=== PATIENT | female | born 1950 | race Caucasian/White ===

== ENCOUNTER 2017-08-01 05:50 | Day surgery (SDC) | payer MEDICARE, OTHER ==
[~2017-08-01] VITALS: Ht 162.6 cm; Wt 76.2 kg
[~2017-08-01 05:50] MED LIST: ALPHA LIPOIC A200 MG PO; ASPIR 8181 MG PO; ASPIRIN81 MG PO; B12; BACTRIM DS TAB1 EACH PO; CALCIUM + VITA1 EACH PO; CIPROFLOXACIN500 MG PO; CYANOCOBAL1000 MCG/M IM; DOCUSATE SODIU100 MG PO; FOLIC ACID1 MG PO; KEFLEX500 MG PO; KETOROLAC TROME10 MG PO; L-ARGININE1000 MG PO; LEVOTHYROXINE50 MCG PO; METAMUCIL PACK1 EACH PO; METFORMIN HCL1000 MG PO; MILK OF MA400 MG/5 M PO; MULTI VITAMIN1 EACH PO; MULTI-VITAMIN1 EACH PO; NORCO 5-325 TA1 EACH PO; PILOCARPINE HCL5 MG PO; VITAMIN D3400 UNIT PO; ZOFRAN ODT8 MG SL; ZOFRAN4 MG PO; ZOLOFT25 MG PO
--- NOTE | 2017-08-01 10:29 | NUR ---
08/01/17 1028 Paige Merino report from rotoprinter.
--- NOTE | 2017-08-16 14:43 | OR ---
[facility] [address], [place] [address] Signed DATE OF OPERATION: 08/01/2017 SURGEON: Tabatha Mike DPM PREOPERATIVE DIAGNOSIS: Exostosis formation, right first metatarsophalangeal joint. POSTOPERATIVE DIAGNOSIS: Exostosis formation, right first metatarsophalangeal joint. PROCEDURE: Cheilectomy of the right first metatarsophalangeal joint. HOME SERVICE ADVISOR: Juventino Kirkland DPM. ANESTHESIA: Local with MAC consisting of 10 mL of 0.5% ropivacaine and 2% lidocaine plain injected about the fifth metatarsal. ANESTHESIOLOGIST: Nurse senior software quality analyst, Abiola Hurley. HEMOSTASIS: With an ankle tourniquet. ESTIMATED BLOOD LOSS: Less than 5 mL or minimal. MATERIALS UTILIZED: 3-0 Vicryl, 4-0 Vicryl, 5-0 nylon, and bone wax. PROCEDURE IN DETAIL: The patient was brought into the operating room and placed upon the operating table in the supine position. Following the IV sedation, the above local anesthesia was administered about the patient's right first metatarsophalangeal joint region. The right foot was then scrubbed, prepped, and draped in the usual sterile technique. An Esmarch bandage was then utilized to exsanguinate the right foot and then left wrapped around the ankle to act as tourniquet. Attention was then directed to the dorsal aspect of the first metatarsophalangeal joint, where approximately a 5 cm linear incision was Electronically Signed By: TABATHA MIKE DPM 08/16/17 1443 PATIENT NAME: CHERIE RIDER OPERATIVE REPORT DATE OF : 48 PHYSICIAN: TABATHA MIKE DPM REPORT #: [id number] REPORT IS CONFIDENTIAL AND NOT TO BE RELEASED WITHOUT AUTHORIZATION [facility] [address], [place] [address] Signed performed, both parallel and medial to the tendon on the extensor hallucis longus. Careful dissection through the subcutaneous tissue was then performed with care being taken to identify and retract the vital neurovascular structures. Bleeders were cauterized and ligated as necessary. Careful dissection continued down to the level of the joint capsule, where utilizing a #64 Pic[place]une blade, a linear capsulotomy was performed and the joint capsule was reflected both medially and laterally, thus exposed the near articular surface of the operative site. It should be noted at this time that exostosis formation or increased bony prominence was noted on the dorsomedial aspect of the first metatarsal head region and also adjacent base of the proximal phalanx. Sagittal saw was then utilized to reduce the bony hypertrophic area. Normal bone trabeculation and normal bone density was observed. Lightly feathering and tapering of the osteotomy was performed also with the sagittal saw in a brushing motion. Rongeur was utilized to also remove some hypertrophic bone on the base of the middle phalanx in conjunction with the sagittal saw removing the portion of hypertrophic bone directly dorsal. Area was flushed with copious amounts of sterile normal saline. Bone wax was then utilized to cover the raw areas of the bone. First MTPJ was put through range of motion and found to be ideal. Inspection of the articular surface found majority of the articular cartilage intact and in healthy standing with some small defect noted on the dorsolateral aspect, however, this appeared to be somewhat minor. The joint capsule was then closed utilizing 3-0 Vicryl, the subcutaneous tissue was then closed utilizing the 4-0 Vicryl, and the skin was reapproximated and coapted utilizing 5-0 nylon in a continuous interlocking suture technique. Postoperative injection consisting of 5 mL of 0.5% ropivacaine mixed with 1 mL of dexamethasone phosphate was then injected about the surgical site. Silver Mepilex was then utilized as a primary dressing followed by a left gauze, roll gauze, and Coban. The ankle tourniquet was removed. Prompt hyperemic response was noted to all digits of the patient's right foot. The patient was then escorted to the recovery area by Anesthesia with vital signs stable and capillary refill time being less than 3 seconds to all digits. The patient had tolerated both the procedure and the anesthesia well and following the period of postoperative monitoring, the patient was discharged to home with both written and oral instructions. Tabatha Mike DPM TM/MODL Electronically Signed By: TABATHA MIKE DPM 08/16/17 1443 PATIENT NAME: CHERIE RIDER JONATHAN OPERATIVE REPORT DATE OF : 48 PHYSICIAN: TABATHA MIKE DPM REPORT #: [id number] REPORT IS CONFIDENTIAL AND NOT TO BE RELEASED WITHOUT AUTHORIZATION [address] [address] Signed /[id number] Electronically Signed By: TABATHA MIKE DPM 08/16/17 1443 PATIENT NAME: TERESOCHERIE LEE OPERATIVE REPORT DATE OF : 48 PHYSICIAN: TABATHA MIKE DPM REPORT #: [id number] REPORT IS CONFIDENTIAL AND NOT TO BE RELEASED WITHOUT AUTHORIZATION
== END 2017-08-01 11:30 | disposition home or self-care (01) ==
LOC: DS 05:50 → OPS 05:50 → DS 06:45 → OPS 08:45
PROVIDERS: Podiatrist Foot & Ankle Surgery
PROC: 0QBN0ZZ Excision of Right Metatarsal, Open Approach (ICD-10-PCS; principal; 2017-08-01 08:45)
DX: M89.9 Disorder of bone, unspecified (principal); M20.21 Hallux rigidus, right foot; G47.30 Sleep apnea, unspecified; I10 Essential (primary) hypertension; F41.9 Anxiety disorder, unspecified; F32.9 Major depressive disorder, single episode, unspecified; E11.9 Type 2 diabetes mellitus without complications
CPT/HCPCS: 01480; 73630; J0690; J1100; J2250; J2405; J2704; J2795; J7120

== ENCOUNTER 2017-12-19 19:04 | Emergency (ER) | payer MEDICARE, OTHER ==
[~2017-12-19] VITALS: Ht 162.6 cm; Wt 80.7 kg
--- OUTSIDE RECORDS SUMMARY | ~2017-12-19 | XMS | Clinical Summary ---
Demographics + + + | Address | [address] | | | [place] [address] | + + + | Home Phone | | + + + | Preferred Language | Unknown | + + + | Marital Status | | + + + | Judaism Affiliation | 1001 | + + + | Race | Unknown | + + + | Ethnic Group | Unknown | + + + Author + + + | Author | [facility] | | | and [place] | + + + | Organization | [facility] | | | and [place] | + + + | Address | Unknown | + + + | Phone | Unavailable | + + + Support + + + + + | Name | Relationship | Address | Phone | + + + + + | Norberto Mann | ECON | [address] | | | | | [place] | | | | | [address] | | + + + + + Care Team Providers + +------+ + | Care Certified Substance Abuse Counselor Name | Role | Phone | + +------+ + | Humberto Ruby MD | PP | | + +------+ + Allergies + + + + + + | Active Allergy | Reactions | Severity | Noted | Comments | | | | | Date | | + + + + + + | Clarithromycin | Other (See Comments) | Medium | 08/06/20 | BIAXIN - | | | | | 15 | TACHYCARDIA, LOC | + + + + + + | Codeine | Nausea And Vomiting, | Medium | 08/06/20 | HALLUCINATION | | | Other (See | | 15 | | | | Comments) | | | | + + + + + + | Exenatide | Other (See Comments) | Medium | 03/28/20 | byetta caused | | | | | 11 | constipation | + + + + + + | Morphine | Nausea And Vomiting | Medium | 08/06/20 | | | | | | 15 | | + + + + + + | Penicillin G | Other (See Comments) | Medium | 11/30/19 | Tachycardia is | | | | | 11 | taken for shelter | + + + + + + | Procaine | Other (See Comments) | Medium | 08/06/20 | SHAKEY | | | | | 15 | | + + + + + + | Propoxyphene | Nausea And Vomiting | Medium | 08/06/20 | DARVOCET | | | | | 15 | | + + + + + + Current Medications + + +-------+---------+------+------+-------+ | Prescription | Sig. | Disp. | Refills | Star | End | Statu | | | | | | t | Date | s | | | | | | Date | | | + + +-------+---------+------+------+-------+ | levothyroxine | Take 88 mcg by mouth | | | | | Activ | | (SYNTHROID) 88 mcg | every morning | | | | | e | | tablet | (before breakfast). | | | | | | + + +-------+---------+------+------+-------+ | sertraline | Take 100 mg by mouth | | | | | Activ | | (ZOLOFT) 100 mg | Daily. | | | | | e | | tablet | | | | | | | + + +-------+---------+------+------+-------+ | pilocarpine | Take 5 mg by mouth 3 | | | | | Activ | | (SALAGEN) 5 mg | times daily. | | | | | e | | tablet | | | | | | | + + +-------+---------+------+------+-------+ | Multiple Vitamin | Take 1 tablet by | | | | | Activ | | (MULTI-VITAMIN PO) | mouth Daily. | | | | | e | + + +-------+---------+------+------+-------+ | docusate sodium | Take 100 mg by mouth | | | | | Activ | | (COLACE) 100 mg | 2 times daily. | | | | | e | | capsule | | | | | | | + + +-------+---------+------+------+-------+ | acetaminophen | Take 1,000 mg by | | | | | Activ | | (TYLENOL) 500 mg | mouth every 6 hours | | | | | e | | tablet | as needed for Pain. | | | | | | + + +-------+---------+------+------+-------+ | aspirin 81 mg EC | Take 81 mg by mouth | | | | | Activ | | tablet | Daily. | | | | | e | + + +-------+---------+------+------+-------+ | Cyanocobalamin | Place 5,000 mcg | | | | | Activ | | (VITAMIN B-12) 5000 | under the tongue | | | | | e | | MCG SUBL | Daily. | | | | | | + + +-------+---------+------+------+-------+ | albuterol | Inhale 2 puffs into | | | | | Activ | | (VENTOLIN HFA) 90 | the lungs every 6 | | | | | e | | mcg/puff inhaler | hours as needed for | | | | | | | | Other (coughing). | | | | | | + + +-------+---------+------+------+-------+ | ondansetron | Take 4 mg by mouth | | | | | Activ | | (ZOFRAN ODT) 4 mg | every 8 hours as | | | | | e | | disintegrating | needed for Nausea | | | | | | | tablet | (with pain | | | | | | | | medicine). | | | | | | + + +-------+---------+------+------+-------+ Active Problems Not on file Social History + +-------+ +--------+------+ | Tobacco [...] + +---------+ + | Alcohol Use | Drinks/We | oz/Week | Comments | | | ek | | | + + +---------+ + | No | | | | + + +---------+ + + + + | Sex Assigned at | Date Recorded | | | | + + + | Not on file | | + + + Last Filed Vital Signs + + + + | Vital Sign | Reading | Time Taken | + + + + | Blood Pressure | 135/75 | 08/06/20171138 PST | + + + + | Pulse | 70 | 08/06/20171138 PST | + + + + | Temperature | 36.3 C (97.3 F) | 08/06/20171138 PST | + + + + | Respiratory Rate | 16 | 08/06/20171138 PST | + + + + | Oxygen Saturation | 95% | 08/06/20171138 PST | + + + + | Inhaled Oxygen | - | - | | Concentration | | | + + + + | Weight | 77.1 kg (170 lb) | 08/03/20171218 PST | + + + + | Height | 162.6 cm (5' 4") | 08/03/20171218 PST | + + + + | Body Mass Index | 29.18 | 08/03/20171218 PST | + + + + Plan of Treatment + + + + + | Health Maintenance | Due Date | Last Done | Comments | + + + + + | Hepatitis C | | | | | Screening | 9 | | | + + + + + | Vaccine: | | | | | Dtap/Tdap/Td (1 - | 8 | | | | Tdap) | | | | + + + + + | BREAST CANCER | | | | | SCREENING (MAMM Q2 | 9 | | | | YEARS 50-74) | | | | + + + + + | COLON CANCER | | | | | SCREENING | 9 | | | | (COLONOSCOPY EVERY | | | | | 10 YEARS 50-75) | | | | + + + + + | Vaccine: | | | | | Pneumococcal 65+ | 4 | | | | Low/Medium Risk (1 | | | | | of 2 - PCV13) | | | | + + + + + | Vaccine: Influenza | | | | | (Season Ended) | 8 | | | + + + + + Results Not on filefrom Last 3 Months Insurance + +--------+ +--------+ +---------+ | Payer | Benefi | Subscriber | Type | Phone | Address | | | t Plan | ID | | | | | | / | | | | | | | Group | | | | | + +--------+ +--------+ +---------+ | MEDICARE | MEDICA | xxxxxxxxxx | Medica | [phone] | | | RE | | re | [phone] | | | | PART A | | | | | | | AND B | | | | | + +--------+ +--------+ +---------+ | CIGNA | CIGNA | xxxxxxxxxx | Indemn | [phone] | | | | MDCR | | ity | [phone] | | | | SUPPLE | | | | | | | MENT | | | | | | | SOLUTI | | | | | | | ONS | | | | | + +--------+ +--------+ +---------+ + +--------+ +--------+ + + | Guarantor Name | Accoun | Relation to | Date | Phone | Billing Address | | | t Type | Patient | of | | | | | | | | | | + +--------+ +--------+ + + | CARLY MANN | Person | Self [birth year] Home: | [phone] | | | al/Fam | | 1950 | [phone] | [place] [address] | | | elissa | | | 2020 | | + +--------+ +--------+ + +
--- OUTSIDE RECORDS SUMMARY | ~2017-12-19 | XMS | Clinical Summary ---
Demographics + + + | Address | [address] | | | [place] [address] | + + + | Home Phone | | + + + | Preferred Language | Unknown | + + + | Marital Status | | + + + | Congregational Affiliation | ADV | + + + | Race | White | + + + | Ethnic Group | Not or | + + + Author + + + | Author | NON REVENUE LOCATIONS | + + + | Organization | NON REVENUE LOCATIONS | + + + | Address | Unknown | + + + | Phone | Unavailable | + + + Support + + + + + | Name | Relationship | Address | Phone | + + + + + | ZANE MANN | ECON | [address] | | | [place] | | [place] | | | | | [address] | | + + + + + Care Team Providers + +------+ + | Care Rn Spine Name | Role | Phone | + +------+ + | Humberto Ruby MD | PP | | + +------+ + Source Comments DAVID is fully live on both EpicCare Ambulatory and EpicCare InPatient.[facility] Allergies + + + + + + | Active Allergy | Reactions | Severity | Noted | Comments | | | | | Date | | + + + + + + | Clarithromycin | Palpitations, | Medium | 11/30/19 | BIAXIN - | | | Unknown | | 11 | TACHYCARDIA, LOC | + + + + + + | Exenatide | | | 03/28/20 | | | | | | 11 | | + + + + + + | Codeine | Nausea and Vomiting, | Medium | 11/30/19 | HALLUCINATION | | | Unknown | | 11 | | + + + + + + | Morphine | Nausea and Vomiting | Medium | 05/31/20 | | | | | | 16 | | + + + + + + | Diphenhydramine-Acet | | | 11/30/19 | (Some pain | | aminophen | | | 11 | medications) | + + + + + + | Penicillin G | | | 11/30/19 | | | | | | 11 | | + + + + + + | Procaine | Unknown | | 05/31/20 | SHAKEY | | | | | 16 | | + + + + + + | Propoxyphene | Nausea and Vomiting | Medium | 05/31/20 | DARVOCET | | | | | 16 | | + + + + + + | Propoxyphene-Acetami | Dyspnea | High | 11/30/19 | | | nophen | | | 11 | | + + + + + + Current Medications + + + +---------+------+------+-------+ | Prescription | Sig. | Disp. | Refills | Star | End | Statu | | | | | | t | Date | s | | | | | | Date | | | + + + +---------+------+------+-------+ | levothyroxine 75 | Take 75 mcg by mouth | | | | | Activ | | mcg Oral Tablet | once daily. | | | | | e | + + + +---------+------+------+-------+ | ergocalciferol | Take 50,000 Units by | | | | | Activ | | (VITAMIN D) 50,000 | mouth every seven | | | | | e | | unit Oral Capsule | days. | | | | | | + + + +---------+------+------+-------+ | CYANOCOBALAMIN, | 1 mL by Injection | | | 04/0 | | Activ | | VITAMIN B-12, | route every thirty | | | 5/20 | | e | | (VITAMIN B-12 INJ) | days. | | | 11 | | | + + + +---------+------+------+-------+ | INSULIN LISPRO | Inject 20 Units | | | 04/0 | | Activ | | (HUMALOG KWIKPEN | under the skin | | | 5/20 | | e | | SUBQ) | (SUBC) three times | | | 11 | | | | | daily. | | | | | | + + + +---------+------+------+-------+ | oxaprozin 600 mg | Take 600 mg by mouth | | | | | Activ | | Oral Tablet | once daily. | | | | | e | + + + +---------+------+------+-------+ | multivitamin | Take 1 Tab by mouth | | | | | Activ | | (MULTIPLE VITAMIN) | once daily. | | | | | e | | Oral Tablet | | | | | | | + + + +---------+------+------+-------+ | [place]-3 Fatty | Take 1 Cap by mouth | | | 04/0 | | Activ | | Acids-Vitamin E | once daily. | | | 5/20 | | e | | (FISH OIL) 1,000 mg | | | | 11 | | | | Oral Capsule | | | | | | | + + + +---------+------+------+-------+ | Thioctic Acid | Take 2 Tabs by mouth | | | 04/0 | | Activ | | (ALPHA LIPOIC ACID) | once daily. | | | /20 | | e | | 200 mg Oral Tablet | | | | 11 | | | + + + +---------+------+------+-------+ | phentermine 37.5 | Take 1 Tab by mouth | 60 Tab | 3 | 08/0 | | Activ | | mg Oral Tablet | once daily in the | | | 2/20 | | e | | | morning. Administer | | | 11 | | | | | before breakfast. | | | | | | + + + +---------+------+------+-------+ | hydroxychloroquine | Take 1 tablet by | 60 | 5 | 04/1 | | Activ | | (PLAQUENIL) 200 mg | mouth two times | tablet | | 5/20 | | e | | oral tablet | daily. | | | 14 | | | + + + +---------+------+------+-------+ | sertraline 50 mg | Take by mouth. | | | | | Activ | | oral tablet | | | | | | e | + + + +---------+------+------+-------+ | phentermine 30 mg | | | 0 | 09/2 | | Activ | | oral capsule | | | | 1/20 | | e | | | | | | 16 | | | + + + +---------+------+------+-------+ | pilocarpine 5 mg | | | | 09/1 | | Activ | | oral tablet | | | | 4/20 | | e | | | | | | 16 | | | + + + +---------+------+------+-------+ | levothyroxine 50 | | | | 09/1 | | Activ | | mcg oral tablet | | | | 1/20 | | e | | | | | | 16 | | | + + + +---------+------+------+-------+ | acetaminophen 500 | Take by mouth. | | | | | Activ | | mg oral tablet | | | | | | e | + + + +---------+------+------+-------+ | aspirin EC 81 mg | Take by mouth. 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 | + + + + + | Overview: Partial lipodystrophy phenotype (Kobblinger's type) | | Lifetime max: 218 lbs | + + + + + | Fibromyalgia | 03/28/2011 | + + + | Hypothyroidism | 03/28/2011 | + + + | Type 2 diabetes mellitus (HCC) | 03/28/2011 | + + + | Dyslipidemia | 03/28/2011 | + + + | Rheumatoid arthritis (HCC) | 11/29/2010 | + + + + + | Overview: ICD10 | + + Family History + + +------+ + | Medical History | Relation | Name | Comments | + + +------+ + | Additional Family | Father | | Central obesity | | History | | | | + + +------+ + | Diabetes | Father | | | + + +------+ + | Heart Disease | Father | | | + + +------+ + | Diabetes | Maternal | | | | | Uncle | | | + + +------+ + | Additional Family | Mother | | Central obesity | | History | | | | + + +------+ + | Cancer | Sister | | Lung CA in 2 sisiters who smoked | + + +------+ + | Additional Family | Sister | | Centrally obese, S/P RYGBP | | History | | | | + + +------+ + + +------+--------+ + | Relation | Name | Status | Comments | + +------+--------+ + | Father | | | | + +------+--------+ + | Maternal Uncle | | | | + +------+--------+ + | Mother | | | | + +------+--------+ + [...] Pressure | 141/68 | 09/28/2016 2:09 PM PST | + + + + | Pulse | 80 | 09/28/2016 2:09 PM PST | + + + + | Temperature | 36.7 C (98.1 F) | 05/31/2016 10:47 AM PDT | + + + + | Respiratory Rate | 18 | 05/31/2016 1:37 PM PDT | + + + + | Oxygen Saturation | 100% | 05/31/2016 1:37 PM PDT | + + + + | Inhaled Oxygen | - | - | | Concentration | | | + + + + | Weight | 77.6 kg (171 lb) | 09/28/2016 2:09 PM PST | + + + + | Height | 163.8 cm (5' 4.5") | 09/28/2016 2:09 PM PST | + + + + | Body Mass Index | 28.9 | 09/28/2016 2:09 PM PST | + + + + Plan of Treatment + + + + + | Health Maintenance | Due Date | Last Done | Comments | + + + + + | INFLUENZA VACCINE | | | | | (FLU SHOT) | 8 | | | + + + + + Results Not on filefrom Last 3 Months
--- OUTSIDE RECORDS SUMMARY | ~2017-12-19 | XMS | Clinical Summary ---
Demographics + + + | Address | [address] | | | [place] [address] | + + + | Home Phone | | + + + | Preferred Language | Unknown | + + + | Marital Status | | + + + | Oriental Orthodox Affiliation | 1001 | + + + | Race | Unknown | + + + | Ethnic Group | Unknown | + + + Author + + + | Author | [facility] | + + + | Organization | [facility] | + + + | Address | Unknown | + + + | Phone | Unavailable | + + + Support + + + + + | Name | Relationship | Address | Phone | + + + + + | Detailed,Message | ECON | Unknown | | + + + + + | Norberto Mann | ECON | [address] | | | | | [place] | | | | | [address] | | + + + + + | Jaison Mann | ECON | Unknown | | + + + + + | Chantal Anderson | ECON | Unknown | | + + + + + Care Team Providers + +------+ + | Care Receiving Worker Name | Role | Phone | [...] tablet by | 90 | 3 | 09/ | | Activ | | (SALAGEN) 5 [...] | Screening | 9 | | | | (Mammogram) | | | | + + + + + | Colon Cancer | | | | | Screening | 9 | | | | (Colonoscopy) | | | | + + + [...] N/A: | [facility] | | 09/13/ | [id number] | | 07/14/2014 by Troy Mazariegos, | | Abdome | ick | | 2019 | 6 /NA | | MD | | n | | | | /[id number] | | | | | | | | [phone] | + +------+--------+ +--------+--------+--------+ | Tube Wayne Bobbin W/O Holes | | | [employer] | | | [phone] | | - [id number]: Qty: 1 | | | | | | 62 / | | on 11/05/2014 by Caesar | | | | | | /[id number] | | DO [place] | | | | | | [phone] | + +------+--------+ +--------+--------+--------+ Results Not on [...] +------+-------+ + | MEDICARE | MEDICA | xxxxxxxxxx | | | [address] | | | RE | | | | [place] [address] | | | IP-OP | | | | | + +--------+ +------+-------+ + | COMMERCIAL OTHER | COMMER | xxxxxxxxx | | | | | | CIAL [...] Self | [birth year] | Home: | [address] | | | al/Fam | | 1950 | [phone] | [place] [address] | | | elissa | | | [phone] | | + +--------+ +--------+ + +
--- OUTSIDE RECORDS SUMMARY | ~2017-12-19 | XMS | Clinical Summary ---
Demographics + + + | Address | [address] | | | [place] [address] | + + + | Home Phone | | + + + | Preferred Language | Unknown | + + + | Marital Status | | + + + | Mandaeism Affiliation | 1001 | + + + | Race | Unknown | + + + | Ethnic Group | Unknown | + + + Author + + + | Author | [facility] | | | and [place] | + + + | Organization | [facility] | | | and [place] | + + + | Address | Unknown | + + + | Phone | Unavailable | + + + Support + + + + + | Name | Relationship | Address | Phone | + + + + + | Norberto Mann | ECON | [address] | | | | | [place] | | | | | [address] | | + + + + + Care Team Providers + +------+ + | Care Performance Makeup Artist Name | Role | Phone | + [...] | | | 11 | taken for halfway | + + + + + + [...] | Self | [birth year] | Home: | [address] | | | al/Fam | | 1950 | [phone] | [place] [address] | | | elissa | | | 2020 | | + +--------+ +--------+ + +
--- OUTSIDE RECORDS SUMMARY | ~2017-12-19 | XMS | Clinical Summary ---
Demographics + + + | Address | [address] | | | [place] [address] | + + + | Home Phone | | + + + | Preferred Language | Unknown | + + + | Marital Status | | + + + | Jainism Affiliation | 1001 | + + + | Race | Unknown | + + + | Ethnic Group | Unknown | + + + Author + + + | Author | [facility] | + + + | Organization | [facility] | + + + | Address | Unknown | + + + | Phone | Unavailable | + + + Support + + + + + | Name | Relationship | Address | Phone | + + + + + | Detailed,Message | ECON | Unknown | | + + + + + | Norberto Mann | ECON | [address] | | | | | [place] | | | | | [address] | | + + + + + | Jaison Mann | ECON | Unknown | | + + + + + | Chantal Anderson | ECON | Unknown | | + + + + + Care Team Providers + +------+ + | Care Automatic Buffing Wheel Former Name | Role | Phone | + [...] N/A: | [facility] | | 09/13/ | [id number] | | 07/14/2014 by Troy Mazariegos, | | Abdome | ick | | 2019 | 6 /NA | | MD | | n | | | | /[id number] | | | | | | | | [phone] | + +------+--------+ +--------+--------+--------+ | Tube Wayne Bobbin W/O Holes | | | [employer] | | | [phone] | | - [id number]: Qty: 1 | | | | | | 62 / | | on 11/05/2014 by Caesar | | | | | | /[id number] | | DO [place] | | | | | | [phone] | + +------+--------+ +--------+--------+--------+ Results Not on [...] | xxxxxxxxxx | | | [address] | | | RE | | | | [place] [address] | | | IP-OP | | | [...] Self | [birth year] | Home: | [address] | | | al/Fam | | 1950 | [phone] | [place] [address] | | | elissa | | | [phone] | | + +--------+ +--------+ + +
--- OUTSIDE RECORDS SUMMARY | ~2017-12-19 | XMS | Clinical Summary ---
Demographics + + + | Address | [address] | | | [place] [address] | + + + | Home Phone [...] + | ZANE MANN | ECON | [address] | | | [place] | | [place] | | | | | [address] | | + + + + + Care Team Providers + +------+ + | Care Master Control Operator Name | Role | Phone | + +------+ + | Humberto Ruby MD | PP | | + +------+ + Source Comments DAVID is fully live on both EpicCare Ambulatory and EpicCare InPatient.[facility] Allergies + + + + + + [...] | | + + + +---------+------+------+-------+ | [place]-3 Fatty | Take 1 Cap by mouth [...]
[2017-12-19] MEDS ORDERED: HYDROXYZINE HCL25 MG PO (20:38)
[2017-12-19] MEDS ORDERED: NORCO 5-325 TA1 EACH PO (20:38)
== END 2017-12-19 21:00 | disposition home or self-care (01) ==
LOC: ED 19:04
PROC: 2W3DX1Z Immobilization of Left Lower Arm using Splint (ICD-10-PCS; principal; 2017-12-19)
DX: S63.502A Unspecified sprain of left wrist, initial encounter (principal); W19.XXXA Unspecified fall, initial encounter; E03.9 Hypothyroidism, unspecified; Z88.0 Allergy status to penicillin; Z88.8 Allergy status to other drugs, medicaments and biological substances; Z88.5 Allergy status to narcotic agent; Z88.1 Allergy status to other antibiotic agents; Z79.899 Other long term (current) drug therapy
CPT/HCPCS: 29125; 73110; 99283; Q0177

== ENCOUNTER 2019-07-09 19:01 | Emergency (ER) | payer MEDICARE, OTHER ==
[~2019-07-09] VITALS: Ht 162.6 cm; Wt 79.4 kg
--- OUTSIDE RECORDS SUMMARY | ~2019-07-09 | XMS | Encounter Summary ---
Demographics + + + | Address | [address] | | | [place] [address] | + + + | Home Phone | | + + + | Preferred Language | Unknown | + + + | Marital Status | | + + + | Gnosticism Affiliation | 1001 | + + + | Race | Unknown | + + + | Ethnic Group | Unknown | + + + Author + + + | Author | [facility] | | | and [place] | + + + | Organization | [facility] | | | and [place] | + + + | Address | Unknown | + + + | Phone | Unavailable | + + + Support + + + + + | Name | Relationship | Address | Phone | + + + + + | Norberto Mann | ECON | [address] | | | | | [place], [place] | | | | | [address] | | + + + + + Care Team Providers + +------+ + | Care Seismic Prospecting Supervisor Name | Role | Phone | + +------+ + PCP | Unavailable | + +------+ + Encounter Details +--------+ + + + + | Date | Type | Department | Care Team | Description | +--------+ + + + + | 01/12/ | Hospital | [facility] | Conversion | | | 2014 | Encounter | CENTER OUTPATIENT | Transaction, | | | | | PHYSICAL THERAPY | Provider Unknown | | | | | [address] | | | | | | [place], [place] | (Fax) | | | | | [phone] | | | | | | [phone] | | | +--------+ + + + + Social History + +-------+ +--------+------+ | Tobacco Use | Types | Packs/Day | Years | Date | | | | | Used | | + +-------+ +--------+------+ | Never Assessed | | | | | + +-------+ +--------+------+ + + + | Sex Assigned at | Date Recorded | | | | + + + | Not on file | | + + + + + + + | Job Start Date | Occupation | Industry | + + + + | Not on file | Not on file | Not on file | + + + + + + + + | Travel History | Travel Start | Travel End | + + + + + + | No recent travel history available. | + + documented as of this encounter Medications at Time of Discharge + + + +---------+ + + | Medication | Sig | Dispensed | Refills | Start | End Date | | | | | | Date | | + + + +---------+ + + | ALPHA LIPOIC ACID | Take 2 tablets by | | 0 | 04/01/13 | | | PO | mouth Daily. | | | 11 | | + + + +---------+ + + | Cyanocobalamin | Inject 1 mL as | | 0 | /01/13 | | | (VITAMIN B-12 IJ) | directed Every 30 | | | 11 | | | | days. | | | | | + + + +---------+ + + | fish oil 1,000 mg | Take 1 capsule by | | 0 | 11/30/19 | | | capsule | mouth Daily. | | | 11 | | + + + +---------+ + + | hydroxychloroquine | Take 1 tablet by | | 0 | 12/10/19 | | | (PLAQUENIL) 200 mg | mouth 2 times daily. | | | 14 | | | tablet | | | | | | + + + +---------+ + + | Insulin Lispro | Inject 20 Units | | 0 | 11/30/19 | | | ([facility]OG [facility]) | under the skin 3 | | | 11 | | | | times daily. | | | | | + + + +---------+ + + documented as of this encounter Progress Notes Georgie Valencia PT - 01/12/2015 3:45 PM PDTFormatting of this note might be different fr om the original. Progress Notes by Georgie Valencia PT at 01/12/15 5390 Author: Georgie Valencia PT Service: (none) Author Type: Physical Therapist Filed: 01/12/15 1600 Date of Service: 01/12/15 5193 Status: Signed Opener Verifier Packer [employer]: Georgie Valencia PT (Physical Therapist) Therapy Daily Treatment Note Date of Service: 01/12/2015 Treatment Time/Charges: Therapeutic Exercise 17832 x 3 (45 minutes) Insurance Authorization: 13 of 17 estimated authorized visits (Medicare) - 10/06 GC Authorization Expiration: 08/26/15 POC Expiration: 02/17/15 Subjective: Pain Complaint: Pt c/o anorectal pain and irregular varying bowel movements. Subjective Comments: Pt states overall she is feeling better. States her constipation has i mproved however she still has times where she might not go for a few days, and then have inc reased frequency. States her most recent bowels were a little looser than normal. Pt reports adherence to HEP for stretches. States she has also ordered the therawand for home therapy. States she also wants to purchase a stability ball for home exercise as well, however forge t to look when she was at the store. Objective: Daily Treatment: Therapeutic Exercise: Pt instructed and performed core exercises and stretches as indicated belowl: Supine: Unilateral bridge R/L x 10 x 3 sets Bilateral bridge x 10 x 3 sets Bilateral bridge with leg curl roll in/out x 10 x 3 sets Supine without stability ball: 3 # hand-wts and 2# ankle-wts Alt shoulder flexion R/L x 20 x 2 sets Alt hip/knee flexion R/L x 20 x 2 sets Hip/shoulder opposite R/L combo x 20 x 2 sets SLR R/L x 10 x 2 sets Prone: Hip extension with flexed knee R/L x 10 x 2 sets R/L x 20 x 2 sets Sidelying: Hip abduction R/L x 10 x 2 sets Shoulder abduction R/L x 10 x 2 sets Quadruped: Shoulder flexion R/L x 20 x 2 sets Hip/shoulder opposite R/L combo x 20 x 2 sets Child's pose stretch hold 20 sec x 2 STS w/ shoulder press x 10 x 3 sets Ptient Education: As per above for cont'd stability ball exercises for cont'd back/core str engthening, encouraged better adherence to exercises to be able to develop more strength and stability. To consider stability ball for home purchase. Assessment: Response to Treatment: Pt continues to have tender points throughout her abdomen, responds well to manual SCS and fascial mobilizations for decreased abdominal discomfort and congesti on. Pt has significant core and back weakness from multiple back and abdominal surgeries. Sh caio has slightly improved compliance with HEP and in previous sessions has been instructed wit h exercises with resistance tubing and stability ball. She has poor posturing and with remar kably anterior pelvic tilt and abdominal caving/crouching and therefore used stability ball to emphasize pelvic awareness. She needs significant back and core strengthening to develop better stabilizing and postural muscles. Pt tolerated well, vc's for slow and controlled mot ion. Patient continues to require skilled intervention due to: Pt is a good candidate for skille d PT services due to chronicity of condition with worsening of symptoms, severity of pain, a nd complexity of compounding surgeries and medical issues. Pt is very motivated to improve h er condition. Plan: F/u re: basic DLS strengthening and HEP. Cont per POC. Progress toward d/c. POC: PT treatment to include: Manual techniques for lumbopelvic alignment, external perinea l assessment for tenderpoints and/or triggerpoints, internal vaginal/rectal assessment for t enderpoints and/or triggerpoints and for PF muscle tone, MMT, and motor control, use of vagi nal/rectal sensor for EMG and manometry assessment and e-stim for neuromuscular control as n eeded. Pt education to include: A&P of lumbopelvic girdle, role of PF muscles in pelvic gird le function, and progressive home program for symptom management. Georgie Valencia, PT 01/12/2015 3:53 PM documented in this encounter Plan of Treatment Not on filedocumented as of this encounter Visit Diagnoses Not on filedocumented in this encounter"
--- OUTSIDE RECORDS SUMMARY | ~2019-07-09 | XMS | Encounter Summary ---
Demographics + + + | Address | [address] | | | [place] [address] | + + + | Home Phone | | + + + | Preferred Language | Unknown | + + + | Marital Status | | + + + | Hinduism Affiliation | 1001 | + + + | Race | Unknown | + + + | Ethnic Group | Unknown | + + + Author + + + | Author | [facility] | | | and [place] | + + + | Organization | [facility] | | | and eTeana | + + + | Address | Unknown | + + + | Phone | Unavailable | + + + Support + + + + + | Name | Relationship | Address | Phone | + + + + + | Norberto Mann | ECON | [address] | | | | | [place], [place] | | | | | [address] | | + + + + + Care Team Providers + +------+ + | Care Waiter And Cashier Name | Role | Phone | + +------+ + PCP | Unavailable | + +------+ + Encounter Details +--------+ + + + + | Date | Type | Department | Care Team | Description | +--------+ + + + + | 10/21/ | Hospital | [facility] | Conversion | | | 2014 | Encounter | CENTER [facility] | Transaction, | | | | | CLINIC [address] | Provider Unknown | | | | | [place], [place] | | | | | | [phone] | (Fax) | | | | | [phone] | | | +--------+ + + + [...] 1 mL as | | 0 | 11/30/19 | | | (VITAMIN B-12 IJ) | [...] | 0 | 11/30/19 | | | ([facility]) | under the skin 3 | | | 11 | | | | times daily. | | | | | + + + +---------+ + + documented as of this encounter Plan of Treatment Not on filedocumented as of this encounter Procedures + +--------+ + + + | Procedure Name | Priori | Date/Time | Associated Diagnosis | Comments | | | ty | | | | + +--------+ + + + | EXTERNAL LAB: CBC | Routin | 10/21/2014 | | Results for this | | | e | 2:15 PM | | procedure are in the | | | | PST | | results section. | + +--------+ + + + | BASIC METABOLIC | Routin | 10/21/2014 | | Results for this | | PANEL | e | 2:15 PM | | procedure are in the | | | | PST | | results section. | + +--------+ + + + documented in this encounter Results External Lab: CBC (10/21/2014 2:15 PM PST) + + + + + + | Component | Value | Ref Range | Performed | Pathologist | | | | | At | Signature | + + + + + + | WBC | 6.7Comment: Testing | 3.8 - 11.0 K/uL | EXTERNAL | | | | performed at [facility], [address] | | LAB | | | | [address], | | | | | | [place] [address] | | | | + + + + + + | RED CELL | 4.80Comment: Testing | 3.70 - 5.10 | EXTERNAL | | | COUNT | performed at [facility], [address] | M/uL | LAB | | | | [address], | | | | | | [place] [address] | | | | + + + + + + | Hgb | 13.9Comment: Testing | 11.3 - 15.5 | EXTERNAL | | | | performed at [facility], [address] | g/dL | LAB | | | | [address], | | | | | | [place] [address] | | | | + + + + + + | Hematocrit, | 41.8Comment: Testing | 34.0 - 46.0 % | EXTERNAL | | | POC | performed at [facility], [address] | | LAB | | | | [address], | | | | | | [place] [address] | | | | + + + + + + | MCV | 87.2Comment: Testing | 80.0 - 100.0 fl | EXTERNAL | | | | performed at [facility], [address] | | LAB | | | | [address], | | | | | | [place] [address] | | | | + + + + + + | MCH | 29.0Comment: Testing | 27.0 - 34.0 pg | EXTERNAL | | | | performed at [facility], [address] | | LAB | | | | [address], | | | | | | [place] [address] | | | | + + + + + + | MCHC | 33.3Comment: Testing | 32.0 - 35.5 | EXTERNAL | | | | performed at [facility], [address] | g/dL | LAB | | | | [address], | | | | | | [place] [address] | | | | + + + + + + | RDW-CV | 45.1Comment: Testing | 37 - 53 fl | EXTERNAL | | | | performed at [facility], [address] | | LAB | | | | [address], | | | | | | [place] [address] | | | | + + + + + + | Platelet | 118 (L)Comment: Testing | 150 - 400 K/uL | EXTERNAL | | | Count | performed at [facility], [address] | | LAB | | | Plasma | [address], | | | | | | [place] [address] | | | | + + + + + + | MPV | 9.2Comment: Testing | fl | EXTERNAL | | | | performed at [facility], [address] | | LAB | | | | [address], | | | | | | [place] [address] | | | | + + + + + + | Differentia | AUTOMATEDComment: | | EXTERNAL | | | l Type | Testing performed at | | LAB | | | | [facility], [address] | | | | | | [place] | | | | | | [address] | | | | + + + + + + | % Segmented | 56.2Comment: Testing | % | EXTERNAL | | | | performed at [facility], [address] | | LAB | | | Neutrophils | [address], | | | | | | [place] [address] | | | | + + + + + + | % | 36.0Comment: Testing | % | EXTERNAL | | | Lymphocytes | performed at [facility], [address] | | LAB | | | | [address], | | | | | | [place] [address] | | | | + + + + + + | % Monocytes | 6.2Comment: Testing | % | EXTERNAL | | | | performed at [facility], [address] | | LAB | | | | [address], | | | | | | [place] [address] | | | | + + + + + + | % | 1.3Comment: Testing | % | EXTERNAL | | | Eosinophils | performed at [facility], [address] | | LAB | | | | [address], | | | | | | [place] [address] | | | | + + + + + + | % Basophils | 0.3Comment: Testing | % | EXTERNAL | | | | performed at [facility], [address] | | LAB | | | | [address], | | | | | | [place] [address] | | | | + + + + + + | Absolute | 3.8Comment: Testing | 1.9 - 7.4 K/uL | EXTERNAL | | | Segmented | performed at [facility], [address] | | LAB | | | Neutrophils | [address], | | | | | | [place] [address] | | | | + + + + + + | Absolute | 2.4Comment: Testing | 1.0 - 3.9 K/uL | EXTERNAL | | | Lymphocytes | performed at [facility], [address] | | LAB | | | | [address], | | | | | | [place] [address] | | | | + + + + + + | Absolute | 0.4Comment: Testing | 0 - 0.8 K/uL | EXTERNAL | | | Monocytes | performed at [facility], [address] | | LAB | | | | [address], | | | | | | [place] [address] | | | | + + + + + + | Absolute | 0.1Comment: Testing | 0 - 0.5 K/uL | EXTERNAL | | | Eosinophils | performed at [facility], [address] | | LAB | | | | [address], | | | | | | [place] [address] | | | | + + + + + + | Absolute | 0.0Comment: Testing | 0 - 0.1 K/uL | EXTERNAL | | | Basophils | performed at [facility], [address] | | LAB | | | | [address], | | | | | | [place] [address] | | | | + + + + + + + + | Specimen | + + | Blood specimen | | (specimen) | + + + +---------+ + + | Performing | Address | City/State/Zipcode | Phone Number | | Organization | | | | + +---------+ + + | EXTERNAL LAB | | | | + +---------+ + + Basic Metabolic Panel (10/21/2014 2:15 PM PST) + + + + + + | Component | Value | Ref Range | Performed | Pathologist | | | | | At | Signature | + + + + + + | Na | 139Comment: Testing | 135 - 143 | EXTERNAL | | | | performed at [facility], [address] | mmol/L | LAB | | | | [address], | | | | | | [place] [address] | | | | + + + + + + | K | 4.1Comment: Testing | 3.5 - 4.9 | EXTERNAL | | | | performed at [facility], [address] | mmol/L | LAB | | | | [address], | | | | | | [place] [address] | | | | + + + + + + | Cl | 104Comment: Testing | 99 - 109 mmol/L | EXTERNAL | | | | performed at [facility], [address] | | LAB | | | | [address], | | | | | | [place] [address] | | | | + + + + + + | CO2 | 28Comment: Testing | 23 - 32 mmol/L | EXTERNAL | | | | performed at [facility], [address] | | LAB | | | | [address], | | | | | | [place] [address] | | | | + + + + + + | Anion Gap | 11Comment: Testing | 5 - 20 mmol/L | EXTERNAL | | | | performed at [facility], [address] | | LAB | | | | [address], | | | | | | [place] [address] | | | | + + + + + + | Glucose, | 83Comment: Testing | 65 - 99 mg/dL | EXTERNAL | | | Fasting | performed at [facility], [address] | | LAB | | | | [address], | | | | | | [place] [address] | | | | + + + + + + | BUN | 22Comment: Testing | 8 - 25 mg/dL | EXTERNAL | | | | performed at [facility], [address] | | LAB | | | | [address], | | | | | | [place] [address] | | | | + + + + + + | Creatinine | 0.61Comment: Testing | 0.50 - 1.00 | EXTERNAL | | | | performed at [facility], [address] | mg/dL | LAB | | | | [address], | | | | | | [place] [address] | | | | + + + + + + | BUN/Creatin | 36Comment: Testing | | EXTERNAL | | | ine Ratio | performed at [facility], [address] | | LAB | | | | [address], | | | | | | [place] [address] | | | | + + + + + + | Calcium | 9.7Comment: Testing | 8.5 - 10.5 | EXTERNAL | | | | performed at [facility], [address] | mg/dL | LAB | | | | [address], | | | | | | [place] [address] | | | | + + + + + + | Estimated | >60Comment: GFR <60: | mL/min/1.73m2 | EXTERNAL | | | GFR | CHRONIC KIDNEY DISEASE, | | LAB | | | | IF FOUND OVER A 3 MONTH | | | | | | PERIOD.GFR <15: KIDNEY | | | | | | FAILURE.FOR | | | | | | AMERICANS, MULTIPLY THE | | | | | | CALCULATED GFR BY | | | | | | 1.210.Testing performed | | | | | | at [facility], [address] | | | | | | [address], | | | | | | [place] [address] | | | | + + + + + + + + | Specimen | + + | Blood specimen | | (specimen) | + + + +---------+ + + | Performing | Address | City/State/Zipcode | Phone Number | | Organization | | | | + +---------+ + + | EXTERNAL LAB | | | | + +---------+ + + documented in this encounter Visit Diagnoses Not on filedocumented in this encounter"
--- OUTSIDE RECORDS SUMMARY | ~2019-07-09 | XMS | Encounter Summary ---
Demographics + + + | Address | [address] | | | [place] [address] | + + + | Home Phone | | + + + | Preferred Language | Unknown | + + + | Marital Status | | + + + | Temple Affiliation | 1001 | + + + | Race | Unknown | + + + | Ethnic Group | Unknown | + + + Author + + + | Author | [facility] | | | and [place] | + + + | Organization | [facility] | | | and [place] | + + + | Address | Unknown | + + + | Phone | Unavailable | + + + Support + + + + + | Name | Relationship | Address | Phone | + + + + + | Norberto Mann | ECON | [address] | | | | | [place], [place] | | | | | [address] | | + + + + + Care Team Providers + +------+ + | Care Sack Sorter Name | Role | Phone | + +------+ + PCP | Unavailable | + +------+ + Encounter Details +--------+ + + + + | Date | Type | Department | Care Team | Description | +--------+ + + + + | 07/20/ | Hospital | [facility] | Conversion | Pain | | 2013 | Encounter | CONVERSION [address] | Transaction, | | | | | [address] | Provider Unknown | | | | | [place], [place] | | | | | | [phone] | (Fax) | | | | | [phone] | | | +--------+ + + + [...] | + +--------+ + + + | CT SOFT TISSUE NECK | Routin | 07/10/2014 | | Results for this | | W WO CONTRAST | e | 11:33 PM | | procedure are in the | | | | PST | | results section. | + +--------+ + + + documented in this encounter Results CT Soft Tissue Neck w wo Contrast (07/10/2014 11:33 PM PST) + + | Specimen | + + | | + + + + + | Narrative | Performed At | + + + | This is a non-reportable procedure without a radiologist report and | | | is used for image storage only | | + + + + + | Procedure Note | + + | John Carrasco Annie - 04/11/2019 11:12 PM PDT This is a non-reportable procedure | | without a radiologist report and isused for image storage only | + + documented in this encounter Visit Diagnoses + + | Diagnosis | + + | Pain Generalized pain | + + documented in this encounter"
--- OUTSIDE RECORDS SUMMARY | ~2019-07-09 | XMS | Encounter Summary ---
Demographics + + + | Address | [address] | | | [place] [address] | + + + | Home Phone | | + + + | Preferred Language | Unknown | + + + | Marital Status | | + + + | Mandaen Affiliation | 1001 | + + + | Race | Unknown | + + + | Ethnic Group | Unknown | + + + Author + + + | Author | [facility] | | | and [place] | + + + | Organization | [facility] | | | and [place] | + + + | Address | Unknown | + + + | Phone | Unavailable | + + + Support + + + + + | Name | Relationship | Address | Phone | + + + + + | Norberto Mann | ECON | [address] | | | | | [place], [place] | | | | | [address] | | + + + + + Care Team Providers + +------+ + | Care Log Processor Operator Name | Role | Phone | + +------+ + PCP | Unavailable | + +------+ + Encounter Details +--------+ + + + + | Date | Type | Department | Care Team | Description | +--------+ + + + + | 11/19/ | Hospital | [facility] | Conversion | | | 2014 | Encounter | CENTER OUTPATIENT | Transaction, | | | | | PHYSICAL THERAPY | Provider Unknown | | | | | [address] | | | | | | [place], [place] | (Fax) | | | | | [phone] | | | | | | [phone] | | | +--------+ + + + [...] 0 | 11/30/19 | | | ([facility]) | under the skin 3 | | | 11 | | | | times daily. | | | | | + + + +---------+ + + documented as of this encounter Plan of Treatment Not on filedocumented as of this encounter Visit Diagnoses Not on filedocumented in this encounter"
--- OUTSIDE RECORDS SUMMARY | ~2019-07-09 | XMS | Encounter Summary ---
Demographics + + + | Address | [address] | | | [place] [address] | + + + | Home Phone | | + + + | Preferred Language | Unknown | + + + | Marital Status | | + + + | Yarsanism Affiliation | ADV | + + + | Race | White | + + + | Ethnic Group | Not or | + + + Author + + + | Author | [facility] | + + + | Organization | [facility] | + + + | Address | Unknown | + + + | Phone | Unavailable | + + + Support + + + + + | Name | Relationship | Address | Phone | + + + + + | Norberto Oliveros | ECON | [address] | | | [place] | | [place] | | | | | [address] | | + + + + + Care Team Providers + +------+ + | Care Cyber Forensic Specialist Name | Role | Phone | + +------+ + | Humberto Ruby MD | PCP | | + +------+ + Reason for Referral Consultation (Routine) +--------+--------+ + + + + | Status | Reason | Specialty | Diagnoses / | Referred By | Referred To | | | | | Procedures | Contact | Contact | +--------+--------+ + + + + | Closed | | Neurology | Diagnoses | Brock, Melody, | Lizzie General | | | | | Right ear | [address] | | | | | pain Right | [address] | [address] | | | | | facial pain | [place] | Mailcode: | | | | | Procedures | [place], [place] | [address] | | | | | CONSULT TO | [address] | for Health | | | | | NEUROLOGY | Phone: | and Healing, | | | | | | [phone] | Building [address], | | | | | | Fax: | 8th Floor | | | | | | [phone] | [place], [place] | | | | | | | [address] | | | | | | | Phone: | | | | | | | [phone] | | | | | | | Fax: | | | | | | | [phone] | +--------+--------+ + + + + Reason for Visit + + + | Reason | Comments | + + + | Ear problem | new pt here for ear eval | + + + Consultation (Routine) +--------+--------+ + + + + | Status | Reason | Specialty | Diagnoses / | Referred By | Referred To | | | | | Procedures | Contact | Contact | +--------+--------+ + + + + | Closed | | Otolaryngolog | Diagnoses | Mayte, | Ent Otology | | | | y | Conductive | Jaquelin E, | [facility] | | | | | hearing | PA-C [address] | [address] | | | | | loss, middle | [address] | [address] | | | | | ear | [place], Mailcode: | | | | | Procedures | [place] | [address] | | | | | CONSULT TO | [address] | [facility]ician[facility] | | | | | ENT / | Phone: | Pavilion | | | | | [facility] | [phone] | [place], [place] | | | | | [place] | Fax: | [address] | | | | | | [phone] | Phone: | | | | | | | [phone] | | | | | | | Fax: | | | | | | | [phone] | +--------+--------+ + + + + Encounter Details +--------+---------+ + + + | Date | Type | Department | Care Team | Description | +--------+---------+ + + + | 09/28/ | Office | Otolaryngology | Melody Gutiérrez MD | Right ear pain | | 2017 | Visit | Otology Services at | [address] | (Primary Dx); Right | | | | [address] [address] | [address] [place], | facial pain | | | | [address] | [place] [address] | | | | | Mailcode: [address] | [phone] | | | | | [facility] | | | | | | [place], [place] | | | | | | [address] | | | | | | [phone] | | | +--------+---------+ + + + Social History + +-------+ +--------+------+ | Tobacco Use | Types | Packs/Day | Years | Date | | | | | Used | | + +-------+ +--------+------+ | Never Smoker | | | | | + +-------+ +--------+------+ + +---+---+---+ | Smokeless Tobacco: | | | | | Never Used | | | | + +---+---+---+ + + +---------+ + | Alcohol Use | Drinks/Week | oz/Week | Comments | + + +---------+ + | No | | | | + + +---------+ + + + + | Sex Assigned at [...] + + documented as of this encounter Last Filed Vital Signs + + + + + | Vital Sign | Reading | Time Taken | Comments | + + + + + | Blood Pressure | 141/68 | 09/28/2016 2:09 PM | | | | | PST | | + + + + + | Pulse | 80 | 09/28/2016 2:09 PM | | | | | PST | | + + + + + | Temperature | - | - | | + + + + + | Respiratory Rate | - | - | | + + + + + | Oxygen Saturation | - | - | | + + + + + | Inhaled Oxygen | - | - | | | Concentration | | | | + + + + + | Weight | 77.6 kg (171 lb) | 09/28/2016 2:09 PM | | | | | PST | | + + + + + | Height | 163.8 cm (5' 4.5") | 09/28/2016 2:09 PM | | | | | PST | | + + + + + | Body Mass Index | 28.9 | 09/28/2016 2:09 PM | | | | | PST | | + + + + + documented in this encounter Patient Instructions Patient Instructions Melody Gutiérrez MD - 09/28/2016 2:00 PM PSTWill refer to neurology for pos sible neuralgia underlying your chronic ear/facial pain. Thank you so much for seeking care in the Division of Otology, Neurotology, and Skull Base Surgery. We hope we have been able to help you. If you have any questions about your care, please feel free to contact us at one of the num bers below or through [employer]. Your questions can best be answered during business hours at [phone], but you can always reach the [facility] asphalt surface heater operator at [phone] to contac t our on-call team. We look forward to taking care of you in the future. LI Barron MD, MA, MD, Director documented in this encounter Progress Notes Melody Gutiérrez MD - 09/28/2016 2:00 PM PST Division of Otology, Neurotology, and Skull Base Surgery Department of Otolaryngology/Head and Neck Surgery [facility] Patient: Carly Mann Referring Provider: Jaquelin MURRAY Author: Melody Gutiérrez MD Consultation Date: 09/28/2016 REASON FOR VISIT: Right otalgia HISTORY OF PRESENT ILLNESS: Referred by Jaquelin for recent h/o R mastoidectomy with PET 11/08 (Dr. Maynard, [facility] [place]) with R otalgia/dysequilibrium/hearing loss Chart review: Presented to the [facility] 06/12/16 for facial pain. H/o sinus surgery '93 and 20 00 at OSHs. Also complained of loss of smell/fatigue/facial pressure/congestion. Also c/o dysequilibriu m AD. Onset of symptoms 20 yrs ago, worsening over last 2 yrs. In addition to R mastoidectomy/tube has also had R parotidectomy 08/10 and 2 root canals R upper molars in late summer/fall 2015. Records from [facility] reviewed: 08/04/14 Dr. Anthony Maynard, DO-- R parotid mass. For FNA. R retracted ear with 'mastoiditis', elevated CRP, ?cortical erosion. At surgery 11/06/14 found to have mucopurulence in mastoid tip with granulation.. Had a ME effusion, a Wayne-Bobbin oxide tube was placed. At post-op visits, continued to feel that ear was plugged/hearing diminished. Re check of CRP was felicity l. 02/02/15-- seen urgently for acute R facial pain radiating to jaw, noted to have tenderness a t tail of parotid gland. [place] to have parotid gland obstruction and underwent cannulation in office then treated with abx. 06/16/15 developed recurrence of parotid swelling. Noted to have acute tenderness mastoid t ip/patent tube/recurrent sialoadenitis. Referred to Dr. Baldwin for parotid endoscopy. Had salivary gland dilation and then R parotidectomy in [place] with Dr. Baldwin but vika nued to have pain. Still with acute tenderness mastoid tip. Pt also d/o facial swelling/swelling of neck and swelling in her mouth. Occ dysphagia. Had an bed laster in [facility] and a head & neck surgeon in [place]. 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 Imaging: CT neck 07/10/14, 08/04/14: U/S neck-- nodule immediately adjacent to inferior margin of EAC, 4x6x[address] sinuses, [facility], [place]. 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 Some scattered inflammat ion is noted in the ethmoid sinuses (per Jaquelin Hu's read). Audiogram 2014 mild SNHL at high and low freq Labs: CRP 08/04/14 0.5 (nl is <0.5), ESR 5 (n 0-30) 08/24/14: CRP 1.3 12/01/14 CRP <0.5 Today reports pain and pressure on the right side of her head with otalgia. +hearing loss/dizziness. occ otorrhea, otalgia. Tinnitus. Onset in 1987. Ear feels plugged. States that always felt like sinus problems-- has had 2 root canals, the mastoidectomy, R p arotidectomy and continues to have essentially the same pain/pressure on the right side of h er face. Some sensation of PND. Has not had neurology evaluation. The pain is a constant 'ache' with occasional sharp/stabbing pain- pain is over ear area, p ressure over face (cheeck/eye). Worse in cold. Has to wear ear muffs or put a tissue in her ear/cover her face. Cold exposure creates worsening facial & ear pain and that pain carries over into post-cold exposure and can last several hours. PAST MEDICAL HISTORY: Past Medical History Diagnosis Date Angina pectoris (HCC) Fibromyalgia Hypertension Irritable bowel syndrome Kidney stone PAST SURGICAL HISTORY: Past Surgical History Procedure Laterality Date Three spine surgeries Three c-sections Hysterectomy Carpal tunnel release Appendectomy Tonsillectomy Breast lumpectomy 2010 "premalignant" Mastoidectomy Right 10/2015 Sinus surgery Cholecystectomy section Bladder suspension Oophorectomy Hernia repair Liver biopsy Parotidectomy ALLERGIES: Allergies Allergen Reactions Wygesic [Propoxyphene-Acetaminophen] Dyspnea Biaxin [Clarithromycin] Palpitations and Unknown BIAXIN - TACHYCARDIA, LOC Codeine Nausea and Vomiting and Unknown HALLUCINATION Morphine Nausea and Vomiting Propoxyphene Nausea and Vomiting DARVOCET Byetta [Exenatide] Pain Medicine [Diphenhydramine-Acetaminophen] (Some pain medications) Penicillin G Procaine Unknown SHAKEY MEDICATIONS: acetaminophen 500 mg oral tablet, Take by mouth. arginine 500 mg Oral Tablet, Take 1,000 mg by mouth two times daily. ARGININE-PYROGLUTAMATE (X-GNDIRAVJ-F-PYROGLUTAM, BULK, MISC), Take 1,000 mg by mouth. aspirin EC 81 mg oral tablet,delayed release (DR/EC), Take by mouth. CYANOCOBALAMIN, VITAMIN B-12, (VITAMIN B-12 INJ), 1 mL by Injection route every thirty days . ergocalciferol (VITAMIN D) 50,000 unit Oral Capsule, Take 50,000 Units by mouth every seven days. hydroxychloroquine (PLAQUENIL) 200 mg oral tablet, Take 1 tablet by mouth two times daily. INSULIN LISPRO (HUMALOG KWIKPEN SUBQ), Inject 20 Units under the skin (SUBC) three times da elissa. levothyroxine 50 mcg oral tablet, levothyroxine 75 mcg Oral Tablet, Take 75 mcg by mouth once daily. multivitamin (MULTIPLE VITAMIN) Oral Tablet, Take 1 Tab by mouth once daily. [place]-3 Fatty Acids-Vitamin E (FISH OIL) 1,000 mg Oral Capsule, Take 1 Cap by mouth once da elissa. oxaprozin 600 mg Oral Tablet, Take 600 mg by mouth once daily. phentermine 30 mg oral capsule, phentermine 37.5 mg Oral Tablet, Take 1 Tab by mouth once daily in the morning. Administer before breakfast. pilocarpine 5 mg oral tablet, sertraline 50 mg oral tablet, Take by mouth. sertraline 50 mg Oral Tablet, Take 50 mg by mouth once daily. Thioctic Acid (ALPHA LIPOIC ACID) 200 mg Oral Tablet, Take 2 Tabs by mouth once daily. 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 PHYSICAL EXAM: Vitals: Ht 1.638 m (5' 4.5"), Wt 77.6 kg (171 lb), BP 141/68, Pulse 80, BMI 28.9 kg/(m^2). Constitutional: Non-toxic, no apparent distress. Face: Normal facial contour. Eyes: Extraocular movements intact. Sclera non-icteric. Ears: Auricles normally formed Nose: No external nasal deformity. Neck: No adenopathy or masses. Normal range of motion. Respiratory: Unlabored. No cyanosis. Cardiovascular: Normal perfusion. No edema. Skin: No suspicious skin lesions noted on scalp, face, ears, or neck. Neuro: Normal gait. Cranial nerves: II, III, IV, : Normal range of movement. No nystagmus. VII: No facial weakness. VIII: Rice ML. Rinne AC>BC AU X: Voice grossly normal. XI: Shoulder motion normal. XII: Tongue motion normal. Psychiatric: Alert and oriented. Normal affect. PROCEDURE: Examined under binocular microscopic visualization. Left: Normal external auditory canal and drum. Normal aerated middle ear. Right: Tube in place (close to malleus) No otorrhea/erythma/infection IMAGING: CT neck 07/10/14, 08/04/14: U/S neck-- nodule immediately adjacent to inferior margin of EAC, 4x6x[address] CT sinuses, [facility], [place]. CT temporal bones 10/02/14: read as "probable coalescent R otomastoiditis-- Cortex of bone no t intact" -- reviewed by me (disk was sent by mail): R mastoid tip opacification, no cortica l erosion noted. No e/o sup canal dehiscence. 06/10 CT face: no e/o sialadenitis, small lymph node in R parotid gland noted CT sinus 05/22/16 post surgical changes with well aerated sinuses. Some scattered inflammati on is noted in the ethmoid sinuses. Labs: CRP 08/04/14 0.5 (nl is <0.5), ESR 5 (n 0-30) 08/24/14: CRP 1.3 12/01/14 CRP <0.5 AUDIOGRAM: Audiogram 2014 mild SNHL at high and low freq Audiogram from 09/28/16 reviewed and interpreted by me indicates R mild primarily conductive hearing loss. L mild high freq HL R large volume, L normal tymp ASSESSMENT: Longstanding right otalgia-- since 1987. Has had 2 root canals on R upper molars, R mastoidectomy, R parotidectomy, sinus surgery x 2 and continues to have essentially the same pain/pressure on the right side of her face. I suspect that she has neuralgia-- ?benefit from neuromodulators. PLAN: Would recommend neurology consult for ? Neuralgia. Will place a consult. Melody Gutiérrez MD Department of Otolaryngology-Head and Neck Surgery [address], [address] [address] tel: [phone] fax: [email or web address] documented in this encounte r Plan of Treatment Not on filedocumented as of this encounter Procedures + +--------+ + + + | Procedure Name | Priori | Date/Time | Associated Diagnosis | Comments | | | ty | | | | + +--------+ + + + | C-REACTIVE PROTEIN | Routin | 10/30/2016 | | Results for this | | | e | 2:39 PM | | procedure are in the | | | | PST | | results section. | + +--------+ + + + | SEDIMENTATION RATE | Routin | 10/30/2016 | | Results for this | | | e | 2:39 PM | | procedure are in the | | | | PST | | results section. | + +--------+ + + + | MI EAR MICROSCOPY | Routin | 10/11/2016 | Right ear pain | | | EXAMINATION | e | 5:28 PM | Right facial pain | | | | | PST | | | + +--------+ + + + documented in this encounter Results SEDIMENTATION RATE (10/30/2016 2:39 PM PST) + +-------+ + + + | Component | Value | Ref Range | Performed | Pathologist | | | | | At | Signature | + +-------+ + + + | SEDIMENTATI | 2 | 0 - 30 mm/hr | [facility] | | | ON RATE | | | [facility] | | + +-------+ + + + + + | Specimen | + + | | + + + + + + + | Performing | Address | City/State/Zipcode | Phone Number | | Organization | | | | + + + + + | [facility] | [address] | [place] [address] | | | LAB | | | | + + + + + | [facility] | [address] | [place] [address] | | | LAB | | | | + + + + + C-REACTIVE PROTEIN (10/30/2016 2:39 PM PST) + + + + + + | Component | Value | Ref Range | Performed | Pathologist | | | | | At | Signature | + + + + + + | C-REACTIVE | 5.6Comment: C-Reactive | mg/L | [facility] | | | PROTEIN | Protein Note: If CRPHS | | [facility] | | | | is greater than 10.0 | | | | | | mg/L rule out acute | | | | | | inflammation. | | | | | | Reference Range: | | | | | | | | | | | | | | | | | | | | | | | | CRPHS | | | | | | (mg/L) Cardiac Risk | | | | | | Assessment Category: | | | | | | | | | | | | <1.0 | | | | | | Low | | | | | | | | | | | | | | | | | | 1.0-3.0 | | | | | | Average | | | | | | | | | | | | | | | | | | >3.0 | | | | | | High | | | | + + + + + + + + | Specimen | + + | | + + + + + + + | Performing | Address | City/State/Zipcode | Phone Number | | Organization | | | | + + + + + | [facility] | [address] | [place] [address] | | | LAB | | | | + + + + + | [facility] | [address] | [place] [address] | | | LAB | | | | + + + + + documented in this encounter Visit Diagnoses + + | Diagnosis | + + | Right ear pain - Primary Otalgia, unspecified | + + | Right facial pain Headache | + + documented in this encounter
--- OUTSIDE RECORDS SUMMARY | ~2019-07-09 | XMS | Encounter Summary ---
Demographics + + + | Address | [address] | | | [place] [address] | + + + | Home Phone | | + + + | Preferred Language | Unknown | + + + | Marital Status | | + + + | Congregational Affiliation | [id number] | + + + | Race | Unknown | + + + | Ethnic Group | Unknown | + + + Author + + + | Author | [facility] | | | and [place] | + + + | Organization | [facility] | | | and [place] | + + + | Address | Unknown | + + + | Phone | Unavailable | + + + Support + + + + + | Name | Relationship | Address | Phone | + + + + + | Norberto Mann | ECON | [address] | | | | | [place], [place] | | | | | [address] | | + + + + + Care Team Providers + +------+ + | Care It Compliance Manager Name | Role | Phone | + +------+ + PCP | Unavailable | + +------+ + Encounter Details +--------+ + + + + | Date | Type | Department | Care Team | Description | +--------+ + + + + | 07/02/ | Hospital | [facility] | Conversion | Pain | | 2013 | Encounter | CONVERSION [address] | Transaction, | | | | | [address] | Provider Unknown | | | | | [place], [place] | | | | | | [address] | (Fax) | | | | | [phone] | | | +--------+ + + + [...] + +--------+ + + + | CT ABDOMEN PELVIS W | Routin | 02/10/2014 | | Results for this | | CONTRAST | e | 10:31 PM | | procedure are in the | | | | PDT | | results section. | + +--------+ + + + documented in this encounter Results CT Abdomen Pelvis w Contrast (02/10/2014 10:31 PM PDT) + + | Specimen | + + [...]
--- OUTSIDE RECORDS SUMMARY | ~2019-07-09 | XMS | Encounter Summary ---
Demographics + + + | Address | [address] | | | [place] [address] | + + + | Home Phone | | + + + | Preferred Language | Unknown | + + + | Marital Status | | + + + | Yazidism Affiliation | ADV | + + + | Race | White | + + + | Ethnic Group | Not or | + + + Author + + + | Author | [facility] | + + + | Organization | [facility] | + + + | Address | Unknown | + + + | Phone | Unavailable | + + + Support + + + + + | Name | Relationship | Address | Phone | + + + + + | Norberto Oliveros | ECON | [address] | | | [place] | | [place] | | | | | [address] | | + + + + + Care Team Providers + +------+ + | Care Reception Interviewer Name | Role | Phone | + +------+ + | Humberto Ruby MD | PCP | | + +------+ + Encounter Details +--------+ + + + + | Date | Type | Department | Care Team | Description | +--------+ + + + + | 04/21/ | Roger | Abram Wilson | Rene Blackwell, | RE: Gastric by-pass | | 2010 | Encounter | [facility] | [address] | surgery | | | | [facility] | [place], [place] | | | | | [address] | [address] | | | | | [address] | [phone] | | | | | [facility]ician[facility] | | | | | | [address] | | | | | | [place], [place] | | | | | | [address] | | | | | | [phone] | | | +--------+ + + + [...]
--- OUTSIDE RECORDS SUMMARY | ~2019-07-09 | XMS | Encounter Summary ---
Demographics + + + | Address | [address] | | | [place] [address] | + + + | Home Phone | | + + + | Preferred Language | Unknown | + + + | Marital Status | | + + + | Restorationist Affiliation | ADV | + + + | Race | White | + + + | Ethnic Group | Not or | + + + Author + + + | Author | [facility] | + + + | Organization | [facility] | + + + | Address | Unknown | + + + | Phone | Unavailable | + + + Support + + + + + | Name | Relationship | Address | Phone | + + + + + | Norberto Oliveros | ECON | [address] | | | [place] | | [place] | | | | | [address] | | + + + + + Care Team Providers + +------+ + | Care Business Support Liaison Name | Role | Phone | + +------+ + | Humberto Ruby MD | PCP | | + +------+ + Encounter Details +--------+ + + + + | Date | Type | Department | Care Team | Description | +--------+ + + + + | 11/18/ | Ancillary | Registration 3181 | Adryan Berger MD | | | 2004 | Registratio | Eduardo Sherman | [address] | | | | [address] | [address] Mailcode: [address] | [place], [place] | | | | | [place], [place] | [address] | | | | | [address] | [phone] | | | | | [phone] | | | +--------+ + + + [...] | + +--------+ + + + | ANTI SMOOTH MUSCLE | Routin | 11/18/2004 | | Results for this | | AB, SERUM | e | 12:41 PM | | procedure are in the | | | | PST | | results section. | + +--------+ + + + | ANTI MITOCHONDRIAL | Routin | 11/18/2004 | | Results for this | | AB, SERUM | e | 12:41 PM | | procedure are in the | | | | PST | | results section. | + +--------+ + + + | FERRITIN | Routin | 11/18/2004 | | Results for this | | | e | 12:41 PM | | procedure are in the | | | | PST | | results section. | + +--------+ + + + | TSH | Routin | 11/18/2004 | | Results for this | | | e | 12:41 PM | | procedure are in the | | | | PST | | results section. | + +--------+ + + + | IRON AND TIBC, SERUM | Routin | 11/18/2004 | | Results for this | | | e | 12:41 PM | | procedure are in the | | | | PST | | results section. | + +--------+ + + + documented in this encounter Results TSH-THYROID STIM HORMONE (11/18/2004 12:41 PM PST) + + + + + + | Component | Value | Ref Range | Performed | Pathologist | | | | | At | Signature | + + + + + + | TSH | 3.70Comment: Test | 0.28 - 5.00 | | | | | performed by [facility] | uIU/ml | | | | | [facility] | | | | | | [facility]. | | | | + + + + + + + + | Specimen | + + | | + + + + + + + | Performing | Address | City/State/Zipcode | Phone Number | | Organization | | | | + + + + + | [facility] | [address] | [place] [address] | | | LABORATORY | | | | + + + + + IRON SERUM AND TIBC (11/18/2004 12:41 PM PST) + +--------+ + + + | Component | Value | Ref Range | Performed | Pathologist | | | | | At | Signature | + +--------+ + + + | IRON SERUM | 56 | 40 - 150 ug/dL | | | + +--------+ + + + | IRON BIND | 309 | 225 - 410 ug/dL | | | | CAP SERUM | | | | | + +--------+ + + + | % | 18 (L) | 20 - 50 % | | | | SATURATION | | | | | | TRANSFERRIN | | | | | | , SERUM | | | | | + +--------+ + + + + + | Specimen | + + | | + + + + + | Narrative | Performed At | + + + | Iron and TIBC, Serum Test performed by [facility] | | | [facility]. | | + + + + + + + + | Performing | Address | City/State/Zipcode | Phone Number | | Organization | | | | + + + + + | [facility] | [address] | [place] [address] | | | LABORATORY | | | | + + + + + FERRITIN (11/18/2004 12:41 PM PST) + + + + + + | Component | Value | Ref Range | Performed | Pathologist | | | | | At | Signature | + + + + + + | FERRITIN | 234Comment: Test | 10 - 291 ng/mL | | | | | performed at [facility] | | | | | | [facility] | | | | | | Laboratory | | | | + + + + + + + + | Specimen | + + | | + + + + + + + | Performing | Address | City/State/Zipcode | Phone Number | | Organization | | | | + + + + + | [facility] | [address] | [place] [address] | | | LABORATORY | | | | + + + + + ANTI SMOOTH MUSCLE AB (11/18/2004 12:41 PM PST) + + + + + + | Component | Value | Ref Range | Performed | Pathologist | | | | | At | Signature | + + + + + + | ANTI-SMOOTH | Neg (1:20 dil)Comment: | Negative | | | | MUSCLE | Test performed by | | | | | | [facility] | | | | | | [facility]. | | | | + + + + + + + + | Specimen | + + | | + + + + + + + | Performing | Address | City/State/Zipcode | Phone Number | | Organization | | | | + + + + + | [facility] | [address] | [place] [address] | | | LABORATORY | | | | + + + + + ANTI MITOCHONDRIAL AB (11/18/2004 12:41 PM PST) + + + + + + | Component | Value | Ref Range | Performed | Pathologist | | | | | At | Signature | + + + + + + | ANTI-MITOCH | Neg (1:20 dil)Comment: | Negative | | | | ONDRIAL, | Test performed by | | | | | SERUM | [facility] | | | | | | [facility]. | | | | + + + + + + + + | Specimen | + + | | + + + + + + + | Performing | Address | City/State/Zipcode | Phone Number | | Organization | | | | + + + + + | [facility] | [address] | [place] [address] | | | LABORATORY | | | | + + + + + documented in this encounter Visit Diagnoses Not on filedocumented in this encounter"
--- OUTSIDE RECORDS SUMMARY | ~2019-07-09 | XMS | Encounter Summary ---
Demographics + + + | Address | [address] | | | [place] [address] | + + + | Home Phone | | + + + | Preferred Language | Unknown | + + + | Marital Status | | + + + | Mandaen Affiliation | 1001 | + + + | Race | Unknown | + + + | Ethnic Group | Unknown | + + + Author + + + | Author | [facility] | | | and [place] | + + + | Organization | [facility] | | | and [place] | + + + | Address | Unknown | + + + | Phone | Unavailable | + + + Support + + + + + | Name | Relationship | Address | Phone | + + + + + | Norberto Mann | ECON | [address] | | | | | [place], [place] | | | | | [address] | | + + + + + Care Team Providers + +------+ + | Care Sustainable Design Consultant Name | Role | Phone | + +------+ + PCP | Unavailable | + +------+ + Encounter Details +--------+ + + + + | Date | Type | Department | Care Team | Description | +--------+ + + + + | 02/01/ | Hospital | [facility] | Conversion | | | 2014 | Encounter | CENTER OUTPATIENT | Transaction, | | | | | PHYSICAL THERAPY | Provider Unknown | | | | | [address] | | | | | | [place], [place] | (Fax) | | | | | [address] | | | | | | [phone] | | | +--------+ + + + [...] 0 | 11/30/19 | | | (HUMALOG [facility]) | under the skin 3 | | | 11 | | | | times daily. | | | | | + + + +---------+ + + documented as of this encounter Progress Notes Georgie Valencia PT - 02/01/2015 12:45 PM PDTFormatting of this note might be different fr om the original. Progress Notes by Georgie Valencia PT at 02/01/15 6176 Author: Georgie Valencia PT Service: (none) Author Type: Physical Therapist Filed: 02/01/15 5042 Date of Service: 02/01/15 0369 Status: Signed Project Scientist: Georgie Valencia PT (Physical Therapist) Therapy Daily Treatment Note Date of Service: 02/01/2015 Treatment Time/Charges: Manual Therapy 67764 x 3 (45 minutes) Insurance Authorization: 16 of 17 estimated authorized visits (Medicare) - 01/03 GC Authorization Expiration: 08/26/15 POC Expiration: 02/17/15 Subjective: Pain Complaint: Pt c/o anorectal pain and irregular varying bowel movements. Subjective Comments: Pt states she used her therawand at home several times since last sess ion, states that when she uses it internally she feels like she is 'hitting up against somet sen'. States she has also been using her finger to massage the tissues externally as well. Pt further reports that she inflated her stability ball and has been trying to be more compl iant with her exercises. Pt reports that overall physical therapy has helped a lot. States s he feels better than before and has less pain. Also states she feels like more knowledgeable and appreciative for her home programs. Objective: Daily Treatment: Manual Therapy: Internal assessment for prolapse d/t pt's complaints when using therawand. Assessment noted prolapse between stage I/II. Difficult to determine if it is cystocele or rectocele. Cont'd re-assessment for trigger points externally and then internally, pt reviewed with an d employed use of therawand/digit throughout session Pt positioned supine hook-lying with bolster under knees for position of optimal comfort and pelvic access Pt with BLE ABD ed and ER ed Pressure point release to B bulbocavernosus, B ischiocavernosus, STP, to pt tolerance Pressure point release to B coccygues and B iliococcygeus, and R obturator internus, to pt tolerance Circumferential stretching at vaginal introitus manually Theile massage at vaginal introitus manually Patient Education: As per above for pt instruction/use of therawand on external/internal tr igger points and massaging/stretching techniques. Finalized HEPs for internal/external pelvi c floor muscles, as well as core/stability strengthening and stabilization with exercises an d stability ball. Assessment: Response to Treatment: Pt has several trigger points throughout external and internal pelvi c floor musculature, has been instructed in the use of therawand for pt to be able to perfor m manual techniques at home. She has increased trigger points to external pelvic floor, isch io/bulbocavernosus. Less tenderness/pain internally although pain at obturatus. By end of se ssion, pt able to use therawand to identify trigger points and use therawand for ischemic/pr essure point release for desensitization and pain dissipation. Through the course of therapy , pt has been provided with various home program exercises and stretches, to include a stabi lity ball and resistance bands, and now to incorporate the therawand for more localized pelv ic floor restrictions. Her primary barrier is finding time to take care of herself and addre ss her own needs. Pt verbalizes appreciation for therapy as she is feeling better and more p repared to help herself at home. She is agreeable to discharge at this time. Plan: To be discharged. Georgie Valencia PT 02/01/2015 12:46 PM documented in this encounter Plan of Treatment Not on filedocumented as of this encounter Visit Diagnoses Not on filedocumented in this encounter"
--- OUTSIDE RECORDS SUMMARY | ~2019-07-09 | XMS | Encounter Summary ---
Demographics + + + | Address | [address] | | | [place] [address] | + + + | Home Phone | | + + + | Preferred Language | Unknown | + + + | Marital Status | | + + + | Catholic Affiliation | ADV | + + + | Race | White | + + + | Ethnic Group | Not or | + + + Author + + + | Author | [facility] | + + + | Organization | [facility] | + + + | Address | Unknown | + + + | Phone | Unavailable | + + + Support + + + + + | Name | Relationship | Address | Phone | + + + + + | Norberto Oliveros | ECON | [address] | | | [place] | | [place] | | | | | [address] | | + + + + + Care Team Providers + +------+ + | Care Lifestyle Coordinator Name | Role | Phone | + +------+ + | Hmuberto Ruby MD | PCP | | + +------+ + Reason for Referral Consultation (Routine) +--------+--------+ + + + + | Status | Reason | Specialty | Diagnoses / | Referred By | Referred To | | | | | Procedures | Contact | Contact | +--------+--------+ + + + + | Closed | | Otolaryngolog | Diagnoses | Mayte | Ent Otology | | | | y | Conductive | Jaquelin Bolton, | [address] | | | | | hearing | PA-C [address] | [address] | | | | | loss, middle | [address] | [address] | | | | | ear | [place], | Mailcode: | | | | | Procedures | [place] | [address] | | | | | CONSULT TO | [address] | Physician's | | | | | ENT / | Phone: | Miriam | | | | | OTOLARYNGOLO | [phone] | [place], [place] | | | | | [place] | Fax: | [address] | | | | | | [phone] | Phone: | | | | | | | [phone] | | | | | | | Fax: | | | | | | | [phone] | +--------+--------+ + + + + Reason for Visit + + + | Reason | Comments | + + + | New Patient Visit | | + + + Intake Referral (Routine) +--------+--------+ + + + + | Status | Reason | Specialty | Diagnoses / | Referred By | Referred To | | | | | Procedures | Contact | Contact | +--------+--------+ + + + + | Closed | | Otolaryngolog | Diagnoses | Tung, | Ent Sinus | | | | y | Atypical | Humberto B, | [address] | | | | | facial pain | MD RUBY | [address] | | | | | chronic | FAMILY | Mailcode: | | | | | pain and | MEDICINE | [facility] | | | | | pressure on | [address] | for Health | | | | | right side | [address] | and Healing, | | | | | of face | [place], | [address], | | | | | | [place] [address] | 5th Floor | | | | | | Phone: | [place], [place] | | | | | | [phone] | [address] | | | | | | Fax: | Phone: | | | | | | [phone] | [phone] | | | | | | | Fax: | | | | | | | [phone] | +--------+--------+ + + + + Encounter Details +--------+---------+ + + + | Date | Type | Department | Care Team | Description | +--------+---------+ + + + | 06/12/ | Office | [facility] | Mayte, Jaquelin Bolton, | Conductive hearing | | 2016 | Visit | Center at [facility] [address] | PA-C [address] | loss, middle ear | | | | [address] | Ave [place], [place] | (Primary Dx); | | | | Mailcode: [facility] | [address] | Chronic rhinitis | | | | [facility] | [phone] | | | | | and Healing, | | | | | | [address], [address]th | | | | | | Floor [facility] [place] | | | | | | [address] | | | | | | [phone] | | | +--------+---------+ + + + [...] documented as of this encounter Progress Notes Jaquelin Hu PA-C - 06/12/2016 3:23 PM PDT [facility] HPI: Carly Mann is a 66 y.o. female who presents to the [facility] in [facility] for facial pain. She has a history of two sinus surgeries in 1999 and 1992 at out side facilities. Current symptoms include right sided facial pain, loss of smell and fatigue . The facial pain, pressure and congestion are located over the right side. The pain over t he right ethmoid and maxillary sinuses is worse when bending forward. She also describes swe lling of the left anterior cervical lymph nodes, decreased hearing on the right side dysequl ibrium, right otalgia and occasional dizziness. Symptoms began 20 years ago, worse over the last 2 years. Symptom severity is moderate. Improvement occurred with Nothing. Additional evaluation has included allergy testing which was negative. Her history is also significant for a right sided mastoidectomy in 10/2014 with PE tube placement, right parotidectomy 08/15 15 and two root canals on the upper right molars over the last 4 months. She recently had a CT of the sinuses done at [facility] in [facility], [place] about 3-4 weeks ago. She has used u sed Flonase and irrigations in the past. SINO NASAL OUTCOMES TEST SCORE: 89 Current Outpatient Prescriptions Medication Sig acetaminophen 500 mg oral tablet Take by mouth. arginine 500 mg Oral Tablet Take 1,000 mg by mouth two times daily. ARGININE-PYROGLUTAMATE (L-MZCSBTCK-D-PYROGLUTAM, BULK, MISC) Take 1,000 mg by mouth. aspirin EC 81 mg oral tablet,delayed release (DR/EC) Take by mouth. CYANOCOBALAMIN, VITAMIN B-12, (VITAMIN B-12 INJ) 1 mL by Injection route every thirty d ays. ergocalciferol (VITAMIN D) 50,000 unit Oral Capsule Take 50,000 Units by mouth every se francisco j days. hydroxychloroquine (PLAQUENIL) 200 mg oral tablet Take 1 tablet by mouth two times lorena y. INSULIN LISPRO (HUMALOG KWIKPEN SUBQ) Inject 20 Units under the skin (SUBC) three times daily. levothyroxine 50 mcg oral tablet levothyroxine 75 mcg Oral Tablet Take 75 mcg by mouth once daily. multivitamin (MULTIPLE VITAMIN) Oral Tablet Take 1 Tab by mouth once daily. [place]-3 Fatty Acids-Vitamin E (FISH OIL) 1,000 mg Oral Capsule Take 1 Cap by mouth once daily. oxaprozin 600 mg Oral Tablet Take 600 mg by mouth once daily. phentermine 30 mg oral capsule phentermine 37.5 mg Oral Tablet Take 1 Tab by mouth once daily in the morning. Administ er before breakfast. pilocarpine 5 mg oral tablet sertraline 50 mg oral tablet Take by mouth. sertraline 50 mg Oral Tablet Take 50 mg by mouth once daily. Thioctic Acid (ALPHA LIPOIC ACID) 200 mg Oral Tablet Take 2 Tabs by mouth once daily. The patient's New Patient History Form was reviewed with the patient. Changes and addition s, where necessary, were made and the form was scanned to the medical record. Comprehensive review of systems was negative other than as documented on this note and on the New Patient History Form. Past Medical History Diagnosis Date Kidney stone Angina pectoris (HCC) Hypertension Irritable bowel syndrome Past Surgical History Procedure Laterality Date Three spine surgeries Three c-sections Hysterectomy Carpal tunnel release Appendectomy Tonsillectomy Breast lumpectomy 2010 "premalignant" Mastoidectomy Right 10/2015 Family History Problem Relation Diabetes Father Heart Disease Father Additional Family History Father Central obesity Additional Family History Mother Central obesity Cancer Sister Lung CA in 2 sisiters who smoked Additional Family History Sister Centrally obese, S/P RYGBP Diabetes Maternal Uncle Social History Substance Use Topics Smoking status: Never Smoker Smokeless tobacco: Never Used Alcohol Use: No Allergies: Allergies Allergen Reactions Wygesic [Propoxyphene-Acetaminophen] Dyspnea Biaxin [Clarithromycin] Palpitations and Unknown BIAXIN - TACHYCARDIA, LOC Codeine Nausea and Vomiting and Unknown HALLUCINATION Morphine Nausea and Vomiting Propoxyphene Nausea and Vomiting DARVOCET Byetta [Exenatide] Pain Medicine [Diphenhydramine-Acetaminophen] (Some pain medications) Penicillin G Procaine Unknown SHAKEY PHYSICAL EXAM: General Appearance: Pleasant, well-developed, well-nourished patient, in no apparent distre ss. Mental status normal. Breathing quietly, comfortably, no stridor or wheezing. Head/Face: No skin lesions, face symmetric, sensation normal Eyes: EOMI Ears: External ears normal to inspection and palpation, canals clear, TM's intact, PE tube in the right TM. Good position with no evidence of discharge. No middle ear effusion on the left. Hearing aids bilaterally. Nose: Anterior rhinoscopy reveals mucosal edema. Nasal endoscopy was indicated to better ev aluate the nose and paranasal sinuses given the patient's history and exam findings and is d etailed below. Oral Cavity/Pharynx: No masses or lesions of lips, gums, tongue, floor of mouth, buccal muc sanchez, hard palate or soft palate. Dentition is good. No erythema, exudate, or tonsillar waleska s. Posterior pharyngeal wall normal. Neck/Lymphatic: no masses or adenopathy Neurologic: CN 2-12 intact PROCEDURE: Diagnostic Nasal Endoscopy Anesthesia: Lidocaine 4% topical anesthetic was placed. Description of Procedure: A rigid endoscope was utilized to evaluate the sinonasal cavities , mucosa, sinus ostia and turbinates. Overall, signs of mucosal inflammation are noted. Al so noted are mucosal edema. The maxillary antrostomies are patent bilaterally. No evidence of purulence or polyps. RADIOGRAPHIC EVALUATION: A current CT report was reviewed which describes overall well vent ilated sinuses. The images were requested and will be mailed to our clinic. ASSESSMENT: Chronic rhinosinusitis. We've discussed issues and options today. The risks, benefits and alternatives were discus sed and questions answered. She has elected to proceed with referral to otology. I will rev iew the patient's CT scan once it arrives and contact her with results. She may be a milton te for neurology referral if there is no evidence of sinusitis on CT. She will contact the [facility] sooner with questions or concerns. documented in this encounter Plan of Treatment Not on filedocumented as of this encounter Procedures + +--------+ + + + | Procedure Name | Priori | Date/Time | Associated Diagnosis | Comments | | | ty | | | | + +--------+ + + + | UT NASAL | Routin | 06/14/2016 | Chronic rhinitis | | | ENDOSCOPY,DX | e | 4:25 PM | | | | | | PDT | | | + +--------+ + + + | RADIOLOGY | | 05/27/2015 | | Results for this | | | | 12:00 AM | | procedure are in the | | | | PDT | | results section. | + +--------+ + + + | RADIOLOGY | | 10/02/2014 | | Results for this | | | | 12:00 AM | | procedure are in the | | | | PST | | results section. | + +--------+ + + + documented in this encounter Results RADIOLOGY (05/27/2015 12:00 AM PDT) + + + | Narrative | Performed At | + + + | | | + + + RADIOLOGY (10/02/2014 12:00 AM PST) + + + | Narrative | Performed At | + + + | | | + + + documented in this encounter Visit Diagnoses + + | Diagnosis | + + | Conductive hearing loss, middle ear - Primary | + + | Chronic rhinitis | + + documented in this encounter
--- OUTSIDE RECORDS SUMMARY | ~2019-07-09 | XMS | Encounter Summary ---
Demographics + + + | Address | [address] | | | [place] [address] | + + + | Home Phone | | + + + | Preferred Language | Unknown | + + + | Marital Status | | + + + | Baptism Affiliation | 1001 | + + + | Race | Unknown | + + + | Ethnic Group | Unknown | + + + Author + + + | Author | [facility] | | | and [place] | + + + | Organization | [facility] | | | and [place] | + + + | Address | Unknown | + + + | Phone | Unavailable | + + + Support + + + + + | Name | Relationship | Address | Phone | + + + + + | Norberto Mann | ECON | [address] | | | | | [place], [place] | | | | | [address] | | + + + + + Care Team Providers + +------+ + | Care Sales Merchandiser Name | Role | Phone | + +------+ + PCP | Unavailable | + +------+ + Encounter Details +--------+ + + + + | Date | Type | Department | Care Team | Description | +--------+ + + + + | 12/06/ | Hospital | [facility] | Rene Moyer | Unspecified Backache | | 2005 | Encounter | [address] | MD [address] | | | | | [address] | [place] | | | | | [address] | [place] | | | | | [address] | [address] | | | | | [phone] | [phone] | | | | | | | | +--------+ + + + [...] filedocumented as of this encounter Visit Diagnoses + + | Diagnosis | + + | Backache, unspecified | + + documented in this encounter"
--- OUTSIDE RECORDS SUMMARY | ~2019-07-09 | XMS | Encounter Summary ---
Demographics + + + | Address | [address] | | | [place] [address] | + + + | Home Phone | | + + + | Preferred Language | Unknown | + + + | Marital Status | | + + + | Temple Affiliation | 1001 | + + + | Race | Unknown | + + + | Ethnic Group | Unknown | + + + Author + + + | Author | [facility] | | | and [place] | + + + | Organization | [facility] | | | and [place] | + + + | Address | Unknown | + + + | Phone | Unavailable | + + + Support + + + + + | Name | Relationship | Address | Phone | + + + + + | Norberto Mann | ECON | [address] | | | | | [place] | | | | | [address] | | + + + + + Care Team Providers + +------+ + | Care Aed Trainer Name | Role | Phone | + +------+ + | Humberto Ruby MD | PCP | | + +------+ + Encounter Details +--------+ + + + + | Date | Type | Department | Care Team | Description | +--------+ + + + + | 09/05/ | Hospital | [facility] | Conversion | Nonintractable | | 2018 | Encounter | [facility] [address] | Transaction, | headache, | | | | [address] | Provider Unknown | unspecified | | | | [place], [place] | [phone] | chronicity pattern, | | | | [address] | | unspecified headache | | | | [phone] | Floyd Baldwin | type; Other | | | | | DO Alex [address] | specified disorders | | | | | Antonette Nogueira. | of eustachian tube, | | | | | [place] [address] | right ear | | | | | [phone] | | | | | | | [...] + + + +---------+ + + | acetaminophen | Take 1,000 mg by | | 0 | | | | (TYLENOL) 500 mg | mouth every 6 hours | | | | | | tablet | as needed for Pain. | | | | | + + + +---------+ + + | albuterol | Inhale 2 puffs into | | 0 | | | | (VENTOLIN HFA) 90 | the lungs every 6 | | | | | | mcg/puff inhaler | hours as needed for | | | | | | | Other (coughing). | | | | | + + + +---------+ + + | ALPHA LIPOIC ACID | Take 2 tablets by | | 0 | 11/30/19 | | | PO | mouth Daily. | | | 11 | | + + + +---------+ + + | aspirin 81 mg EC | Take 81 mg by mouth | | 0 | | | | tablet | Daily. | | | | | + + + +---------+ + + | Cyanocobalamin | Inject 1 mL as | | 0 | 11/30/19 | | | (VITAMIN B-12 IJ) | directed Every 30 | | | 11 | | | | days. | | | | | + + + +---------+ + + | Cyanocobalamin | Place 5,000 mcg | | 0 | | | | (VITAMIN B-12) 5000 | under the tongue | | | | | | MCG SUBL | Daily. | | | | | + + + +---------+ + + | docusate sodium | Take 100 mg by mouth | | 0 | | | | (COLACE) 100 mg | 2 times daily. | | | | | | capsule | | | | | | + + + +---------+ + + | fish oil 1,000 mg | Take 1 capsule by | | 0 | 04//20 | | | capsule | mouth Daily. | | | 11 | | + + + +---------+ + + | hydroxychloroquine | Take 1 tablet by | | 0 | 04//20 | | | (PLAQUENIL) 200 mg | [...] + + + +---------+ + + | levothyroxine | | | 0 | 05/07/20 | | | (SYNTHROID) 50 mcg | | | | 16 | | | tablet | | | | | | + + + +---------+ + + | levothyroxine | Take 88 mcg by mouth | | 0 | | | | (SYNTHROID) 88 mcg | every morning | | | | | | tablet | (before breakfast). | | | | | + + + +---------+ + + | Multiple Vitamin | Take 1 tablet by | | 0 | | | | (MULTI-VITAMIN PO) | mouth Daily. | | | | | + + + +---------+ + + | ondansetron | Take 4 mg by mouth | | 0 | | | | (ZOFRAN ODT) 4 mg | every 8 hours as | | | | | | disintegrating | needed for Nausea | | | | | | tablet | (with pain | | | | | | | medicine). | | | | | + + + +---------+ + + | phentermine 30 MG | | | 0 | 05/17/20 | | | capsule | | | | 16 | | + + + +---------+ + + | pilocarpine | Take 1 tablet by | | 0 | 05/10/20 | | | (SALAGEN) 5 mg | mouth 3 times daily. | | | 16 | | | tablet | | | | | | + + + +---------+ + + | pilocarpine | | | 0 | 05/10/20 | | | (SALAGEN) 5 mg | | | | 16 | | | tablet | | | | | | + + + +---------+ + + | pilocarpine | Take 5 mg by mouth 3 | | 0 | | | | (SALAGEN) 5 mg | times daily. | | | | | | tablet | | | | | | + + + +---------+ + + | sertraline | Take 100 mg by mouth | | 0 | | | | (ZOLOFT) 100 mg | Daily. | | | | | | tablet | | | [...] CT SOFT TISSUE NECK | Routin | 09/05/2017 | | Results for this | | W CONTRAST | e | 8:36 AM | | procedure are in the | | | | PST | | results section. | + +--------+ + + + documented in this encounter Results CT Soft Tissue Neck w Contrast (09/05/2017 8:36 AM PST) + + | Specimen | + + | | + + + + + | Impressions | Performed At | + + + | 1. 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 2. A | | | portion of the right lateral mastoid sinus benavidez absent, which could | | | be postoperative or post infectious. Clinically correlate. 3. | | | Evidence of right parotidectomy. | | + + + + + + | Narrative | Performed At | + + + | [facility] CT SOFT TISSUE NECK W CONTRAST 09/05/2017 8:36 AM | | | HISTORY: Headache. Disorder of the eustachian tube on the right | | | ear. Right facial pain and right otitis media with effusion. History | | | of right parotidectomy. TECHNIQUE: Helically obtained axial | | | 1.25/2.[address] sections through the neck, with coronal reformations | | | rendered. Automated exposure control utilized to decrease radiation | | | dose. 100 mL Isovue-300 utilized. COMPARISON: Next CT June | | | 2013. FINDINGS: The visualized portion of the brain is | | | normal. The orbital structures are normal. No significant paranasal | | | sinus disease is demonstrated no left mastoid fluid is seen. | | | Right-sided mastoid fluid is identified. There is some apparent | | | erosion of inferior mastoid septations. The right lateral mastoid | | | wall is absent from images 19-26, series 2, measuring 11 mm greatest | | | AP dimension by 14 mm greatest craniocaudal dimension, potentially | | | postoperative or post infectious. No significant fluid is seen | | | within the middle ear cavities. The external auditory canals are | | | patent. The nasopharynx, oropharynx, laryngeal pharynx, trachea, | | | and thyroid gland appear normal. Minimal atherosclerotic calcification | | | involves the thoracic aortic knob. The lung apices demonstrate no | | | focal lesion. Multilevel degenerative disc disease and facet | | | arthropathy are seen in the spine. Bony osteopenia is noted without | | | focal lesion. There is evidence of right parotidectomy, with | | | surgical clips in this region, and probable postoperative fat | | | stranding. No focal fluid collection is seen in the right parotid bed. | | | The left parotid gland appears normal. The submandibular glands | | | appear normal. No pathologically enlarged lymph nodes are found. | | | The great vessels in the neck appear normal.. | | + + + + + | Procedure Note | + + | Danilo, Rad Conversion - 04/09/2019 5:17 AM PDT [facility] SOFT TISSUE NECK W | | CONTRAST09/05/2017 8:36 AM HISTORY:Headache. Disorder of the eustachian tube on the right | | ear. Right facial pain and right otitis media with effusion. History of right | | parotidectomy. TECHNIQUE:Helically obtained axial 1.25/2.[address] sections through the | | neck, with coronal reformations rendered. Automated exposure control utilized to | | decrease radiation dose. 100 mL Isovue-300 utilized. COMPARISON:Next CT July 10, | | 2013. FINDINGS:The visualized portion of the brain is normal. The orbital structures are | | normal. No significant paranasal sinus disease is demonstrated no left mastoid fluid is | | seen. Right-sided mastoid fluid is identified. There is some apparent erosion of | | inferior mastoid septations. The right lateral mastoid wall is absent from images 19-26, | | series 2, measuring 11 mm greatest AP dimension by 14 mm greatest craniocaudal | | dimension, potentially postoperative or post infectious. No significant fluid is seen | | within the middle ear cavities. The external auditory canals are patent. The | | nasopharynx, oropharynx, laryngeal pharynx, trachea, and thyroid gland appear normal. | | Minimal atherosclerotic calcification involves the thoracic aortic knob. The lung apices | | demonstrate no focal lesion. Multilevel degenerative disc disease and facet arthropathy | | are seen in the spine. Bony osteopenia is noted without focal lesion. There is evidence | | of right parotidectomy, with surgical clips in this region, and probable postoperative | | fat stranding. No focal fluid collection is seen in the right parotid bed. The left | | parotid gland appears normal. The submandibular glands appear normal. No pathologically | | enlarged lymph nodes are found. The great vessels in the neck appear normal.. | | IMPRESSION: 1. 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 2. A portion of the | | right lateral mastoid sinus benavidez absent, which could be postoperative or post | | infectious. Clinically correlate. 3. Evidence of right parotidectomy. Electronically | | signed by Roosevelt Pineda MD on 09/05/2017 9:37 AM | | | |The great vessels in the neck appear normal.. | | | |IMPRESSION: | |1. 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 | | | |2. A portion of the right lateral mastoid sinus benavidez absent, which could be postoperative or post infectious. Clinically correlate. | | | |3. Evidence of right parotidectomy. | | | | | + + documented in this encounter Visit Diagnoses + + | Diagnosis | + + | Nonintractable headache, unspecified chronicity pattern, unspecified headache type | + + | Other specified disorders of eustachian tube, right ear | + + documented in this encounter"
--- OUTSIDE RECORDS SUMMARY | ~2019-07-09 | XMS | Encounter Summary ---
Demographics + + + | Address | [address] | | | [place] [address] | + + + | Home Phone | | + + + | Preferred Language | Unknown | + + + | Marital Status | | + + + | Spiritism Affiliation | 1001 | + + + | Race | Unknown | + + + | Ethnic Group | Unknown | + + + Author + + + | Author | [facility] | | | and [place] | + + + | Organization | [facility] | | | and [place] | + + + | Address | Unknown | + + + | Phone | Unavailable | + + + Support + + + + + | Name | Relationship | Address | Phone | + + + + + | Norberto Mann | ECON | [address] | | | | | [place], [place] | | | | | [address] | | + + + + + Care Team Providers + +------+ + | Care Dragger Out Name | Role | Phone | + +------+ + PCP | Unavailable | + +------+ + Encounter Details +--------+ + + + + | Date | Type | Department | Care Team | Description | +--------+ + + + + | 07/02/ | Hospital | [facility] | Conversion | Pain | | 2013 | Encounter | CONVERSION [address] | Transaction, | | | | | [address] | Provider Unknown | | | | | [place], [place] | | | | | | [phone] | (Fax) | | | | | [phone] | | | +--------+ + + + [...] CT ABDOMEN PELVIS W | Routin | 02/19/2014 | | Results for this | | CONTRAST | e | 10:29 PM | | procedure are in the | | | | PDT | | results section. | + +--------+ + + + documented in this encounter Results CT Abdomen Pelvis w Contrast (02/19/2014 10:29 PM PDT) + + | Specimen | [...]
--- OUTSIDE RECORDS SUMMARY | ~2019-07-09 | XMS | Encounter Summary ---
Demographics + + + | Address | [address] | | | [place] [address] | + + + | Home Phone | | + + + | Preferred Language | Unknown | + + + | Marital Status | | + + + | Buddhist Affiliation | 1001 | + + + | Race | Unknown | + + + | Ethnic Group | Unknown | + + + Author + + + | Author | [facility] | | | and [place] | + + + | Organization | [facility] | | | and [place] | + + + | Address | Unknown | + + + | Phone | Unavailable | + + + Support + + + + + | Name | Relationship | Address | Phone | + + + + + | Norberto Mann | ECON | [address] | | | | | [place], [place] | | | | | [address] | | + + + + + Care Team Providers + +------+ + | Care Ct Mri Technologist Name | Role | Phone | + +------+ + | Humberto Ruby MD | PCP | | + +------+ + Encounter Details +--------+ + + + + | Date | Type | Department | Care Team | Description | +--------+ + + + + | 04/10/ | Imaging | [facility] | Provider, | | | 2019 | Exam | [facility] | [address] | | | | | IMAGING | Annmarie [place]. [place] | | | | | [phone] | [place] [address] | | +--------+ + + + + [...] | + +--------+ + + + | XR KNEE RIGHT 1 - 2 | Routin | 03/12/2019 | | Results for this | | VW | e | 12:00 AM | | procedure are in the | | | | PDT | | results section. | + +--------+ + + + documented in this encounter Results XR Knee Right 1 - 2 Vw (03/12/2019 12:00 AM PDT) + + | Specimen | + + | | + + + + + | Narrative | Performed At | + + + | External films for comparison only | [facility] | | | | | No results will be in the chart. | | + + + + +---------+ + + | Performing | Address | City/State/Zipcode | Phone Number | | Organization | | | | + +---------+ + + | [facility] | | | | + +---------+ + + documented in this encounter Visit Diagnoses Not on filedocumented in this encounter"
--- OUTSIDE RECORDS SUMMARY | ~2019-07-09 | XMS | Encounter Summary ---
Demographics + + + | Address | [address] | | | [place] [address] | + + + | Home Phone | | + + + | Preferred Language | Unknown | + + + | Marital Status | | + + + | Church Affiliation | 1001 | + + + | Race | Unknown | + + + | Ethnic Group | Unknown | + + + Author + + + | Author | [facility] | | | and [place] | + + + | Organization | [facility] | | | and [place] | + + + | Address | Unknown | + + + | Phone | Unavailable | + + + Support + + + + + | Name | Relationship | Address | Phone | + + + + + | Norberto Mann | ECON | [address] | | | | | [place], [place] | | | | | [address] | | + + + + + Care Team Providers + +------+ + | Care Monorail Hooker Name | Role | Phone | + +------+ + PCP | Unavailable | + +------+ + Encounter Details +--------+ + + + + | Date | Type | Department | Care Team | Description | +--------+ + + + + | 12/03/ | Hospital | [facility] | Conversion | | | 2014 | Encounter | CENTER OUTPATIENT | Transaction, | | | | | PHYSICAL THERAPY | Provider Unknown | | | | | [address] | | | | | | [place], [place] | (Fax) | | | | | [address] | | | | | | [phone] | | | +--------+ + + + [...] encounter Progress Notes Georgie Valencia PT - 12/03/2014 12:15 PM PDTFormatting of this note might be different fr om the original. Progress Notes by Georgie Valencia PT at 12/03/14 5815 Author: Georgie Valencia PT Service: (none) Author Type: Physical Therapist Filed: 12/03/14 0138 Date of Service: 12/03/14 1215 Status: Signed Skin Care Technician: Georgie Valencia PT (Physical Therapist) Therapy Daily Treatment Note Date of Service: 12/03/2014 Treatment Time/Charges: Manual Therapy 58628 x 3 (45 minutes) Insurance Authorization: 3 of 17 estimated authorized visits (Medicare) - 10/06 GC Authorization Expiration: 08/26/15 POC Expiration: 02/17/15 Subjective: Pain Complaint: Pt c/o anorectal pain and irregular varying bowel movements. Subjective Comments: Pt states she did not do her stretches yesterday however did them this morning and they were 'really hard'. States she did not realize she was so tight, everywher e. Pt states she had a bowel movement yesterday and another this morning, although she is st ill taking stool softeners and fiber supplements, and still feels the need to strain. Objective: Daily Treatment: Manual Therapy: Goldstein Strain-Counterstrain to arrest deep fascial proprioceptors with goal of normalizing associated nocifensive and nociautonomic reflexes, visceral system tender poi nts with correlating fascial glide: 45 sec positional hold/release Sigmoid colon, medial (SIGM-V) Sigmoid colon, lateral (SIGL-V) Parietal peritoneum (PER-V) Fascia of Toldt, Ischial (DUSTY-V) Mesenteric Root, left side (MR-V) L Mesenteric Root, right side (MR-V) R Median umbilical ligament (MUL-V) Obturator membrane (OM-V) Patient Education: Explained purpose/application and process with passive release for Goldstein SCS techniques, pt to allow for passive movement out of positional releases. Also encourage d pt to continue to perform pelvic relaxation stretches daily. Assessment: Response to Treatment: Pt responded well to initial treatment with Goldstein SCS techniques and had multiple sites for tender points. Pt had notable increased abdominopelvic gas/bubbles t hroughout. Per previous external and internal assessment, pt has significant muscular trigge r points throughout the layers of PFM, notably R side superficial and bilateral deep, with r emarkable pain at obturator internus. Per instruction/performance with pelvic stretches, pt has severe piriformis, hamstring, and hip adductor tightness and will benefit from initiatin g stretches at home to address comprehensive tightness contributing to musculoskeletal dysfu nction of the pelvic floor. Pt has also had multiple back and abdominal surgeries that may b e contributing to overall low back/pelvic discomfort. Patient continues to require skilled intervention due to: Pt is a good candidate for skille d PT services due to chronicity of condition with worsening of symptoms, severity of pain, a nd complexity of compounding surgeries and medical issues. Pt is very motivated to improve h er condition. Plan: F/u re: response to SCS and HEP. Cont per POC. POC: PT treatment to include: Manual techniques [...] program for symptom management. Georgie Valencia, PT 12/03/2014 12:18 PM documented in this encounter Plan of Treatment Not on filedocumented as of this encounter Visit Diagnoses Not on filedocumented in this encounter"
--- OUTSIDE RECORDS SUMMARY | ~2019-07-09 | XMS | Encounter Summary ---
Demographics + + + | Address | [address] | | | [place] [address] | + + + | Home Phone | | + + + | Preferred Language | Unknown | + + + | Marital Status | | + + + | Druze Affiliation | ADV | + + + | Race | White | + + + | Ethnic Group | Not or | + + + Author + + + | Author | [facility] | + + + | Organization | [facility] | + + + | Address | Unknown | + + + | Phone | Unavailable | + + + Support + + + + + | Name | Relationship | Address | Phone | + + + + + | Norberto Oliveros | ECON | [address] | | | [place] | | [place] | | | | | [address] | | + + + + + Care Team Providers + +------+ + | Care Fire Extinguisher Inspector Name | Role | Phone | + [...] Otology | | | | y | Chronic | Jaquelin Bolton, | [address] | | | | | mastoiditis, | PA-C [address] | [address] | | | | | right | [place] | [place] | | | | | Procedures | [place], | Mailcode: | | | | | CONSULT TO | [place] | [address] | | | | | ENT / | [id number] | Physician's | | | | | OTOLARYNGOLO | Phone: | Miriam | | | | | [place] | [phone] | [place], [place] | | | | | | Fax: | [address] | | | | | | [phone] | Phone: | | | | | | | [phone] | | | | | | | Fax: | | | | | | | [phone] | +--------+--------+ + + + + Encounter Details +--------+ + + + + | Date | Type | Department | Care Team | Description | +--------+ + + + + | 06/26/ | Documentati | [facility] | Jaquelin Hu, | | | 2016 | on | Center at [facility] [address] | [address] | | | | | [address] | [address] [facility] [place] | | | | | Mailcode: [id number] | [address] | | | | | [facility] | [phone] | | | | | and Healing, | | | | | | Building | | | | | | Floor [place], [place] | | | | | | [address] | | | | | | [phone] | | | +--------+ + + + [...] + | Diagnosis | + + | Chronic mastoiditis, right - Primary | + + documented in this encounter"
--- OUTSIDE RECORDS SUMMARY | ~2019-07-09 | XMS | Encounter Summary ---
Demographics + + + | Address | [address] | | | [place] [address] | + + + | Home Phone | | + + + | Preferred Language | Unknown | + + + | Marital Status | | + + + | Methodist Affiliation | 1001 | + + + | Race | Unknown | + + + | Ethnic Group | Unknown | + + + Author + + + | Author | [facility] | | | and [place] | + + + | Organization | [facility] | | | and [place] | + + + | Address | Unknown | + + + | Phone | Unavailable | + + + Support + + + + + | Name | Relationship | Address | Phone | + + + + + | Norberto Mann | ECON | [address] | | | | | [place], [place] | | | | | [address] | | + + + + + Care Team Providers + +------+ + | Care Diplomatic Officer Name | Role | Phone | + +------+ + PCP | Unavailable | + +------+ + Encounter Details +--------+ + + + + | Date | Type | Department | Care Team | Description | +--------+ + + + + | 05/27/ | Hospital | [facility] | Conversion | Sialoadenitis | | 2014 | Encounter | [facility] [address] | Transaction, | | | | | [address] | Provider Unknown | | | | | [facility] | | | | | | [address] | | | | | | [phone] | | | +--------+ + + + [...] 2 tablets by | | 0 | 04/05/20 | | | PO | mouth Daily. [...] 0 | 11/30/19 | | | ([facility]STEN JORGEPI[place]O [place]) | under the skin 3 | [...] + +--------+ + + + | CT MAXILLOFACIAL WO | Routin | 05/27/2015 | | Results for this | | CONTRAST | e | 3:18 PM | | procedure are in the | | | | PDT | | results section. | + +--------+ + + + documented in this encounter Results CT Maxillofacial wo Contrast (05/27/2015 3:18 PM PDT) + + | Specimen | + + | | + + + + + | Impressions | Performed At | + + + | 1. Study is technically hampered by the metallic artifact from the | | | patient's dental amalgams. The patient continues be clinically | | | suspect angled imaging through the floor the mouth should be repeated. | | | 2. Within the limitations of this study there is no evidence of | | | salivary urinary gland enlargement or edema no focal fluid collections | | | amenable to surgical drainage. 3. Osds-wj-kvltcamy bilateral | | | cervical adenopathy, correlate clinically. If adenopathy is clinically | | | suspect contrast-enhanced scan could be considered. 4. | | | Postoperative changes of the right mastoid air cells. | | | | | + + + + + + | Narrative | Performed At | + + + | CARLY MANN CT FACIAL AREA 05/27/2015 3:18 PM HISTORY: 65 | | | years. Female. Sialadenitis K 11.20 TECHNIQUE: CT FACIAL | | | AREA. Using multidetector CT scanner helically acquired images through | | | the region of the face without benefit of IV contrast triplanar | | | reformations are presented. Total of 246 images obtained. | | | COMPARISON: Similar study from an outside facility 07/10/2014. | | | FINDINGS: Study is markedly hampered by the metallic artifact from | | | the patient's dental amalgam obscuring the region of the floor of the | | | mouth and the possibility of salivary stone could possibly be obscured | | | in those regions. There is no focal fluid collection or | | | inflammatory change to suggest sialadenitis appreciable on today's | | | study. Postoperative changes of the right mastoid air cells is noted. | | | The lymph node in the right parotid gland is unchanged in size = 0.4 | | | mm "short axis" compared to 7.3 mm previously. Again noted is mild | | | to moderate bilateral cervical adenopathy no bulky, calcified, or | | | necrotic adenopathy is identified. Limited portion of the | | | intracranial contents are unremarkable maxillary sinuses orbits and | | | frontal sinuses are unremarkable. | | + + + + + | Procedure Note | + + | Danilo, Rad Conversion - 04/11/2019 5:45 AM PDT CARLY REESE FACIAL AREA05/27/2015 | | 3:18 PM HISTORY:65 years. Female. Sialadenitis K 11.20 TECHNIQUE:CT FACIAL AREA. Using | | multidetector CT scanner helically acquired images through the region of the face | | without benefit of IV contrast triplanar reformations are presented. Total of 246 | | images obtained. COMPARISON:Similar study from an outside facility | | 07/10/2014.FINDINGS:Study is markedly hampered by the metallic artifact from the | | patient's dental amalgam obscuring the region of the floor of the mouth and the | | possibility of salivary stone could possibly be obscured in those regions. There is no | | focal fluid collection or inflammatory change to suggest sialadenitis appreciable on | | today's study. Postoperative changes of the right mastoid air cells is noted. The lymph | | node in the right parotid gland is unchanged in size = 0.4 mm "short axis" compared to | | 7.3 mm previously. Again noted is mild to moderate bilateral cervical adenopathy no | | bulky, calcified, or necrotic adenopathy is identified.Limited portion of the | | intracranial contents are unremarkable maxillary sinuses orbits and frontal sinuses are | | unremarkable. IMPRESSION: 1. Study is technically hampered by the metallic artifact | | from the patient's dental amalgams. The patient continues be clinically suspect angled | | imaging through the floor the mouth should be repeated.2. Within the limitations of | | this study there is no evidence of salivary urinary gland enlargement or edema no focal | | fluid collections amenable to surgical drainage.3. Hxwm-tz-ohmspzkb bilateral cervical | | adenopathy, correlate clinically. If adenopathy is clinically suspect contrast-enhanced | | scan could be considered.4. Postoperative changes of the right mastoid air cells. | | | |1. Study is technically hampered by the metallic artifact from the patient's dental amalga ms. The patient continues be clinically suspect angled imaging through the floor the mouth s hould be repeated. | |2. Within the limitations of this study there is no evidence of salivary urinary gland enl argement or edema no focal fluid collections amenable to surgical drainage. | |3. Jnyq-uu-bpkhoffj bilateral cervical adenopathy, correlate clinically. If adenopathy is clinically suspect contrast-enhanced scan could be considered. | |4. Postoperative changes of the right mastoid air cells. | | | | | | | | | + + documented in this encounter Visit Diagnoses + + | Diagnosis | + + | Sialoadenitis | + + documented in this encounter
--- OUTSIDE RECORDS SUMMARY | ~2019-07-09 | XMS | Encounter Summary ---
Demographics + + + | Address | [address] | | | [place] [address] | + + + | Home Phone | | + + + | Preferred Language | Unknown | + + + | Marital Status | | + + + | Congregational Affiliation | 1001 | + + + | Race | Unknown | + + + | Ethnic Group | Unknown | + + + Author + + + | Author | [facility] | | | and [place] | + + + | Organization | [facility] | | | and [place] | + + + | Address | Unknown | + + + | Phone | Unavailable | + + + Support + + + + + | Name | Relationship | Address | Phone | + + + + + | Norberto Mann | ECON | [address] | | | | | [place], [place] | | | | | [address] | | + + + + + Care Team Providers + +------+ + | Care Yield Improvement Engineer Name | Role | Phone | + +------+ + PCP | Unavailable | + +------+ + Encounter Details +--------+ + + + + | Date | Type | Department | Care Team | Description | +--------+ + + + + | 10/21/ | Hospital | [facility] | Conversion | | | 2014 | Encounter | CENTER [facility] | Transaction, | | | | | CLINIC [address] | Provider Unknown | | | | | [place], [place] | | | | | | [phone] | (Fax) | | | | | [phone] | | | +--------+ + + + [...] EXTERNAL | | | | performed at [facility], [address] | | LAB | | | | [address], | | | | | | [place] [address] | | | | + + + + + + | RED CELL | 4.80Comment: Testing | 3.70 - 5.10 | EXTERNAL | | | COUNT | performed at [facility], [address] | M/uL | LAB | | | | [address], | | | | | | [place] [address] | | | | + + + + + + | Hgb | 13.9Comment: Testing | 11.3 - 15.5 | EXTERNAL | | | | performed at [facility], [address] | g/dL | LAB | | | | [address], | | | | | | [place] [address] | | | | + + + + + + | Hematocrit, | 41.8Comment: Testing | 34.0 - 46.0 % | EXTERNAL | | | POC | performed at [facility], [address] | | LAB | | | | [address], | | | | | | [place] [address] | | | | + + + + + + | MCV | 87.2Comment: Testing | 80.0 - 100.0 fl | EXTERNAL | | | | performed at [facility], [address] | | LAB | | | | [address], | | | | | | [place] [address] | | | | + + + + + + | MCH | 29.0Comment: Testing | 27.0 - 34.0 pg | EXTERNAL | | | | performed at [facility], [address] | | LAB | | | | [address], | | | | | | [place] [address] | | | | + + + + + + | MCHC | 33.3Comment: Testing | 32.0 - 35.5 | EXTERNAL | | | | performed at [facility], [address] | g/dL | LAB | | | | [address], | | | | | | [place] [address] | | | | + + + + + + | RDW-CV | 45.1Comment: Testing | 37 - 53 fl | EXTERNAL | | | | performed at [facility], [address] | | LAB | | | | [address], | | | | | | [place] [address] | | | | + + + + + + | Platelet | 118 (L)Comment: Testing | 150 - 400 K/uL | EXTERNAL | | | Count | performed at [facility], [address] | | LAB | | | Plasma | [address], | | | | | | [place] [address] | | | | + + + + + + | MPV | 9.2Comment: Testing | fl | EXTERNAL | | | | performed at [facility], [address] | | LAB | | | | [address], | | | | | | [place] [address] | | | | + + + + + + | Differentia | AUTOMATEDComment: | | EXTERNAL | | | l Type | Testing performed at | | LAB | | | | [facility], [address] | | | | | | [place] | | | | | | [address] | | | | + + + + + + | % Segmented | 56.2Comment: Testing | % | EXTERNAL | | | | performed at [facility], [address] | | LAB | | | Neutrophils | [address], | | | | | | [place] [address] | | | | + + + + + + | % | 36.0Comment: Testing | % | EXTERNAL | | | Lymphocytes | performed at [facility], [address] | | LAB | | | | [address], | | | | | | [place] [address] | | | | + + + + + + | % Monocytes | 6.2Comment: Testing | % | EXTERNAL | | | | performed at [facility], [address] | | LAB | | | | [address], | | | | | | [place] [address] | | | | + + + + + + | % | 1.3Comment: Testing | % | EXTERNAL | | | Eosinophils | performed at [facility], [address] | | LAB | | | | [address], | | | | | | [place] [address] | | | | + + + + + + | % Basophils | 0.3Comment: Testing | % | EXTERNAL | | | | performed at [facility], [address] | | LAB | | | | [address], | | | | | | [place] [address] | | | | + + + + + + | Absolute | 3.8Comment: Testing | 1.9 - 7.4 K/uL | EXTERNAL | | | Segmented | performed at [facility], [address] | | LAB | | | Neutrophils | [address], | | | | | | [place] [address] | | | | + + + + + + | Absolute | 2.4Comment: Testing | 1.0 - 3.9 K/uL | EXTERNAL | | | Lymphocytes | performed at [facility], [address] | | LAB | | | | [address], | | | | | | [place] [address] | | | | + + + + + + | Absolute | 0.4Comment: Testing | 0 - 0.8 K/uL | EXTERNAL | | | Monocytes | performed at [facility], [address] | | LAB | | | | [address], | | | | | | [place] [address] | | | | + + + + + + | Absolute | 0.1Comment: Testing | 0 - 0.5 K/uL | EXTERNAL | | | Eosinophils | performed at [facility], [address] | | LAB | | | | [address], | | | | | | [place] [address] | | | | + + + + + + | Absolute | 0.0Comment: Testing | 0 - 0.1 K/uL | EXTERNAL | | | Basophils | performed at [facility], [address] | | LAB | | | | [address], | | | | | | [place] [address] | | | | + + + [...] | | | | | [place] [address] | | | | + + + + + + | K | 4.1Comment: Testing | 3.5 - 4.9 | EXTERNAL | | | | performed at [facility], [address] | mmol/L | LAB | | | | [address], | | | | | | [place] [address] | | | | + + + + + + | Cl | 104Comment: Testing | 99 - 109 mmol/L | EXTERNAL | | | | performed at [facility], [address] | | LAB | | | | [address], | | | | | | [place] [address] | | | | + + + + + + | CO2 | 28Comment: Testing | 23 - 32 mmol/L | EXTERNAL | | | | performed at [facility], [address] | | LAB | | | | [address], | | | | | | [place] [address] | | | | + + + + + + | Anion Gap | 11Comment: Testing | 5 - 20 mmol/L | EXTERNAL | | | | performed at [facility], [address] | | LAB | | | | [address], | | | | | | [place] [address] | | | | + + + + + + | Glucose, | 83Comment: Testing | 65 - 99 mg/dL | EXTERNAL | | | Fasting | performed at [facility], [address] | | LAB | | | | [address], | | | | | | [place] [address] | | | | + + + + + + | BUN | 22Comment: Testing | 8 - 25 mg/dL | EXTERNAL | | | | performed at [facility], [address] | | LAB | | | | [address], | | | | | | [place] [address] | | | | + + + + + + | Creatinine | 0.61Comment: Testing | 0.50 - 1.00 | EXTERNAL | | | | performed at [facility], [address] | mg/dL | LAB | | | | [address], | | | | | | [place] [address] | | | | + + + + + + | BUN/Creatin | 36Comment: Testing | | EXTERNAL | | | ine Ratio | performed at [facility], [address] | | LAB | | | | [address], | | | | | | [place] [address] | | | | + + + + + + | Calcium | 9.7Comment: Testing | 8.5 - 10.5 | EXTERNAL | | | | performed at [facility], [address] | mg/dL | LAB | | | | [address], | | | | | | [place] [address] | | | | + + + [...] | | | | | | at [facility], [address] | | | | | | [address], | | | | | | [place] [address] | | | | + + + [...]
--- OUTSIDE RECORDS SUMMARY | ~2019-07-09 | XMS | Encounter Summary ---
Demographics + + + | Address | [address] | | | [place] [address] | + + + | Home Phone | | + + + | Preferred Language | Unknown | + + + | Marital Status | | + + + | Episcopalian Affiliation | ADV | + + + | Race | White | + + + | Ethnic Group | Not or | + + + Author + + + | Organization | Unknown | + + + | Address | Unknown | + + + | Phone | Unavailable | + + + Support + + + + + | Name | Relationship | Address | Phone | + + + + + | Norberto Oliveros | ECON | [address] | | | [place] | | [place] | | | | | [address] | | + + + + + Care Team Providers + +------+ + | Care Ground Transportation Operator Name | Role | Phone | + +------+ + PCP | Unavailable | + +------+ + Encounter Details +--------+ + + + + | Date | Type | Department | Care Team | Description | +--------+ + + + + | 11/30/ | Letter-Thomas | | Letter, Clinic | Letters | | 2005 | scribed | | | | +--------+ + + [...] documented as of this encounter Progress Notes Interface, Demand Planner In - 03/26/2005 1:10 AM PDT [id number] 11/18/2004 11/30/[address] [id number] [facility] [address] [place] [address] OR NOVEMBER 30, 2004 BENEDICT HAAS M.D. [address] [place] [address] RE: CARLY MANN MR #: [id number] DEAR CHENG: I WANTED TO REVIEW RESULTS OF SOME LAB WORKS THAT I HAD ORDERED ON PATIENT YOU SENT FOR ME TO EVALUATE, CARLY MANN. 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 I HAD ORDERED SOME ADDITIONAL LIVER SEROLOGIES TO MAKE SURE THERE WERE NO OTHER POSSIBILITIES OR OTHER CAUSES OF LIVER DISEASE. I CHECKED IRON STUDIES WHICH WERE NORMAL. THEREFORE, SHE DOES NOT HAVE HEMOCHROMATOSIS. HER AUTOIMMUNE MARKERS INCLUDING ANTIMITOCHONDRIAL ANTIBODY AND ANTISMOOTH MUSCLE ANTIBODY WERE NORMAL, THEREFORE, LIKELY SHE DOES NOT HAVE PRIMARY BILIARY CIRRHOSIS OR AUTOIMMUNE HEPATITIS. I REVIEWED THESE RESULTS WITH MR. MANN AT THE TIME OF HER ABDOMINAL SURGERY. IT WOULD BE REASONABLE THAT SHE UNDERWENT A LIVER BIOPSY OUTLINED IN MY PREVIOUS NOTE YOU. THANKS AGAIN FOR YOUR KIND REFERRAL. SINCERELY, LOUIE TALAMANTES M.D. ASSISTANT SERVICE MANAGER LAURA / SCARLETT [id number] / [id number] / [id number] / documented i n this encounter Plan of Treatment Not on filedocumented as of this encounter Visit Diagnoses Not on filedocumented in this encounter"
--- OUTSIDE RECORDS SUMMARY | ~2019-07-09 | XMS | Encounter Summary ---
Demographics + + + | Address | [address] | | | [place] [address] | + + + | Home Phone [...] + + + | Author | [facility] | + + + | Organization | [facility] | + + + | Address | Unknown | + + + | Phone | Unavailable | + + + Support + + + + + | Name | Relationship | Address | Phone | + + + + + | Norberto Oliveros | ECON | [address] | | | [place] | | [place] | | | | | [address] | | + + + + + Care Team Providers + +------+ + | Care Flower Grower Name | Role | Phone | + [...] | | | | mastoiditis, | PA-C [address] | | | | | right | [address] | [place] | | | | | Procedures | [place], | Mailcode: | | | | | CONSULT TO | [place] | [address] | | | | | ENT / | [id number] | Physician's | | | | | [place] | Phone: | [place] | | | | | [place] | [phone] | [place], [place] | | | | | | Fax: | [address] | | | | | | [phone] | Phone: | | | | | | | [phone] | | | | | | | Fax: | | | | | | | [phone] | +--------+--------+ + + + + Encounter Details +--------+ + + + + | Date | Type | Department | Care Team | Description | +--------+ + + + + | 06/26/ | Documentati | [facility] | Jaquelin Hu, | | | 2016 | on | Center at [facility] [address] | [address] | | | | | [address] | Ave [facility] [place] | | | | | Mailcode: [id number] | [address] | | | | | [facility] | [phone] | | | | | and Healing, | | | | | | Building | | | | | | Floor [place], [place] | | | | | | [address] | | | | | | [phone] | | | +--------+ + + + [...]
--- OUTSIDE RECORDS SUMMARY | ~2019-07-09 | XMS | Encounter Summary ---
Demographics + + + | Address | [address] | | | [place] [address] | + + + | Home Phone | | + + + | Preferred Language | Unknown | + + + | Marital Status | | + + + | Pentecostal Affiliation | ADV | + + + | Race | White | + + + | Ethnic Group | Not or | + + + Author + + + | Author | [facility] | + + + | Organization | [facility] | + + + | Address | Unknown | + + + | Phone | Unavailable | + + + Support + + + + + | Name | Relationship | Address | Phone | + + + + + | Norberto Oliveros | ECON | [address] | | | [place] | | [place] | | | | | [address] | | + + + + + Care Team Providers + +------+ + | Care Basting Machine Operator Name | Role | Phone | + +------+ + | Humberto Ruby MD | PCP | | + +------+ + Encounter Details +--------+ + + + + | Date | Type | Department | Care Team | Description | +--------+ + + + + | 05/20/ | Ancillary | Registration [id number] | | | | 2004 | Registratio | [address] | | | | | n | Ryan Mailcode: [id number] | | | | | | [place] | | | | | | [address] | | | | | | [phone] | | | +--------+ + + + [...]
--- OUTSIDE RECORDS SUMMARY | ~2019-07-09 | XMS | Encounter Summary ---
Demographics + + + | Address | [address] | | | [place] [address] | + + + | Home Phone | | + + + | Preferred Language | Unknown | + + + | Marital Status | | + + + | Taoist Affiliation | ADV | + + + | Race | White | + + + | Ethnic Group | Not or | + + + Author + + + | Author | [facility] | + + + | Organization | [facility] | + + + | Address | Unknown | + + + | Phone | Unavailable | + + + Support + + + + + | Name | Relationship | Address | Phone | + + + + + | Norberto Oliveros | ECON | [address] | | | [place] | | [place] | | | | | [address] | | + + + + + Care Team Providers + +------+ + | Care Liquor Inspector Name | Role | Phone | + +------+ + | June Blanco DO | PCP | Unavailable | + +------+ + Reason for Visit + + + | Reason | Comments | + + + | Refill Request | [place] | + + + Encounter Details +--------+--------+ + + + | Date | Type | Department | Care Team | Description | +--------+--------+ + + + | 12/02/ | Refill | Rheumatology at | [place], [place], | Refill Request | | 2010 | | Physicians [facility] | [address] | ([place]) | | | | [address] | | | | | [place] Mailcode: | [place], [place] | | | | | [address] Physician's | [address] | | | | | [place], [address] Floor | [phone] | | | | | [place], [place] | | | | | | [address] | | | | | | [phone] | | | +--------+--------+ + + + Social History + +-------+ [...]
--- OUTSIDE RECORDS SUMMARY | ~2019-07-09 | XMS | Encounter Summary ---
Demographics + + + | Address | [address] | | | [place] [address] | + + + | Home Phone [...] Author | [facility] | | | and [place] | + + + | Organization | [facility] | | | and [place] | + + + | Address | Unknown | + + + | Phone | Unavailable | + + + Support + + + + + | Name | Relationship | Address | Phone | + + + + + | Norberto Mann | ECON | [address] | | | | | [place], [place] | | | | | [address] | | + + + + + Care Team Providers + +------+ + | Care Bridge Ironworker Name | Role | Phone | + +------+ + PCP | Unavailable | + +------+ + Encounter Details +--------+ + + + + | Date | Type | Department | Care Team | Description | +--------+ + + + + | 01/27/ | Hospital | [facility] | Conversion | | | 2014 | Encounter | CENTER OUTPATIENT | Transaction, | | | | | PHYSICAL THERAPY | Provider Unknown | | | | | [address] | | | | | | [place], [place] | (Fax) | | | | | [address] | | | | | | [phone] | | | +--------+ + + + [...] encounter Progress Notes Georgie Valencia PT - 01/27/2015 12:20 PM PDTFormatting of this note might be different fr om the original. Progress Notes by Georgie Valencia PT at 01/27/15 1220 Author: Georgie Valencia PT Service: (none) Author Type: Physical Therapist Filed: 01/27/15 1248 Date of Service: 01/27/15 1220 Status: Signed Counselor Camp: Georgie Valencia PT (Physical Therapist) Therapy Daily Treatment Note Date of Service: 01/27/2015 Treatment Time/Charges: Manual Therapy 29476 x 3 (45 minutes) Insurance Authorization: 15 of 17 estimated authorized visits (Medicare) - 12/04 GC Authorization Expiration: 08/26/15 POC Expiration: 02/17/15 Subjective: Pain Complaint: Pt c/o anorectal pain and irregular varying bowel movements. Subjective Comments: Pt again admits that she has been non-compliant with HEP or even makin g time for herself. States that she knows what she needs to do, and realizes that she needs to take care of herself, however she continues to struggle with finding time in her day with all her care giving and responsibilities. States that she did find her stability ball and h as 'every intention' of inflating the ball because she could tell how much it was helping to strengthen her core. Pt brought her therawand to therapy today. States she tried to use it at home but 'without success'. Objective: Daily Treatment: Manual Therapy: Quick assessment for trigger points externally and then internally, pt inst ructed with and employed use of therawand throughout session Pt positioned supine hook-lying with [...] on external/internal tr igger points and massaging/stretching techniques Assessment: Response to Treatment: Pt has several trigger points throughout external and internal pelvi c floor, initiated use of therawand for pt to be able to perform manual techniques at home. She has increased trigger points to external pelvic floor, ischio/bulbocavernosus. Less tend erness/pain internally although pain at obturatus. By end of session, pt able to use therawa nd to identify trigger points and use therawand for ischemic/pressure point release for dese nsitization and pain dissipation. Through the course of therapy, pt has been provided with v arious home program exercises and stretches, to include a stability ball and resistance band s, and now to incorporate the therawand for more localized pelvic floor restrictions. Her pr imary barrier is finding time to take care of herself and address her own needs. Pt will ret urn next week to finalize programs and progress toward discharge. Patient continues to require skilled intervention due to: Pt is a good candidate for skille d PT services due to chronicity of condition with worsening of symptoms, severity of pain, a nd complexity of compounding surgeries and medical issues. Pt is very motivated to improve h er condition. Plan: F/u re: therawand. Finalize HEPs. Progress toward d/c. POC: PT treatment to [...] program for symptom management. Georgie Valencia, PT 01/27/2015 12:20 PM documented in this encounter Plan of Treatment Not on filedocumented as of this encounter Visit Diagnoses Not on filedocumented in this encounter"
--- OUTSIDE RECORDS SUMMARY | ~2019-07-09 | XMS | Encounter Summary ---
Demographics + + + | Address | [address] | | | [place] [address] | + + + | Home Phone | | + + + | Preferred Language | Unknown | + + + | Marital Status | | + + + | Nondenominational Affiliation | 1001 | + + + | Race | Unknown | + + + | Ethnic Group | Unknown | + + + Author + + + | Author | [facility] | | | and [place] | + + + | Organization | [facility] | | | and [place] | + + + | Address | Unknown | + + + | Phone | Unavailable | + + + Support + + + + + | Name | Relationship | Address | Phone | + + + + + | Norberto Mann | ECON | [address] | | | | | [place], [place] | | | | | [address] | | + + + + + Care Team Providers + +------+ + | Care Silk Screen Painter Name | Role | Phone | + +------+ + PCP | Unavailable | + +------+ + Encounter Details +--------+ + + + + | Date | Type | Department | Care Team | Description | +--------+ + + + + | 07/02/ | Hospital | [facility] | Conversion | Pain | | 2013 | Encounter | CONVERSION [address] | Transaction, | | | | | [address] | Provider Unknown | | | | | [place], [place] | | | | | | [address] | (Fax) | | | | | [phone] | | | +--------+ + + + [...]
--- OUTSIDE RECORDS SUMMARY | ~2019-07-09 | XMS | Encounter Summary ---
Demographics + + + | Address | [address] | | | [place] [address] | + + + | Home Phone | | + + + | Preferred Language | Unknown | + + + | Marital Status | | + + + | Gnosticist Affiliation | ADV | + + + | Race | White | + + + | Ethnic Group | Not or | + + + Author + + + | Author | [facility] | + + + | Organization | [facility] | + + + | Address | Unknown | + + + | Phone | Unavailable | + + + Support + + + + + | Name | Relationship | Address | Phone | + + + + + | Norberto Oliveros | ECON | [address] | | [place] | | [place] | | | | | [address] | | + + + + + Care Team Providers + +------+ + | Care Flexographic Printing Press Operator Name | Role | Phone | + +------+ + | Humberto Ruby MD | PCP | | + +------+ + Encounter Details +--------+ + + + + | Date | Type | Department | Care Team | Description | +--------+ + + + + | 06/14/ | Documentati | [facility] | Rene Blackwell, | | | 2010 | on | [facility] | [address] | | | | | [facility] | [place], [place] | | | | | [place] [address] | [address] | | | | | [address] | [phone] | | | | | Physician's | | | | | | [place] | | | | | | Physician's [place] | | | | | | [place], [place] | | | | | | [address] | | | | | | [phone] | | | +--------+ + + + [...]
--- OUTSIDE RECORDS SUMMARY | ~2019-07-09 | XMS | Encounter Summary ---
Demographics + + + | Address | [address] | | | [place] [address] | + + + | Home Phone | | + + + | Preferred Language | Unknown | + + + | Marital Status | | + + + | Scientology Affiliation | ADV | + + + [...] + | Norberto Oliveros | ECON | [address] | | | [place] | | [place] | | | | | [address] | | + + + + + Care Team Providers + +------+ + | Care Discharge Specialist Name | Role | Phone | + +------+ + | Humberto Ruby MD | PCP | | + +------+ + Reason for Visit + + + | Reason | Comments | + + + | Ct Scan Result | | + + + Encounter Details +--------+ + + + + | Date | Type | Department | Care Team | Description | +--------+ + + + + | 06/22/ | Telephone | [facility] | Mayte, Jaquelin Che, | Ct Scan Result | | 2015 | | Center at [facility] [address] | [place] [address] | | | | | [address] | [address] [facility] [place] | | | | | Mailcode: [facility] | [address] | | | | | [facility] | [phone] | | | | | and [facility], | | | | | | Building | | | | | | Floor [place], [place] | | | | | | [address] | | | | | | [phone] | | | +--------+ + + + [...]
--- OUTSIDE RECORDS SUMMARY | ~2019-07-09 | XMS | Encounter Summary ---
Demographics + + + | Address | [address] | | | [place] [address] | + + + | Home Phone | | + + + | Preferred Language | Unknown | + + + | Marital Status | | + + + | Voodoo Affiliation | 1001 | + + + | Race | Unknown | + + + | Ethnic Group | Unknown | + + + Author + + + | Author | [facility] | | | and [place] | + + + | Organization | [facility] | | | and [place] | + + + | Address | Unknown | + + + | Phone | Unavailable | + + + Support + + + + + | Name | Relationship | Address | Phone | + + + + + | Norberto Mann | ECON | [address] | | | | | [place], [place] | | | | | [address] | | + + + + + Care Team Providers + +------+ + | Care Family Living Educator Name | Role | Phone | + +------+ + PCP | Unavailable | + +------+ + Encounter Details +--------+ + + + + | Date | Type | Department | Care Team | Description | +--------+ + + + + | 11/19/ | Hospital | [facility] | Conversion | | | 2014 | Encounter | CENTER OUTPATIENT | Transaction, | | | | | PHYSICAL THERAPY | Provider Unknown | | | | | [address] | | | | | | [place], [place] | (Fax) | | | | | [address] | | | | | | [phone] | | | +--------+ + + + [...]
--- OUTSIDE RECORDS SUMMARY | ~2019-07-09 | XMS | Encounter Summary ---
Demographics + + + | Address | [address] | | | [place] [address] | + + + | Home Phone | | + + + | Preferred Language | Unknown | + + + | Marital Status | | + + + | Anabaptist Affiliation | 1001 | + + + | Race | Unknown | + + + | Ethnic Group | Unknown | + + + Author + + + | Author | [facility] | | | and [place] | + + + | Organization | [facility] | | | and [place] | + + + | Address | Unknown | + + + | Phone | Unavailable | + + + Support + + + + + | Name | Relationship | Address | Phone | + + + + + | Norberto Mann | ECON | [address] | | | | | [place], [place] | | | | | [address] | | + + + + + Care Team Providers + +------+ + | Care Assistant Professor Of Mathematics Name | Role | Phone | + +------+ + PCP | Unavailable | + +------+ + Encounter Details +--------+ + + + + | Date | Type | Department | Care Team | Description | +--------+ + + + + | 01/25/ | Hospital | [facility] | Conversion | | | 2014 | Encounter | CENTER OUTPATIENT | Transaction, | | | | | PHYSICAL THERAPY | Provider Unknown | | | | | [address] | | | | | | [place], [place] | (Fax) | | | | | [address] | | | | | | [phone] | | | +--------+ + + + [...] encounter Progress Notes Georgie Valencia PT - 01/25/2015 12:15 PM PDTFormatting of this note might be different fr om the original. Progress Notes by Georgie Valencia PT at 01/25/15 0955 Author: Georgie Valencia PT Service: (none) Author Type: Physical Therapist Filed: 01/25/15 1243 Date of Service: 01/25/15 1215 Status: Signed Compressed Gas Tester: Georgie Valencia PT (Physical Therapist) Therapy Daily Treatment Note Date of Service: 01/25/2015 Treatment Time/Charges: Therapeutic Exercise 28778 x 3 (45 minutes) Insurance Authorization: 14 of 17 estimated authorized visits (Medicare) - 11/03 GC Authorization Expiration: 08/26/15 POC Expiration: 02/17/15 Subjective: Pain Complaint: Pt c/o anorectal pain and irregular varying bowel movements. Subjective Comments: Pt states some days she thinks she is doing good, and then some days s he is not so sure. States she feels she has been 'dragging' for so long, and thinks it might be her medications, and therefore states she stopped taking her low-dose thyroid medication and zoloft. Pt reports that it has been two days since she stopped taking them and states s he feels she has a clearer mind and is more upbeat. Pt states she continues to be remarkably busy with family and travels and caring for her elderly mother and special needs sister-in- law. Pt admits she does not take time for herself or to do her exercises/stretches. States s he bought a stability ball however has misplaced it and therefore has not done any of her HE P for almost two weeks. Objective: Daily Treatment: Therapeutic Exercise: Pt instructed and performed core exercises and stretches as indicated belowl: Supine: Unilateral bridge R/L x 10 x 3 sets Bilateral bridge x 10 x 3 sets Bilateral bridge with leg curl roll in/out x 10 x 3 sets Sitting on Stability ball: 3 or 4# hand-wt Overhead R/L pass Centralized wt-shake vertical Centralized wt-shake horizontal Cross-body diagonal from high-low R/L Behind the back pass R/L Ymvy-coj-bgr CW/CCW Ptient Education: As per above for cont'd stability ball exercises for cont'd back/core str engthening, encouraged better adherence to exercises to be able to develop more strength and stability. Assessment: Response to Treatment: Pt continues to have tender points throughout her abdomen, responds well to manual SCS and fascial mobilizations for decreased abdominal discomfort and congesti on. Pt has significant core and back weakness from multiple back and abdominal surgeries. Sh caio is only partial compliant with HEP, has been instructed with exercises with resistance tub ing and stability ball. She has poor posturing and with remarkably anterior pelvic tilt and abdominal caving/crouching and therefore used stability ball to emphasize pelvic awareness. She needs significant back and core strengthening to develop better stabilizing and postural muscles. Pt tolerated well, vc's for slow and controlled motion. Patient continues to require skilled intervention due to: Pt is a good candidate for skille d PT services due to chronicity of condition with worsening of symptoms, severity of pain, a nd complexity of compounding surgeries and medical issues. Pt is very motivated to improve h er condition. Plan: Pt has ordered a therawand, instruction next session. Progress toward d/c. POC: PT treatment to [...] program for symptom management. Georgie Valencia, PT 01/25/2015 12:15 PM documented in this encounter Plan of Treatment Not on filedocumented as of this encounter Visit Diagnoses Not on filedocumented in this encounter"
--- OUTSIDE RECORDS SUMMARY | ~2019-07-09 | XMS | Encounter Summary ---
Demographics + + + | Address | [address] | | | [place] [address] | + + + | Home Phone | | + + + | Preferred Language | Unknown | + + + | Marital Status | | + + + | Hindu Affiliation | 1001 | + + + | Race | Unknown | + + + | Ethnic Group | Unknown | + + + Author + + + | Author | [facility] | | | and [place] | + + + | Organization | [facility] | | | and [place] | + + + | Address | Unknown | + + + | Phone | Unavailable | + + + Support + + + + + | Name | Relationship | Address | Phone | + + + + + | Norberto Mann | ECON | [address] | | | | | [place], [place] | | | | | [address] | | + + + + + Care Team Providers + +------+ + | Care Hitch Technician Name | Role | Phone | + +------+ + PCP | Unavailable | + +------+ + Encounter Details +--------+ + + + + | Date | Type | Department | Care Team | Description | +--------+ + + + + | 01/25/ | Hospital | [facility] | Conversion | | | 2014 | Encounter | CENTER OUTPATIENT | Transaction, | | | | | PHYSICAL THERAPY | Provider Unknown | | | | | [address] | | | | | | [place], [place] | (Fax) | | | | | [address] | | | | | | [phone] | | | +--------+ + + + [...] Notes by Georgie Valencia PT at 01/25/15 7045 Author: Georgie Valencia PT Service: (none) Author Type: Physical Therapist Filed: 01/25/15 1243 Date of Service: 01/25/15 1215 Status: Signed Road Oiler: Georgie Valencia PT (Physical Therapist) Therapy Daily Treatment Note Date of Service: 01/25/2015 Treatment Time/Charges: Therapeutic Exercise 02077 x 3 (45 minutes) Insurance Authorization: 14 [...] high-low R/L Behind the back pass R/L Vjff-kjn-zzh CW/CCW Ptient Education: As per above for [...]
--- OUTSIDE RECORDS SUMMARY | ~2019-07-09 | XMS | Encounter Summary ---
Demographics + + + | Address | [address] | | | [place] [address] | + + + | Home Phone | | + + + | Preferred Language | Unknown | + + + | Marital Status | | + + + | Church Affiliation | 1001 | + + + | Race | Unknown | + + + | Ethnic Group | Unknown | + + + Author + + + | Author | [facility] | | | and [place] | + + + | Organization | [facility] | | | and [place] | + + + | Address | Unknown | + + + | Phone | Unavailable | + + + Support + + + + + | Name | Relationship | Address | Phone | + + + + + | Norberto Mann | ECON | [address] | | | | | [place], [place] | | | | | [address] | | + + + + + Care Team Providers + +------+ + | Care Systems Test Engineer Name | Role | Phone | + +------+ + | Humberto Ruby MD | PCP | | + +------+ + Reason for Visit Auth/Cert +--------+--------+ + + + + | Status | Reason | Specialty | Diagnoses / | Referred By | Referred To | | | | | Procedures | Contact | Contact | +--------+--------+ + + + + | | | | Diagnoses | | Denny | | | | | | | Floyd Johnson, | | | | | [place] | | DO [address] | | | | s | | [address] | | | | | [place] | | [place] | | | | | s [[id number]] | | Phone: | | | | | Procedures | | [phone] | | | | | NV REMOVAL | | Fax: | | | | | SUBMAND | | [phone] | | | | | STONE,COMPLI | | | | | | | CATED NV | | | | | | | DILATION OF | | | | | | | SALIVARY | | | | | | | DUCT NV | | | | | | | SALIVARY | | | | | | | SURG | | | | | | | UNLISTED | | | | | | | PROC | | | +--------+--------+ + + + + Encounter Details +--------+ + + + + | Date | Type | Department | Care Team | Description | +--------+ + + + + | 08/06/ | Anesthesia | [facility] | Kenneth Hastings MD | | | 2017 | Event | [facility] | [address] | | | | | OP [address] | [place] | | | | | [place] | [phone] | | | | | [address] | | | | | | [phone] | Lolita Billings, | | | | | | XIOM[employer] Student | | +--------+ + + + + Anesthesia Record + + + + + | Procedure Name | Responsible | Anesthesia Start | Anesthesia Stop Time | | | Anesthesiologist | Time | | + + + + + | ENDOSCOPIC SALIVARY | Kenneth Hastings MD | 08/06/17 1039 | 08/06/17 1110 | | PAROTID (Left ) | | | | + + + + + +----+---+ + + | Da | T | Event | Comment | | te | i | | | | | m | | | | | e | | | +----+---+ + + | 12 | 0 | | | | /1 | 9 | | | | 1/ | 1 | | | | 20 | 6 | | | | 17 | | | | +----+---+ + + | | 1 | An Checkout | Pre-use anesthesia machine/equipment checkout. | | | 0 | | | | | 3 | | | | | 9 | | | +----+---+ + + | | 1 | An Start | Reassessment prior to anesthesia induction/procedure. | | | 0 | | | | | 3 | | | | | 9 | | | +----+---+ + + | | 1 | An | | | | 0 | Induction | | | | 4 | | | | | 3 | | | +----+---+ + + | | 1 | Pre-Procedu | | | | 0 | ral Timeout | | | | 5 | Completed | | | | 0 | | | +----+---+ + + | | 1 | First | | | | 0 | Inc/Proc St | | | | 5 | | | | | 3 | | | +----+---+ + + | | 1 | An Stop | Pt transported to Phase 2 on NC 3L. Talking and maintaining | | | 1 | | airway.VSS. Denies pain. Patient handed off to recovery nurse. | | | 1 | | Electronically signed by: Lolita Billings CRNA Student at | | | 0 | | 08/06/2017 11:10 | +----+---+ + + +------+ | Meds | +------+ + + + | Name | Total | + + + | midazolam | 1 mg | + + + | lidocaine 2% | 20 mg | + + + | propofol | 40 mg | + + + | propofol | 173.48 mg | + + + | lactated ringers (LR) infusion | 400 mL | + + + + + | Name | + + | O2 Flow Rate (L/Min) | + + | Insp O2 | + + | Exp N2O | + + + + | No blood administrations on file. | + + +--------+ + + + | Type | Details | Placement | Removal | +--------+ + + + | Periph | 08/06/17; 1006; Right; Wrist; | 08/06/17 1006 by | 08/06/17 1149 by | | randy | uzum-umb-obosnm catheter system; | Jessika Light RN | Connie Grajeda RN | | IV | 18 gauge, 1 1/4 in length; 0; | | | | | distraction, intradermal | | | | | injection; no longer indicated, | | | | | catheter/device intact; healing | | | | | within expectations; 08/06/17; | | | | | 1149 | | | +--------+ + + + documented in this encounter Social History + +-------+ +--------+------+ | Tobacco [...] Visit Diagnoses Not on filedocumented in this encounter Administered Medications + +--------+ +-------+------+------+ | Medication Order | MAR | Action | Dose | Rate | Site | | | Action | Date | | | | + +--------+ +-------+------+------+ | lidocaine (PF) 2% injection | Given | 08/06/20 | 20 mg | | | | Intravenous, PRN, Starting Mon | | 17 10:43 | | | | | 08/06/17 at 1043, Anesthesia | | AM PST | | | | | Intra-op | | | | | | + +--------+ +-------+------+------+ +---+---+ | | | +---+---+ + +-------+ +------+---+---+ | midazolam (VERSED) 1 mg/mL | Given | 08/06/20 | 1 mg | | | | injection Intravenous, PRN, | | 17 10:37 | | | | | Anxiety, Starting 08/06/17 at | | AM PST | | | | | 1037, Anesthesia Intra-op | | | | | | + +-------+ +------+---+---+ +---+---+ | | | +---+---+ + +---------+ + +-------+---+ | propofol (DIPRIVAN) injection | New Bag | 08/06/20 | 150 | 69.4 | | | Intravenous, CONTINUOUS PRN, | | 17 10:45 | mcg/kg/m | mL/hr | | | Starting Sun08/06/17 at 1045, | | AM PST | in | | | | Anesthesia Intra-op | | | | | | + +---------+ + +-------+---+ +---+---+ | | | +---+---+ + +-------+ +-------+---+---+ | propofol (DIPRIVAN) injection | Given | 08/06/20 | 20 mg | | | | Intravenous, PRN, Starting Mon | | 17 10:57 | | | | | 08/06/17 at 1043, Anesthesia | | AM PST | | | | | Intra-op | | | | | | + +-------+ +-------+---+---+ +-------+ +-------+---+---+ | Given | 08/06/20 | 20 mg | | | | | 17 10:43 | | | | | | AM PST | | | | +-------+ +-------+---+---+ +---+---+ | | | +---+---+ documented in this encounter"
--- OUTSIDE RECORDS SUMMARY | ~2019-07-09 | XMS | Encounter Summary ---
Demographics + + + | Address | [address] | | | [place] [address] | + + + | Home Phone | | + + + | Preferred Language | Unknown | + + + | Marital Status | | + + + | Mormonism Affiliation | ADV | + + + | Race | White | + + + | Ethnic Group | Not or | + + + Author + + + | Author | [facility] | + + + | Organization | [facility] | + + + | Address | Unknown | + + + | Phone | Unavailable | + + + Support + + + + + | Name | Relationship | Address | Phone | + + + + + | Norberto Oliveros | ECON | [address] | | | [place] | | [place] | | | | | [address] | | + + + + + Care Team Providers + +------+ + | Care Software Support Specialist Name | Role | Phone | + +------+ + | June Blanco DO | PCP | Unavailable | + +------+ + Encounter Details +--------+ + + + + | Date | Type | Department | Care Team | Description | +--------+ + + + + | 11/29/ | Hospital | Diagnostic | | | | 2010 | Encounter | [facility] at [facility] | | | | | | [address] | | | | | | [place] Mailcode: | | | | | | [address] [facility] | | | | | | [place], | | | | | | [place] [address] | | | | | | [phone] | | | +--------+ + + + [...] + + + +---------+ + + | CYANOCOBALAMIN, | 1 mL by Injection | | 0 | 04//20 | | | VITAMIN B-12, | route every thirty | | | 11 | | | (VITAMIN B-12 INJ) | days. | | | | | + + + +---------+ + + | ergocalciferol | Take 50,000 Units by | | 0 | | | | (VITAMIN D) 50,000 | mouth every seven | | | | | | unit Oral Capsule | days. | | | | | + + + +---------+ + + | INSULIN LISPRO | Inject 20 Units | | 0 | 11/30/19 | | | (HUMALOG KWIKPEN | under the skin | | | 11 | | | SUBQ) | (SUBC) three times | | | | | | | daily. | | | | | + + + +---------+ + + | levothyroxine 75 | Take 75 mcg by mouth | | 0 | | | | mcg Oral Tablet | once daily. | | | | | + + + +---------+ + + | multivitamin | Take 1 Tab by mouth | | 0 | | | | (MULTIPLE VITAMIN) | once daily. | | | | | | Oral Tablet | | | | | | + + + +---------+ + + | [place]-3 Fatty | Take 1 Cap by mouth | | 0 | 20 | | | Acids-Vitamin E | once daily. | | | 11 | | | (FISH OIL) 1,000 mg | | | | | | | Oral Capsule | | | | | | + + + +---------+ + + | oxaprozin 600 mg | Take 600 mg by mouth | | 0 | | | | Oral Tablet | once daily. | | | | | + + + +---------+ + + | Thioctic Acid | Take 2 Tabs by mouth | | 0 | 20 | | | (ALPHA LIPOIC ACID) | once daily. | | | 11 | | | 200 mg Oral Tablet | | | | | | + + + +---------+ + + documented as of this encounter Plan of Treatment Not on filedocumented as of this encounter Procedures + +--------+ + + + | Procedure Name | Priori | Date/Time | Associated Diagnosis | Comments | | | ty | | | | + +--------+ + + + | X-RAY HAND 1 VIEWS | Routin | 11/29/2010 | Rheumatoid | Results for this | | BILATERAL | e | 3:04 PM | arthritis (HCC) | procedure are in the | | | | PDT | | results section. | + +--------+ + + + documented in this encounter Results X-RAY HAND 1 VIEWS BILATERAL (11/29/2010 3:04 PM PDT) + + + + + + | Component | Value | Ref Range | Performed | Pathologist | | | | | At | Signature | + + + + + + | HAND 1 | STUDY: HAND 1 VIEW | | | | | VIEWS | BILATERAL 11/29/10 | | | | | BILATERAL | 15:04:00 COMPARISON: | | | | | | None. FINDINGS: There | | | | | | are subtle periarticular | | | | | | lucencies along the | | | | | | ulnar margin ofthe of | | | | | | the right middle finger | | | | | | metacarpal head, ring | | | | | | finger | | | | | | proximalphalangeal base, | | | | | | and possibly little | | | | | | finger proximal | | | | | | phalangeal base. | | | | | | Periarticular lucencies | | | | | | are also noted at the | | | | | | left index, middle,and | | | | | | possibly ring finger | | | | | | metacarpal heads. There | | | | | | is no joint space | | | | | | narrowing, fracture, | | | | | | malalignment, or | | | | | | otherosseous destruction | | | | | | in either hand. There | | | | | | is no soft | | | | | | tissueabnormality.IMPRES | | | | | | SARAH BETH: Probable erosions | | | | | | around the MTP joints of | | | | | | both hands. I have | | | | | | personally viewed this | | | | | | procedure/exam and | | | | | | reviewed this report. | | | | | | Author: PAMELA JULIO, | | | | | | M.D.Reviewer: PAMELA JULIO, | | | | | | M.D. STATUS FINAL / | | | | | | Dr. PAMELA JULIO | | | | + + + + + + + + | Specimen | + + | | + + + +---------+ + + | Performing | Address | City/State/Zipcode | Phone Number | | Organization | | | | + +---------+ + + | [facility] DEPARTMENT OF | | | | | RADIOLOGY | | | | + +---------+ + + documented in this encounter Visit Diagnoses + + | Diagnosis | + + | Rheumatoid arthritis(714.0) (HCC) Rheumatoid arthritis | + + documented in this encounter"
--- OUTSIDE RECORDS SUMMARY | ~2019-07-09 | XMS | Encounter Summary ---
Demographics + + + | Address | [address] | | | [place] [address] | + + + | Home Phone | | + + + | Preferred Language | Unknown | + + + | Marital Status | | + + + | Hinduism Affiliation | 1001 | + + + | Race | Unknown | + + + | Ethnic Group | Unknown | + + + Author + + + | Author | [facility] | | | and [place] | + + + | Organization | [facility] | | | and [place] | + + + | Address | Unknown | + + + | Phone | Unavailable | + + + Support + + + + + | Name | Relationship | Address | Phone | + + + + + | Norberto Mann | ECON | [address] | | | | | [place], [place] | | | | | [address] | | + + + + + Care Team Providers + +------+ + | Care Guest Service Manager Name | Role | Phone | + +------+ + PCP | Unavailable | + +------+ + Encounter Details +--------+ + + + + | Date | Type | Department | Care Team | Description | +--------+ + + + + | 08/04/ | Hospital | [facility] | Conversion | Mastoiditis, right; | | 2013 | Encounter | [facility] | Transaction, | Parotid mass | | | | ULTRASOUND [address] | Provider Unknown | | | | | KELIN REDD | [phone] | | | | | [place], [place] | | | | | | [address] | | | | | | [phone] | | | +--------+ + + + [...] | 0 | 11/30/19 | | | ([facility]) | under the skin 3 | [...] | + +--------+ + + + | US HEAD NECK SOFT | Routin | 08/04/2014 | | Results for this | | TISSUE | e | 1:43 PM | | procedure are in the | | | | PST | | results section. | + +--------+ + + + documented in this encounter Results US Head Neck Soft Tissue (08/04/2014 1:43 PM PST) + + | Specimen | + + | | + + + + + | Impressions | Performed At | + + + | 1. The nodule seen on the CT scan seems to be identified on this | | | ultrasound study but is immediately adjacent to the inferior margin of | | | the external auditory canal cartilage making it a somewhat difficult | | | target for ultrasound-guided biopsy due to the angles required for | | | visualization and needle placement. 2. Given the small size, I | | | recommend observation at 3 months, and if unchanged, one year before | | | attempted biopsy. Findings and recommendations were reviewed with | | | the patient in person at at the time of the exam. Electronically | | | signed by Albert Petit DO on 08/04/2014 2:39 PM | | + + + + + + | Narrative | Performed At | + + + | [facility] US SOFT TISSUE NECK AND HEAD 08/04/2014 1:43 PM | | | HISTORY: 64 years. Female. Nodule seen in the superficial portion | | | of the right parotid lobe on contrast-enhanced CT scan of the neck | | | performed at [facility] 07/10/2014. Biopsy was requested | | | by Dr. Maynard. TECHNIQUE: Grayscale and color Doppler techniques | | | were utilized with a linear 12 MHz transducer. COMPARISON: | | | Outside CT soft tissue neck with and without contrast, 07/10/2014, | | | performed at [facility] FINDINGS: The only nodule that | | | could be identified in the right thyroid lobe was a small ovoid, | | | well-circumscribed homogeneously hypoechoic nodule which demonstrates | | | through transmission. This was identified within the superficial | | | right parotid gland immediately adjacent to the cartilage of the | | | right external auditory canal. This measures 4 x 6 x 7 mm in size | | | and seemingly corresponds to the finding on the CT scan. However on | | | sonography this appears to be contiguous with the cartilage of the | | | ear. I was not convinced that this structure was a separate | | | structure from the cartilage. However Color Doppler imaging shows a | | | blood vessel entering this small nodule. Due to its position, small | | | size and proximity to the cartilage of the ear this presents a | | | somewhat is difficult target for ultrasound-guided biopsy. | | + + + + + | Procedure Note | + + | Danilo, Rad Conversion - 04/11/2019 11:12 PM PDT [facility] SOFT TISSUE NECK AND | | HEAD08/04/2014 1:43 PM HISTORY:64 years. Female. Nodule seen in the superficial portion | | of the right parotid lobe on contrast-enhanced CT scan of the neck performed at [facility] 07/10/2014. Biopsy was requested by Dr. Maynard. TECHNIQUE:Grayscale | | and color Doppler techniques were utilized with a linear 12 MHz transducer. | | COMPARISON:Outside CT soft tissue neck with and without contrast, 07/10/2014, performed | | at [facility] FINDINGS:The only nodule that could be identified in the right | | thyroid lobe was a small ovoid, well-circumscribed homogeneously hypoechoic nodule which | | demonstrates through transmission. This was identified within the superficial right | | parotid gland immediately adjacent to the cartilage of the right external auditory | | canal. This measures 4 x 6 x 7 mm in size and seemingly corresponds to the finding on | | the CT scan. However on sonography this appears to be contiguous with the cartilage of | | the ear. I was not convinced that this structure was a separate structure from the | | cartilage. However Color Doppler imaging shows a blood vessel entering this small | | nodule. Due to its position, small size and proximity to the cartilage of the ear this | | presents a somewhat is difficult target for ultrasound-guided biopsy. IMPRESSION: 1. | | The nodule seen on the CT scan seems to be identified on this ultrasound study but is | | immediately adjacent to the inferior margin of the external auditory canal cartilage | | making it a somewhat difficult target for ultrasound-guided biopsy due to the angles | | required for visualization and needle placement.2. Given the small size, I recommend | | observation at 3 months, and if unchanged, one year before attempted biopsy. Findings | | and recommendations were reviewed with the patient in person at at the time of the exam. | | | |for ultrasound-guided biopsy due to the | |angles required for visualization and needle placement. | |2. Given the small size, I recommend observation at 3 months, and if unchanged, one year b efore attempted biopsy. | | | |Findings and recommendations were reviewed with the patient in person at at the time of the exam. | | | | | + + documented in this encounter Visit Diagnoses + + | Diagnosis | + + | Mastoiditis, right | + + | Parotid mass Swelling, mass, or lump in head and neck | + + documented in this encounter"
--- OUTSIDE RECORDS SUMMARY | ~2019-07-09 | XMS | Encounter Summary ---
Demographics + + + | Address | [address] | | | [place] [address] | + + + | Home Phone | | + + + | Preferred Language | Unknown | + + + | Marital Status | | + + + | Baptist Affiliation | 1001 | + + + | Race | Unknown | + + + | Ethnic Group | Unknown | + + + Author + + + | Author | [facility] | | | and [place] | + + + | Organization | [facility] | | | and [place] | + + + | Address | Unknown | + + + | Phone | Unavailable | + + + Support + + + + + | Name | Relationship | Address | Phone | + + + + + | Norberto Mann | ECON | [address] | | | | | [place], [place] | | | | | [address] | | + + + + + Care Team Providers + +------+ + | Care Reverse Engineer Name | Role | Phone | [...] | [facility] | MD [address] | | | | | IMAGING | [address] | | | | | [phone] | [place] [address] | | +--------+ + + + + [...]
--- OUTSIDE RECORDS SUMMARY | ~2019-07-09 | XMS | Encounter Summary ---
Demographics + + + | Address | [address] | | | [place] [address] | + + + | Home Phone | | + + + | Preferred Language | Unknown | + + + | Marital Status | | + + + | Rastafari Affiliation | ADV | + + + | Race | White | + + + | Ethnic Group | Not or | + + + Author + + + | Author | [facility] | + + + | Organization | [facility] | + + + | Address | Unknown | + + + | Phone | Unavailable | + + + Support + + + + + | Name | Relationship | Address | Phone | + + + + + | Norberto Oliveros | ECON | [address] | | | [place] | | [place] | | | | | [address] | | + + + + + Care Team Providers + +------+ + | Care Valve Steamer Name | Role | Phone | + +------+ + | June Blanco DO | PCP | | + +------+ + Encounter Details +--------+------+ + + + | Date | Type | Department | Care Team | Description | +--------+------+ + + + | 02/28/ | Lab | Laboratory, | | Rheumatoid arthritis | | 2010 | | Specimen Collection | | ([facility]) | | | | at [address] | | | | | | [address] | | | | | | [place], | | | | | | [place] [address] | | | | | | [phone] | | | +--------+------+ + + + Social History + +-------+ +--------+------+ | Tobacco Use | Types | Packs/Day | Years | Date | | | | | Used | | + +-------+ +--------+------+ | Never Smoker | | | | | + +-------+ +--------+------+ + + +---------+ + | Alcohol Use | Drinks/Week | oz/Week | Comments | + + +---------+ + | Not Asked | | | | + + +---------+ [...] + | C-REACTIVE PROTEIN | Routin | 02/28/2011 | Rheumatoid | Results for this | | | e | 11:25 AM | arthritis (HCC) | procedure are in the | | | | PDT | | results section. | + +--------+ + + + documented in this encounter Results C-REACT PRTN (FOR INFLAMMATION) (02/28/2011 11:25 AM PDT) + +---------+ + + + | Component | Value | Ref Range | Performed | Pathologist | | | | | At | Signature | + +---------+ + + + | C-REACTIVE | 1.7 (H) | <0.6 mg/dl | [facility] | | | PROTEIN | | | [facility] | | | | | | LABORATORY | | + +---------+ + + + + + | Specimen | + + | Blood - Blood | + + + + + | Narrative | Performed At | + + + | [facility] | [facility] | | [facility] [address] | REGIONAL | | [place] [address] | LABORATORY | + + + + + + + + | Performing | Address | City/State/Zipcode | Phone Number | | Organization | | | | + + + + + | [facility] | [address] | [place] [address] | | | LABORATORY | | | | + + + + + documented in this encounter Visit Diagnoses + + | Diagnosis | + + | Rheumatoid arthritis(714.0) (HCC) Rheumatoid arthritis | + + documented in this encounter"
--- OUTSIDE RECORDS SUMMARY | ~2019-07-09 | XMS | Encounter Summary ---
Demographics + + + | Address | [address] | | | [place] [address] | + + + | Home Phone | | + + + | Preferred Language | Unknown | + + + | Marital Status | | + + + | Pentecostal Affiliation | 1001 | + + + | Race | Unknown | + + + | Ethnic Group | Unknown | + + + Author + + + | Author | [facility] | | | and [place] | + + + | Organization | [facility] | | | and [place] | + + + | Address | Unknown | + + + | Phone | Unavailable | + + + Support + + + + + | Name | Relationship | Address | Phone | + + + + + | Norberto Mann | ECON | [address] | | | | | [place], [place] | | | | | [address] | | + + + + + Care Team Providers + +------+ + | Care Coffee Machine Technician Name | Role | Phone | + +------+ + PCP | Unavailable | + +------+ + Encounter Details +--------+ + + + + | Date | Type | Department | Care Team | Description | +--------+ + + + + | 12/30/ | Hospital | [facility] | Conversion | | | 2014 | Encounter | [facility] | Transaction, | | | | | PHYSICAL THERAPY | Provider Unknown | | | | | [address] | | | | | | [place], [place] | (Fax) | | | | | [address] | | | | | | [phone] | | | +--------+ + + + [...] encounter Progress Notes Georgie Valencia PT - 12/30/2014 1:30 PM PDTFormatting of this note might be different fr om the original. Progress Notes by Georgie Valencia PT at 12/30/14 7661 Author: Georgie Valencia PT Service: (none) Author Type: Physical Therapist Filed: 12/30/14 8701 Date of Service: 12/30/14 6694 Status: Signed Education Teacher: Georgie Valencia PT (Physical Therapist) Therapy Daily Treatment Note Date of Service: 12/30/2014 Treatment Time/Charges: Therapeutic Exercise 48389 x 1 (20 minutes), Manual Therapy 02117 x 2 (25 minutes) Insurance Authorization: 9 of 17 estimated authorized visits (Medicare) - 04/05 GC Authorization Expiration: 08/26/15 POC Expiration: 02/17/15 Subjective: Pain Complaint: Pt c/o anorectal pain and irregular varying bowel movements. Subjective Comments: Pt states she has periods where she is doing better, and then she has days like today where she is in a 'slump' and has marked increased pain in her abdomen and s he feels very tired. Pt states she thinks she is overdoing it with carrying for family membe rs as well as planning her mother's 98th birthday libertarian (3 different parties) and states she has not made time to do her exercises and stretches. Pt reports she had 3 bowel movements y esterday however today she feels 'clogged up' and c/o cramping in her middle and left abdomi nal quadrants. Pt brought her resistance bands with handles in for today's session to get so me better instruction with using them. Objective: Daily Treatment: Manual Therapy: Goldstein Strain-Counterstrain [...] Median umbilical ligament (MUL-V) Obturator membrane (OM-V) Therapeutic Exercise: Pt instructed and performed core exercises and stretches as indicated below. Pelvic tilt x 10 TA contraction x 10 Hamstring stretch with TB hold 30 sec x 2 R/L Supine, straight leg hip flexion with alternating knee flexion/extension with resistance band Supine, hip abduction with resistance band bilat Squat with bicep curl with resistance band bilat Mid stance UE diagonal pull with resistance band R/L Ptient Education: As per above for new HEP for cont'd back/core strengthening, encouraged b brenda adherence to exercises to be able to develop more strength and stability. Assessment: Response to Treatment: Pt has significant core and back weakness from multiple back and abd ominal surgeries and has been noncompliant with HEP. She has poor posturing and with remarka tex anterior pelvic tilt and abdominal caving/crouching. Therefore pt is putting undo stress on internal organs and increasing back kyphosis. She needs significant back and core streng thening to develop better stabilizing and postural muscles. Therefore today's session contin ued to focus on developing HEP and today using resistance bands. Pt tolerated well, vc's for slow and controlled motion. Patient continues to require skilled intervention due to: Pt is a good candidate for skille d PT services due to chronicity of condition with worsening of symptoms, severity of pain, a nd complexity of compounding surgeries and medical issues. Pt is very motivated to improve h er condition. Plan: F/u re: basic DLS strengthening. Cont per POC. POC: PT treatment to [...] program for symptom management. Georgie Valencia, PT 12/30/2014 11:22 AM documented in this encounter Plan of Treatment Not on filedocumented as of this encounter Visit Diagnoses Not on filedocumented in this encounter"
--- OUTSIDE RECORDS SUMMARY | ~2019-07-09 | XMS | Encounter Summary ---
Demographics + + + | Address | [address] | | | [place] [address] | + + + | Home Phone | | + + + | Preferred Language | Unknown | + + + | Marital Status | | + + + | Presybeterian Affiliation | ADV | + + + | Race | White | + + + | Ethnic Group | Not or | + + + Author + + + | Author | [facility] | + + + | Organization | [facility] | + + + | Address | Unknown | + + + | Phone | Unavailable | + + + Support + + + + + | Name | Relationship | Address | Phone | + + + + + | Norberto Oliveros | ECON | [address] | | | [place] | | [place] | | | | | [address] | | + + + + + Care Team Providers + +------+ + | Care Night Court Magistrate Name | Role | Phone | + +------+ + | Humberto Ruby MD | PCP | | + +------+ + Reason for Visit + + + | Reason | Comments | + + + | Hypothyroidism | | + + + Office Visit - E/M Services (Routine) +--------+ + + + + + | Status | Reason | Specialty | Diagnoses / | Referred By | Referred To | | | | | Procedures | Contact | Contact | +--------+ + + + + + | Closed | Specialty | Endocrinology | Diagnoses | Carolyn, | Rishi | | | Services | , Diabetes & | Rheumatoid | MD Jailene | MD Rene | | | Required | Metabolism | arthritis(70 | [address] | [address] | | | | | 4.0) ([facility]) | [address] | [address] | | | | | Procedures | Rd | [place], [place] | | | | | CONSULT TO | [place], [place] | [address] | | | | | ENDO | [address] | Phone: | | | | | [address] | Phone: | [phone] | | | | | [address] | [phone] | Fax: | | | | | | Fax: | [phone] | | | | | | [phone] | | +--------+ + + + + + Encounter Details +--------+---------+ + + + | Date | Type | Department | Care Team | Description | +--------+---------+ + + + | 07/11/ | Office | Abram Wilson | Rene Blackwell, | Hypothyroidism; Type | | 2010 | Visit | Diabetes Health | [address] | 2 diabetes mellitus | | | | [facility] | [address] [place], [place] | ([facility]); Dyslipidemia | | | | [address] | [address] | | | | | [address] | [phone] | | | | | Physician's | | | | | | Pavilion | | | | | | [facility] | | | | | | [place], [place] | | | | | | [address] | | | | | | [phone] | | | +--------+---------+ + + + [...] + + + | Blood Pressure | 126/70 | 07/11/2011 4:40 PM | | | | | PST | | + + + + + | Pulse | 89 | 07/11/2011 4:40 PM | | | | | PST [...] + + + + | Weight | 90.7 kg (200 lb) | 07/11/2011 4:40 PM | | | | | PST | | + + + + + | Height | 163.8 cm (5' 4.5") | 07/11/2011 4:40 PM | | | | | PST | | + + + + + | Body Mass Index | 33.8 | 07/11/2011 4:40 PM | | | | | PST | | + + + + + documented in this encounter Progress Notes Rene Blackwell MD - 07/13/2011 12:52 PM PSTI personally interviewed the patient, perfor med the pertinent parts of the physical examination and personally formulated the plan with the resident. I agree with the residents documentation and have documented any additions or exceptions. oah Rader MD - 07/11/2011 4:51 PM PST Endocrine Clinic Patient Visit on 07/11/2011 with Rene Blackwell PCP is Humberto Ruby MD ID and Chief Complaint Carly Mann is a 61 y.o. female with a history of DM, HLD, obesity and hypothyroidism wh o presents for follow up for weight management History from Today's Visit 1. Was last seen 2 months ago. Insurance would not cover bypass surgery. Has been given t pill and she lost 15#. Her insulin has decreased to 20 units a day. She is very happy abou t her progress. She reports her cravings has decreased and that the diet pill has suppressed her urge to eat more. She feels the best she felt in year. BMI is down from 36 to 33. She h as not gotten in a good routine for exercise, but says it is in the works. She is into [employer] and has been taking 2 shakes a day and 1 smaller meals. She had a sleep study and was on CPAP that resulted in sinus impaction that she stopped it. Active problem list was reviewed: Patient Active Problem List Diagnoses Rheumatoid arthritis Fatigue Central obesity Fibromyalgia Hypothyroidism Type 2 diabetes mellitus Dyslipidemia Current Outpatient Prescriptions Medication Sig arginine 500 mg Oral Tablet Take 1,000 mg by mouth two times daily. CYANOCOBALAMIN, VITAMIN B-12, (VITAMIN B-12 INJ) 1 mL by Injection route every thirty d ays. ergocalciferol (VITAMIN D) 50,000 unit Oral Capsule Take 50,000 Units by mouth every se francisco j days. hydroxychloroquine (PLAQUENIL) 200 mg Oral Tablet Take 1 Tab by mouth two times daily. INSULIN LISPRO (HUMALOG KWIKPEN SUBQ) Inject 20 Units under the skin (SUBC) three times daily. levothyroxine 75 mcg Oral Tablet Take 75 mcg by mouth once daily. multivitamin (MULTIPLE VITAMIN) Oral Tablet Take 1 Tab by mouth once daily. [place]-3 Fatty Acids-Vitamin E (FISH OIL) 1,000 mg Oral Capsule Take 1 Cap by mouth once daily. oxaprozin 600 mg Oral Tablet Take 600 mg by mouth once daily. phentermine 37.5 mg Oral Tablet Take 1 Tab by mouth once daily in the morning. Administ er before breakfast. sertraline 50 mg Oral Tablet Take 50 mg by mouth once daily. Thioctic Acid (ALPHA LIPOIC ACID) 200 mg Oral Tablet Take 2 Tabs by mouth once daily. Allergies Allergen Reactions Biaxin (Clarithromycin) Byetta (Exenatide) Codeine Pain Medicine (Diphenhydramine-Acetaminophen) (Some pain medications) Penicillin G Wygesic (Propoxyphene-Acetaminophen) For brevity, past medical and surgical history is not included in full in this note. This p atient's history is familiar to me and is complete in the electronic chart. Review of Systems Relevant positive and negative ROS is noted in history above Filed Vitals: 07/11/2011 4:40 PM Height: 1.638 m (5' 4.5") Weight: 90.719 kg (200 lb) BP: 126/70 Pulse: 89 PainSc: 0 - Zero BMI: 33.80 kg/(m^2)estimated body mass index is 33.80 kg/(m^2) as calculated from a height of 5' 4.5"(1.638 m) as of this encounter and a weight of 200 lb(90.719 kg) as of this encou nter. Physical Exam General Appearance: NAD, well groomed, very happy and pleasant, central obesity HEENT:NCAT, MMM, white sclera, higuera facies Neck: no LAD, increase in supraclavicular fat pad. CV: RRR, no m/r/g Resp: CTAB, no w/r/r Abd: soft, NT, ND, NABS Ext: no c/c/e, warm throughout, no JONATHAN Assessment and Plan Partial lipodystrophy (Kobblinger's type) - The patient is very satisfied about her elizabeth ght loss on phentermine. Overall, she has lost more weight than expected and we anticipate f urther weight loss before she plateaus. Her diet and overall self esteem is likely contribut ing to her well being and weight loss. Per her insurance, she will not qualify for bariatric surgery. - encourage increase in exercise - will restart pramlintide at 120U before meals and gave instructions for patient to titra te off insulin. Pramlintide will offer additional weight loss benefits. - follow up in 4 months, will check lipids when weight is stable. - continue CPAP as tolerated - continue with current diet - continue phentermine 37.5mg daily. The history, findings, diagnoses and treatment plan that I have documented were reviewed [facility] staff physician Dr. Jeremiah Blackwell at the time of this visit. The staff physician agrees that my assessment, plan and services provided are appropriate. NOAH RADER MD ENDOCRINOLOGY, DIABETES AND CLINICAL NUTRITION [facility] [facility] Physicians [facility] [phone] documented in this encounter Plan of Treatment Not on filedocumented as of this encounter Visit Diagnoses + + | Diagnosis | + + | Hypothyroidism Unspecified hypothyroidism | + + | Type 2 diabetes mellitus (HCC) Type II or unspecified type diabetes mellitus without | | mention of complication, not stated as uncontrolled | + + | Dyslipidemia Other and unspecified hyperlipidemia | + + documented in this encounter
--- OUTSIDE RECORDS SUMMARY | ~2019-07-09 | XMS | Encounter Summary ---
Demographics + + + | Address | [address] | | | [place] [address] | + + + | Home Phone | | + + + | Preferred Language | Unknown | + + + | Marital Status | | + + + | Latter Day Affiliation | 1001 | + + + | Race | Unknown | + + + | Ethnic Group | Unknown | + + + Author + + + | Author | [facility] | | | and [place] | + + + | Organization | [facility] | | | and [place] | + + + | Address | Unknown | + + + | Phone | Unavailable | + + + Support + + + + + | Name | Relationship | Address | Phone | + + + + + | Norberto Mann | ECON | [address] | | | | | [place], [place] | | | | | [address] | | + + + + + Care Team Providers + +------+ + | Care Sewing Machine Maintenance Mechanic Name | Role | Phone | + +------+ + PCP | Unavailable | + +------+ + Encounter Details +--------+ + + + + | Date | Type | Department | Care Team | Description | +--------+ + + + + | 12/01/ | Hospital | [facility] | Conversion | | | 2014 | Encounter | CENTER OUTPATIENT | Transaction, | | | | | PHYSICAL THERAPY | Provider Unknown | | | | | [address] | | | | | | [place], [place] | (Fax) | | | | | [address] | | | | | | [phone] | | | +--------+ + + + [...] encounter Progress Notes Georgie Valencia PT - 12/01/2014 12:15 PM PDTFormatting of this note might be different fr om the original. Progress Notes by Georgie Valencia PT at 12/01/14 1565 Author: Georgie Valencia PT Service: (none) Author Type: Physical Therapist Filed: 12/01/14 1238 Date of Service: 12/01/14 7955 Status: Signed Ultrasonographer: Georgie Valencia PT (Physical Therapist) Therapy Daily Treatment Note Date of Service: 12/01/2014 Treatment Time/Charges: Manual Therapy 12248 x 1 (15 minutes), Therapeutic Exercise 45483 x 2 (30 minutes) Insurance Authorization: 2 of 17 estimated authorized visits (Medicare) - 09/05 GC Authorization Expiration: 08/26/15 POC Expiration: 02/17/15 Subjective: Pain Complaint: Pt c/o anorectal pain and irregular varying bowel movements. Subjective Comments: Pt states she is currently not having any pain because she pre-medicat ed prior to therapy. States her bowel movements continue to fluctuate with consistency and f requency. States she had a bowel movement this morning however she is still taking fiber sup plements and stool softeners. States she has not leaked in a while. Reports she has not had the anorectal pain for a few days now. Objective: Tests/Measures: External / Visual Perineal Exam Skin integrity: intact Perineal body / Introitus: normal Contraction response: visible lift Cough: bulge Palpation/tone: hypertonic L>R Pain at (Pelvic Clock): bulbospongiosus L>R, ischiocavernosus R, STP R, perineum Pelvic Floor Internal Exam: Vaginal Sensation: intact Palpation/tone: hypertonic R>L Pain at: pubo/iliocygeus R>L, coccygeus R/L, coccygeus R/L Pelvic floor strength: 4 = Contraction or squeeze pressure and lift with displacement of the whole finger from ant erior, posterior, and sidewalls of the vagina Hold: 5 sec, 10 reps Relax after contraction: Delayed Daily Treatment: Therapeutic Exercise: Pt instructed and performed exercises for pelvic floor down-training and pelvic relaxation/stretching as indicated below, handout provided for stretches. [employer] software assisted exercise: external fern-anal sensors applied Baseline tone readings obtained Relaxation exercises for diaphragmatic breathing to facilitate pelvic floor relaxation/d ropping Positional changes to assess pt's pelvic floor tone in supine, sitting, standing, forwar d flexion, knee elevated, etc. Pelvic floor rhythm with visualization exercises for pelvic floor down-training V.I. for correct technique Treatment time to include set-up and explanation of procedure and application/use of int ernal vaginal sensor Review of values for resting tone, average contraction, SD and comparison of values toda y for significance and baseline Pelvic floor relaxation stretches: Single knee to chest - R/L Foot and knee up - piriformis - R/L Knee to opposite shoulder - R/L Knee over to opposite hand - R/L Patient Education: Explanations throughout regarding findings for pelvic floor tone and pos itional changes. Instruction/performance in HEP for stretches, handout provided. Also introd uced possibility of using therawand for home management, handout provided. Assessment: Response to Treatment: Per external and internal assessment, pt has significant muscular tr igger points throughout the layers of PFM, notably R side superficial and bilateral deep, wi th remarkable pain at obturator internus. Per instruction/performance with pelvic stretches, pt has severe piriformis, hamstring, and hip adductor tightness and will benefit from initi ating stretches at home to address comprehensive tightness contributing to musculoskeletal d ysfunction of the pelvic floor. Pt has also had multiple back surgeries that may be contribu ting to overall low back/pelvic discomfort. Patient continues to require skilled intervention due to: Pt is a good candidate for skille d PT services due to chronicity of condition with worsening of symptoms, severity of pain, a nd complexity of compounding surgeries and medical issues. Pt is very motivated to improve h er condition. Plan: F/u re: HEP. POC: PT treatment to include: Manual techniques [...] program for symptom management. Georgie Valencia, PT 12/01/2014 12:18 PM documented in this encounter Plan of Treatment Not on filedocumented as of this encounter Visit Diagnoses Not on filedocumented in this encounter"
--- OUTSIDE RECORDS SUMMARY | ~2019-07-09 | XMS | Encounter Summary ---
Demographics + + + | Address | [address] | | | [place] [address] | + + + | Home Phone | | + + + | Preferred Language | Unknown | + + + | Marital Status | | + + + | Yazdanism Affiliation | ADV | + + + | Race | White | + + + | Ethnic Group | Not or | + + + Author + + + | Author | [facility] | + + + | Organization | [facility] | + + + | Address | Unknown | + + + | Phone | Unavailable | + + + Support + + + + + | Name | Relationship | Address | Phone | + + + + + | Zane Oliveros | ECON | [address] | | | [place] | | [place] | | | | | [address] | | + + + + + Care Team Providers + +------+ + | Care County Supervisor Name | Role | Phone | + +------+ + | June Blanco DO | PCP | | + +------+ + Reason for Referral Diagnostic Testing (Routine) +--------+--------+ + + + + | Status | Reason | Specialty | Diagnoses / | Referred By | Referred To | | | | | Procedures | Contact | Contact | +--------+--------+ + + + + | Closed | | Radiology | Diagnoses | [place], | [facility] | | | | | Rheumatoid | MD Jailene | [address] | | | | | arthritis(70 | [address] | [place] | | | | | 4.0) ([facility]) | [place] | [address] | | | | | Procedures | Rd | Mailcode: | | | | | MRI HAND RT | [facility] [place] | [address] | | | | | [address] | [address] | [place] | | | | | | Phone: | Research | | | | | | [phone] | [place] | | | | | | Fax: | [place], [place] | | | | | | [phone] | [address] | | | | | | | Phone: | | | | | | | [phone] | | | | | | | Fax: | | | | | | | [phone] | +--------+--------+ + + + + Reason for Visit + + + | Reason | Comments | + + + | RA - Rheumatoid | | | arthritis | | + + + Encounter Details +--------+---------+ + + + | Date | Type | Department | Care Team | Description | +--------+---------+ + + + | 07/05/ | Office | Rheumatology at | Jailene Leon, | Rheumatoid arthritis | | 2010 | Visit | [facility] | [address] ([facility]) (Primary Dx) | | | | [address] | [address] | | | | | [place] Mailcode: | [place], [place] | | | | | [address] Physician[facility] | [address] | | | | | [facility], [address] | [phone] | | | | | [place], [place] | | | | | | [address] | | | | | | [phone] | | | +--------+---------+ + + + [...] + + + | Blood Pressure | 142/78 | 02/28/2011 9:53 AM | | | | | PDT | | + + + + + | Pulse | 78 | 02/28/2011 9:53 AM | | | | | PDT | | + + + + + [...] + + + + | Weight | 96.6 kg (213 lb) | 02/28/2011 9:53 AM | | | | | PDT | | + + + + + | Height | 163.8 cm (5' 4.49") | 02/28/2011 9:53 AM | | | | | PDT | | + + + + + | Body Mass Index | 36.01 | 02/28/2011 9:53 AM | | | | | PDT | | + + + + + documented in this encounter Progress Notes Jailene Leon MD - 02/28/2011 11:08 AM PDTFormatting of this note might be different fro m the original. Progress Note Clinic: Rheumatology Reason for follow-up: Chief Complaint Patient presents with RA - Rheumatoid arthritis Since last seen, she has had several investigations. Her RF, anti-CCP are negative, sed ra te is normal but the CRP was high at 1.6. The x-rays of the hands suggested possible erosio ns. She has symptoms suggestive of sleep apnea Past Medical History: Past Medical History Diagnosis Date Fibromyalgia Kidney stone Dyslipidemia Diabetes mellitus Angina pectoris Hypertension Irritable bowel syndrome Medications: Current outpatient prescriptions Medication Sig arginine 500 mg Oral Tablet Take 1,000 mg by mouth two times daily. Calcium Carbonate 1,000 mg Oral Tablet Take 1,000 mg by mouth once daily. CAPSICUM, CAYENNE, ORAL Take by mouth two times daily. Cinnamon Bark (CINNAMON) 500 mg Oral Capsule Take 2 Caps by mouth once daily. CYANOCOBALAMIN, VITAMIN B-12, (VITAMIN B-12 INJ) 1 mL by Injection route every thirty d ays. ergocalciferol (VITAMIN D) 50,000 unit Oral Capsule Take 50,000 Units by mouth every se francisco j days. hydroxychloroquine (PLAQUENIL) 200 mg Oral Tablet Take 1 Tab by mouth two times daily. INSULIN DETEMIR (LEVEMIR SUBQ) Inject 110 Units under the skin (SUBC) two times daily. INSULIN LISPRO (HUMALOG KWIKPEN SUBQ) Inject 60 Units under the skin (SUBC) three times daily. levothyroxine 75 mcg Oral Tablet Take 75 mcg by mouth once daily. multivitamin (MULTIPLE VITAMIN) Oral Tablet Take 1 Tab by mouth once daily. [place]-3 Fatty Acids-Vitamin E (FISH OIL) 1,000 mg Oral Capsule Take 1 Cap by mouth once daily. oxaprozin 600 mg Oral Tablet Take 600 mg by mouth once daily. pramlintide (SYMLINPEN 120) 2,700 mcg/2.7 mL Subcutaneous Pen Injector Inject 120 mcg u nder the skin (SUBC) three times daily before meals. Administer immediately prior to meals sertraline 50 mg Oral Tablet Take 50 mg by mouth once daily. Thioctic Acid (ALPHA LIPOIC ACID) 200 mg Oral Tablet Take 2 Tabs by mouth once daily. Vitamin E 400 unit Oral Tablet Take 400 Units by mouth once daily. Allergies: Wygesic, Biaxin, Penicillin g, Codeine and Pain medicine Social History: History Social History Marital Status: Spouse Name: N/A Number of Children: N/A Years of Education: N/A Occupational History Not on file. Social History Main Topics Smoking status: Never Smoker Smokeless tobacco: Not on file Alcohol Use: Not on file Drug Use: Not on file Sexually Active: Not on file Other Topics Concern Not on file Social History Narrative No narrative on file Review of Systems: General: Constitutional symptoms of fatigue, weakness, no fevers, night sweats. Eyes: No changes in visual acuity, diplopia or amaurosis, no discharge, matting, redness, tearing or eye pain. Ears/Nose/Throat: No sore throat, dental pain, hoarseness, dysphagia, oral or tongue lesio ns. No history of hearing loss, ear pain, tinnitus or aural discharge. CVS: No chest pain, leg swelling, or palpitations. Respiratory: No shortness of breath, cough, or pain with breathing. Gastrointestinal: No abdominal or flank pain, anorexia, nausea or vomiting, dysphagia, elan nge in bowel habits or black or bloody stools or weight loss. Musculoskeletal: Symptoms of joint pain, swelling, myalgias and back pain. Neurologic: No symptoms of neurological impairment or TIAs; no amaurosis, diplopia, dyspha phyllis, or unilateral disturbance of motor or sensory function. No loss of balance or vertigo. Heme/Lymphatic: No abnormal bruising, abnormal bleeding or enlarged lymph nodes. Skin: No rash. Physical Exam BP 142/78 | Pulse 78 | Ht 1.638 m (5' 4.49") | Wt 96.616 kg (213 lb) | BMI 36.01 kg/(m^2) P ain Score: 8 Rapid 3 MHAQ: 4.3 (02/28/11 1000) PAIN LEVEL: 7.5 (02/28/11 1000) GLOBAL ASSESSMENT: 7 (02/28/11999) RAPID 3: 6.27 (02/28/11999) Gen: Obese, well developed, in NAD HEENT: unremarkable Neck: Thick set neck, no lymphadenopathy, FROM Ext: No clubbing, cyanosis, or edema M/S: Synovitis in bilateral 2/3 MCP joints continues, FROM Skin: normal Neuro: normal Labs: Lab Results Component Value Date WBC 9.3 11/29/2010 HB 14.9 11/29/2010 HCT 44.0 11/29/2010 PLT 144 11/29/2010 MCV 88.1 11/29/2010 RDW 14.6 11/29/2010 Lab Results Component Value Date NA 142 11/29/2010 K 3.7 11/29/2010 CL 106 11/29/2010 BICARB 26 11/29/2010 BUN 11 11/29/2010 CR 0.61 11/29/2010 GLU 108 11/29/2010 CA 9.9 11/29/2010 AST 36 11/29/2010 ALT 27 11/29/2010 AP 88 11/29/2010 TBILI 0.4 11/29/2010 TP 6.8 11/29/2010 ALB 4.1 11/29/2010 Lab Results Component Value Date ESR 4 11/29/2010 Radiology: STUDY: HAND 1 VIEW BILATERAL 11/29/10 15:04:00 COMPARISON: None. FINDINGS: There are subtle periarticular lucencies along the ulnar margin of the of the right middle finger metacarpal head, ring finger proximal phalangeal base, and possibly little finger proximal phalangeal base. Periarticular lucencies are also noted at the left index, middle, and possibly ring finger metacarpal heads. There is no joint space narrowing, fracture, malalignment, or other osseous destruction in either hand. There is no soft tissue abnormality.IMPRESSION: Probable erosions around the MTP joints of both hands. I have personally viewed this procedure/exam and reviewed this report. Author: PAMELA JULIO M.D. Reviewer: PAMELA JULIO M.D. STUDY: FOOT 1 VIEW BILATERAL 11/29/10 15:04:00 HISTORY: Concern for rheumatoid arthritis. COMPARISON: None. FINDINGS: There is mild talonavicular joint space narrowing bilaterally. The other joint spaces are maintained, without narrowing, spurring, erosion, or malalignment. There is no fracture, osseous destruction, or soft tissue abnormality.IMPRESSION: Mild bilateral talonavicular joint space narrowing. No erosions. I have personally viewed this procedure/exam and reviewed this report. Author: PAMELA JULIO M.D. Reviewer: PAMELA JULIO M.D. STATUS FINAL / Dr. PAMELA JULIO Impression: This is a 60 y.o. female here for follow up of fibromyalgia and suspected RA ( seronegative). While her serology for RA is negativ, she continues to have synovitis type s welling in MCP joints, has high CRP but normal ESR. I will get an MRI scan of her hand don e to confirm or rule out synovitis and RA. She also probably has sleep apnea which needs in vestigation. Recommendations: 1. In todays clinic, I reviewed the patient's follow-up visit questionnaire, past medical h istory, a 10 systems review, side-effect profile of medications etc. I spent 20 minutes wit h the patient in a [id number] meeting and >50% time was spent in medically indicated couns eling, and education. I have also answered all the questions raised. 2. Through a copy of this letter, I am requesting her PCP to get her checked for sleep apne a syndrome. She has poor sleep, she feels drowsy during the day, tired, has a thick set nec k. 3. MRI scan of the R hand organized. 4. CRP today 5. Continue on Plaquenil as before documented in this en counter Plan of Treatment Not on filedocumented as of this encounter Results MRI HAND RT WWO CONT (03/28/2011 10:06 AM PDT) + + + + + + | Component | Value | Ref Range | Performed | Pathologist | | | | | At | Signature | + + + + + + | MR HAND RT | STUDY: MRI HAND RIGHT | | | | | WWO CONT | W/WO CONTRAST 03/28/11 | | | | | | 10:06:00 HISTORY: | | | | | | Suspected rheumatoid | | | | | | arthritis, difficult to | | | | | | evaluate onphysical | | | | | | exam. COMPARISON: Hand | | | | | | radiographs dated | | | | | | 11/29/2010. TECHNIQUE: The | | | | | | following MR pulse | | | | | | sequences were performed | | | | | | throughthe right | | | | | | hand:1. Coronal T1- | | | | | | and fat-suppressed | | | | | | intermediate TE- and | | | | | | postcontrastT1-weighted | | | | | | FSE.2. Axial T1- and | | | | | | fat-suppressed | | | | | | intermediate TE- and | | | | | | postcontrastT1-weighted | | | | | | FSE.3. Sagittal T1- | | | | | | and fat-suppressed | | | | | | intermediate TE- and | | | | | | postcontrastT1-weighted | | | | | | FSE20 mL of Omniscan | | | | | | were injected | | | | | | intravenously during | | | | | | this examination. | | | | | | FINDINGS: | | | | | | OSSEOUS/ARTICULAR: There | | | | | | are subchondral cysts | | | | | | involving the heads | | | | | | ofthe third and fifth | | | | | | metacarpals with mild | | | | | | adjacent joint | | | | | | spacenarrowing. The | | | | | | remaining joint spaces | | | | | | are maintained. No | | | | | | abnormalsynovial | | | | | | enhancement or | | | | | | thickening is present. | | | | | | Bone marrow signal | | | | | | isnormal. Alignment is | | | | | | normal. Mildly | | | | | | increased amount of | | | | | | fluid ispresent within | | | | | | the radiocarpal and, to | | | | | | a lesser extent, | | | | | | theintercarpal joints. | | | | | | LIGAMENTS AND TENDONS: | | | | | | The flexor and extensor | | | | | | intrinsic andvisualized | | | | | | extrinsic tendons of the | | | | | | hand and visualized | | | | | | wrist areintact with no | | | | | | tenosynovitis or | | | | | | tendinopathy. The | | | | | | collateralligaments, | | | | | | volar plates, and | | | | | | extensor hoods are | | | | | | grossly intact. NERVES: | | | | | | The median and ulnar | | | | | | nerves are normal in | | | | | | configuration. | | | | | | Thevisualized portion | | | | | | of the carpal tunnel | | | | | | exhibits no bowing or | | | | | | othersigns of carpal | | | | | | tunnel syndrome. | | | | | | MISCELLANEOUS: The | | | | | | muscle signal in | | | | | | subcutaneous tissues of | | | | | | the handare normal. | | | | | | IMPRESSION: Third and | | | | | | fifth metacarpal head | | | | | | subchondral cyst | | | | | | formation with | | | | | | mildadjacent joint space | | | | | | narrowing consistent | | | | | | with degenerative | | | | | | jointdisease. No | | | | | | abnormal synovial | | | | | | enhancement or | | | | | | thickening to suggest | | | | | | aninflammatory | | | | | | arthropathy. Attending | | | | | | Radiologists: Cliff | | | | | | Kee PatriciaAuthor: | | | | | | ZANE SHELLEY MD | | | | | | I have personally | | | | | | viewed this | | | | | | procedure/exam, reviewed | | | | | | this report,and made | | | | | | changes to it where | | | | | | appropriate. | | | | | | Final/Electronically | | | | | | signed / Cliff | | | | | | Harshad 03/28/2011 16:31 | | | | | | PM Pending final | | | | | | approval / ZANE Krishnan | | | | | | KARSTEN 03/28/2011 | | | | | | 11:41 AM Preliminary / | | | | | | ZANE SHELLEY | | | | | | 03/28/2011 10:38 AM | | | | + + + + + + + + | Specimen | + + | | + + + +---------+ + + | Performing | Address | City/State/Zipcode | Phone Number | | Organization | | | | + +---------+ + + | [facility] | | | | | [facility] | | | | + +---------+ + + C-REACT PRTN (FOR INFLAMMATION) (02/28/2011 11:25 AM [...] At | + + + | [facility] | [place] | | [facility] [place] [address] | REGIONAL | | [place] [address] | LABORATORY | + + + + + + + + | Performing | Address | City/State/Zipcode | Phone Number | | Organization | | | | + + + + + | [facility] | [address] | [place] [address] | | | LABORATORY | | | | + + + + + documented in this encounter Visit Diagnoses + + | Diagnosis | + + | Rheumatoid arthritis(714.0) ([facility]) - Primary Rheumatoid arthritis | + + documented in this encounter
--- OUTSIDE RECORDS SUMMARY | ~2019-07-09 | XMS | Encounter Summary ---
Demographics + + + | Address | [address] | | | [place] [address] | + + + | Home Phone [...] + | Author | [facility] | | | and [place] | + + + | Organization | [facility] | | | and [place] | + + + | Address | Unknown | + + + | Phone | Unavailable | + + + Support + + + + + | Name | Relationship | Address | Phone | + + + + + | Norberto Mann | ECON | [address] | | | | | [place] | | | | | [address] | | + + + + + Care Team Providers + +------+ + | Care Web Search Evaluator Name | Role | Phone | + +------+ + | Humberto Ruby MD | PCP | | + +------+ + Encounter Details +--------+ + + + + | Date | Type | Department | Care Team | Description | +--------+ + + + + | 09/05/ | Hospital | [facility] | Conversion | Nonintractable | | 2018 | Encounter | [facility] [address] | Transaction, | headache, | | | | [address] | Provider Unknown | unspecified | | | | [place], [place] | [phone] | chronicity pattern, | | | | [address] | | unspecified headache | | | | [phone] | Floyd Baldwin | type; Other | | | | | DO Alex [address] | specified disorders | | | | | Antonette Nogueira. | of eustachian tube, | | | | | [place] [address] | right ear | | | | | [phone] | | | | | | | [...]
--- OUTSIDE RECORDS SUMMARY | ~2019-07-09 | XMS | Encounter Summary ---
Demographics + + + | Address | [address] | | | [place] [address] | + + + | Home Phone | | + + + | Preferred Language | Unknown | + + + | Marital Status | | + + + | Islam Affiliation | 1001 | + + + | Race | Unknown | + + + | Ethnic Group | Unknown | + + + Author + + + | Author | [facility] | | | and [place] | + + + | Organization | [facility] | | | and [place] | + + + | Address | Unknown | + + + | Phone | Unavailable | + + + Support + + + + + | Name | Relationship | Address | Phone | + + + + + | Norberto Mann | ECON | [address] | | | | | [place], [place] | | | | | [address] | | + + + + + Care Team Providers + +------+ + | Care Moisture Tester Name | Role | Phone | + +------+ + PCP | Unavailable | + +------+ + Encounter Details +--------+ + + + + | Date | Type | Department | Care Team | Description | +--------+ + + + + | 07/14/ | Hospital | [facility] | Saji Mazariegos MD | Incisional hernia | | 2013 - | Encounter | [facility] [address] | [address] | | | | | [address] | [address] [place], [place] | | | 11/23/ | | [place], [place] | [address] | | | 2013 | | [address] | | | | | | [phone] | | | +--------+ + + + [...] + + documented as of this encounter Discharge Summaries Saji Mazariegos MD - 07/19/2014 11:12 AM PST Discharge Summaries by Saji Mazariegos MD at 07/19/14 1112 Author: Saji Mazariegos MD Service: General Surgery Author Type: Physician Filed: 07/19/14 1120 Date of Service: 07/19/141111 Status: Signed Sap Basis Consultant: Saji Mazariegos MD (Physician) [facility] Service: General Surgery Discharge Summary Date of Admission: 07/14/2014 Date of Discharge: 07/19/2014 Discharge Provider: SAJI MAZARIEGOS MD Treatment Team: Admitting Provider: Saji Mazariegos MD Discharge Diagnoses: Active Problems: * No active hospital problems. * Resolved Problems: * No resolved hospital problems. * Final Diagnoses: Incisional hernia Procedures: Procedure(s) with comments: HERNIA REPAIR - INCISIONAL - COMPLEX - Recurrent incisional hernia with mesh. Significant Diagnostic Studies: none BRIEF HISTORY OF PRESENTATION: Carly Mann is a 64 y.o. female who was admitted for elective repair of a large inc isional hernia in the midabdomen. HOSPITAL COURSE: Patient surgery was performed on the day of admission. There were no complications. The repair was complex and quite large placing a 4" x 12" mesh in the retrorectus space. Farhan isbell was admitted to the surgical romero following her short stay in the recovery room after the surgery. Patient's postoperative course was unremarkable. There was quite a bit of effort put into pain management requiring multiple medication changes trying to find the best tolerated comb ination of medications. A polydrug approach was taken which included anti-inflammatories na rcotics and even topical agents in the form of Lidoderm patch for an unexpected pain in the left upper quadrant. At the conclusion of this process we were left with Dilaudid 4 mg by m outh tablets every four hours and supplemental Phenergan. The Toradol course had been compl eted during her hospitalization. Patient had a bowel movement on postoperative day #5 and w as tolerating a regular diet. DISCHARGE EXAM Vital Signs: BP 104/56 | Pulse 66 | Temp(Src) 98 F (36.7 C) (Axillary) | Resp 16 | Ht 1.626 m (5' 4" ) | Wt 74.4 kg (164 lb 0.4 oz) | BMI 28.14 kg/m2 | SpO2 95% | ? No none Physical Exam Constitutional: She is oriented to person, place, and time. She appears well-developed and well-nourished. No distress. Cardiovascular: Normal rate and regular rhythm. Pulmonary/Chest: Effort normal and breath sounds normal. No respiratory distress. She has n o wheezes. Abdominal: Soft. Bowel sounds are normal. She exhibits no distension. There is no tendernes s. There is no guarding. Neurological: She is alert and oriented to person, place, and time. Skin: Skin is warm and dry. Psychiatric: She has a normal mood and affect. Her behavior is normal. Judgment and thought content normal. Vitals reviewed. Disposition: Home Condition: Stable Code Status: Full Code No discharge procedures on file. Follow up: Saji Mazariegos MD [address] [place], [place] [id number] Call in 3 days Drain removal, For wound re-check Medication List START taking these medications HYDROmorphone 4 MG tablet QTY: 30 tablet Refills: 0 Commonly known as: DILAUDID Take 1 tablet by mouth every 4 (four) hours as needed. promethazine 25 MG tablet QTY: 30 tablet Refills: 0 Commonly known as: PHENERGAN Take 1 tablet by mouth every 6 (six) hours as needed for Nausea or Vomiting. CONTINUE taking these medications acetaminophen 500 MG tablet Refills: 0 Commonly known as: TYLENOL aspirin 81 MG EC tablet Refills: 0 folic acid 1 MG tablet Refills: 0 Commonly known as: FOLVITE L-Arginine 1000 MG Tabs Refills: 0 levothyroxine 50 MCG tablet Refills: 0 Commonly known as: SYNTHROID multivitamin tablet Refills: 0 sertraline 25 MG tablet Refills: 0 Commonly known as: ZOLOFT Where to Get Your Medications You need to picker tender these prescriptions. We sent some of them to a specific pharmacy. Go t o these places to get your medications. [id number] - [place], [place] - [address] - promethazine 25 MG tablet [address] [place] [address] You may get the following medications from any pharmacy - HYDROmorphone 4 MG tablet SAJI MAZARIEGOS MD 07/19/2014 documented in this enc ounter Medications at Time of Discharge + + [...] 1 mL as | | 0 | 04/05/20 | | | (VITAMIN B-12 IJ) | directed Every 30 | | | 11 | | | | days. | | | | | + + + +---------+ + + | fish oil 1,000 mg | Take 1 capsule by | | 0 | //20 | | | capsule | mouth Daily. | | | 11 | | + + + +---------+ + + | hydroxychloroquine | Take 1 tablet by | | 0 | 04/15/20 | | | (PLAQUENIL) 200 mg | [...] documented as of this encounter Progress Notes Conversion Transaction, Provider Unknown - 07/19/2014 11:56 AM PSTFormatting of this note m ight be different from the original. Nurse Progress Note by Piper Oneil RN at 07/19/141155 Author: Piper Oneil RN Service: (none) Author Type: Registered Nurse Filed: 07/19/14 4002 Date of Service: 07/19/141155 Status: Signed Sap Basis Consultant: Piper Oneil RN (Registered Nurse) Discharge teaching done, instructions given. Pt states understanding. Medications discussed , no questions or concerns. Verbalized understanding of MARIA G drain management. Pt instructed t o contact MD with any concerns or if signs/symptoms re-occur that were associated with this hospitalization. Piper Oneil RN 07/19/2014 11:57 AM Saji Bauman MD - 07/19/2014 11:03 AM PSTFormatting of this note might be different from the branden ginal. Progress Notes by Saji Mazariegos MD at 07/19/14 1100 Author: Saji Mazariegos MD Service: General Surgery Author Type: Physician Filed: 11/23/14 1106 Date of Service: 07/19/14 1103 Status: Signed Sap Basis Consultant: Saji Mazariegos MD (Physician) [facility] Service: General Surgery Progress Note Hospital Day: LOS:Hospital Day: 6 Post-Op Day: 5 Days Post-Op SUBJECTIVE +BM yesterday. Better pain control. Still some nausea. OBJECTIVE Vital Signs: Filed Vitals: 07/19/14 0725 BP: 104/56 Pulse: 66 Temp: 98 F (36.7 C) Resp: 16 SpO2: 95% Filed Vitals: 07/18/14 1934 07/19/14 0044 07/19/14 0529 07/19/14 0725 BP: 113/73 95/53 89/61 104/56 Pulse: 84 73 64 66 Temp: 98.5 F (36.9 C) 98.6 F (37 C) 96.5 F (35.8 C) 98 F (36.7 C) TempSrc: Oral Oral Axillary Axillary Resp: 16 16 16 16 Height: Weight: SpO2: 96% 92% 92% 95% Intake/Output Summary (Last 24 hours) at 07/19/14 1103 Last data filed at 07/19/14 0601 Gross per 24 hour Intake 400 ml Output 1742 ml Net -1342 ml PHYSICAL afeb vss Wound(s) well approximated, nonreactive and dry. 2nd of 3 drains DC'd today (sub Q) ASSESSMENT Stable for discharge PLAN DC home with Dilaudid and phenergan F/U with my office on Sun (3 days from now) SAJI MAZARIEGOS MD 07/19/2014 11:03 AM Saji Mayberry MD - 11:57 AM PST Progress Notes by Saji Mazariegos MD at 07/18/14 1717 Author: Saji Mazariegos MD Service: General Surgery Author Type: Physician Filed: 07/18/14 1203 Date of Service: 07/18/14 1157 Status: Signed Sap Basis Consultant: Saji Mazariegos MD (Physician) [facility] Service: General Surgery Progress Note Hospital Day: LOS:Hospital Day: 5 Post-Op Day: 4 Days Post-Op SUBJECTIVE Still no BM. Still requiring anti emetic. Pain is better controlled with bigger dose of D ilaudid. Lidoderm was helpful. OBJECTIVE Vital Signs: Filed Vitals: 07/18/14926 BP: 104/57 Pulse: 79 Temp: 98 F (36.7 C) Resp: 17 SpO2: 93% Filed Vitals: 07/17/14200907/17/14 2300 07/18/14 0541 07/18/14 0927 BP: 93/57 106/66 94/49 104/57 Pulse: 86 86 73 79 Temp: 98.5 F (36.9 C) 98.3 F (36.8 C) 98.3 F (36.8 C) 98 F (36.7 C) TempSrc: Oral Oral Oral Oral Resp: 18 16 16 17 Height: Weight: SpO2: 94% 95% 90% 93% Intake/Output Summary (Last 24 hours) at 07/18/14 1157 Last data filed at 07/18/14 0610 Gross per 24 hour Intake 4709 ml Output 2255 ml Net 2454 ml PHYSICAL afeb vss Wound is nonreactive and dressing removed today One of the two JPs in the rectus sheath was minimal in out-put One of 3 JPs was DCd today Excellent uop continues ASSESSMENT improving but still struggling with pain mgt. Abd B9 but no BM PLAN Cont present care SAJI MAZARIEGOS MD 07/18/2014 11:57 AM Saji Mayberry MD - 6:37 PM PST Progress Notes by Saji Mazariegos MD at 07/17/141836 Author: Saji Mazariegos MD Service: General Surgery Author Type: Physician Filed: 07/17/141841 Date of Service: 07/17/141836 Status: Signed Sap Basis Consultant: Saji Mazariegos MD (Physician) [facility] Service: General Surgery Progress Note Hospital Day: LOS:Hospital Day: 4 Post-Op Day: 3 Days Post-Op SUBJECTIVE Still a lot of pain. Patient is up walking and nausea is much improved. OBJECTIVE Vital Signs: Filed Vitals: 07/17/14 1600 BP: 119/65 Pulse: 78 Temp: 98.1 F (36.7 C) Resp: 17 SpO2: 94% Filed Vitals: 07/16/14 2349 07/17/14 0349 07/17/14 0721 07/17/14 1600 BP: 108/58 100/64 118/81 119/65 Pulse: 89 83 78 78 Temp: 100 F (37.8 C) 98.9 F (37.2 C) 98.2 F (36.8 C) 98.1 F (36.7 C) TempSrc: Oral Oral Oral Oral Resp: 16 16 17 17 Height: Weight: SpO2: 91% 90% 94% 94% Intake/Output Summary (Last 24 hours) at 07/17/14 1837 Last data filed at 07/17/14 1800 Gross per 24 hour Intake 4219 ml Output 4405 ml Net -186 ml PHYSICAL Super UOP afeb vss Dressing is dry MARIA G's minimal output ASSESSMENT Mobilizing spontaneously Pain is still an issue No BM- pt concerned PLAN Up Dilaudid po Lidoderm patch to LUQ area of pain Sl IVF Dulcolax tab PO tonight SAJI MAZARIEGOS MD 07/17/2014 6:37 PM Saji Mayberry MD - 9:18 AM PST Progress Notes by Saji Mazariegos MD at 07/16/14917 Author: Saji Mazariegos MD Service: General Surgery Author Type: Physician Filed: 07/16/14922 Date of Service: 07/16/14917 Status: Signed Sap Basis Consultant: Saji Mazariegos MD (Physician) [facility] Service: General Surgery Progress Note Hospital Day: LOS:Hospital Day: 3 Post-Op Day: 2 Days Post-Op SUBJECTIVE Nausea and vomiting this a.m. Still very painful. Appears more comfortable in the bit mor e relaxed. OBJECTIVE Vital Signs: Filed Vitals: 07/16/14726 BP: 128/74 Pulse: 81 Temp: 98.1 F (36.7 C) Resp: 16 SpO2: 92% Filed Vitals: 07/15/14201307/15/142 07/16/1435507/16/14726 BP: 110/62 107/65 131/65 128/74 Pulse: 76 74 87 81 Temp: 98.4 F (36.9 C) 97.8 F (36.6 C) 98.6 F (37 C) 98.1 F (36.7 C) TempSrc: Oral Oral Oral Oral Resp: 18 18 16 16 Height: Weight: SpO2: 93% 90% 92% 92% Intake/Output Summary (Last 24 hours) at 07/16/14917 Last data filed at 07/16/14913 Gross per 24 hour Intake 2932 ml Output 1575 ml Net 1357 ml PHYSICAL Afebrile vital signs are stable MARIA G output is serosanguineous but quantity not reported for last shift Dressings are dry Abdomen is benign ASSESSMENT Clinically stable but still struggling was narcotic side effects. Nausea most likely relat ed to meds. PLAN We will switch Percocet to Dilaudid tablets. Try Phenergan to help mitigate nausea. Mirna nue IV fluid. SAJI MAZARIEGOS MD 07/16/2014 9:18 AM Saji Mayberry MD - 6:24 PM PST Progress Notes by Saji Mazariegos MD at 07/15/141823 Author: Saji Mazariegos MD Service: General Surgery Author Type: Physician Filed: 07/15/141825 Date of Service: 07/15/141823 Status: Signed Sap Basis Consultant: Saji Mazariegos MD (Physician) [facility] Service: General Surgery Note Better pain control Still hurting with movement Voided OK Taking some PO diet Will decrease IV fluid rate SAJI MAZARIEGOS MD 07/15/2014 onversion Transaction , Provider Unknown - 07/15/2014 9:17 AM PST Case Management by VENKAT Travis at 07/15/14916 Author: VENKAT Travis Service: (none) Author Type: Supervisor Core Drilling Filed: 07/15/14917 Date of Service: 11/19/14 0917 Status: Signed Sap Basis Consultant: VENKAT Travis (Supervisor Core Drilling) 07/15/14 0900 Discharge Planning Evaluation Admitting Diagnosis Hernia Readmission No Living Arrangements Spouse/significant other Support Systems Parent Type of Residence Private residence Independent with ADL's Yes Independent with Mobility Yes Home Care Services No Mental Status Oriented Prior functional status indpt, she helps care for 2 family members Anticipated Discharge Plan Post Acute Care Needs None at this time Resources Financial concerns No Transportation issues No Patient/Family concerns No Prescription Plan Yes Met with: pt, spouse - Yahir at bedside and discussed discharge planning, Pt is a 64 y.o., f emale, lives home with spouse, normally indpt with adls, iadls, no dme at baseline, pt felicity raygoza cares for Mother in law who is 96, and sister in law who is DD, pt's spouse will be with pt at pa to help Patient's PCP is: RAY PACHECO Patient's insurance: medicare Coverage concerns: no concerns Medication coverage/concerns: no concerns Community resources utilized / needed: none at this time Assistance in transportation: spouse to drive home Identification of any specific education / training: none at this time Barriers to Discharge / Alternative housing needed: none at this time Anticipated DCP: home with spouse Parvez Gordon Electronically signed by [facility], Provider at 04/22/2019 1:34 AM Saji Bauman MD - 07/15/2014 8:57 AM PSTFormatting of this note might be different from the branden omid. Progress Notes by Saji Mazariegos MD at 07/15/14 0857 Author: Saji Mazariegos MD Service: General Surgery Author Type: Physician Filed: 07/15/14901 Date of Service: 07/15/14856 Status: Signed Sap Basis Consultant: Saji Mazariegos MD (Physician) [facility] Service: General Surgery Progress Note Hospital Day: LOS:Hospital Day: 2 Post-Op Day: 1 Day Post-Op SUBJECTIVE "Pain" Only up once. Not very comfortable but very nice about it. OBJECTIVE Vital Signs: Filed Vitals: 07/15/14 0801 BP: 99/66 Pulse: 84 Temp: 98.9 F (37.2 C) Resp: 16 SpO2: 93% Filed Vitals: 07/14/14 2200 07/14/14 2346 07/15/14 0308 07/15/14 0801 BP: 112/63 96/69 97/60 99/66 Pulse: 92 90 81 84 Temp: 98.3 F (36.8 C) 98 F (36.7 C) 97.8 F (36.6 C) 98.9 F (37.2 C) TempSrc: Oral Oral Oral Oral Resp: 16 15 16 16 Height: Weight: SpO2: 98% 98% 99% 93% Intake/Output Summary (Last 24 hours) at 07/15/14 0857 Last data filed at 07/15/14 0324 Gross per 24 hour Intake 5028 ml Output 1445 ml Net 3583 ml PHYSICAL afeb vss Dressing dry MARIA G's are more serous than saguinous UOP adequate- waite just removed ASSESSMENT Stable but poor pain control PLAN PO analgesics, add toradol Pt requests stool softener Keep IVF for now Use IV narcotic for breakthrough pain SAJI MAZARIEGOS MD 07/15/2014 8:57 AM onversion Transaction , Provider Unknown - 07/14/2014 6:17 AM PST Progress Notes by Carly Stone RPH at 07/14/14616 Author: Carly Stone RPH Service: (none) Author Type: Pharmacist Filed: 07/14/14616 Date of Service: 07/14/14616 Status: Signed Sap Basis Consultant: Carly Stone RPH (Pharmacist) Clinical Pharmacy Note: Renal Monitoring Carly Johnathan 64 y.o. female Ht Readings from Last 1 Encounters: 07/02/14 1.626 m (5' 4") Wt Readings from Last 1 Encounters: 07/02/14 73.029 kg (161 lb) CREATININE Date Value Range Status 07/02/2014 0.64 0.50 - 1.00 mg/dL Final Testing performed at [facility], [address] [place] [address] The patient's GFR is > 60 ml/min Pharmacy dosing for renal function per Dr. Mandel. Currently, there are no medications needing to be adjusted. Pharmacy will continue to monit or for changes in medication orders and in renal function and adjust accordingly. Carly Stone R.Ph 07/14/2014 6:16 AM Tavon chun in this encounter Plan of Treatment Not on filedocumented as of this encounter Procedures + +--------+ + + + | Procedure Name | Priori | Date/Time | Associated Diagnosis | Comments | | | ty | | | | + +--------+ + + + | POC GLUCOSE | Routin | 07/14/2014 | | Results for this | | | e | 1:28 PM | | procedure are in the | | | | PST | | results section. | + +--------+ + + + | POC ISTAT, CG8, | Routin | 07/14/2014 | | Results for this | | ARTERIAL | e | 12:35 PM | | procedure are in the | | | | PST | | results section. | + +--------+ + + + | POC ISTAT, CG8, | Routin | 07/14/2014 | | Results for this | | ARTERIAL | e | 8:13 AM | | procedure are in the | | | | PST | | results section. | + +--------+ + + + | POC GLUCOSE | Routin | 07/14/2014 | | Results for this | | | e | 6:21 AM | | procedure are in the | | | | PST | | results section. | + +--------+ + + + documented in this encounter Results POC Glucose (07/14/2014 1:28 PM PST) + + + + + + | Component | Value | Ref Range | Performed | Pathologist | | | | | At | Signature | + + + + + + | Glucose, | 153 (H)Comment: Testing | 65 - 99 mg/dL | EXTERNAL | | | Fingerstick | performed at [facility] | | LAB | | | | [address];[place], [place] | | | | | | [address] | | | | + + + + + + + + | Specimen | + + | | + + + +---------+ + + | Performing | Address | City/State/Zipcode | Phone Number | | Organization | | | | + +---------+ + + | EXTERNAL LAB | | | | + +---------+ + + POC JAC [id number], Arterial (07/14/2014 12:35 PM PST) + + + + + + | Component | Value | Ref Range | Performed | Pathologist | | | | | At | Signature | + + + + + + | PH ART | 7.279 (L)Comment: | 7.350 - 7.450 | EXTERNAL | | | | Testing performed at | | LAB | | | | [facility];[place] [address] | | | | + + + + + + | PCO2 ART | 55 (H)Comment: Testing | 35 - 45 mmHg | EXTERNAL | | | | performed at [facility] | | LAB | | | | [address];[place] | | | | | | [address] | | | | + + + + + + | PO2 ART | 389 (H)Comment: Testing | 80 - 105 mmHg | EXTERNAL | | | | performed at [facility];[address] | | LAB | | | | [address];[place] | | | | | | [address] | | | | + + + + + + | HCO3 ART | 26Comment: Testing | 22 - 26 mmol/L | EXTERNAL | | | | performed at [facility] | | LAB | | | | [address];[place] | | | | | | [address] | | | | + + + + + + | POC | 28 (H)Comment: Testing | 23 - 27 mEq/L | EXTERNAL | | | APPEARANCE | performed at [facility] | | LAB | | | UA | [address];[place] | | | | | | [address] | | | | + + + + + + | Base | 1Comment: Testing | 0.0 - 2.0 | EXTERNAL | | | deficit | performed at [facility] | mmol/L | LAB | | | | [address];[place] | | | | | | [address] | | | | + + + + + + | O2 SAT ART | 100 (H)Comment: Testing | 95 - 98 % | EXTERNAL | | | | performed at [facility];[address] | | LAB | | | | [address];[place] | | | | | | [address] | | | | + + + + + + | Sodium, POC | 140Comment: Testing | 135 - 145 mEq/L | EXTERNAL | | | | performed at [facility];[address] | | LAB | | | | [address];[place] | | | | | | [address] | | | | + + + + + + | Potassium, | 3.6Comment: Testing | 3.5 - 5.0 mEq/L | EXTERNAL | | | POC | performed at [facility];[address] | | LAB | | | | [address];[place] | | | | | | [address] | | | | + + + + + + | Ionized | 1.08 (L)Comment: Testing | 1.12 - 1.32 | EXTERNAL | | | Calcium, | performed at [facility];[address] | mmol/L | LAB | | | POC | [address];[place] | | | | | | [address] | | | | + + + + + + | Glucose, | 167 (H)Comment: Testing | 65 - 99 mg/dL | EXTERNAL | | | POC | performed at [facility];[address] | | LAB | | | | [address];[place] | | | | | | [address] | | | | + + + + + + | Hematocrit, | 37Comment: Testing | 35.0 - 46.0 % | EXTERNAL | | | POC | performed at [facility];[address] | | LAB | | | | [address];[place] | | | | | | [address] | | | | + + + + + + | Hemoglobin, | 12.6Comment: Testing | 11.6 - 15.5 | EXTERNAL | | | POC | performed at [facility];[address] | g/dL | LAB | | | | [address];[place] | | | | | | [address] | | | | + + + + + + + + | Specimen | + + | | + + + +---------+ + + | Performing | Address | City/State/Zipcode | Phone Number | | Organization | | | | + +---------+ + + | EXTERNAL LAB | | | | + +---------+ + + SAVITA ZAFAR Arterial (07/14/2014 8:13 AM PST) + + + + + + | Component | Value | Ref Range | Performed | Pathologist | | | | | At | Signature | + + + + + + | PH ART | 7.443Comment: Testing | 7.350 - 7.450 | EXTERNAL | | | | performed at [facility];[address] | | LAB | | | | [address];[place] | | | | | | [address] | | | | + + + + + + | PCO2 ART | 39Comment: Testing | 35 - 45 mmHg | EXTERNAL | | | | performed at [facility];[address] | | LAB | | | | [address];[place] | | | | | | [address] | | | | + + + + + + | PO2 ART | 383 (H)Comment: Testing | 80 - 105 mmHg | EXTERNAL | | | | performed at [facility];[address] | | LAB | | | | [address];[place] | | | | | | [address] | | | | + + + + + + | HCO3 ART | 26Comment: Testing | 22 - 26 mmol/L | EXTERNAL | | | | performed at [facility];[address] | | LAB | | | | [address];[place] | | | | | | [address] | | | | + + + + + + | POC | 28 (H)Comment: Testing | 23 - 27 mEq/L | EXTERNAL | | | APPEARANCE | performed at [facility];[address] | | LAB | | | UA | [address];[place] | | | | | | [address] | | | | + + + + + + | Base | 2Comment: Testing | 0 - 3 mEq/L | EXTERNAL | | | Excess, | performed at [facility];[address] | | LAB | | | Arterial | [address];[place] | | | | | | [address] | | | | + + + + + + | O2 SAT ART | 100 (H)Comment: Testing | 95 - 98 % | EXTERNAL | | | | performed at [facility];[address] | | LAB | | | | [address];[place] | | | | | | [address] | | | | + + + + + + | Sodium, POC | 141Comment: Testing | 135 - 145 mEq/L | EXTERNAL | | | | performed at [facility];[address] | | LAB | | | | [address];[place] | | | | | | [address] | | | | + + + + + + | Potassium, | 3.9Comment: Testing | 3.5 - 5.0 mEq/L | EXTERNAL | | | POC | performed at [facility];[address] | | LAB | | | | [address] | | | | | | [address] | | | | + + + + + + | Ionized | 1.16Comment: Testing | 1.12 - 1.32 | EXTERNAL | | | Calcium, | performed at [facility];[address] | mmol/L | LAB | | | POC | [address];[place] | | | | | | [address] | | | | + + + + + + | Glucose, | 113 (H)Comment: Testing | 65 - 99 mg/dL | EXTERNAL | | | POC | performed at [facility];[address] | | LAB | | | | [address];[place] | | | | | | [address] | | | | + + + + + + | Hematocrit, | 37Comment: Testing | 35.0 - 46.0 % | EXTERNAL | | | POC | performed at [facility];[address] | | LAB | | | | [address];[place] | | | | | | [address] | | | | + + + + + + | Hemoglobin, | 12.6Comment: Testing | 11.6 - 15.5 | EXTERNAL | | | POC | performed at [facility]888 | g/dL | LAB | | | | [address];[place] | | | | | | [address] | | | | + + + + + + + + | Specimen | + + | | + + + +---------+ + + | Performing | Address | City/State/Zipcode | Phone Number | | Organization | | | | + +---------+ + + | EXTERNAL LAB | | | | + +---------+ + + POC Glucose (07/14/2014 6:21 AM PST) + + + + + + | Component | Value | Ref Range | Performed | Pathologist | | | | | At | Signature | + + + + + + | Glucose, | 112 (H)Comment: Testing | 65 - 99 mg/dL | EXTERNAL | | | Fingerstick | performed at [facility]888 | | LAB | | | | [address];[place], [place] | | | | | | [address] | | | | + + + [...] + | Diagnosis | + + | Incisional hernia Incisional hernia without mention of obstruction or gangrene | + + documented in this encounter
--- OUTSIDE RECORDS SUMMARY | ~2019-07-09 | XMS | Encounter Summary ---
Demographics + + + | Address | [address] | | | [place] [address] | + + + | Home Phone | | + + + | Preferred Language | Unknown | + + + | Marital Status | | + + + | Latter Day Affiliation | 1001 | + + + | Race | Unknown | + + + | Ethnic Group | Unknown | + + + Author + + + | Author | [facility] | | | and [place] | + + + | Organization | [facility] | | | and [place] | + + + | Address | Unknown | + + + | Phone | Unavailable | + + + Support + + + + + | Name | Relationship | Address | Phone | + + + + + | Norberto Mann | ECON | [address] | | | | | [place], [place] | | | | | [address] | | + + + + + Care Team Providers + +------+ + | Care Integration Analyst Name | Role | Phone | + +------+ + PCP | Unavailable | + +------+ + Encounter Details +--------+ + + + + | Date | Type | Department | Care Team | Description | +--------+ + + + + | 02/01/ | Hospital | [facility] | Conversion | | | 2014 | Encounter | CENTER OUTPATIENT | Transaction, | | | | | PHYSICAL THERAPY | Provider Unknown | | | | | [address] | | | | | | [place], [place] | (Fax) | | | | | [address] | | | | | | [phone] | | | +--------+ + + + [...] Notes by Georgie Valencia PT at 02/01/15 4955 Author: Georgie Valencia PT Service: (none) Author Type: Physical Therapist Filed: 02/01/15 6543 Date of Service: 02/01/15 7631 Status: Signed [place] Operator: Georgie Valencia PT (Physical Therapist) Therapy Daily Treatment Note Date of Service: 02/01/2015 Treatment Time/Charges: Manual Therapy [id number] x 3 (45 minutes) Insurance Authorization: 16 [...]
--- OUTSIDE RECORDS SUMMARY | ~2019-07-09 | XMS | Encounter Summary ---
Demographics + + + | Address | [address] | | | [place] [address] | + + + | Home Phone | | + + + | Preferred Language | Unknown | + + + | Marital Status | | + + + | Taoist Affiliation | ADV | + + + | Race | White | + + + | Ethnic Group | Not or | + + + Author + + + | Author | [facility] | + + + | Organization | [facility] | + + + | Address | Unknown | + + + | Phone | Unavailable | + + + Support + + + + + | Name | Relationship | Address | Phone | + + + + + | Norberto Oliveros | ECON | [address] | | | [place] | | [place] | | | | | [address] | | + + + + + Care Team Providers + +------+ + | Care Automatic Buffer Name | Role | Phone | + +------+ + | June Blanco DO | PCP | Unavailable | + +------+ + Encounter Details +--------+------+ + + + | Date | Type | Department | Care Team | Description | +--------+------+ + + + | 11/29/ | Lab | Laboratory, | | Rheumatoid arthritis | | 2010 | | Specimen Collection | | ([facility]) | | | | at [facility] 3rd Floor | | | | | | [address] | | | | | | [place], | | | | | | [place] [address] | | | | | | [phone] | | | +--------+------+ + + + [...] | + +--------+ + + + | DIFFERENTIAL | Routin | 11/29/2010 | | Results for this | | | e | 3:14 PM | | procedure are in the | | | | PDT | | results section. | + +--------+ + + + | CBC, WITH | Routin | 11/29/2010 | Rheumatoid | Results for this | | DIFFERENTIAL | e | 3:14 PM | arthritis (HCC) | procedure are in the | | | | PDT | | results section. | + +--------+ + + + | VITAMIN D, | Routin | 11/29/2010 | Rheumatoid | Results for this | | 25-HYDROXY, SERUM | e | 3:14 PM | arthritis (HCC) | procedure are in the | | | | PDT | | results section. | + +--------+ + + + | COMPLETE METABOLIC | Routin | 11/29/2010 | Rheumatoid | Results for this | | SET | e | 3:14 PM | arthritis (HCC) | procedure are in the | | (NA,K,CL,CO2,BUN,CRE | | PDT | | results section. | | AT,GLUC,CA,AST,ALT,B | | | | | | KESHIA TOTAL,ALK | | | | | | PHOS,ALB,PROT TOTAL) | | | | | + +--------+ + + + | CYCLIC CITRUL | Routin | 11/29/2010 | Rheumatoid | Results for this | | PEPTIDE AB IGG, | e | 3:14 PM | arthritis ([facility]) | procedure are in the | | SERUM | | PDT | | results section. | + +--------+ + + + | RHEUMATOID FACTOR, | Routin | 11/29/2010 | Rheumatoid | Results for this | | SERUM | e | 3:14 PM | arthritis ([facility]) | procedure are in the | | | | PDT | | results section. | + +--------+ + + + | C-REACTIVE PROTEIN | Routin | 11/29/2010 | Rheumatoid | Results for this | | | e | 3:14 PM | arthritis (HCC) | procedure are in the | | | | PDT | | results section. | + +--------+ + + + | SEDIMENTATION RATE | Routin | 11/29/2010 | Rheumatoid | Results for this | | | e | 3:14 PM | arthritis (HCC) | procedure are in the | | | | PDT | | results section. | + +--------+ + + + | HEPATITIS B SURFACE | Routin | 11/29/2010 | Rheumatoid | Results for this | | AG, SERUM | e | 3:14 PM | arthritis (HCC) | procedure are in the | | | | PDT | | results section. | + +--------+ + + + | HEPATITIS C VIRUS | Routin | 11/29/2010 | Rheumatoid | Results for this | | W/CONFIRMATION | e | 3:14 PM | arthritis (HCC) | procedure are in the | | | | PDT | | results section. | + +--------+ + + + documented in this encounter Results DIFFERENTIAL (11/29/2010 3:14 PM PDT) + +-------+ + + + | Component | Value | Ref Range | Performed | Pathologist | | | | | At | Signature | + +-------+ + + + | NEUTROPHIL | 63 | 50 - 70 % | [facility] | | | % | | | DEPARTMENT | | | | | | OF | | | | | | PATHOLOGY | | + +-------+ + + + | LYMPHOCYTE | 29 | 18 - 42 % | [facility] | | | % | | | DEPARTMENT | | | | | | OF | | | | | | PATHOLOGY | | + +-------+ + + + | MONOCYTE % | 6 | 2 - 8 % | [facility] | | | | | | DEPARTMENT | | | | | | OF | | | | | | PATHOLOGY | | + +-------+ + + + | EOS % | 1 | 1 - 3 % | [facility] | | | | | | DEPARTMENT | | | | | | OF | | | | | | PATHOLOGY | | + +-------+ + + + | BASO % | 1 | <3 % | [facility] | | | | | | DEPARTMENT | | | | | | OF | | | | | | PATHOLOGY | | + +-------+ + + + | NEUTROPHIL | 5.9 | 1.8 - 7.7 K/cu | [facility] | | | # | | mm | DEPARTMENT | | | | | | OF | | | | | | PATHOLOGY | | + +-------+ + + + | LYMPHOCYTE | 2.7 | 1.0 - 4.8 K/cu | [facility] | | | # | | mm | DEPARTMENT | | | | | | OF | | | | | | PATHOLOGY | | + +-------+ + + + | MONOCYTE # | 0.6 | <0.9 K/cu mm | [facility] | | | | | | DEPARTMENT | | | | | | OF | | | | | | PATHOLOGY | | + +-------+ + + + | EOS # | 0.1 | <0.6 K/cu mm | [facility] | | | | | | DEPARTMENT | | | | | | OF | | | | | | PATHOLOGY | | + +-------+ + + + | BASO # | 0.1 | <0.3 | [facility] | | | | | | DEPARTMENT | | | | | | OF | | | | | | PATHOLOGY | | + +-------+ + + + + + | Specimen | + + | | + + + + + + + | Performing | Address | City/State/Zipcode | Phone Number | | Organization | | | | + + + + + | [facility] DEPARTMENT OF | [address] | [place] [address] | | | PATHOLOGY | [address] | | | + + + + + HEPATITIS C AB W/CONFIRMATION REFLEX PCR (11/29/2010 3:14 PM PDT) + + + + + + | Component | Value | Ref Range | Performed | Pathologist | | | | | At | Signature | + + + + + + | HEPATITIS C | NegativeComment: | Negative | [facility] | | | AB | Reference Range: | | REGIONAL | | | | Negative | | LABORATORY | | + + + + + + + + | Specimen | + + | Blood - Blood | + + + + + + + | Performing | Address | City/State/Zipcode | Phone Number | | Organization | | | | + + + + + | [facility] | [address] | [place] [address] | | | LABORATORY | | | | + + + + + HEPATITIS B SURFACE AG, SERUM (11/29/2010 3:14 PM PDT) + + + + + + | Component | Value | Ref Range | Performed | Pathologist | | | | | At | Signature | + + + + + + | HEPATITIS B | Negative | Negative | [facility] | | | SURFACE | | | REGIONAL | | | AG, SERUM | | | LABORATORY | | + + + + + + + + | Specimen | + + | Blood - Blood | + + + + + | Narrative | Performed At | + + + | [facility] [place] | [place] | | [place] [address] | REGIONAL | | [place] [address] | LABORATORY | + + + + + + + + | Performing | Address | City/State/Zipcode | Phone Number | | Organization | | | | + + + + + | [facility] | [address] | [place] [address] | | | LABORATORY | | | | + + + + + C-REACT PRTN (FOR INFLAMMATION) (11/29/2010 3:14 PM PDT) + +---------+ + + + | Component | Value | Ref Range | Performed | Pathologist | | | | | At | Signature | + +---------+ + + + | C-REACTIVE | 1.6 (H) | <0.6 mg/dl | [facility] | | | PROTEIN | | | REGIONAL | | | | | | LABORATORY | | + +---------+ + + + + + | Specimen | + + | Blood - Blood | + + + + + | Narrative | Performed At | + + + | [facility]) | [facility] | | [facility] [place] [address] | REGIONAL | | [place] [address] | LABORATORY | + + + + + + + + | Performing | Address | City/State/Zipcode | Phone Number | | Organization | | | | + + + + + | [facility] | [address] | [place] [address] | | | LABORATORY | | | | + + + + + VITAMIN D, 25-HYDROXY, SERUM (11/29/2010 3:14 PM PDT) + + + + + + | Component | Value | Ref Range | Performed | Pathologist | | | | | At | Signature | + + + + + + | VITAMIN D | 49Comment: REFERENCE | 30 - 80 ng/mL | [facility] | | | 25 HYDROXY | INTERVAL: Vitamin D, | | DEPARTMENT | | | | 25-Hydroxy 0-17 | | OF | | | | years: Deficiency: | | PATHOLOGY | | | | less than 20 ng/mL | | | | | | Optimum level: | | | | | | greater than or equal to | | | | | | 20 ng/mL* | | | | | | *(Quinteros CL et al. | | | | | | Pediatrics 2008; 122: | | | | | | 1128-38.) 18 | | | | | | years and older: | | | | | | Deficiency: less than 20 | | | | | | ng/mL | | | | | | Insufficiency: 20-29 | | | | | | ng/mL Optimum | | | | | | level: 30-80 ng/mL | | | | | | Possible toxicity: | | | | | | greater than 150 ng/mL | | | | | | This assay | | | | | | accurately quantifies | | | | | | the sum of vitamin D3, | | | | | | 25-hydroxy and | | | | | | vitamin D2, 25-hydroxy. | | | | | | Testing performed | | | | | | in [facility] & | | | | | | Coagulation | | | | | | Department as of October | | | | | | 2010. | | | | + + + + + + + + | Specimen | + + | Blood - Blood | + + + + + + + | Performing | Address | City/State/Zipcode | Phone Number | | Organization | | | | + + + + + | [facility] DEPARTMENT OF | [address] | [place] [address] | | | PATHOLOGY | [address] | | | + + + + + CBC, WITH DIFFERENTIAL (11/29/2010 3:14 PM PDT) + +---------+ + + + | Component | Value | Ref Range | Performed | Pathologist | | | | | At | Signature | + +---------+ + + + | WHITE CELL | 9.3 | 4.4 - 11.0 K/cu | [facility] | | | COUNT | | mm | DEPARTMENT | | | | | | OF | | | | | | PATHOLOGY | | + +---------+ + + + | RED CELL | 4.99 | 4.00 - 5.20 | [facility] | | | COUNT | | M/cu mm | DEPARTMENT | | | | | | OF | | | | | | PATHOLOGY | | + +---------+ + + + | HEMOGLOBIN | 14.9 | 12.0 - 16.0 | [facility] | | | | | g/dL | DEPARTMENT | | | | | | OF | | | | | | PATHOLOGY | | + +---------+ + + + | HEMATOCRIT | 44.0 | 36.0 - 46.0 % | [facility] | | | | | | DEPARTMENT | | | | | | OF | | | | | | PATHOLOGY | | + +---------+ + + + | MCV | 88.1 | 80.0 - 96.0 fL | [facility] | | | | | | DEPARTMENT | | | | | | OF | | | | | | PATHOLOGY | | + +---------+ + + + | MCHC | 33.9 | 33.4 - 35.5 | [facility] | | | | | g/dL | DEPARTMENT | | | | | | OF | | | | | | PATHOLOGY | | + +---------+ + + + | RDW | 14.6 | 11.5 - 15.0 % | [facility] | | | | | | DEPARTMENT | | | | | | OF | | | | | | PATHOLOGY | | + +---------+ + + + | PLATELET | 144 (L) | 150 - 400 K/cu | [facility] | | | COUNT | | mm | DEPARTMENT | | | | | | OF | | | | | | PATHOLOGY | | + +---------+ + + + + + | Specimen | + + | Blood - Blood | + + + + + + + | Performing | Address | City/State/Zipcode | Phone Number | | Organization | | | | + + + + + | [facility] DEPARTMENT OF | [address] | [place] [address] | | | PATHOLOGY | [address] | | | + + + + + COMPLETE METABOLIC SET (NA,K,CL,CO2,BUN,CREAT,GLUC,CA,AST,ALT,BILI TOTAL,ALK PHOS,ALB,PROT TOTAL) (11/29/2010 3:14 PM PDT) + + + + + + | Component | Value | Ref Range | Performed | Pathologist | | | | | At | Signature | + + + + + + | GLUCOSE, | 108 (H) | 60 - 99 mg/dL | [facility] | | | PLASMA | | | DEPARTMENT | | | (LAB) | | | OF | | | | | | PATHOLOGY | | + + + + + + | BUN, PLASMA | 11 | 6 - 20 mg/dL | [facility] | | | (LAB) | | | DEPARTMENT | | | | | | OF | | | | | | PATHOLOGY | | + + + + + + | CREATININE | 0.61 | 0.60 - 1.10 | [facility] | | | PLASMA | | mg/dL | DEPARTMENT | | | (LAB) | | | OF | | | | | | PATHOLOGY | | + + + + + + | TOTAL | 6.8 | 6.1 - 7.9 g/dL | [facility] | | | PROTEIN, | | | DEPARTMENT | | | PLASMA | | | OF | | | (LAB) | | | PATHOLOGY | | + + + + + + | ALBUMIN, | 4.1 | 3.5 - 4.7 g/dL | [facility] | | | PLASMA | | | DEPARTMENT | | | (LAB) | | | OF | | | | | | PATHOLOGY | | + + + + + + | CALCIUM, | 9.9 | 8.6 - 10.2 | [facility] | | | PLASMA | | mg/dL | DEPARTMENT | | | (LAB) | | | OF | | | | | | PATHOLOGY | | + + + + + + | BILIRUBIN | 0.4 | 0.3 - 1.2 mg/dL | [facility] | | | TOTAL | | | DEPARTMENT | | | | | | OF | | | | | | PATHOLOGY | | + + + + + + | ALK PHOS | 88 | 53 - 141 U/L | [facility] | | | | | | DEPARTMENT | | | | | | OF | | | | | | PATHOLOGY | | + + + + + + | AST(SGOT) | 36 | 15 - 41 U/L | [facility] | | | | | | DEPARTMENT | | | | | | OF | | | | | | PATHOLOGY | | + + + + + + | SODIUM, | 142 | 134 - 143 | [facility] | | | PLASMA | | mmol/L | DEPARTMENT | | | (LAB) | | | OF | | | | | | PATHOLOGY | | + + + + + + | POTASSIUM, | 3.7 | 3.4 - 5.0 | [facility] | | | PLASMA | | mmol/L | DEPARTMENT | | | (LAB) | | | OF | | | | | | PATHOLOGY | | + + + + + + | CHLORIDE, | 106 | 97 - 108 mmol/L | [facility] | | | PLASMA | | | DEPARTMENT | | | (LAB) | | | OF | | | | | | PATHOLOGY | | + + + + + + | TOTAL CO2, | 26Comment: New Total | 22 - 29 mmol/L | [facility] | | | PLASMA | CO2 reference range | | DEPARTMENT | | | (LAB) | effective 07/19/10. | | OF | | | | | | PATHOLOGY | | + + + + + + | ALT (SGPT) | 27 | 13 - 48 U/L | [facility] | | | | | | DEPARTMENT | | | | | | OF | | | | | | PATHOLOGY | | + + + + + + | EGFR | > 60 | >60 mL/min | [facility] | | | - | | | DEPARTMENT | | | FINNISH | | | OF | | | | | | PATHOLOGY | | + + + + + + | EGFR NON | > 60Comment: GFR is | >60 mL/min | [facility] | | | -NICCI | estimated using the MDRD | | DEPARTMENT | | | RICAN | equation recommended by | | OF | | | | theNational Kidney | | PATHOLOGY | | | | Disease Education | | | | | | Program. Estimated GFR | | | | | | Interpretive | | | | | | Information: <60 | | | | | | mL/min/1.73 sq m | | | | | | Chronic Kidney Disease | | | | | | <15 mL/min/1.73 sq m | | | | | | Kidney Failure | | | | | | Estimated GFR greater | | | | | | than 60mL/min/1.73 is of | | | | | | limited clinical Value. | | | | | | The MDRD equation is | | | | | | not valid in the | | | | | | following situations: - | | | | | | Patients under 18 years | | | | | | of age - Severe | | | | | | malnutrition or obesity | | | | | | - Vegetarian diet - | | | | | | Rapidly changing kidney | | | | | | function | | | | + + + + + + | ANION GAP | 10 | 4 - 11 mmol/L | [facility] | | | | | | DEPARTMENT | | | | | | OF | | | | | | PATHOLOGY | | + + + + + + | ANION | 9 | 4 - 11 mmol/L | [facility] | | | GAP(ALB | | | DEPARTMENT | | | CORRECTED) | | | OF | | | | | | PATHOLOGY | | + + + + + + + + | Specimen | + + | Blood - Blood | + + + + + + + | Performing | Address | City/State/Zipcode | Phone Number | | Organization | | | | + + + + + | [facility] | [address] | [place] [address] | | | PATHOLOGY | [address] | | | + + + + + RHEUMATOID FACTOR, SERUM (11/29/2010 3:14 PM PDT) + +-------+ + + + | Component | Value | Ref Range | Performed | Pathologist | | | | | At | Signature | + +-------+ + + + | RHEUMATOID | < 10 | <15 IU/mL | [facility] | | | FACTOR | | | REGIONAL | | | | | | LABORATORY | | + +-------+ + + + + + | Specimen | + + | Blood - Blood | + + + + + | Narrative | Performed At | + + + | [facility] [place] | [facility] | | [place] [place] [address] | REGIONAL | | [place] [address] | LABORATORY | + + + + + + + + | Performing | Address | City/State/Zipcode | Phone Number | | Organization | | | | + + + + + | [facility] | [address] | [place] [address] | | | LABORATORY | | | | + + + + + CYCLIC CITRUL PEPTIDE AB IGG, SERUM (11/29/2010 3:14 PM PDT) + + + + + + | Component | Value | Ref Range | Performed | Pathologist | | | | | At | Signature | + + + + + + | CYCLIC | 2Comment: REFERENCE | <20 Units | [facility] | | | CITRUL | INTERVAL: Cyclic | | REG UNIV | | | PEPTIDE AB, | Citrullinated Peptide | | PTH - | | | IGG | Antibody, IgG 19 | | MANUAL | | | | Units or less | | | | | | ................... | | | | | | Negative 20-39 Units | | | | | | ........................ | | | | | | Weak Positive 40-59 | | | | | | Units | | | | | | ........................ | | | | | | Moderate Positive 60 | | | | | | Units or greater | | | | | | ................ Strong | | | | | | Positive Anti-cyclic | | | | | | citrullinated peptide | | | | | | (anti-CCP), | | | | | | IgGantibodies are | | | | | | present in about 69-83 | | | | | | percent of patientswith | | | | | | rheumatoid arthritis | | | | | | (RA) and have | | | | | | specificities of93-95 | | | | | | percent. These | | | | | | autoantibodies may be | | | | | | present in | | | | | | thepreclinical phase of | | | | | | disease, are associated | | | | | | with future | | | | | | RAdevelopment, and may | | | | | | predict radiographic | | | | | | jointdestruction. | | | | | | Patients with weak | | | | | | positive results should | | | | | | bemonitored and testing | | | | | | repeated.Performed by | | | | | | [facility] | | | | | | | | | | | | [address] | | | | | | [place] [address] | | | | | | [phone] | | | | | | | | | | | | [email or web address].[email or web address].[employer], | | | | | | Gisella Knutson MD - | | | | | | Lab. Director | | | | + + + + + + + + | Specimen | + + | Blood - Blood | + + + + + + + | Performing | Address | City/State/Zipcode | Phone Number | | Organization | | | | + + + + + | [facility] | [address] | [place], [place] | | | UNIV PTH - [facility] | | [address] | | + + + + + | [facility] | [address] | [place], [place] | | | UNIV PTH - MANUAL | | [address] | | + + + + + SEDIMENTATION RATE (11/29/2010 3:14 PM PDT) + +-------+ + + + | Component | Value | Ref Range | Performed | Pathologist | | | | | At | Signature | + +-------+ + + + | SEDIMENTATI | 4 | <31 mm/hr | [facility] | | | ON RATE | | | DEPARTMENT | | | | | | OF | | | | | | PATHOLOGY | | + +-------+ + + + + + | Specimen | + + | Blood - Blood | + + + + + + + | Performing | Address | City/State/Zipcode | Phone Number | | Organization | | | | + + + + + | [facility] DEPARTMENT OF | [address] | [place] [address] | | | PATHOLOGY | [address] | | | + + + + + documented in this encounter Visit Diagnoses + + | Diagnosis | + + | Rheumatoid arthritis(714.0) (HCC) Rheumatoid arthritis | + + documented in this encounter"
--- OUTSIDE RECORDS SUMMARY | ~2019-07-09 | XMS | Encounter Summary ---
Demographics + + + | Address | [address] | | | [place] [address] | + + + | Home Phone | | + + + | Preferred Language | Unknown | + + + | Marital Status | | + + + | Hinduism Affiliation | 1001 | + + + | Race | Unknown | + + + | Ethnic Group | Unknown | + + + Author + + + | Author | [facility] | | | and [place]eeana | + + + | Organization | [facility] | | | and Teeana | + + + | Address | Unknown | + + + | Phone | Unavailable | + + + Support + + + + + | Name | Relationship | Address | Phone | + + + + + | Norberto Mann | ECON | [address] | | | | | [place], [place] | | | | | [address] | | + + + + + Care Team Providers + +------+ + | Care Hardwood Floor Installer Name | Role | Phone | + +------+ + PCP | Unavailable | + +------+ + Encounter Details +--------+ + + + + | Date | Type | Department | Care Team | Description | +--------+ + + + + | 12/10/ | Hospital | [facility] | Conversion | | | 2014 | Encounter | CENTER OUTPATIENT | Transaction, | | | | | PHYSICAL THERAPY | Provider Unknown | | | | | [address] | | | | | | [place], [place] | (Fax) | | | | | [address] | | | | | | [phone] | | | +--------+ + + + [...] encounter Progress Notes Georgie Valencia PT - 12/10/2014 1:30 PM PDTFormatting of this note might be different fr om the original. Progress Notes by Georgie Valencia PT at 12/10/14 2340 Author: Georgie Valencia PT Service: (none) Author Type: Physical Therapist Filed: 12/10/14 9006 Date of Service: 12/10/14 1961 Status: Signed Aircraft Air Conditioning Mechanic: Georgie Valencia PT (Physical Therapist) Therapy Daily Treatment Note Date of Service: 12/10/2014 Treatment Time/Charges: Manual Therapy 33023 x 3 (45 minutes) Insurance Authorization: 5 of 17 estimated authorized visits (Medicare) - 12/04 GC Authorization Expiration: 08/26/15 POC Expiration: 02/17/15 Subjective: Pain Complaint: Pt c/o anorectal pain and irregular varying bowel movements. Subjective Comments: Pt states she has already had 2 bowel movements today. Reports that humphrey kearney had a f/u with her primary physician yesterday and states that although she was sore when he was palpating her abdomen, she things 'things are moving better' and she feels therapy is helping. Pt was also very excited to share that she is 'officially not diabetic anymore' as her A1C was '4 something'. Pt states she is trying to be better about 'both the things she was told to do' which mean drink more water and perform her stretches. Pt states she continu es to have anorectal pain rates 3-5/10. Objective: Daily Treatment: Manual Therapy: Goldstein Strain-Counterstrain to arrest deep fascial proprioceptors with goal of normalizing associated nocifensive and nociautonomic reflexes, visceral system tender poi nts with correlating fascial glide: 45 sec positional hold/release Pt supine: Pelvic Diaphragm - nonspecific Pt prone: H1S1 - high ilium sacroiliac HFO-S1 - high flare-out sacroiliac GM - glut med PMT - post med trochanter OB - obturator internus PS1/2/3/4 sequence - posterior sacrals MFR: Pt lying supine with BLEs supported by a bolster for position of comfort and to pro mote posterior pelvic tilt for relaxation, MFR to middle/lower abdomen with indirect and dir ect releases per pt's comfort, over extensive vertical abdominal scarring and suprapubic emp hasis. PROM B LE with emphasis at hip/pelvis Ptient Education: Explained purpose/application and process with passive release for Goldstein SCS techniques, pt to allow for passive movement out of positional releases. Also encouraged pt to continue to perform pelvic relaxation stretches daily and increase water intake. Assessment: Response to Treatment: Pti is responding to manual rx very well with improved bowel movemen t frequency/regularity and slightly improved anorectal pain. Iniated pelvis/scaral SCS today with slight c/o discomfort with prone positioning and hip extension however tolerated techn iques well again today. Per previous external and internal assessment, pt has significant mu scular trigger points throughout the layers of PFM, notably R side superficial and bilateral deep, with remarkable pain at obturator internus, she is waiting for her tax returns to [employer] in [place] to initiate an internal home program. Per instruction/performance with pelvic stretches, pt has severe piriformis, hamstring, and hip adductor tightness and w ill benefit from initiating stretches at home to address comprehensive tightness contributin g to musculoskeletal dysfunction of the pelvic floor. Pt has also had multiple back and abdo francesca surgeries that may be contributing to overall low back/pelvic discomfort. Patient [...] program for symptom management. Georgie Valencia, PT 12/10/2014 1:26 PM documented in this encounter Plan of Treatment Not on filedocumented as of this encounter Visit Diagnoses Not on filedocumented in this encounter"
--- OUTSIDE RECORDS SUMMARY | ~2019-07-09 | XMS | Encounter Summary ---
Demographics + + + | Address | [address] | | | [place] [address] | + + + | Home Phone | | + + + | Preferred Language | Unknown | + + + | Marital Status | | + + + | Jainism Affiliation | ADV | + + + | Race | White | + + + | Ethnic Group | Not or | + + + Author + + + | Author | [facility] | + + + | Organization | [facility] | + + + | Address | Unknown | + + + | Phone | Unavailable | + + + Support + + + + + | Name | Relationship | Address | Phone | + + + + + | Norberto Oliveros | ECON | [address] | | | [place] | | [place] | | | | | [address] | | + + + + + Care Team Providers + +------+ + | Care Customer Advocacy Manager Name | Role | Phone | [...] + + | 06/22/ | Telephone | [facility] | Mayte, Jaquelin Che, | Ct Scan Result | | 2015 | | Center at [facility] [address] | MD-C [address] | | | | | [address] | Ave [facility] [place] | | | | | Mailcode: [facility] | [address] | | | | | [facility] | [phone] | | | | | and [facility], | | | | | | Building | | | | | | Floor [place], [place] | | | | | | [address] | | | | | | [phone] | | | +--------+ + + + [...]
--- OUTSIDE RECORDS SUMMARY | ~2019-07-09 | XMS | Encounter Summary ---
Demographics + + + | Address | [address] | | | [place] [address] | + + + | Home Phone | | + + + | Preferred Language | Unknown | + + + | Marital Status | | + + + | Holiness Affiliation | ADV | + + + | Race | White | + + + | Ethnic Group | Not or | + + + Author + + + | Author | [facility] | + + + | Organization | [facility] | + + + | Address | Unknown | + + + | Phone | Unavailable | + + + Support + + + + + | Name | Relationship | Address | Phone | + + + + + | Norberto Oliveros | ECON | [address] | | | [place] | | [place] | | | | | [address] | | + + + + + Care Team Providers + +------+ + | Care Melt Supervisor Name | Role | Phone | [...] | | | | Right ear | [address] | | | | | pain Right | [address] | [place] | | | | | facial pain | [place] | Mailcode: | | | | | Procedures | [place], [place] | [address] | | | | | CONSULT TO | [address] | for Health | | | | | NEUROLOGY | Phone: | and Healing, | | | | | | [phone] | Building [address], | | | | | | Fax: | 8th Floor | | | | | | [phone] | [place], [place] | | | | | | | [address] | | | | | | | Phone: | | | | | | | [phone] | | | | | | | Fax: | | | | | | | [phone] | +--------+--------+ + + + + Reason [...] | | | | | ear | [place], Mailcode: | | | | | Procedures | [place] | [address] | | | | | CONSULT TO | [address] | Physician's | | | | | ENT / | Phone: | Pavilion | | | | | [facility] | [phone] | [place], [place] | | | | | [place] | Fax: | [address] | | | | | | [phone] | Phone: | | | | | | | [phone] | | | | | | | Fax: | | | | | | | [phone] | +--------+--------+ + + + + Encounter [...] PPV [address] [place], | facial pain | | | | [address] | [place] [address] | | | | | Mailcode: [address] | [phone] | | | | | [facility] | | | | | | [place], [place] | | | | | | [address] | | | | | | [phone] | | | +--------+---------+ + + + [...] of the num bers below or through [employer]. Your questions can best be answered during business hours at [phone], but you can always reach the [facility] offset duplicating machine operator at [phone] to contac t our on-call team. We look forward to taking care of you in the future. LI Barron MD, MA, MD, Director documented in this encounter Progress Notes Melody Gutiérrez MD - 09/28/2016 2:00 PM PST Division of Otology, Neurotology, and Skull Base Surgery Department of Otolaryngology/Head and Neck Surgery [facility] Patient: Carly Mann Referring Provider: Jaquelin MURRAY Author: Melody Gutiérrez MD Consultation Date: 09/28/2016 REASON FOR VISIT: Right otalgia HISTORY OF PRESENT ILLNESS: Referred by Jaquelin for recent h/o R mastoidectomy with PET 11/08 (Dr. Maynard, [facility]) with R otalgia/dysequilibrium/hearing loss Chart review: Presented to the [facility] 06/12/16 for facial pain. H/o sinus surgery '93 and 20 00 at OSHs. Also complained of loss of smell/fatigue/facial pressure/congestion. Also c/o dysequilibriu m AD. Onset of symptoms 20 yrs ago, worsening over last 2 yrs. In addition to R mastoidectomy/tube has also had R parotidectomy 08/10 and 2 root canals R upper molars in late summer/fall 2015. Records from [facility] reviewed: 08/04/14 Dr. Anthony Maynard, DO-- R [...] tenderness a t tail of parotid gland. [place] to have parotid gland obstruction and underwent cannulation in office then treated with abx. 06/16/15 developed recurrence of parotid swelling. Noted to have acute tenderness mastoid t ip/patent tube/recurrent sialoadenitis. Referred to Dr. Baldwin for parotid endoscopy. Had salivary gland dilation and then R parotidectomy in [place] with Dr. Baldwin but vika nued to have pain. Still with acute tenderness mastoid tip. Pt also d/o facial swelling/swelling of neck and swelling in her mouth. Occ dysphagia. Had an robotics specialist in [facility] and a head & neck surgeon in [place]. 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 Imaging: CT neck 07/10/14, 08/04/14: U/S neck-- [...] mg by mouth two times daily. ARGININE-PYROGLUTAMATE (O-HCSVDGTT-J-PYROGLUTAM, BULK, MISC), Take 1,000 mg by mouth. [...] Take 1 Tab by mouth once daily. [place]-3 Fatty Acids-Vitamin E (FISH OIL) 1,000 mg [...] MD Department of Otolaryngology-Head and Neck Surgery [address], [address] [address] tel: [phone] fax: [phone] [email or web address] documented in this encounte r [...] | + +--------+ + + + | MN EAR MICROSCOPY | Routin | 10/11/2016 | [...] [address] | [place] [address] | | | LAB | | | | + + + + + | [facility] | [address] | [place] [address] | | | LAB | | | [...] [facility] | [address] | [place] [address] | | | LAB | | | | + + + + + | [facility] | [address] | [place] [address] | | | LAB | | | | + + + + + documented in this encounter Visit Diagnoses + + | Diagnosis | + + | Right ear pain - Primary Otalgia, unspecified | + + | Right facial pain Headache | + + documented in this encounter
--- OUTSIDE RECORDS SUMMARY | ~2019-07-09 | XMS | Encounter Summary ---
Demographics + + + | Address | [address] | | | [place] [address] | + + + | Home Phone | | + + + | Preferred Language | Unknown | + + + | Marital Status | | + + + | Catholic Affiliation | 1001 | + + + | Race | Unknown | + + + | Ethnic Group | Unknown | + + + Author + + + | Author | [facility] | | | and Teeana | + + + | Organization | [facility] | | | and [place]eeana | + + + | Address | Unknown | + + + | Phone | Unavailable | + + + Support + + + + + | Name | Relationship | Address | Phone | + + + + + | Norberto Mann | ECON | [address] | | | | | [place], [place] | | | | | [address] | | + + + + + Care Team Providers + +------+ + | Care Physics And Astronomy Professor Name | Role | Phone | + [...] | MED [facility] | [address] | | | | | IMAGING | [address]marie [address]. [place] | | | | | [phone] | [place] [address] | | +--------+ + + + + [...] | + +--------+ + + + | MRI KNEE RIGHT WO | Routin | 03/21/2019 | | Results for this | | CONTRAST | e | 12:00 AM | | procedure are in the | | | | PDT | | results section. | + +--------+ + + + documented in this encounter Results MRI Knee Right wo Contrast (03/21/2019 12:00 AM PDT) + + | Specimen [...]
--- OUTSIDE RECORDS SUMMARY | ~2019-07-09 | XMS | Encounter Summary ---
Demographics + + + | Address | [address] | | | [place] [address] | + + + | Home Phone | | + + + | Preferred Language | Unknown | + + + | Marital Status | | + + + | Gnosticism Affiliation | ADV | + + + [...] + | Norberto Oliveros | ECON | [address] | | | [place] | | [place] | | | | | [address] | | + + + + + Care Team Providers + +------+ + | Care Associate Account Executive Name | Role | Phone | + +------+ + PCP | Unavailable | + +------+ + Encounter Details +--------+ + + + + | Date | Type | Department | Care Team | Description | +--------+ + + + + | 11/18/ | [facility] | | Letter, Clinic | [...] as of this encounter Progress Notes Interface, Caseworker In - 03/26/2005 2:35 AM PDT [id number] 11/18/2004 11/18/2004 [id number] JOHNATHAN CRESPO [facility] [address] [place] [address] or November 18, 2004 Rene Moyer M.D. [address] [place] [address] RE: CARLY MANN MR #: [id number] Dear Jonathan: I had the pleasure of seeing your patient Carly Mann. As you recall, you requested a consult for further evaluation of the patient's hepatomegaly and elevated liver function tests. History of present Illness: The patient's medical records that were sent were reviewed and discussed with the patient and summarized as follows. Ms. Mann is a 54-year-old female who in 2003 was noted to have abnormal liver function tests. Workup showed that she was negative for hepatitis A, B, and C. Her ANITRA was negative. She underwent imaging study which showed hepatomegaly with fatty infiltration but no evidence for splenomegaly or intraabdominal varices. She underwent an upper endoscopy which showed no esophageal varies. She underwent a colonoscopy for problems with diarrhea and abdominal cramping. Apparently, biopsies were done of the colon and the study was negative as well. She has also been recently diagnosed with hypertension, diabetes, elevated triglycerides, and she has always had often on problems with weight. She currently weighs about 200 pounds, and she has been as heavy as 220 pounds. She complains of some right upper quadrant pain, lower extremity edema, some itching, and some memory and concentration problems but denies encephalopathy, ascites, or variceal hemorrhage. She did several months ago have an episode of what she says was whole body swelling but that has completely resolved. Review of systems is otherwise negative. Past Medical History 1. Hypertension. 2. Diabetes mellitus which is under moderate control. 3. Elevated triglycerides it has been as high as 600. 4. History of angina, apparently workup for cardiac disease has been negative. 5. History of peripheral neuropathy which has improved. 6. Appendectomy. 7. Tonsillectomy. 8. History of and total abdominal hysterectomy. 9. Cholecystectomy in 1984. 10. Bladder suspension and vaginal repair in 1987. 11. Back surgery. 12. Sinus surgery. Medications 1. Zoloft 50 mg a day. 2. Asacol 800 mg 3 times a day. 3. Prevacid 30 mg a day. 4. Benicar 40 mg a day. 5. Diabetes health pack. 6. Multiple vitamin with supplement. ALLERGIES IS TO WYGESIC, PENICILLIN, BIAXIN, AND SHE STATES MOST PAIN MEDICATIONS. Social History: She is employed and no alcohol, tobacco, or IV drug use. No tattoos, blood transfusion probably in 1975 or 1987. Family medical history is negative for liver disease. Physical Examination: General: A pleasant female in no apparent distress. Vital signs: Weight is 198.5 pounds, height is 5 feet 4 inches, blood pressure is 124/88, pulse 76, respiratory rate of 16, and temperature is 98.9. On examination, skin without spider angiomata. No evidence of jaundice. HEENT: Sclerae are anicteric. Neck is supple. Lungs are clear to auscultation. Cardiovascular: Regular rhythm. Abdomen: Normoactive bowel sounds. Soft. She has diffuse tenderness throughout especially in the right upper quadrant but no rebound or guarding. Spleen tip is not appreciated. She has mild hepatomegaly. Extremities: No cyanosis, clubbing, or edema. Neurological exam without asterixes. Laboratory data as outlined above. Percent saturation is 22.7%, sodium of 129, potassium 4.8, BUN of 10, creatinine of 0.7, AST of 74, ALT of 50, alkaline phosphatase of 115, total bilirubin is 0.8, albumin of 3.8, amylase of 73, white count of 7.2, hemoglobin of 14.5, platelet count of 187. Assessment: Ms. Mann is here for further workup of her hepatomegaly, fatty infiltration on imaging study and abnormal liver function tests. She has essentially the four risk factors for nonalcoholic fatty liver disease which includes hypertension, elevated triglycerides, diabetes, and obesity and with fatty infiltration seen on imaging study and hepatomegaly and abnormal liver function tests. I am pretty confident that she has nonalcoholic fatty liver disease. However, it would be reasonable for us to rule out potential other causes of liver disease including primary biliary cirrhosis, we will check any mitochondrial antibody, and we will add additional testing for autoimmune hepatitis. We know that her ANITRA is negative, but we will check an antismooth muscle antibody as well. If these studies are negative, then she has nonalcoholic fatty liver disease. I think it will be quite important for her to undergo a liver biopsy to assess to see if she has teratosis or steatohepatitis, and she may actually have significant fibrosis, although there is no evidence of cirrhosis. Therefore, I agree that she should go ahead during her surgery for her ovarian cysts, but the time of surgery she will undergo a liver biopsy. I told her that there is a very very small chance that she may have incidental cirrhosis which could make recovery from her abdominal surgery a little bit more complicated, but I think this is at low risk. I discussed with her at length over 60 minutes in clinic and with over 80% in direct counseling at this time for nonalcoholic fatty liver disease. There is no particular therapy, however, there is some evidence that modifying the risk factors that cause fatty liver disease should improve her overall outlook. Therefore, I strongly recommend weight reduction. It would be ideal if over the next 2 years she could lose 50 pounds, she should not have rapid weight loss because that has been shown to worsen fatty liver disease. She did point out to me that she has had foot problems, and she has been told to stay off her feet as I emphasized to her that this is medically indicated that she lose weight, and I suggested swimming. Again, it will be reasonable that she needs to aggressively pursue weight loss because of medical necessity. I also recommend that she see a dietitian to be placed on a strict low-fat, low-calorie, and a reasonably a low-cholesterol diet that is also a diabetic diet, should help her again with weight loss. Also her hyperlipidemia and her hypertension and diabetes should be aggressively controlled. Plan 1. I will check antimitochondrial antibody and the antismooth muscle antibody studies today. She will call me in 2 weeks to review the results of this. If these are negative, then she likely has nonalcoholic fatty liver disease. 2. After her liver biopsy done during her surgery, she will have the results report faxed up to me, and she will call me the day after, and we will review the results. 3. Otherwise she needs weight loss, control of her hyperlipidemia, diabetes, and hypertension. 4. I recommend that she be referred to a dietitian as outlined above. 5. Otherwise, return to see me in 6 months with preclinical complete metabolic profile. Thanks a lot in participating in the care of Carly Mann. Please do not hesitate to contact me if I can provide you with any additional information. Sincerely, Adryan Berger M.D. plumber and tinner [place] / [id number] / [id number] / [id number] / documented i n this encounter Plan of Treatment Not on filedocumented as of this encounter Visit Diagnoses Not on filedocumented in this encounter"
--- OUTSIDE RECORDS SUMMARY | ~2019-07-09 | XMS | Encounter Summary ---
Demographics + + + | Address | [address] | | | [place] [address] | + + + | Home Phone | | + + + | Preferred Language | Unknown | + + + | Marital Status | | + + + | Alevism Affiliation | ADV | + + + | Race | White | + + + | Ethnic Group | Not or | + + + Author + + + | Author | [facility] | + + + | Organization | [facility] | + + + | Address | Unknown | + + + | Phone | Unavailable | + + + Support + + + + + | Name | Relationship | Address | Phone | + + + + + | Norberto Oliveros | ECON | [address] | | | [place] | | [place] | | | | | [address] | | + + + + + Care Team Providers + +------+ + | Care Auto Electrician Name | Role | Phone | + +------+ + | Humberto Ruby MD | PCP | | + +------+ + Reason for Visit +--------+ + | Reason | Comments | +--------+ + | Other | notes for 09/28/16 appt | +--------+ + Encounter Details +--------+ + + + + | Date | Type | Department | Care Team | Description | +--------+ + + + + | 09/23/ | Documentati | Otolaryngology | Melody Gutiérrez MD | Other (notes for | | 2016 | on | Otology Services at | [address] | 09/28/16 appt) | | | | [facility] [address] | [place], | | | | | [facility] | [place] [address] | | | | | Mailcode: PV01 | [phone] | | | | | [facility] | | | | | | [place], [place] | | | | | | [address] | | | | | | [phone] | | | +--------+ + + + [...]
--- OUTSIDE RECORDS SUMMARY | ~2019-07-09 | XMS | Encounter Summary ---
Demographics + + + | Address | [address] | | | [place] [address] | + + + | Home Phone | | + + + | Preferred Language | Unknown | + + + | Marital Status | | + + + | Latter-Day Affiliation | 1001 | + + + | Race | Unknown | + + + | Ethnic Group | Unknown | + + + Author + + + | Author | [facility] | | | and [place] | + + + | Organization | [facility] | | | and [place] | + + + | Address | Unknown | + + + | Phone | Unavailable | + + + Support + + + + + | Name | Relationship | Address | Phone | + + + + + | Norberto Mann | ECON | [address] | | | | | [place], [place] | | | | | [address] | | + + + + + Care Team Providers + +------+ + | Care Major Assembly Inspector Name | Role | Phone | + +------+ + PCP | Unavailable | + +------+ + Encounter Details +--------+ + + + + | Date | Type | Department | Care Team | Description | +--------+ + + + + | 12/06/ | Hospital | [facility] | Rene Moyer | Unspecified Backache | | 2005 | Encounter | CONVERSION [address] | MD [address] | | | | | [address] | [place] | | | | | [place] | [place] | | | | | [address] | [address] | | | | | [phone] | [phone] | | | | | | | [...]
--- OUTSIDE RECORDS SUMMARY | ~2019-07-09 | XMS | Encounter Summary ---
Demographics + + + | Address | [address] | | | [place] [address] | + + + | Home Phone | | + + + | Preferred Language | Unknown | + + + | Marital Status | | + + + | Gnosticist Affiliation | 1001 | + + + | Race | Unknown | + + + | Ethnic Group | Unknown | + + + Author + + + | Author | [facility] | | | and Teeana | + + + | Organization | [facility] | | | and Teeana | + + + | Address | Unknown | + + + | Phone | Unavailable | + + + Support + + + + + | Name | Relationship | Address | Phone | + + + + + | Norberto Mann | ECON | [address] | | | | | [place], [place] | | | | | [address] | | + + + + + Care Team Providers + +------+ + | Care Cook 3 Pastry Name | Role | Phone | + +------+ + PCP | Unavailable | + +------+ + Encounter Details +--------+ + + + + | Date | Type | Department | Care Team | Description | +--------+ + + + + | 11/05/ | [facility] | [facility] | Anthony Maynard, | | | 2014 | Encounter | [facility] | DO | | | | | [address] | | | | | | [place], [place] | | | | | | [address] | | | | | | [phone] | | | +--------+ + + + [...] 2 tablets by | | 0 | 04//20 | | | PO | mouth Daily. [...] documented as of this encounter Progress Notes Ita Michaud RPH - 11/05/2014 3:47 PM PDT Progress Notes by Ita Michaud RPH at 11/05/14 154 Author: Ita Michaud RPH Service: (none) Author Type: Pharmacist Filed: 11/05/14 1547 Date of Service: 11/05/141546 Status: Signed Cooker Soda: Ita Michaud RPH (Pharmacist) Renal Dosing Monitoring: Carly Mann 64 y.o. female Pharmacy dosing for renal function per Dr. Maynard Plan per protocol: No scr available at this time Pharmacy will continue monitoring patient for appropriate dosing per renal function. 11/05/2014 3:47 PM Pharmacist: Ita Michaud documente d in this encounter Plan of Treatment Not on filedocumented as of this encounter Visit Diagnoses Not on filedocumented in this encounter"
--- OUTSIDE RECORDS SUMMARY | ~2019-07-09 | XMS | Encounter Summary ---
Demographics + + + | Address | [address] | | | [place] [address] | + + + | Home Phone | | + + + | Preferred Language | Unknown | + + + | Marital Status | | + + + | Yazdanism Affiliation | ADV | + + + | Race | White | + + + | Ethnic Group | Not or | + + + Author + + + | Author | [facility] | + + + | Organization | [facility] | + + + | Address | Unknown | + + + | Phone | Unavailable | + + + Support + + + + + | Name | Relationship | Address | Phone | + + + + + | Zane Oliveros | ECON | [address] | | | [place] | | [place] | | | | | [address] | | + + + + + Care Team Providers + +------+ + | Care Machine Ii Coremaker Name | Role | Phone | + [...] | Rheumatoid | MD Jailene | [address] | | | | | arthritis(70 | [address] | [place] | | | | | 4.0) ([facility]) | [address] | Rd | | | | | Procedures | Rd | Mailcode: | | | | | MRI HAND RT | [place], [place] | [address] | | | | | [address] | [address] | [employer] | | | | | | Phone: | Research | | | | | | [phone] | [place] | | | | | | Fax: | [place], [place] | | | | | | [phone] | [address] | | | | | | | Phone: | | | | | | | [phone] | | | | | | | Fax: | | | | | | | [phone] | +--------+--------+ + + + + Reason for Visit Diagnostic Testing (Routine) +--------+--------+ + + + + | Status | Reason | Specialty | Diagnoses / | Referred By | Referred To | | | | | Procedures | Contact | Contact | +--------+--------+ + + + + | Closed | | Radiology | Diagnoses | Deodhar, | [facility] | | | | | Rheumatoid | MD Jailene | [address] | | | | | arthritis(71 | [address] | [place] | | | | | 4.0) ([facility]) | [address] | Rd | | | | | Procedures | Rd | Mailcode: | | | | | MRI HAND RT | [place], [place] | [address] | | | | | [place] [address] | [address] | [employer] | | | | | | Phone: | Research | | | | | | [phone] | [place] | | | | | | Fax: | [place], [place] | | | | | | [phone] | [address] | | | | | | | Phone: | | | | | | | [phone] | | | | | | | Fax: | | | | | | | [phone] | +--------+--------+ + + + + Encounter Details +--------+ + + + + | Date | Type | Department | Care Team | Description | +--------+ + + + + | 03/28/ | Hospital | Diagnostic Imaging | | | | 2010 | Encounter | Services at [facility] | | | | | | [address] | | | | | | [place] Mailcode: | | | | | | [address] | | | | | | [facility] | | | | | | [place], [place] | | | | | | [address] | | | | | | [phone] | | | +--------+ + + + [...] mL by Injection | | 0 | 11/30/19 | | | VITAMIN B-12, | route [...] + + + +---------+ + + | [place]-3 Fatty | Take 1 Cap by mouth | | 0 | 04/05/20 | | | Acids-Vitamin E | once [...] + + +---------+ + + | phentermine 37.5 | Take 1 Tab by mouth | 60 Tab | 3 | 03/28/20 | | | mg Oral Tablet | once daily in the | | | 11 | | | | morning. Administer | | | | | | | before breakfast. | | | | | + + + +---------+ + + | Thioctic Acid | Take 2 Tabs by mouth | | 0 | 11/30/19 | | | (ALPHA LIPOIC ACID) | [...] + +--------+ + + + | MRI HAND RT WWO CONT | Routin | 03/28/2011 | Rheumatoid | Results for this | | | e | 10:06 AM | arthritis (HCC) | procedure are in the | | | | PDT | | results section. | + +--------+ + + + | CREATININE, POC | Routin | 03/28/2011 | | Results for this | | | e | 9:07 AM | | procedure are in the | | | | PDT | | results section. | + +--------+ + + + documented in this encounter Results MRI HAND RT WWO [...] | | + +---------+ + + | [facility] DEPARTMENT OF | | | | | RADIOLOGY | | | | + +---------+ + + ROUTINE CHEMISTRY TESTS (RADIOLOGY), POC (03/28/2011 9:07 AM PDT) + +-------+ + + + | Component | Value | Ref Range | Performed | Pathologist | | | | | At | Signature | + +-------+ + + + | BUN, POC | 17 | 6 - 20 mg/dL | [facility] - | | | | | | AMADO | | | | | | [facility] | | | | | | OF CARE | | | | | | TESTS | | + +-------+ + + + | CREATININE, | 0.8 | 0.6 - 1.1 mg/dL | [facility] - | | | POC | | | [facility] | | | | | | [facility] | | | | | | OF CARE | | | | | | TESTS | | + +-------+ + + + + + | Specimen | + + | | + + + + + + + | Performing | Address | City/State/Zipcode | Phone Number | | Organization | | | | + + + + + | DAVID FISCHER | [address] | [place], [place] | | | [facility] | [address] | [address] | | | TESTS | | | | + + + + + documented in this encounter Visit Diagnoses + + | Diagnosis | + + | Rheumatoid arthritis(714.0) ([facility]) Rheumatoid arthritis | + + documented in this encounter"
--- OUTSIDE RECORDS SUMMARY | ~2019-07-09 | XMS | Encounter Summary ---
Demographics + + + | Address | [address] | | | [place] [address] | + + + | Home Phone | | + + + | Preferred Language | Unknown | + + + | Marital Status | | + + + | Restoration Affiliation | 1001 | + + + | Race | Unknown | + + + | Ethnic Group | Unknown | + + + Author + + + | Author | [facility] | | | and Teeana | + + + | Organization | [facility] | | | and [place]eeana | + + + | Address | Unknown | + + + | Phone | Unavailable | + + + Support + + + + + | Name | Relationship | Address | Phone | + + + + + | Norberto Mann | ECON | [address] | | | | | [place], [place] | | | | | [address] | | + + + + + Care Team Providers + +------+ + | Care Lab Engineer Name | Role | Phone | + +------+ + PCP | Unavailable | + +------+ + Encounter Details +--------+ + + + + | Date | Type | Department | Care Team | Description | +--------+ + + + + | 12/15/ | Hospital | [facility] | Conversion | | | 2014 | Encounter | CENTER OUTPATIENT | Transaction, | | | | | PHYSICAL THERAPY | Provider Unknown | | | | | [address] | | | | | | [place], [place] | (Fax) | | | | | [address] | | | | | | [phone] | | | +--------+ + + + [...] encounter Progress Notes Georgie Valencia PT - 12/15/2014 1:45 PM PDTFormatting of this note might be different fr om the original. Progress Notes by Georgie Valencia PT at 12/15/14 7969 Author: Georgie Valencia PT Service: (none) Author Type: Physical Therapist Filed: 12/15/14 4807 Date of Service: 12/15/14 6503 Status: Signed Guitar Repair Technician: Georgie Valencia PT (Physical Therapist) Therapy Daily Treatment Note Date of Service: 12/15/2014 Treatment Time/Charges: Manual Therapy 51344 x 3 (45 minutes) Insurance Authorization: 6 of 17 estimated authorized visits (Medicare) - 01/03 GC Authorization Expiration: 08/26/15 POC Expiration: 02/17/15 Subjective: Pain Complaint: Pt c/o anorectal pain and irregular varying bowel movements. Subjective Comments: Pt states she is not feeling, thinks it is her RA 'acting up' even tho ugh she is confused because the weather has been so raoul and hot which usually eases her sy mptoms. When asked about her bowel movements, pt states she thinks she continues to get a li ttle better. States she still has a hard time doing all of her stretches and continues to be surprised with how limited and tight she is. Objective: Daily Treatment: Manual Therapy: Goldstein Strain-Counterstrain [...] increase water intake. Assessment: Response to Treatment: Pt is responding to manual rx very well with improved bowel movement frequency/regularity and slightly improved anorectal pain. Cont'd pelvis/scaral SCS today w ith slight c/o discomfort with prone positioning and hip extension however tolerated techniq ues well again today. Per previous external and internal assessment, pt has significant musc ular trigger points throughout the layers of PFM, notably R side superficial and bilateral d eep, with remarkable pain at obturator internus, she is waiting for her tax returns to [employer] in [employer] to initiate an internal home program. Per instruction/performance wi th pelvic stretches, pt has severe piriformis, hamstring, and hip adductor tightness and bernie l benefit from initiating stretches at home to address comprehensive tightness contributing to musculoskeletal dysfunction of the pelvic floor. Pt has also had multiple back and abdomi nal surgeries that may be contributing to overall low back/pelvic discomfort. Overall, pt is improving and will benefit from continued internal/external stretching and releases as well as initiating strengthening. Patient continues to require skilled intervention due to: Pt is a good candidate for skille d PT services due to chronicity of condition with worsening of symptoms, severity of pain, a nd complexity of compounding surgeries and medical issues. Pt is very motivated to improve h er condition. Plan: Initiate basic DLS strengthening. Cont per POC. POC: [...] program for symptom management. Georgie Valencia, PT 12/15/2014 1:43 PM documented in this encounter Plan of Treatment Not on filedocumented as of this encounter Visit Diagnoses Not on filedocumented in this encounter"
--- OUTSIDE RECORDS SUMMARY | ~2019-07-09 | XMS | Encounter Summary ---
Demographics + + + | Address | [address] | | | [place] [address] | + + + | Home Phone | | + + + | Preferred Language | Unknown | + + + | Marital Status | | + + + | Confucianist Affiliation | 1001 | + + + | Race | Unknown | + + + | Ethnic Group | Unknown | + + + Author + + + | Author | [facility] | | | and Teeana | + + + | Organization | [facility] | | | and [place] | + + + | Address | Unknown | + + + | Phone | Unavailable | + + + Support + + + + + | Name | Relationship | Address | Phone | + + + + + | Norberto Mann | ECON | [address] | | | | | [place] | | | | | [address] | | + + + + + Care Team Providers + +------+ + | Care Linseed Oil Temperer Name | Role | Phone | + +------+ + | Humberto Ruby MD | PCP | | + +------+ + Encounter Details +--------+ + + + + | Date | Type | Department | Care Team | Description | +--------+ + + + + | 11/08/ | Hospital | [facility] | Conversion | Atypical facial pain | | 2017 | Encounter | [facility] MRI [address] | Transaction, | | | | | [address] | Provider Unknown | | | | | [place], [place] | [phone] | | | | | [address] | | | | | | [phone] | John Mendosa MD | | | | | | [address] | | | | | | [facility] [[email or web address] [address] | | | | | | [place] [address] | | | | | | [phone] | | | | | | | [...] + + + | Blood Pressure | - | - | | + + + + + | Pulse | - | - | | + [...] + + + + | Weight | 70.8 kg (156 lb) | 11/08/2016 1:52 PM | | | | | PDT | | + + + + + | Height | - | - | | + + + + + | Body Mass Index | 26.78 | 08/09/2015 11:43 AM | | | | | PST | | + + + + + documented in this encounter Medications at Time of Discharge [...] 1 capsule by | | 0 | 04/05/20 | | | capsule | mouth Daily. [...] + + + +---------+ + + | Alpha-Lipoic Acid | Take 1 tablet by | | 0 | | | | 600 MG CAPS | mouth Daily. | | | | 7 | + + + +---------+ + + | cyanocobalamin | Inject 1,000 mcg | | 0 | | | | (VITAMIN B-12) 1,000 | into the muscle | | | | 7 | | mcg/mL injection | Every 30 days. LAST | | | | | | | DOSE 07/16/15 | | | | | + + + +---------+ + + | fish oil 1,000 mg | Take 1,000 mg by | | 0 | | | | capsule | mouth Daily. | | | | 7 | + + + +---------+ + + | L-Arginine 1000 MG | Take 1 tablet by | | 0 | | | | TABS | mouth 2 times daily. | | | | 7 | + + + +---------+ + + documented as of this encounter Plan of Treatment Not on filedocumented as of this encounter Procedures + +--------+ + + + | Procedure Name | Priori | Date/Time | Associated Diagnosis | Comments | | | ty | | | | + +--------+ + + + | MRI INTERNAL | Routin | 11/08/2016 | | Results for this | | AUDITORY CANALS/POST | e | 2:40 PM | | procedure are in the | | FOSSA W WO CON | | PDT | | results section. | + +--------+ + + + documented in this encounter Results MRI IACS/Post Fossa w wo Contrast (11/08/2016 2:40 PM PDT) + + | Specimen | + + | | + + + + + | Impressions | Performed At | + + + | 1. There is a normal appearance of the trigeminal nerve with no | | | mass effect on the cisternal portion. Meckel's cave is symmetric and | | | normal in appearance. No abnormal enhancement of the branches of the | | | trigeminal nerve are identified. | | + + + + + + | Narrative | Performed At | + + + | CARLY MANN 1950 66 years Female MRI BRAIN WITH IACS W | | | WO CONTRAST 11/08/2016 2:40 PM HISTORY: Atypical facial pain | | | COMPARISON: None. TECHNIQUE: Imaging was performed on a1.5 [facility] | | | MRI system. Multiplanar sequences according to a standard department | | | protocol were acquired with and without contrast. 14 mL MultiHance. | | | FINDINGS: Brain: There is no evidence of acute ischemia. There | | | is no uncal or tonsillar herniation. There is mild susceptibility | | | artifact of the bilateral basal ganglia. There is no midline shift. | | | There is normal signal intensity throughout the brain parenchyma. | | | Normal volume of the brain is present. Thin section high-resolution | | | imaging of the cranial nerves reveals no abnormality of cranial nerves | | | 5, 6, 7 and 8. There is no mass lesion of the CP angle or internal | | | auditory canal. There is no enhancement of the internal auditory | | | canal. No enhancement of the trigeminal nerve is noted. CSF: There | | | is no intracranial hemorrhage. The ventricular system is normal in | | | size. The major intracranial vessels demonstrate normal T2 flow voids. | | | Midline Structures: The pituitary gland is normal. The | | | craniocervical junction is maintained. The bone marrow demonstrates | | | normal signal. Meckel's cave and the cavernous sinus are symmetric and | | | normal. Osseous Structures: The paranasal sinuses are clear. The | | | mastoid air cells are well aerated. The inner ear structures are | | | grossly normal. Bulbous appearance of the posterior aspect of the | | | globe bilaterally may be related to myopia. | | + + + + + | Procedure Note | + + | Danilo, Rad Conversion - 04/10/2019 1:01 AM GREGORIA MANN[age] years | | FemaleMRI BRAIN WITH IACS W WO CONTRAST11/08/2016 2:40 PM HISTORY: Atypical facial pain | | COMPARISON: None. TECHNIQUE: Imaging was performed on a1.5 Miriam MRI system. | | Multiplanar sequences according to a standard department protocol were acquired with and | | without contrast.14 mL MultiHance. FINDINGS: Brain: There is no evidence of acute | | ischemia. There is no uncal or tonsillar herniation. There is mild susceptibility | | artifact of the bilateral basal ganglia. There is no midline shift. There is normal | | signal intensity throughout the brain parenchyma. Normal volume of the brain is present. | | Thin section high-resolution imaging of the cranial nerves reveals no abnormality of | | cranial nerves 5, 6, 7 and 8. There is no mass lesion of the CP angle or internal | | auditory canal. There is no enhancement of the internal auditory canal. No enhancement | | of the trigeminal nerve is noted. CSF: There is no intracranial hemorrhage. The | | ventricular system is normal in size. The major intracranial vessels demonstrate normal | | T2 flow voids. Midline Structures: The pituitary gland is normal. The craniocervical | | junction is maintained. The bone marrow demonstrates normal signal. Meckel's cave and | | the cavernous sinus are symmetric and normal. Osseous Structures: The paranasal sinuses | | are clear. The mastoid air cells are well aerated. The inner ear structures are grossly | | normal. Bulbous appearance of the posterior aspect of the globe bilaterally may be | | related to myopia. IMPRESSION: 1. There is a normal appearance of the trigeminal nerve | | with no mass effect on the cisternal portion. Meckel's cave is symmetric and normal in | | appearance. No abnormal enhancement of the branches of the trigeminal nerve are | | identified. | | | |Midline Structures: The pituitary gland is normal. The craniocervical junction is maintaine d. The bone marrow demonstrates normal signal. Meckel's cave and the cavernous sinus are sym metric and normal. | | | |Osseous Structures: The paranasal sinuses are clear. The mastoid air cells are well aerated . The inner ear structures are grossly normal. Bulbous appearance of the posterior aspect of the globe bilaterally may be related to myopia. | | | |IMPRESSION: | |1. There is a normal appearance of the trigeminal nerve with no mass effect on the cistern al portion. Meckel's cave is symmetric and normal in appearance. No abnormal enhancement of the branches of the trigeminal nerve are identified. | | | | | + + documented in this encounter Visit Diagnoses + + | Diagnosis | + + | Atypical facial pain Atypical face pain | + + documented in this encounter"
--- OUTSIDE RECORDS SUMMARY | ~2019-07-09 | XMS | Encounter Summary ---
Demographics + + + | Address | [address] | | | [place] [address] | + + + | Home Phone | | + + + | Preferred Language | Unknown | + + + | Marital Status | | + + + | Restoration Affiliation | ADV | + + + | Race | White | + + + | Ethnic Group | Not or | + + + Author + + + | Author | [facility] | + + + | Organization | [facility] | + + + | Address | Unknown | + + + | Phone | Unavailable | + + + Support + + + + + | Name | Relationship | Address | Phone | + + + + + | Norberto Oliveros | ECON | [address] | | | [place] | | [place] | | | | | [address] | | + + + + + Care Team Providers + +------+ + | Care Precinct Police Lieutenant Name | Role | Phone | + [...] Description | +--------+--------+ + + + | 07/10/ | Refill | Rheumatology at | Carolyn Jailene, | Refill Request | | 2010 | | [facility] | [address] | ([place]) | | | | [address] | [address] | | | | | [place] Mailcode: | [place], [place] | | | | | [address] | [address] | | | | | [address] | [phone] | | | | | [place], [place] | | | | | | [address] | | | | | | [phone] | | | +--------+--------+ + + + [...]
--- OUTSIDE RECORDS SUMMARY | ~2019-07-09 | XMS | Encounter Summary ---
Demographics + + + | Address | [address] | | | [place] [address] | + + + | Home Phone [...] + | Norberto Oliveros | ECON | [address] | | | [place] | | [place] | | | | | [address] | | + + + + + Care Team Providers + +------+ + | Care Pet Caretaker Name | Role | Phone | + [...] | | | | Whit Mailcode: | [place], [place] | | | | | [address] | [address] | | | | | [address] | [phone] | | | | | [place], [place] | | | | | | [address] | | | | | | [phone] | | | +--------+--------+ + + + [...]
--- OUTSIDE RECORDS SUMMARY | ~2019-07-09 | XMS | Encounter Summary ---
Demographics + + + | Address | [address] | | | [place] [address] | + + + | Home Phone | | + + + | Preferred Language | Unknown | + + + | Marital Status | | + + + | Adventism Affiliation | [id number] | + + + | Race | Unknown | + + + | Ethnic Group | Unknown | + + + Author + + + | Author | [facility] | | | and Teeana | + + + | Organization | [facility] | | | and eTeana | + + + | Address | Unknown | + + + | Phone | Unavailable | + + + Support + + + + + | Name | Relationship | Address | Phone | + + + + + | Norberto Mann | ECON | [address] | | | | | [place], [place] | | | | | [address] | | + + + + + Care Team Providers + +------+ + | Care Outreach Educator Name | Role | Phone | + +------+ + PCP | Unavailable | + +------+ + Encounter Details +--------+ + + + + | Date | Type | Department | Care Team | Description | +--------+ + + + + | 12/08/ | Hospital | [facility] | Conversion | | | 2014 | Encounter | CENTER OUTPATIENT | Transaction, | | | | | PHYSICAL THERAPY | Provider Unknown | | | | | [address] | | | | | | [place], [place] | (Fax) | | | | | [address] | | | | | | [phone] | | | +--------+ + + + [...] encounter Progress Notes Georgie Valencia PT - 12/08/2014 12:15 PM PDTFormatting of this note might be different fr om the original. Progress Notes by Georgie Valencia PT at 12/08/14 2875 Author: Georgie Valencia PT Service: (none) Author Type: Physical Therapist Filed: 12/08/14 1244 Date of Service: 12/08/14 1215 Status: Signed Prop And Effects Designer: Georgie Valencia PT (Physical Therapist) Therapy Daily Treatment Note Date of Service: 12/08/2014 Treatment Time/Charges: Manual Therapy 31621 x 3 (45 minutes) Insurance Authorization: 4 of 17 estimated authorized visits (Medicare) - 11/03 GC Authorization Expiration: 08/26/15 POC Expiration: 02/17/15 Subjective: Pain Complaint: Pt c/o anorectal pain and irregular varying bowel movements. Subjective Comments: Pt states that after last session, on her way out of the treatment thanh m, she was afraid she was not even going to make it to the bathroom before she had a bowel m ovement. Pt states she did make it to the bathroom and proceeded to spend approx 20 minutes having a bowel movement. Pt states she did not even realize she'd 'had that much in there' a nd reports that she felt really good after the session and bowel movement. Overall, pt state s she had a bowel movement this morning, that was fairly small and that her condition is abo ut the same. States she is trying to increase her water intake as well as do her stretches, however she admits she has not been good about either of those. Pt states she continues to t ry and find a balanced diet with protein and fiber. Objective: Daily Treatment: Manual Therapy: Triston Strain-Counterstrain to arrest deep fascial proprioceptors with goal of normalizing associated nocifensive and nociautonomic reflexes, visceral system tender poi nts with correlating fascial glide: 45 sec positional hold/release Sigmoid colon, medial (SIGM-V) Sigmoid colon, lateral (SIGL-V) Parietal peritoneum (PER-V) Fascia of Toldt, Ischial (DUSTY-V) Mesenteric Root, left side (MR-V) L Mesenteric Root, right side (MR-V) R Median umbilical ligament (MUL-V) Obturator membrane (OM-V) MFR: Pt lying supine with BLEs supported by a bolster for position of comfort and to promot e posterior pelvic tilt for relaxation, MFR to middle/lower abdomen with indirect and direct releases per pt's comfort, over extensive vertical abdominal scarring and suprapubic emphas is. tient Education: Explained purpose/application and process with passive release for Triston S CS techniques, pt to allow for passive movement out of positional releases. Also encouraged pt to continue to perform pelvic relaxation stretches daily and increase water intake. Assessment: Response to Treatment: Pt responded very well to treatment with Goldstein SCS techniques as ind icated by significant bowel movement after the session. She tolerated techniques well again today, no c/o inc pain or discomfort. Per previous external and internal assessment, pt has significant muscular trigger points throughout the layers of PFM, notably R side superficial and bilateral deep, with remarkable pain at obturator internus. Per instruction/performance with pelvic stretches, pt has severe piriformis, hamstring, and hip adductor tightness and will benefit from initiating stretches at home to address comprehensive tightness contributi ng to musculoskeletal dysfunction of the pelvic floor. Pt has also had multiple back and abd ominal surgeries that may be contributing to overall [...] program for symptom management. Georgie Valencia, PT 12/08/2014 12:34 PM documented in this encounter Plan of Treatment Not on filedocumented as of this encounter Visit Diagnoses Not on filedocumented in this encounter"
--- OUTSIDE RECORDS SUMMARY | ~2019-07-09 | XMS | Encounter Summary ---
Demographics + + + | Address | [address] | | | [place] [address] | + + + | Home Phone | | + + + | Preferred Language | Unknown | + + + | Marital Status | | + + + | Pentecostalism Affiliation | ADV | + + + [...] + | Norberto Oliveros | ECON | [address] | | | [place] | | [place] | | | | | [address] | | + + + + + Care Team Providers + +------+ + | Care Procurement Professional Logistics Name | Role | Phone | + +------+ + | Humberto Ruby MD | PCP | | + +------+ + Encounter Details +--------+ + + + + | Date | Type | Department | Care Team | Description | +--------+ + + + + | 07/25/ | Documentati | Otolaryngology | Otology, Ent 3181 | | | 2016 | on | Otology Services at | [facility] | | | | | [facility] [address] [place], [place] | | | | | [address] | [address] | | | | | Mailcode: PV01 | | | | | | [facility] | | | | | | [place], [place] | | | | | | [address] | | | | | | [phone] | | | +--------+ + + + [...]
--- OUTSIDE RECORDS SUMMARY | ~2019-07-09 | XMS | Encounter Summary ---
Demographics + + + | Address | [address] | | | [place] [address] | + + + | Home Phone | | + + + | Preferred Language | Unknown | + + + | Marital Status | | + + + | Cheondoism Affiliation | 1001 | + + + | Race | Unknown | + + + | Ethnic Group | Unknown | + + + Author + + + | Author | [facility] | | | and Teeana | + + + | Organization | [facility] | | | and Teeana | + + + | Address | Unknown | + + + | Phone | Unavailable | + + + Support + + + + + | Name | Relationship | Address | Phone | + + + + + | Norberto Mann | ECON | [address] | | | | | [place], [place] | | | | | [address] | | + + + + + Care Team Providers + +------+ + | Care Double End Trimmer Name | Role | Phone | + [...] + + + | Closed | | | Diagnoses | | Denny [...] | | | | Procedures | | [phone] | | | | | MT DILATION | | Fax: | | | | | OF SALIVARY | | [phone] | | | | | DUCT | | | +--------+--------+ + + + + Encounter Details +--------+---------+ + + + | Date | Type | Department | Care Team | Description | +--------+---------+ + + + | 08/09/ | Surgery | [facility] | Floyd Baldwin | [facility]OT[facility]GUE[facility] | | 2014 | | [facility] | DO Alex [address] | ENDOSCOPY | | | | OP [address] | [address] | | | | | [place] | [place] | | | | | [address] | [phone] | | | | | [phone] | | | +--------+---------+ + + + [...] + + + | Blood Pressure | 130/63 | 08/09/2015 4:05 PM | | | | | PST | | + + + + + | Pulse | 72 | 08/09/2015 4:05 PM | | | | | PST | | + + + + + | Temperature | 36.6 C (97.8 F) | 08/09/2015 3:47 PM | | | | | PST | | + + + + + | Respiratory Rate | 16 | 08/09/2015 4:05 PM | | | | | PST | | + + + + + | Oxygen Saturation | 96% | 08/09/2015 4:05 PM | | | | | PST | | + + + + + | Inhaled Oxygen | - | - | | | Concentration | | | | + + + + + | Weight | 74 kg (163 lb 2.3 | 08/09/2015 11:43 AM | | | | oz) | PST | | + + + + + | Height | 162.6 cm (5' 4") | 08/09/2015 11:43 AM | | | | | PST | | + + + + + | Body Mass Index | 28 | 08/09/2015 11:43 AM | | | | | PST | | + + + + + documented in this encounter Discharge Instructions Instructions Precious Adames RN - 08/09/2015 Discharge Instructions: After Your Surgery You ve just had surgery. During surgery you were given medicine called anesthesia to keep you relaxed and free of pain. After surgery you may have some pain or nausea. This is commo n. Here are some tips for feeling better and getting well after surgery. Going home Your doctor or nurse will show you how to take care of yourself when you go home. He or she will also answer your questions. Have an adult family member or friend drive you home. For the first 24 hours after your surgery: Do not drive or use heavy equipment. Do not make important decisions or sign legal papers. Do not drink alcohol. Have someone stay with you, if needed. He or she can watch for problems and help keep yo u safe. Be sure to go to all follow-up visits with your doctor. And rest after your surgery for as long as your doctor tells you to. Coping with pain If you have pain after surgery, pain medicine will help you feel better. Take it as told, b efore pain becomes severe. Also, ask your doctor or pharmacist about other ways to control p ain. This might be with heat, ice, or relaxation. And follow any other instructions your hector geon or nurse gives you. Tips for taking pain medicine To get the best relief possible, remember these points: Pain medicines can upset your stomach. Taking them with a little food may help. Most pain relievers taken by mouth need at least 20 to 30 minutes to start to work. Taking medicine on a schedule can help you remember to take it. Try to time your medicin e so that you can take it before starting an activity. This might be before you get dressed, go for a walk, or sit down for dinner. Constipation is a common side effect of pain medicines. Call your doctor before taking a ny medicines such as laxatives or stool softeners to help ease constipation. Also ask if you should skip any foods. Drinkinglots of fluids andeating foodssuch as fruits and veget jeffery that are high in fiber can also help. Remember, do not take laxatives unless your surg kaylan has prescribed them. Drinking alcohol and taking pain medicine can cause dizziness and slow your breathing. I t can even be deadly. Do not drink alcohol while taking pain medicine. Pain medicine can make you react more slowly to things. Do not drive or run machinery wh ile taking pain medicine. Your health care providermay tell you to take acetaminophen to help ease your pain. Ask h im or her how much you are supposed to take each day. Acetaminophen or other pain relievers may interact with your prescription medicines or other hszj-fah-nraxlop (OTC) drugs. Some pr escription medicines have acetaminophen and other ingredients.Using both prescription and OTC acetaminophenfor paincan cause you to overdose. Readthe labels on your OTC medicin eswith care. This will help youto clearly know the list of ingredients, how much to take , and anywarnings. It may also help you not take too muchacetaminophen.If you have que stions or do not understand the information, ask your pharmacist or health care provider to explain it to you before you take the OTC medicine. Managing nausea Some people have an upset stomach after surgery. This is often because of anesthesia, pain, or pain medicine, or the stress of surgery. These tips will help you handle nausea and eat healthy foods as you get better. If you were on a special food plan before surgery, ask your doctor if you should follow it while you get better. These tips may help: Do not push yourself to eat. Your body will tell you when to eat and how much. Start off with clear liquids and soup. They are easier to digest. Next try semi-solid foods, such as mashed potatoes, applesauce, and gelatin, as you feel ready. Slowly move to solid foods. Don t eat fatty, rich, or spicy foods at first. Do not force yourself to have 3 large meals a day. Instead eat smaller amounts more ofte n. Take pain medicines with a small amount of solid food, such as crackers or toast, to carmen id nausea. If you have obstructive sleep apnea You were given anesthesia medicine during surgery to keep you comfortable and free of pain. After surgery, you may have more apnea spells because of this medicine and other medicines you were given. The spells may last longer than usual. At home: Keep using the continuous positive airway pressure (CPAP) device when you sleep. Unless your health care provider tells you not to, use it when you sleep, day or night. CPAP is a c ommon device used to treat obstructive sleep apnea. Talk with your provider before taking any pain medicine, muscle relaxants, or sedatives. Your provider will tell you about the possible dangers of taking these medicines. [id number] [employer] [place] [address]. All righ ts reserved. This information is not intended as a substitute for professional medical care. Always follow your healthcare professional's instructions. Please follow post op instructions given by surgeon, call office for questions. documented in this encounter Medications at Time [...] 2 tablets by | | 0 | 04/05/ | | | PO | mouth Daily. | | | 11 | | + + + +---------+ + + | aspirin 81 mg EC | Take 81 mg by mouth | | 0 | | | | tablet | Daily. | | | | | + + + +---------+ + + | Cyanocobalamin | Inject 1 mL as | | 0 | //20 | | | (VITAMIN B-12 IJ) | [...] | + +--------+ + + + | ENDOSCOPIC SALIVARY | | 08/09/2015 | Sialoadenitis | | | STONE | | 2:07 PM | | | | | | PST | | | + +--------+ + + + +---+--------+ | | | | | Specia | | | l | | | Needs | | | | | | SALIVA | | | RY | | | SCOPE | | | EQUIPM | | | ENT | +---+--------+ + +--------+ +---+ + | POC GLUCOSE | Routin | 08/09/2015 | | Results for this | | | e | 12:34 PM | | procedure are in the | | | | PST | | results section. | + +--------+ +---+ + documented in this encounter Results POC Glucose (08/09/2015 12:34 PM PST) + +-------+ + + + | Component | Value | Ref Range | Performed | Pathologist | | | | | At | Signature | + +-------+ + + + | Glucose, | 89 | 65 - 99 mg/dL | [facility] | | | | [facility] | | | | | | [facility] | | | | | | LABORATORY | | + +-------+ + + + + + | Specimen | + + | | + + + + + + + | Performing | Address | City/State/Zipcode | Phone Number | | Organization | | | | + + + + + | [facility] | [address] | [place] [address] | | | [facility] | | | | | LABORATORY | | | | + + + + + documented in this encounter Visit Diagnoses + + | Diagnosis | + + | Sialoadenitis | + + documented in this encounter Administered Medications + +--------+ +--------+------+------+ | Medication Order | MAR | Action | Dose | Rate | Site | | | Action | Date | | | | + +--------+ +--------+------+------+ | acetaminophen (TYLENOL) tablet | Given | 12/14/20 | 650 mg | | | | 650 mg 650 mg, Oral, EVERY 4 | | 15 4:00 | | | | | HOURS PRN, Pain, Starting Mon | | PM PST | | | | | 08/09/15 at 1509, Post-op/Phase | | | | | | | II | | | | | | + +--------+ +--------+------+------+ +---+---+ | | | +---+---+ + +---------+ +---+ +---+ | lactated ringers (LR) infusion | New Bag | 08/09/20 | | 25 mL/hr | | | at 10-100 mL/hr, Intravenous, | | 15 12:41 | | | | | CONTINUOUS, Starting 08/09/15 | | PM PST | | | | | at 1245, TKO., Pre-op | | | | | | + +---------+ +---+ +---+ +---+---+ | | | +---+---+ + +-------+ +--------+---+ + | methylprednisoLONE sodium | Given | 08/09/20 | 250 mg | | Surgical | | succinate (solu-MEDROL) 62.5 | | 15 2:32 | | | Site | | mg/mL injection PRN, Starting | | PM PST | | | | | Sun08/09/15 at 1432, Intra-op | | | | | | + +-------+ +--------+---+ + +---+---+ | | | +---+---+ + +---------+ +---------+---+ + | scopolamine (TRANSDERM-SCOP) 1 | Patch | 08/09/20 | 1 patch | | Ear-Behi | | mg/3 days 1 patch 1 patch, | Applied | 15 2:00 | | | nd Right | | Transdermal, EVERY 72 HOURS, | | PM PST | | | | | First dose on Sun08/09/15 at | | | | | | | 1415, Each patch contains 1.5 mg | | | | | | | and is designed to deliver 1 mg | | | | | | | over 3 days. DO NOT CUT patch. | | | | | | | (If patch needed, use | | | | | | | occlusive dressing to expose only | | | | | | | of patch to skin.), Pre-op | | | | | | + +---------+ +---------+---+ + +---+---+ | | | +---+---+ documented in this encounter
--- OUTSIDE RECORDS SUMMARY | ~2019-07-09 | XMS | Encounter Summary ---
Demographics + + + | Address | [address] | | | [place] [address] | + + + | Home Phone | | + + + | Preferred Language | Unknown | + + + | Marital Status | | + + + | Quaker Affiliation | ADV | + + + | Race | White | + + + | Ethnic Group | Not or | + + + Author + + + | Author | [facility] | + + + | Organization | [facility] | + + + | Address | Unknown | + + + | Phone | Unavailable | + + + Support + + + + + | Name | Relationship | Address | Phone | + + + + + | Norberto Oliveros | ECON | [address] | | | [place] | | [place] | | | | | [address] | | + + + + + Care Team Providers + +------+ + | Care Commercial Review Appraiser Name | Role | Phone | + +------+ + | June Blanco DO | PCP | Unavailable | + +------+ + Encounter Details +--------+------+ + + + | Date | Type | Department | Care Team | Description | +--------+------+ + + + | 11/29/ | Lab | Laboratory, | | Rheumatoid arthritis | | 2010 | | Specimen Collection | | ([facility]) | | | | at [facility] 3rd Floor | | | | | | [address] | | | | | | [place], | | | | | | [place] [address] | | | | | | [phone] | | | +--------+------+ + + + [...] | e | 3:14 PM | arthritis ([facility]) | procedure are in the | | SERUM | | PDT | | results section. | + +--------+ + + + | RHEUMATOID FACTOR, | Routin | 11/29/2010 | Rheumatoid | Results for this | | SERUM | e | 3:14 PM | arthritis ([facility]) | procedure are in the | | [...] DEPARTMENT OF | [address] | [place] [address] | | | PATHOLOGY | [address] [...] + + + | [facility] | [address] | [place] [address] | | | LABORATORY | | | [...] + + + | [facility] | [facility] | | [place] [address] | REGIONAL | | [place] [address] | LABORATORY | + + + + + + + + | Performing | Address | City/State/Zipcode | Phone Number | | Organization | | | | + + + + + | [facility] | [address] | [place] [address] | | | LABORATORY | | | [...] + + + | [facility]) | [facility] | | [facility] [place] [address] | REGIONAL | | [place] [address] | LABORATORY | + + + + + + + + | Performing | Address | City/State/Zipcode | Phone Number | | Organization | | | | + + + + + | [facility] | [address] | [place] [address] | | | LABORATORY | | | [...] | + + + + + | [facility] DEPARTMENT OF | [address] | [place] [address] | | | PATHOLOGY | [address] [...] DEPARTMENT OF | [address] | [place] [address] | | | PATHOLOGY | [address] [...] | | | DEPARTMENT | | | PORTUGUESE | | | OF | | | [...] | + + + + + | [facility] | [address] | [place] [address] | | | PATHOLOGY | [address] [...] At | + + + | [facility] | [facility] | | [place] [address] [facility] | REGIONAL | | [place] [address] | LABORATORY | + + + + + + + + | Performing | Address | City/State/Zipcode | Phone Number | | Organization | | | | + + + + + | [facility] | [address] | [place] [address] | | | LABORATORY | | | [...] by | | | | | | [employer], | | | | | | | | | | | | [address] | | | | | | [place] [address] | | | | | | [phone] | | | | | | | | | | | | [email or web address], | | | | | | Gisella [...] [facility] | [address] | [place], [place] | | | [facility] | | [address] | | + + + + + | [facility] | [address] | [place], [place] | | | UN[facility] P[facility] - MANUAL | | [address] | | + + + + + [...] DEPARTMENT OF | [address] | [place] [address] | | | PATHOLOGY | [address] | | | + + + + + documented in this encounter Visit Diagnoses + + | Diagnosis | + + | Rheumatoid arthritis(714.0) (HCC) Rheumatoid arthritis | + + documented in this encounter"
--- OUTSIDE RECORDS SUMMARY | ~2019-07-09 | XMS | Encounter Summary ---
Demographics + + + | Address | [address] | | | [place] [address] | + + + | Home Phone | | + + + | Preferred Language | Unknown | + + + | Marital Status | | + + + | Latter-Day Affiliation | 1001 | + + + | Race | Unknown | + + + | Ethnic Group | Unknown | + + + Author + + + | Author | [facility] | | | and Teeana | + + + | Organization | [facility] | | | and Teeana | + + + | Address | Unknown | + + + | Phone | Unavailable | + + + Support + + + + + | Name | Relationship | Address | Phone | + + + + + | Norberto Mann | ECON | [address] | | | | | [place] | | | | | [address] | | + + + + + Care Team Providers + +------+ + | Care Paver Installer Name | Role | Phone | + +------+ + | Humberto Ruby MD | PCP | | + +------+ + Encounter Details +--------+ + + + + | Date | Type | Department | Care Team | Description | +--------+ + + + + | 05/27/ | Orders Only | [facility] | Anthony Maynard, | | | 2014 | | [facility]RO[facility] [address] | DO | | | | | [address] | | | | | | [place], [place] | | | | | | [address] | | | | | | [phone] | | | +--------+ + + + [...] + +--------+ + + + | CT TEMPORAL BONE WO | Routin | 05/27/2015 | | Results for this | | CONTRAST | e | 3:18 PM | | procedure are in the | | | | PDT | | results section. | + +--------+ + + + documented in this encounter Results CT Temporal Bone wo Contrast (05/27/2015 3:18 PM PDT) + + | Specimen | + + | | + + + + + | Impressions | Performed At | + + + | 1. Postsurgical changes of the right mastoid bone but with | | | persistent effusion in the caudal of the mastoid air cells. 2. | | | Otherwise normal appearance of the temporal bones. | | | | | + + + + + + | Narrative | Performed At | + + + | [facility] CT TEMPORAL BONES WO CONT 05/27/2015 3:18 PM | | | HISTORY: 65 years. Female. Pain right side of the face and right | | | ureter area TECHNIQUE: CT TEMPORAL BONES WO CONT. Using | | | multidetector CT scanner helically acquired images were obtained | | | through the temporal bones and reformatted per standard departmental | | | protocol. Total of 548 images obtained. COMPARISON: Similar | | | study of 10/02/2014 FINDINGS: Right temporal bone: Compared to the | | | prior study there has been interval postsurgical changes of the right | | | mastoid air cells. There continues to be fluid attenuation within the | | | caudal portion of the mastoid air cells on the right. The remainder | | | of the mastoid air cells are pneumatized. The external auditory | | | canal and middle ear are well pneumatized. The scutum remains sharp. | | | The middle ear ossicles are normal in appearance and position. | | | Internal auditory canal is normal in appearance. There is no aberrant | | | vascular communication with the middle ear. There is no fluid within | | | the epitympanic space. Semicircular canals and cochlea appear normal. | | | Left temporal bone: Mastoid air cells are well pneumatized. | | | External auditory canal and middle ear are well pneumatized. The | | | ossicles are intact and normal in position. The scutum remains sharp. | | | No fluid within the epitympanic space. The semicircular canals and | | | cochlea appear normal. Internal auditory canal is normal in | | | appearance. | | + + + + + | Procedure Note | + + | Danilo, Rad Conversion - 2019 12:25 PM PDT [facility] TEMPORAL BONES WO | | CONT05/27/2015 3:18 PM HISTORY:65 years. Female. Pain right side of the face and right | | ureter area TECHNIQUE:CT TEMPORAL BONES WO CONT. Using multidetector CT scanner | | helically acquired images were obtained through the temporal bones and reformatted per | | standard departmental protocol. Total of 548 images obtained. COMPARISON:Similar study | | of 10/02/2014 FINDINGS:Right temporal bone:Compared to the prior study there has been | | interval postsurgical changes of the right mastoid air cells. There continues to be | | fluid attenuation within the caudal portion of the mastoid air cells on the right. The | | remainder of the mastoid air cells are pneumatized. The external auditory canal and | | middle ear are well pneumatized. The scutum remains sharp. The middle ear ossicles are | | normal in appearance and position. Internal auditory canal is normal in appearance. | | There is no aberrant vascular communication with the middle ear. There is no fluid | | within the epitympanic space. Semicircular canals and cochlea appear normal. Left | | temporal bone:Mastoid air cells are well pneumatized. External auditory canal and middle | | ear are well pneumatized. The ossicles are intact and normal in position. The scutum | | remains sharp. No fluid within the epitympanic space. The semicircular canals and | | cochlea appear normal. Internal auditory canal is normal in appearance. IMPRESSION: 1. | | Postsurgical changes of the right mastoid bone but with persistent effusion in the | | caudal of the mastoid air cells.2. Otherwise normal appearance of the temporal bones. | | | |Left temporal bone: | |Mastoid air cells are well pneumatized. External auditory canal and middle ear are well pne umatized. The ossicles are intact and normal in position. The scutum remains sharp. No fluid within the epitympanic space. The semicircular canals and cochlea | |appear normal. Internal auditory canal is normal in appearance. | | | |IMPRESSION: | |1. Postsurgical changes of the right mastoid bone but with persistent effusion in the caud al of the mastoid air cells. | |2. Otherwise normal appearance of the temporal bones. | | | | | | | | | + + documented in this encounter Visit Diagnoses Not on filedocumented in this encounter"
--- OUTSIDE RECORDS SUMMARY | ~2019-07-09 | XMS | Encounter Summary ---
Demographics + + + | Address | [address] | | | [place] [address] | + + + | Home Phone | | + + + | Preferred Language | Unknown | + + + | Marital Status | | + + + | Orthodoxy Affiliation | 1001 | + + + | Race | Unknown | + + + | Ethnic Group | Unknown | + + + Author + + + | Author | [facility] | | | and Teeana | + + + | Organization | [facility] | | | and Teeana | + + + | Address | Unknown | + + + | Phone | Unavailable | + + + Support + + + + + | Name | Relationship | Address | Phone | + + + + + | Norberto Mann | ECON | [address] | | | | | [place], [place] | | | | | [address] | | + + + + + Care Team Providers + +------+ + | Care Master In Chancery Name | Role | Phone | + +------+ + | Humberto Ruby MD | PCP | | + +------+ + Encounter Details +--------+ + + + + | Date | Type | Department | Care Team | Description | +--------+ + + + + | 03/27/ | Orders Only | [facility] | Provider, | | | 2019 | | [facility] | [address] | | | | | CONVERSION [address] | [place]. | | | | | [address] [place], [place] | [place] [address] | | | | | [address] | | | | | | [phone] | | | +--------+ + + + [...]
--- OUTSIDE RECORDS SUMMARY | ~2019-07-09 | XMS | Encounter Summary ---
Demographics + + + | Address | [address] | | | [place] [address] | + + + | Home Phone | | + + + | Preferred Language | Unknown | + + + | Marital Status | | + + + | Holiness Affiliation | 1001 | + + + | Race | Unknown | + + + | Ethnic Group | Unknown | + + + Author + + + | Author | [facility] | | | and Teeana | + + + | Organization | [facility] | | | and Teeana | + + + | Address | Unknown | + + + | Phone | Unavailable | + + + Support + + + + + | Name | Relationship | Address | Phone | + + + + + | Norberto Mann | ECON | [address] | | | | | [place], [place] | | | | | [address] | | + + + + + Care Team Providers + +------+ + | Care Water Taxi Boat Mate Name | Role | Phone | + +------+ + PCP | Unavailable | + +------+ + Encounter Details +--------+ + + + + | Date | Type | Department | Care Team | Description | +--------+ + + + + | 01/04/ | Hospital | [facility] | Conversion | | | 2014 | Encounter | CENTER OUTPATIENT | Transaction, | | | | | PHYSICAL THERAPY | Provider Unknown | | | | | [address] | | | | | | [place], [place] | (Fax) | | | | | [address] | | | | | | [phone] | | | +--------+ + + + [...] encounter Progress Notes Georgie Valencia PT - 01/04/2015 1:45 PM PDTFormatting of this note might be different fr om the original. Progress Notes by Georgie Valencia PT at 01/04/15 2165 Author: Georgie Valencia PT Service: (none) Author Type: Physical Therapist Filed: 01/04/15 1427 Date of Service: 01/04/15 2477 Status: Signed Turbine Mechanic: Georgie Valencia PT (Physical Therapist) Therapy Daily Treatment Note Date of Service: 01/04/2015 Treatment Time/Charges: Therapeutic Exercise 17585 x 3 (40 minutes) Insurance Authorization: 11 of 17 estimated authorized visits (Medicare) - 06/05 GC Authorization Expiration: 08/26/15 POC Expiration: 02/17/15 Functional Limitation - G Codes Other PT/OT Primary: [id number] Current Status : CL - At least 60% but less than 80% impaired, limited or restricted $[id number] Projected Goal Status : CJ - At least 20% but less than 40% impaired, limited or res tricted Rationale: Pt is a good candidate for skilled PT services due to chronicity of condition wi th signigicant pain and complexity of compounding surgeries and medical issues. Pt is very m otivated to improve her condition. She is responding very well to therapy with improving bow el management, however continues to have abdominal pain, restrictions, and marked core stren gth and stability. She is currently 60% limited by her dysfunction and unable to sit for pro longed periods of time or walk/exercise for health and well-being management Subjective: Pain Complaint: Pt c/o anorectal pain and irregular varying bowel movements. Subjective Comments: Pt states she felt like she was 'split in half' after last session bec ause she was very sore from the exercises. Pt states she is realizing how weak her stomach m uscles are from her surgery. Pt states she did not do her exercises over the weekend because she was too busy with family visiting and planning/having her mother's 98th birthday green party. Objective: Daily Treatment: Therapeutic Exercise: Pt instructed and performed core exercises and stretches as indicated below with stability ball: Supine: Unilateral bridge R/L x 10 x 3 sets Bilateral bridge x 10 x 3 sets Bilateral bridge with leg curl roll in/out x 10 x 3 sets SLR R/L x 10 x 2 sets (no stability ball) Sitting: Pelvic rocking forward/backward Pelvic rocking side/side Pelvic circles CW and CCW LE marching alt R/L LE marching with knee extension alt R/L LE hip flexion with opposite shoulder flexion combo Standing: Wall squat small ROM with ball x 10 x 2 sets Wall knee pulls x 20 alt R/L x 2 sets (no stability ball) Ptient Education: As per above for cont'd [...] back weakness from multiple back and abdominal surgeries and has been noncompliant with HEP however with the past couple sessions she was been instructe d with exercises with resistance tubing and stability ball. She has poor posturing and with remarkably anterior pelvic tilt and abdominal caving/crouching and therefore used stability ball to emphasize pelvic awareness. She needs significant back and core strengthening to dev elop better stabilizing and postural muscles. Pt tolerated well, vc's for slow and controlle d motion. Patient continues to require skilled intervention due to: Pt is a good candidate for skille d PT services due to chronicity of condition with worsening of symptoms, severity of pain, a nd complexity of compounding surgeries and medical issues. Pt is very motivated to improve h er condition. Plan: F/u re: basic DLS strengthening and HEP. Cont per POC. POC: PT [...] program for symptom management. Georgie Valencia, PT 01/04/2015 1:53 PM documented in this encounter Plan of Treatment Not on filedocumented as of this encounter Visit Diagnoses Not on filedocumented in this encounter"
--- OUTSIDE RECORDS SUMMARY | ~2019-07-09 | XMS | Encounter Summary ---
Demographics + + + | Address | [address] | | | [place] [address] | + + + | Home Phone | | + + + | Preferred Language | Unknown | + + + | Marital Status | | + + + | Zoroastrian Affiliation | 1001 | + + + | Race | Unknown | + + + | Ethnic Group | Unknown | + + + Author + + + | Author | [facility] | | | and Teeana | + + + | Organization | [facility] | | | and Teeana | + + + | Address | Unknown | + + + | Phone | Unavailable | + + + Support + + + + + | Name | Relationship | Address | Phone | + + + + + | Norberto Mann | ECON | [address] | | | | | [place], [place] | | | | | [address] | | + + + + + Care Team Providers + +------+ + | Care Electrical Maintenance Engineer Name | Role | Phone | + +------+ + PCP | Unavailable | + +------+ + Encounter Details +--------+ + + + + | Date | Type | Department | Care Team | Description | +--------+ + + + + | 01/27/ | Hospital | [facility] | Conversion | | | 2014 | Encounter | CENTER OUTPATIENT | Transaction, | | | | | PHYSICAL THERAPY | Provider Unknown | | | | | [address] | | | | | | [place], [place] | (Fax) | | | | | [address] | | | | | | [phone] | | | +--------+ + + + [...] Date of Service: 01/27/15 1220 Status: Signed Theatre Director: Georgie Valencia PT (Physical Therapist) Therapy Daily Treatment Note Date of Service: 01/27/2015 Treatment Time/Charges: Manual Therapy 82825 x 3 (45 minutes) Insurance Authorization: 15 [...]
--- OUTSIDE RECORDS SUMMARY | ~2019-07-09 | XMS | Encounter Summary ---
Demographics + + + | Address | [address] | | | [place] [address] | + + + | Home Phone | | + + + | Preferred Language | Unknown | + + + | Marital Status | | + + + | Sabianist Affiliation | 1001 | + + + | Race | Unknown | + + + | Ethnic Group | Unknown | + + + Author + + + | Author | [facility] | | | and Teeana | + + + | Organization | [facility] | | | and [place]ee[place] | + + + | Address | Unknown | + + + | Phone | Unavailable | + + + Support + + + + + | Name | Relationship | Address | Phone | + + + + + | Norberto Mann | ECON | [address] | | | | | [place], [place] | | | | | [address] | | + + + + + Care Team Providers + +------+ + | Care Welt Sole Layer Name | Role | Phone | + +------+ + PCP | Unavailable | + +------+ + Encounter Details +--------+ + + + + | Date | Type | Department | Care Team | Description | +--------+ + + + + | 01/07/ | Hospital | [facility] | Conversion | | | 2014 | Encounter | CENTER OUTPATIENT | Transaction, | | | | | PHYSICAL THERAPY | Provider Unknown | | | | | [address] | | | | | | [place], [place] | (Fax) | | | | | [address] | | | | | | [phone] | | | +--------+ + + + [...] encounter Progress Notes Georgie Valencia PT - 01/07/2015 2:05 PM PDTFormatting of this note might be different fr om the original. Progress Notes by Georgie Valencia PT at 01/07/151404 Author: Georgie Valencia PT Service: (none) Author Type: Physical Therapist Filed: 01/07/151404 Date of Service: 01/07/151404 Status: Signed Bridge Expert: Georgie Valencia PT (Physical Therapist) Therapy Daily Treatment Note Date of Service: 01/07/2015 Treatment Time/Charges: Therapeutic Exercise 19999 x 3 (45 minutes) Insurance Authorization: 12 of 17 estimated authorized visits (Medicare) - 09/05 GC Authorization Expiration: 08/26/15 POC Expiration: 02/17/15 Subjective: Pain Complaint: Pt c/o anorectal pain and irregular varying bowel movements. Subjective Comments: Pt states she is feeling a lot better today. States her stomach was fe eling 'sluggish' earlier however she has had a BM x 2 so far today. States she has noticed h ow sore her stomach muscles are since starting exercises. Objective: Daily Treatment: Therapeutic Exercise: Pt instructed and performed core exercises and stretches as indicated belowl: Supine: Unilateral bridge R/L x 10 x 3 sets Bilateral bridge x 10 x 3 sets Bilateral bridge with leg curl roll in/out x 10 x 3 sets Supine without stability ball: 3 # hand-wts Alt shoulder flexion R/L x 20 x 2 sets Alt hip/knee flexion R/L x 20 x 2 sets Hip/shoulder opposite R/L combo x 20 x 2 sets Quadruped: Hip extension R/L x 20 x 2 sets Shoulder flexion R/L x 20 x 2 sets Hip/shoulder opposite R/L combo x 20 x 2 sets Child's pose stretch hold 20 sec x 2 Sitting: LE marching alt R/L Shoulder flexion with 3# hand-wts alt R/L LE hip flexion with opposite shoulder flexion combo Supine/stabilty ball: Bridge hold 20 sec x 2 Ptient Education: As per above for cont'd [...] program for symptom management. Georgie Valencia, PT 01/07/2015 1:58 PM documented in this encounter Plan of Treatment Not on filedocumented as of this encounter Visit Diagnoses Not on filedocumented in this encounter"
--- OUTSIDE RECORDS SUMMARY | ~2019-07-09 | XMS | Encounter Summary ---
Demographics + + + | Address | [address] | | | [place] [address] | + + + | Home Phone | | + + + | Preferred Language | Unknown | + + + | Marital Status | | + + + | Yarsani Affiliation | ADV | + + + | Race | White | + + + | Ethnic Group | Not or | + + + Author + + + | Author | [facility] | + + + | Organization | [facility] | + + + | Address | Unknown | + + + | Phone | Unavailable | + + + Support + + + + + | Name | Relationship | Address | Phone | + + + + + | Norberto Oliveros | ECON | [address] | | [place] | | [place] | | | | | [address] | | + + + + + Care Team Providers + +------+ + | Care Drain Cleaner Plumber Name | Role | Phone | + [...] [id number] | | | | | | [place] | | | | | | [address] | | | | | | [phone] | | | +--------+ + + + [...]
--- OUTSIDE RECORDS SUMMARY | ~2019-07-09 | XMS | Encounter Summary ---
Demographics + + + | Address | [address] | | | [place] [address] | + + + | Home Phone | | + + + | Preferred Language | Unknown | + + + | Marital Status | | + + + | Presybeterian Affiliation | 1001 | + + + | Race | Unknown | + + + | Ethnic Group | Unknown | + + + Author + + + | Author | [facility] | | | and Teeana | + + + | Organization | [facility] | | | and [place] | + + + | Address | Unknown | + + + | Phone | Unavailable | + + + Support + + + + + | Name | Relationship | Address | Phone | + + + + + | Norberto Mann | ECON | [address] | | | | | [place], [place] | | | | | [address] | | + + + + + Care Team Providers + +------+ + | Care Business Analyst Intern Name | Role | Phone | + +------+ + PCP | Unavailable | + +------+ + Encounter Details +--------+ + + + + | Date | Type | Department | Care Team | Description | +--------+ + + + + | 12/03/ | Hospital | [facility] | Conversion | | | 2014 | Encounter | CENTER OUTPATIENT | Transaction, | | | | | PHYSICAL THERAPY | Provider Unknown | | | | | [address] | | | | | | [place], [place] | (Fax) | | | | | [address] | | | | | | [phone] | | | +--------+ + + + [...] Notes by Georgie Valencia PT at 12/03/14 0305 Author: Georgie Valencia PT Service: (none) Author Type: Physical Therapist Filed: 12/03/14 0911 Date of Service: 12/03/14 1215 Status: Signed Completion Manager: Georgie Valencia PT (Physical Therapist) Therapy Daily Treatment Note Date of Service: 12/03/2014 Treatment Time/Charges: Manual Therapy 09004 x 3 (45 minutes) Insurance Authorization: 3 [...]
--- OUTSIDE RECORDS SUMMARY | ~2019-07-09 | XMS | Clinical Summary ---
Demographics + + + | Address | [address] | | | [place] [address] | + + + | Home Phone | | + + + | Preferred Language | Unknown | + + + | Marital Status | | + + + | Confucianism Affiliation | 1001 | + + + | Race | Unknown | + + + | Ethnic Group | Unknown | + + + Author + + + | Author | [facility] (Historical as of | | | 04-12-19) | + + + | Organization | [facility] (Historical as of | | | 04-12-19) | + + + | Address | Unknown | + + + | Phone | Unavailable | + + + Support + + + + + | Name | Relationship | Address | Phone | + + + + + | Detailed,Message | ECON | Unknown | | + + + + + | Norberto Mann | ECON | [address] | | | | | [place] | | | | | [address] | | + + + + + | Jaison Mann | MANUEL | Unknown | | + + + + + | Chantal Anderson | ECON | Unknown | | + + + + + Care Team Providers + +------+ + | Care Solar Fabrication Technician Name | Role | Phone | + +------+ + | Humberto Ruby MD | PP | | + +------+ + Allergies + + + + + + | Active Allergy | Reactions | Severity | Noted | Comments | | | | | Date | | + + + + + + | Clarithromycin | Palpitations | Medium | 05/27/20 | | | | | | 14 | | + + + + + + | Codeine | Nausea and Vomiting | Low | 05/27/20 | | | | | | 14 | | + + + + + + | Propoxyphene | Shortness of Breath | High | 05/27/20 | | | N-Acetaminophen | | | 14 | | + + + + + + Current Medications + + +--------+---------+------+------+-------+ | Prescription | Sig. | Disp. | Refills | Star | End | Statu | | | | | | t | Date | s | | | | | | Date | | | + + +--------+---------+------+------+-------+ | sertraline | Take 25 mg by mouth | | | | | Activ | | (ZOLOFT) 25 MG | daily. | | | | | e | | tablet | | | | | | | + + +--------+---------+------+------+-------+ | acetaminophen | Take 500 mg by mouth | | | | | Activ | | (TYLENOL) 500 MG | every 6 (six) hours | | | | | e | | tablet | as needed for Pain. | | | | | | + + +--------+---------+------+------+-------+ | L-Arginine 1000 MG | Take by mouth. | | | | | Activ | | TABS | | | | | | e | + + +--------+---------+------+------+-------+ | aspirin 81 MG EC | Take 81 mg by mouth | | | | | Activ | | tablet | daily with | | | | | e | | | breakfast. | | | | | | + + +--------+---------+------+------+-------+ | Multiple Vitamin | Take 1 tablet by | | | | | Activ | | (MULTIVITAMIN) | mouth daily. | | | | | e | | tablet | | | | | | | + + +--------+---------+------+------+-------+ | folic acid | Take 1 mg by mouth | | | | | Activ | | (FOLVITE) 1 MG | daily. | | | | | e | | tablet | | | | | | | + + +--------+---------+------+------+-------+ | levothyroxine | Take 50 mcg by mouth | | | | | Activ | | (SYNTHROID) 50 MCG | every morning | | | | | e | | tablet | before breakfast. | | | | | | + + +--------+---------+------+------+-------+ | cyanocobalamin | Take 1,000 mcg by | | | | | Activ | | (VITAMIN B-12) 1000 | mouth daily. | | | | | e | | MCG tablet | | | | | | | + + +--------+---------+------+------+-------+ | fish oil omega-3 | Take 1 g by mouth | | | | | Activ | | fatty acids 1000 MG | daily. | | | | | e | | capsule | | | | | | | + + +--------+---------+------+------+-------+ | pilocarpine | Take 1 tablet by | 90 | 3 | 04/27 | | Activ | | (SALAGEN) 5 MG | mouth 3 (three) | tablet | | 4/20 | | e | | tablet | times daily. | | | 16 | | | + + +--------+---------+------+------+-------+ Active Problems No known active problems Family History + + +------+ + | Medical History | Relation | Name | Comments | + + +------+ + | Heart disease | Father | | | + + +------+ + | Cancer | Maternal | | | | | Grandmoth | | | | | er | | | + + +------+ + | Cancer | Paternal | | | | | Grandmoth | | | | | er | | | + + +------+ + | Cancer | Sister | | | + + +------+ + + +------+--------+ + | Relation | Name | Status | Comments | + +------+--------+ + | Father | | | | + +------+--------+ + | Maternal Grandmother | | | | + +------+--------+ + | Paternal Grandmother | | | | + +------+--------+ + | Sister | | | | + +------+--------+ + Social History + +-------+ +--------+------+ | [...] + + + | Blood Pressure | 84/53 | 11/05/2014 3:52 PM PDT | + + + + | Pulse | 89 | 01/10/2016 11:13 AM PDT | + + + + | Temperature | 36.8 C (98.2 F) | 11/05/2014 2:50 PM PDT | + + + + | Respiratory Rate | 16 | 11/05/2014 3:30 PM PDT | + + + + | Oxygen Saturation | 99% | 01/10/2016 11:13 AM PDT | + + + + | Inhaled Oxygen | - | - | | Concentration | | | + + + + | Weight | 70.8 kg (156 lb) | 11/08/2016 1:52 PM PDT | + + + + | Height | 162.6 cm (5' 4") | 11/05/2014 9:50 AM PDT | + + + + | Body Mass Index | 26.78 | 11/08/2016 1:52 PM PDT | + + + + Plan of Treatment + + + + + | Health Maintenance | Due Date | Last Done | Comments | + + + + + | Vaccine: | | | | | Dtap/Tdap/Td (1 - | 8 | | | | Tdap) | | | | + + + + + | Vaccine: Zoster (1 | | | | | of 2) | 9 | | | + + + + + | DEXA SCAN SCREENING | | | | | | 4 | | | + + + + + | Vaccine: | | | | | Pneumococcal 65+ | 4 | | | | Low/Medium Risk (1 | | | | | of 2 - PCV13) | | | | + + + + + | Vaccine: Influenza | | | | | (#1) | 9 | | | + + + + + Implants + +------+--------+ +--------+--------+--------+ | Implanted | Type | Area | Manufacture | Device | Expira | Model | | | | | r | | tion | / | | | | | | Identi | Date | Serial | | | | | | fier | | / Lot | + +------+--------+ +--------+--------+--------+ | Soft MeshImplanted: Qty: 1 on | | N/A: | [employer] | | 09/13/ | [id number] | | 07/14/2014 by Troy Mazariegos | | Abdome | ick | | 2019 | 6 /NA | | MD Kenny | | n | | | | /[id number] | | | | | | | | 664 | + +------+--------+ +--------+--------+--------+ | Tube Wayne Lott [facility] | | | MED[employer]IC | | | [id number] | | - [id number]: Qty: 1 | | | | | | 62 / | | on 11/05/2014 by Caesar | | | | | | /[id number] | | DO Anthony | | | | | | [id number] | + +------+--------+ +--------+--------+--------+ Results Not on filefrom Last 3 Months Insurance + +--------+ +------+-------+ + | Payer | Benefi | Subscriber | Type | Phone | Address | | | t Plan | ID | | | | | | / | | | | | | | Group | | | | | + +--------+ +------+-------+ + | MEDICARE | MEDICA | [id number] | | | [address] | | | RE | | | | [place], [place] [address] | | | IP-OP | | | | | + +--------+ +------+-------+ + | COMMERCIAL OTHER | COMMER | [id number] | | | | | | CIAL | | | | | | | GENERI | | | | | | | C PLAN | | | | | + +--------+ +------+-------+ + + +--------+ +--------+ + + | Guarantor Name | Accoun | Relation to | Date | Phone | Billing Address | | | t Type | Patient | of | | | | | | | | | | + +--------+ +--------+ + + | CARLY MANN | Person | Self | [birth year] | Home: | [address] | | | al/Fam | | 1950 | [phone] | [place] [address] | | | elissa | | | [phone] | | + +--------+ +--------+ + +
--- OUTSIDE RECORDS SUMMARY | ~2019-07-09 | XMS | Encounter Summary ---
Demographics + + + | Address | [address] | | | [place] [address] | + + + | Home Phone | | + + + | Preferred Language | Unknown | + + + | Marital Status | | + + + | Pentecostalism Affiliation | 1001 | + + + | Race | Unknown | + + + | Ethnic Group | Unknown | + + + Author + + + | Author | [facility] | | | and [place] | + + + | Organization | [facility] | | | and [place] | + + + | Address | Unknown | + + + | Phone | Unavailable | + + + Support + + + + + | Name | Relationship | Address | Phone | + + + + + | Norberto Mann | ECON | [address] | | | | | [place], [place] | | | | | [address] | | + + + + + Care Team Providers + +------+ + | Care Business Services Coordinator Name | Role | Phone | + +------+ + PCP | Unavailable | + +------+ + Encounter Details +--------+ + + + + | Date | Type | Department | Care Team | Description | +--------+ + + + + | 01/07/ | Hospital | [facility] | Conversion | | | 2014 | Encounter | CENTER OUTPATIENT | Transaction, | | | | | PHYSICAL THERAPY | Provider Unknown | | | | | [address] | | | | | | [place], [place] | (Fax) | | | | | [address] | | | | | | [phone] | | | +--------+ + + + [...] 01/07/151404 Date of Service: 01/07/151404 Status: Signed Table Inspector: Georgie Valencia PT (Physical Therapist) Therapy Daily Treatment Note Date of Service: 01/07/2015 Treatment Time/Charges: Therapeutic Exercise 87622 x 3 (45 minutes) Insurance Authorization: 12 [...]
--- OUTSIDE RECORDS SUMMARY | ~2019-07-09 | XMS | Encounter Summary ---
Demographics + + + | Address | [address] | | | [place] [address] | + + + | Home Phone | | + + + | Preferred Language | Unknown | + + + | Marital Status | | + + + | Mormon Affiliation | 1001 | + + + | Race | Unknown | + + + | Ethnic Group | Unknown | + + + Author + + + | Author | [facility] | | | and [place] | + + + | Organization | [facility] | | | and [place] | + + + | Address | Unknown | + + + | Phone | Unavailable | + + + Support + + + + + | Name | Relationship | Address | Phone | + + + + + | Norberto Mann | ECON | [address] | | | | | [place], [place] | | | | | [address] | | + + + + + Care Team Providers + +------+ + | Care Carpenter Helper Name | Role | Phone | + +------+ + PCP | Unavailable | + +------+ + Encounter Details +--------+ + + + + | Date | Type | Department | Care Team | Description | +--------+ + + + + | 12/08/ | Hospital | [facility] | Conversion | | | 2014 | Encounter | CENTER OUTPATIENT | Transaction, | | | | | PHYSICAL THERAPY | Provider Unknown | | | | | [address] | | | | | | [place], [place] | (Fax) | | | | | [address] | | | | | | [phone] | | | +--------+ + + + [...] Notes by Georgie Valencia PT at 12/08/14 4365 Author: Georgie Valencia PT Service: (none) Author Type: Physical Therapist Filed: 12/08/14 1244 Date of Service: 12/08/14 1215 Status: Signed Pit Furnace Melter: Georgie Valencia PT (Physical Therapist) Therapy Daily Treatment Note Date of Service: 12/08/2014 Treatment Time/Charges: Manual Therapy 79116 x 3 (45 minutes) Insurance Authorization: 4 [...]
--- OUTSIDE RECORDS SUMMARY | ~2019-07-09 | XMS | Encounter Summary ---
Demographics + + + | Address | [address] | | | [place] [address] | + + + | Home Phone | | + + + | Preferred Language | Unknown | + + + | Marital Status | | + + + | Yazidism Affiliation | 1001 | + + + | Race | Unknown | + + + | Ethnic Group | Unknown | + + + Author + + + | Author | [facility] | | | and [place] | + + + | Organization | [facility] | | | and [place] | + + + | Address | Unknown | + + + | Phone | Unavailable | + + + Support + + + + + | Name | Relationship | Address | Phone | + + + + + | Norberto Mann | ECON | [address] | | | | | [place], [place] | | | | | [address] | | + + + + + Care Team Providers + +------+ + | Care Inhalation Therapy Aide Name | Role | Phone | + +------+ + PCP | Unavailable | + +------+ + Encounter Details +--------+ + + + + | Date | Type | Department | Care Team | Description | +--------+ + + + + | 07/02/ | Hospital | [facility] | Conversion | Pain | | 2013 | Encounter | CONVERSION [address] | Transaction, | | | | | [address] | Provider Unknown | | | | | [place], [place] | | | | | | [address] | (Fax) | | | | | [phone] | | | +--------+ + + + [...]
--- OUTSIDE RECORDS SUMMARY | ~2019-07-09 | XMS | Clinical Summary ---
Demographics + + + | Address | [address] | | | [place] [address] | + + + | Home Phone | | + + + | Preferred Language | Unknown | + + + | Marital Status | | + + + | Hoahaoism Affiliation | 1001 | + + + | Race | Unknown | + + + | Ethnic Group | Unknown | + + + Author + + + | Author | [facility] | | | and [place] | + + + | Organization | [facility] | | | and [place] | + + + | Address | Unknown | + + + | Phone | Unavailable | + + + Support + + + + + | Name | Relationship | Address | Phone | + + + + + | Norberto Mann | ECON | [address] | | | | | [place] | | | | | [address] | | + + + + + Care Team Providers + +------+ + | Care Customer Service And Sales Consultant Name | Role | Phone | + +------+ + | Humberto Ruby MD | PCP | | + +------+ + Allergies + [...] + + + + + + | Diphenhydramine-Apap | Unknown | | 11/30/19 | (Some pain | | (Sleep) | | | 11 | medications) | + + + + + + [...] | | | 11 | 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 | + + + + + + | Procaine | Other (See Comments) | Medium | 08/06/20 | SHAKEY | | | | | 15 | | + + + + + + | Propoxyphene | Nausea And Vomiting | Medium | 08/06/20 | DARVOCET DARVOCET | | | | | 15 | | + + + + + + | Propoxyphene | Shortness Of Breath | High | 05/27/20 | | | N-Acetaminophen | | | 14 | | + + + + + + Medications + + + +---------+------+------+-------+ | Medication | Sig | Dispensed | Refills | Star | End | Statu | | | | | | t | Date | s | | | | | | Date | | | + + + +---------+------+------+-------+ | levothyroxine | Take 88 mcg by mouth | | 0 | | | Activ | | (SYNTHROID) 88 mcg | every morning | | | | | e | | tablet | (before breakfast). | | | | | | + + + +---------+------+------+-------+ | sertraline | Take 100 mg by mouth | | 0 | | | Activ | | (ZOLOFT) 100 mg | Daily. | | | | | e | | tablet | | | | | | | + + + +---------+------+------+-------+ | pilocarpine | Take 5 mg by mouth 3 | | 0 | | | Activ | | (SALAGEN) 5 mg | times daily. | | | | | e | | tablet | | | | | | | + + + +---------+------+------+-------+ | Multiple Vitamin | Take 1 tablet by | | 0 | | | Activ | | (MULTI-VITAMIN PO) | mouth Daily. | | | | | e | + + + +---------+------+------+-------+ | docusate sodium | Take 100 mg by mouth | | 0 | | | Activ | | (COLACE) 100 mg | 2 times daily. | | | | | e | | capsule | | | | | | | + + + +---------+------+------+-------+ | acetaminophen | Take 1,000 mg by | | 0 | | | Activ | | (TYLENOL) 500 mg | mouth every 6 hours | | | | | e | | tablet | as needed for Pain. | | | | | | + + + +---------+------+------+-------+ | aspirin 81 mg EC | Take 81 mg by mouth | | 0 | | | Activ | | tablet | Daily. | | | | | e | + + + +---------+------+------+-------+ | Cyanocobalamin | Place 5,000 mcg | | 0 | | | Activ | | (VITAMIN B-12) 5000 | under the tongue | | | | | e | | MCG SUBL | Daily. | | | | | | + + + +---------+------+------+-------+ | albuterol | Inhale 2 puffs into | | 0 | | | Activ | | (VENTOLIN HFA) 90 | the lungs every 6 | | | | | e | | mcg/puff inhaler | hours as needed for | | | | | | | | Other (coughing). | | | | | | + + + +---------+------+------+-------+ | ondansetron | Take 4 mg by mouth | | 0 | | | Activ | | (ZOFRAN ODT) 4 mg | every 8 hours as | | | | | e | | disintegrating | needed for Nausea | | | | | | | tablet | (with pain | | | | | | | | medicine). | | | | | | + + + +---------+------+------+-------+ | Cyanocobalamin | Inject 1 mL as | | 0 | 04/0 | | Activ | | (VITAMIN B-12 IJ) | directed Every 30 | | | 5/20 | | e | | | days. | | | 11 | | | + + + +---------+------+------+-------+ | Insulin Lispro | Inject 20 Units | | 0 | 04/0 | | Activ | | (HUMALOG KWIKPEN SC) | under the skin 3 | | | 5/20 | | e | | | times daily. | | | 11 | | | + + + +---------+------+------+-------+ | ALPHA LIPOIC ACID | Take 2 tablets by | | 0 | 04/0 | | Activ | | PO | mouth Daily. | | | 5/20 | | e | | | | | | 11 | | | + + + +---------+------+------+-------+ | L-Arginine 1000 MG | Take by mouth. | | 0 | | | Activ | | TABS | | | | | | e | + + + +---------+------+------+-------+ | ergocalciferol | Take 50,000 Units by | | 0 | | | Activ | | (VITAMIN D2) 71564 | mouth every 7 days. | | | | | e | | units capsule | | | | | | | + + + +---------+------+------+-------+ | hydroxychloroquine | Take 1 tablet by | | 0 | 04/1 | | Activ | | (PLAQUENIL) 200 mg | mouth 2 times daily. | | | 5/20 | | e | | tablet | | | | 14 | | | + + + +---------+------+------+-------+ | fish oil 1,000 mg | Take 1 capsule by | | 0 | 04/0 | | Activ | | capsule | mouth Daily. | | | 5/20 | | e | | | | | | 11 | | | + + + +---------+------+------+-------+ | phentermine 30 MG | | | 0 | 09/2 | | Activ | | capsule | | | | 1/20 | | e | | | | | | 16 | | | + + + +---------+------+------+-------+ | acetaminophen | Take 500 mg by mouth | | 0 | | | Activ | | (TYLENOL) 500 mg | every 6 hours as | | | | | e | | tablet | needed for Pain. | | | | | | + + + +---------+------+------+-------+ | acetaminophen | Take by mouth. | | 0 | | | Activ | | (TYLENOL) 500 mg | | | | | | e | | tablet | | | | | | | + + + +---------+------+------+-------+ | aspirin 81 mg EC | Take by mouth. | | 0 | | | Activ | | tablet | | | | | | e | + + + +---------+------+------+-------+ | levothyroxine | | | 0 | 09/1 | | Activ | | (SYNTHROID) 50 mcg | | | | 1/20 | | e | | tablet | | | | 16 | | | + + + +---------+------+------+-------+ | levothyroxine | Take 75 mcg by mouth | | 0 | | | Activ | | (SYNTHROID) 75 MCG | Daily. | | | | | e | | tablet | | | | | | | + + + +---------+------+------+-------+ | pilocarpine | Take 1 tablet by | | 0 | 04/27 | | Activ | | (SALAGEN) 5 mg | mouth 3 times daily. | | | 4/20 | | e | | tablet | | | | 16 | | | + + + +---------+------+------+-------+ | pilocarpine | | | 0 | 04/27 | | Activ | | (SALAGEN) 5 mg | | | | 20 | | e | | tablet | | | | 16 | | | + + + +---------+------+------+-------+ | sertraline | Take by mouth. 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 | + + Last Filed Vital Signs + + + + + | Vital Sign | Reading | Time Taken | Comments | + + + + + | Blood Pressure | 135/75 | 08/06/2017 11:39 AM | | | | | PST | | + + + + + | Pulse | 70 | 08/06/2017 11:39 AM | | | | | PST | | + + + + + | Temperature | 36.3 C (97.3 F) | 08/06/2017 11:39 AM | | | | | PST | | + + + + + | Respiratory Rate | 16 | 08/06/2017 11:39 AM | | | | | PST | | + + + + + | Oxygen Saturation | 95% | 08/06/2017 11:39 AM | | | | | PST | | + + + + + | Inhaled Oxygen | - | - | | | Concentration | | | | + + + + + | Weight | 77.1 kg (170 lb) | 08/03/2017 12:19 PM | | | | | PST | | + + + + + | Height | 162.6 cm (5' 4") | 08/03/2017 12:19 PM | | | | | PST | | + + + + + | Body Mass Index | 29.18 | 08/03/2017 12:19 PM | | | | | PST | | + + + + + Plan of Treatment + + + + + | Health Maintenance | Due Date | Last Done | Comments | + + + + + | Breast Cancer | | | | | Screening | 4 | | | + + + + + | Vaccine: Zoster (2 | | 03/14/2011 | | | of 3) | 1 | | | + + + + + | Vaccine: | | | | | Pneumococcal 65+ (1 | 4 | | | | of 2 - PCV13) | | | | + + + + + | Vaccine: Influenza | | 09/23/2018, 10/05/2017, | | | (#1) | 9 | 05/31/2015, Additional history | | | | | exists | | + + + + + | Vaccine: | | 04/11/2013 | | | Dtap/Tdap/Td (2 - | 3 | | | | Td) | | | | + + + + + Implants + +------+--------+ +--------+--------+--------+ | Implanted | Type | Area | Manufacture | Device | Shelf | Model | | | | | r | | Expira | / | | | | | | Identi | tion | Serial | | | | | | fier | Date | / Lot | + +------+--------+ +--------+--------+--------+ | Soft MeshImplanted: Qty: 1 on | | N/A: | NA UNKNOWN | | 09/13/ | [id number] | | 07/14/2014 by Troy Mazariegos, | | Abdome | | | 2019 | /NA | | MD | | n | | | | /[id number] | | | | | | | | [id number] | + +------+--------+ +--------+--------+--------+ | Tube Wayne Lott W/O Piter | | | [employer] - | | | 10- | | - [id number]: Qty: 1 | | | MEDT | | | 62 / | | on 11/05/2014 | | | | | | /[id number] | | | | | | | | [id number] | + +------+--------+ +--------+--------+--------+ Results Not on filefrom Last 3 Months Insurance + +--------+ +--------+ +---------+--------+ | Payer | Benefi | Subscriber | Effect | Phone | Address | Type | | | t Plan | ID | craig | | | | | | / | | Dates | | | | | | Group | | | | | | + +--------+ +--------+ +---------+--------+ | MEDICARE | MEDICA | [id number] | 03/27/20 | [phone] | | Medica | | | RE | | 14-Pre | 5 | | re | | | PART A | | sent | | | | | | AND B | | | | | | + +--------+ +--------+ +---------+--------+ | CIGNA | CIGNA | [id number] | | [phone] | | Indemn | | | MDCR | | 017-Pr | 1 | | ity | | | SUPPLE | | esent | | | | | | MENT | | | | | | | | SOLUTI | | | | | | | | ONS | | | | | | + +--------+ +--------+ +---------+--------+ + +--------+ +--------+ + + | Guarantor Name | Accoun | Relation to | Date | Phone | Billing Address | | | t Type | Patient | of | | | | | | | | | | + +--------+ +--------+ + + | Carly Mann | Person | Self | [birth year] | [address] | | | al/Fam | | 1950 | [phone] | [place] [address] | | | elissa | | | 0 (Home) | | + +--------+ +--------+ + + Advance Directives + + + + + | Type | Date Recorded | Patient | Explanation | | | | 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
--- OUTSIDE RECORDS SUMMARY | ~2019-07-09 | XMS | Encounter Summary ---
Demographics + + + | Address | [address] | | | [place] [address] | + + + | Home Phone | | + + + | Preferred Language | Unknown | + + + | Marital Status | | + + + | Rastafari Affiliation | 1001 | + + + | Race | Unknown | + + + | Ethnic Group | Unknown | + + + Author + + + | Author | [facility] | | | and Teeana | + + + | Organization | [facility] | | | and Teeana | + + + | Address | Unknown | + + + | Phone | Unavailable | + + + Support + + + + + | Name | Relationship | Address | Phone | + + + + + | Norberto Mann | ECON | [address] | | | | | [place], [place] | | | | | [address] | | + + + + + Care Team Providers + +------+ + | Care Associate Faculty Name | Role | Phone | + [...] | | | | Procedures | | [phone] | | | | | [place] DILATION | | Fax: | | | | | OF SALIVARY | | [phone] | | | | | DUCT | | | +--------+--------+ + + + + Encounter Details +--------+ + + + + | Date | Type | Department | Care Team | Description | +--------+ + + + + | 08/09/ | Anesthesia | [facility] | Michael Rutherford, | | | 2014 | Event | [facility] | MD [address] | | | | | OP [address] | [place] | | | | | [place] | [phone] | | | | | [address] | | | | | | [phone] | Misti Sanchez, | | | | | | MD [address] | | | | | | [place] [address] | | | | | | [phone] | | | | | | | | +--------+ + + + + Anesthesia Record + + + + + | Procedure Name | Responsible | Anesthesia Start | Anesthesia Stop Time | | | Anesthesiologist | Time | | + + + + + | PAROTID RODRÍGUEZ | Michael Rutherford MD | 08/09/15 1406 | 08/09/15 6836 | | ENDOSCOPY (N/A ) | | | | + + + + + +----+---+ + + | Da | T | Event | Comment | | te | i | | | | | m | | | | | e | | | +----+---+ + + | 12 | 1 | An Checkout | Pre-use anesthesia machine/equipment checkout. | | /1 | 3 | | | | 4/ | 5 | | | | 20 | 5 | | | | 15 | | | | +----+---+ + + | | 1 | | | | | 3 | | | | | 5 | | | | | 7 | | | +----+---+ + + | | 1 | An Start | Reassessment prior to anesthesia induction/procedure. | | | 4 | | | | | 0 | | | | | 6 | | | +----+---+ + + | | 1 | Preoxygenat | | | | 4 | ed | | | | 1 | | | | | 0 | | | +----+---+ + + | | 1 | An | | | | 4 | Induction | | | | 1 | | | | | 5 | | | +----+---+ + + | | 1 | An | | | | 4 | Intubation | | | | 1 | | | | | 5 | | | +----+---+ + + | | 1 | AN | Per surgeon request | | | 4 | Antibiotic | | | | 2 | declined | | | | 2 | | | +----+---+ + + | | 1 | First | | | | 4 | Inc/Proc St | | | | 2 | | | | | 2 | | | +----+---+ + + | | 1 | Chester | | | | 4 | 43-degrees | | | | 3 | | | | | 0 | | | +----+---+ + + | | 1 | Breathing | | | | 4 | Spontaneous | | | | 4 | ly | | | | 2 | | | +----+---+ + + | | 1 | AN No | TOF 4/4 with sustained tetanus. | | | 4 | Residual | | | | 4 | NMB | | | | 2 | | | +----+---+ + + | | 1 | Chester off | | | | 4 | | | | | 4 | | | | | 2 | | | +----+---+ + + | | 1 | Oropharynx | | | | 4 | Suctioned | | | | 5 | | | | | 0 | | | +----+---+ + + | | 1 | Moving | | | | 4 | Purposefull | | | | 5 | y | | | | 0 | | | +----+---+ + + | | 1 | Extubated | | | | 4 | Awake | | | | 5 | | | | | 1 | | | +----+---+ + + | | 1 | An Stop | Patient handed off to recovery nurse. | | | 5 | | | | | 9 | | | +----+---+ + + +------+ | Meds | +------+ + +---------+ | Name | Total | + +---------+ | fentaNYL (Intravenous) | 100 mcg | + +---------+ | lidocaine 2% | 70 mg | + +---------+ | propofol | 200 mg | + +---------+ | succinylcholine | 70 mg | + +---------+ | ePHEDrine | 15 mg | + +---------+ | phenylephrine | 100 mcg | + +---------+ | dexamethasone | 5 mg | + +---------+ | ondansetron | 4 mg | + +---------+ | lactated ringers (LR) infusion | 750 mL | + +---------+ + + | Name | + + | N2O Flow Rate (L/Min) | + + | O2 Flow Rate (L/Min) | + + | Insp O2 | + + | Exp N2O | + + | Exp SEV | + + | Air Flow Rate (L/Min) | + + + + | No blood administrations on file. | + + +--------+ + + + | Type | Details | Placement | Removal | +--------+ + + + | Periph | 08/09/15; 1235; [id number] | 08/09/15 1235 by | 08/09/15 1650 by | | eral | catheter system; 18 gauge, 08/30 | Kylah Tejada RN | Lola Banda RN | | IV | in length; distraction, | | | | | intradermal injection, tolerated | | | | | well; no longer indicated; | | | | | 08/09/15; 1650 | | | +--------+ + + + | Airway | Placement Date: 08/09/15; | 08/09/151414 by | 08/09/15 1451 by | | | Placement Time: 141; Mask | David Sarkar | David Sarkar | | | Ventilation: EZ; Airway Grade: | XIOMARA Kaufman | XIOMARA Kaufman | | | II; With: PEDRO; Successful | | | | | Technique: Deleon; Laryngoscope | | | | | Blade Size: 2; Attempts: 1; | | | | | Airway Type: endotracheal, oral, | | | | | cuffed, disposable, ADIEL; Size: 7; | | | | | Position: Right; Trauma: none; | | | | | Other Equipment: stylette; | | | | | Placement Check: breath sounds | | | | | equal bilaterally, exhaled CO2 | | | | | detection device; Removal Date: | | | | | 08/09/15; Removal Time: 145 | | | +--------+ + + + [...] in this encounter Administered Medications + +--------+ +------+------+------+ | Medication Order | MAR | Action | Dose | Rate | Site | | | Action | Date | | | | + +--------+ +------+------+------+ | dexamethasone (DECADRON) 10 | Given | 08/09/20 | 5 mg | | | | mg/mL injection Intravenous, | | 15 2:24 | | | | | PRN, Starting 08/09/15 at | | PM PST | | | | | 1424, Anesthesia Intra-op | | | | | | + +--------+ +------+------+------+ +---+---+ | | | +---+---+ + +-------+ +-------+---+---+ | ePHEDrine 50 mg/mL injection | Given | 08/09/20 | 10 mg | | | | Intravenous, PRN, Starting Mon | | 15 2:31 | | | | | 08/09/15 at 1427, Anesthesia | | PM PST | | | | | Intra-op | | | | | | + +-------+ +-------+---+---+ +-------+ +------+---+---+ | Given | 08/09/20 | 5 mg | | | | | 15 2:27 | | | | | | PM PST | | | | +-------+ +------+---+---+ +---+---+ | | | +---+---+ + +-------+ +---------+---+---+ | fentaNYL injection | Given | 08/09/20 | 100 mcg | | | | Intravenous, PRN, Pain, Starting | | 15 2:10 | | | | | 08/09/15 at 1410, Anesthesia | | PM PST | | | | | Intra-op | | | | | | + +-------+ +---------+---+---+ +---+---+ | | | +---+---+ + +-------+ +-------+---+---+ | lidocaine (PF) 2% injection | Given | 08/09/20 | 70 mg | | | | Intravenous, PRN, Starting Mon | | 15 2:15 | | | | | 08/09/15 at 1415, Anesthesia | | PM PST | | | | | Intra-op | | | | | | + +-------+ +-------+---+---+ +---+---+ | | | +---+---+ + +-------+ +------+---+---+ | ondansetron (ZOFRAN) injection | Given | 08/09/20 | 4 mg | | | | Intravenous, PRN, Nausea, | | 15 2:59 | | | | | Vomiting, Starting 08/09/15 | | PM PST | | | | | at 1459, Anesthesia Intra-op | | | | | | + +-------+ +------+---+---+ +---+---+ | | | +---+---+ + +-------+ +--------+---+---+ | phenylephrine (DAKOTA-SYNEPHRINE) | Given | 08/09/20 | 50 mcg | | | | 10 mg/mL injection Intravenous, | | 15 2:39 | | | | | PRN, Starting 08/09/15 at | | PM PST | | | | | 1425, Anesthesia Intra-op | | | | | | + +-------+ +--------+---+---+ +-------+ +--------+---+---+ | Given | 08/09/20 | 50 mcg | | | | | 15 2:25 | | | | | | PM PST | | | | +-------+ +--------+---+---+ +---+---+ | | | +---+---+ + +-------+ +--------+---+---+ | propofol (DIPRIVAN) injection | Given | 08/09/20 | 200 mg | | | | Intravenous, PRN, Starting Mon | | 15 2:15 | | | | | 08/09/15 at 1415, Anesthesia | | PM PST | | | | | Intra-op | | | | | | + +-------+ +--------+---+---+ +---+---+ | | | +---+---+ + +-------+ +-------+---+---+ | succinylcholine (ANECTINE) | Given | 08/09/20 | 70 mg | | | | injection Intravenous, PRN, | | 15 2:15 | | | | | Starting 08/09/15 at 1415, | | PM PST | | | | | Anesthesia Intra-op | | | | | | + +-------+ +-------+---+---+ +---+---+ | | | +---+---+ documented in this encounter"
--- OUTSIDE RECORDS SUMMARY | ~2019-07-09 | XMS | Encounter Summary ---
Demographics + + + | Address | [address] | | | [place] [address] | + + + | Home Phone | | + + + | Preferred Language | Unknown | + + + | Marital Status | | + + + | Anglican Affiliation | 1001 | + + + | Race | Unknown | + + + | Ethnic Group | Unknown | + + + Author + + + | Author | [facility] | | | and Teeana | + + + | Organization | [facility] | | | and [place] | + + + | Address | Unknown | + + + | Phone | Unavailable | + + + Support + + + + + | Name | Relationship | Address | Phone | + + + + + | Norberto Mann | ECON | [address] | | | | | [place], [place] | | | | | [address] | | + + + + + Care Team Providers + +------+ + | Care Bunch Trimmer Mold Name | Role | Phone | + [...] | | | | Procedures | | [phone] | | | | | [place] DILATION | | Fax: | | | | | OF SALIVARY | | [phone] | | | | | DUCT | [...] [place] | | | | | [address] | [phone] | | | | | [phone] | | | +--------+---------+ + + + [...] interact with your prescription medicines or other orkm-cjm-lzzzgea (OTC) drugs. Some pr escription medicines have [...] the possible dangers of taking these medicines. 1121-7115 [employer]. [address] [place] [id number]. All righ ts reserved. This information is [...] + + | WILBER GONZALEZ | [address] | [place] [address] | | | [facility] | | | | | LABORATORY | [...]
--- OUTSIDE RECORDS SUMMARY | ~2019-07-09 | XMS | Encounter Summary ---
Demographics + + + | Address | [address] | | | [place] [address] | + + + | Home Phone | | + + + | Preferred Language | Unknown | + + + | Marital Status | | + + + | Zoroastrianism Affiliation | 1001 | + + + | Race | Unknown | + + + | Ethnic Group | Unknown | + + + Author + + + | Author | [facility] | | | and Teeana | + + + | Organization | [facility] | | | and Tee[place] | + + + | Address | Unknown | + + + | Phone | Unavailable | + + + Support + + + + + | Name | Relationship | Address | Phone | + + + + + | Norberto Mann | ECON | [address] | | | | | [place], [place] | | | | | [address] | | + + + + + Care Team Providers + +------+ + | Care Material Flow Engineer Name | Role | Phone | + +------+ + PCP | Unavailable | + +------+ + Encounter Details +--------+ + + + + | Date | Type | Department | Care Team | Description | +--------+ + + + + | 07/20/ | Hospital | [facility] | Conversion | Pain | | 2013 | Encounter | CONVERSION [address] | Transaction, | | | | | [address] | Provider Unknown | | | | | [place], [place] | | | | | | [address] | (Fax) | | | | | [phone] | | | +--------+ + + + [...]
--- OUTSIDE RECORDS SUMMARY | ~2019-07-09 | XMS | Encounter Summary ---
Demographics + + + | Address | [address] | | | [place] [address] | + + + | Home Phone | | + + + | Preferred Language | Unknown | + + + | Marital Status | | + + + | Adventist Affiliation | 1001 | + + + | Race | Unknown | + + + | Ethnic Group | Unknown | + + + Author + + + | Author | [facility] | | | and Teeana | + + + | Organization | [facility] | | | and [place] | + + + | Address | Unknown | + + + | Phone | Unavailable | + + + Support + + + + + | Name | Relationship | Address | Phone | + + + + + | Norberto Mann | ECON | [address] | | | | | [place] | | | | | [address] | | + + + + + Care Team Providers + +------+ + | Care Secretary Administrative Assistant Name | Role | Phone | + +------+ + | Humberto Ruby MD | PCP | | + +------+ + Encounter Details +--------+ + + + + | Date | Type | Department | Care Team | Description | +--------+ + + + + | 11/08/ | Hospital | [facility] | Conversion | Atypical facial pain | | 2017 | Encounter | [facility] [address] | Transaction, | | | | | [address] | Provider Unknown | | | | | [place], [place] | [phone] | | | | | [address] | | | | | | [phone] | John Mendsoa MD | | | | | | [address] | | | | | | [facility] | | | | | | [place] [address] | | | | | | [phone] | | | | | | | [...] Rad Conversion - 04/10/2019 1:01 AM GREGORIA [id number] years | | FemaleMRI BRAIN WITH IACS [...]
--- OUTSIDE RECORDS SUMMARY | ~2019-07-09 | XMS | Encounter Summary ---
Demographics + + + | Address | [address] | | | [place] [address] | + + + | Home Phone | | + + + | Preferred Language | Unknown | + + + | Marital Status | | + + + | Sabianist Affiliation | 1001 | + + + | Race | Unknown | + + + | Ethnic Group | Unknown | + + + Author + + + | Author | [facility] | | | and Teeana | + + + | Organization | [facility] | | | and Teeana | + + + | Address | Unknown | + + + | Phone | Unavailable | + + + Support + + + + + | Name | Relationship | Address | Phone | + + + + + | Norberto Mann | ECON | [address] | | | | | [place], [place] | | | | | [address] | | + + + + + Care Team Providers + +------+ + | Care Drug Enforcement Administration Agent Name | Role | Phone | + [...] | | | Sialoadeniti | | [place] | | | | | s [[id number]] | | Phone: | | | | | Procedures | | [phone] | | | | | [place] REMOVAL | | Fax: | | | | | SUBMAND | | [phone] | | | | | STONE,COMPLI | | | | | | | CATED [place] | | | | | | | DILATION OF | | | | | | | SALIVARY | | | | | | | [place]CT [place] | | | | | | | [...] + + + + | 08/06/ | Hospital | [facility] | [facility] | | | 2017 | Encounter | [facility] | DO Alex [address] | | | | | OP [address] | [address] | | | | | [place] | [place] | | | | | [address] | [phone] | | | | | [phone] | | | +--------+ + + + [...] documented in this encounter Discharge Instructions Instructions Connie Grajeda RN - 08/06/2017 Carly, you can eat and drink whatever you want. Let me know in a couple of weeks how you are doing. My biology laboratory assistant's number is [phone] Call Surgeon if you have: Temperature greater than 100.4 Persistent nausea and vomiting Severe uncontrolled pain Redness, tenderness, or signs of infection (pain, swelling, redness, odor or green/yello w discharge around the site) Difficulty breathing, headache or visual disturbances Hives Persistent dizziness or light-headedness Extreme fatigue Any other questions or concerns you may have after discharge In an emergency, call 911 or go to an Emergency Department at a nearby hospital It is important to bring a complete, current list of your medications to any medical appoin tments or hospitalizations. REMINDER: Carry a list of your medications and allergies with you at all times Call your pharmacy at least 1 week in advance to refill prescriptions Diet: Resume your usual diet. Good nutrition promotes healing. Increase fluid intake. Discharge Instructions: After Your Surgery You ve just had surgery. During surgery, you were given medicine called anesthesia to fatou p you relaxed and free of pain. After surgery, you may have some pain or nausea. This is com mon. Here are some tips for feeling better and getting well after surgery. Stay on schedule with your medicine. Going home Your healthcare provider will show you how to take care [...] go to all follow-up visits with your healthcare provider. And rest after your lawson rgery for as long as your healthcare provider tells you to. Coping with pain If you have pain after surgery, pain medicine will help you feel better. Take it as told, sony efore pain becomes severe. Also, ask your healthcare provider or pharmacist about other ways to control pain. This might be with heat, ice, or relaxation. And follow any other instruct ions your surgeon or nurse gives you. Tips for taking [...] side effect of pain medicines. Call your healthcare provider be fore taking any medicines such as laxatives or stool softeners to help ease constipation. Al so ask if you should skip any foods. Drinkinglots of fluids andeating foodssuch as fru its and vegetables that are high in fiber can also help. Remember, do not take laxatives unl ess your surgeon has prescribed them. Drinking alcohol and taking pain medicine can cause dizziness and slow your breathing. I t can even be deadly. Do not drink alcohol while taking pain medicine. Pain medicine can make you react more slowly to things. Do not drive or run machinery wh ile taking pain medicine. Your healthcare providermay tell you to take acetaminophen to help ease your pain. Ask hi m or her how much you are supposed to take each day. Acetaminophen or other pain relievers m ay interact with your prescription medicines or other rzbd-pnl-gqxbqqv (OTC) medicines. Some prescription medicines have acetaminophen and other ingredients.Using both prescription a nd OTC acetaminophenfor paincan cause you to overdose. Readthe labels on your OTC [facility] care. This will help youto clearly know the list of ingredients, how much to t fransisco, and anywarnings. It may also help you not take too muchacetaminophen.If you have questions or do not understand the information, ask your pharmacist or healthcare provider t o explain it to you before you take the OTC medicine. Managing nausea Some people have an upset stomach after surgery. This is often because of anesthesia, pain, or pain medicine, or the stress of surgery. These tips will help you handle nausea and eat healthy foods as you get better. If you were on a special food plan before surgery, ask your healthcare provider if you should follow it while you [...] crackers or toast, to carmen id nausea. Call your surgeon if You still have pain an hour after taking medicine. The medicine may not be strong enough . You feel too sleepy, dizzy, or groggy. The medicine may be too strong. You have side effects like nausea, vomiting, or skin changes, such as rash, itching, or hives. If you have obstructive sleep apnea You were given anesthesia medicine during surgery to keep you comfortable and free of pain. After surgery, you may have more apnea spells because of this medicine and other medicines you were given. The spells may last longer than usual. At home: Keep using the continuous positive airway pressure (CPAP) device when you sleep. Unless your healthcare provider tells you not to, use it when you sleep, day or night. CPAP is a co mmon device used to treat obstructive sleep apnea. Talk with your provider before taking any pain medicine, muscle relaxants, or sedatives. Your provider will tell you about the possible dangers of taking these medicines. Date Last Reviewed: 07/27/201619993972-7859 [employer]. [address] [place] [address], [place] [address]. All righ ts reserved. This information is not intended as a substitute for professional medical care. Always follow your healthcare professional's instructions. documented in this encounter Medications at Time [...] + + | ENDOSCOPIC SALIVARY | | 08/06/2017 | Sialoadenitis | | | STONE | | 10:41 AM | | | | | | PST | | | + +--------+ + + + | ECG 12 LEAD | Routin | 08/06/2017 | | Results for this | | | e | 10:37 AM | | procedure are in the | | | | PST | | results section. | + +--------+ + + + | POC GLUCOSE | Routin | 08/06/2017 | | Results for this | | | e | 10:03 AM | | procedure are in the | | | | PST | | results section. | + +--------+ + + + | LABS - EXTERNAL SCAN | | 07/19/2017 | | Results for this | | | | 12:00 AM | | procedure are in the | | | | PST | | results section. | + +--------+ + + + documented in this encounter Results ECG 12 lead (08/06/2017 10:37 AM PST) + + | Specimen | + + | | + + + + + | Narrative | Performed At | + + + | HEART RATE:70 | [facility] | | bpmRR Interval:857 msAtrial Rate:70 msP-R Interval:164 msP | [facility] | | Duration:168 msP Horizontal Marienthal:17 degP Front [place]hal:38 degQ Onset:512 | | | msQRSD Interval:80 msQT Interval:392 msQTcB:423 msQTcF:413 msQRS | | | Horizontal Marienthal:-7 degQRS Marienthal:-6 degI-40 Horizontal Mar[place]hal:70 degI-40 | | | Front [place]:125 degT-40 Horizontal [place]:-29 degT-40 Front Mar[place]hal:-10 degT | | | Horizontal [place]hal:45 degT Wave [place]hal:34 degS-T Horizontal Mar[place]hal:59 degS-T | | | Front Mar[place]hal:33 degSeverity:- NORMAL ECG -INTERP:SINUS | | | RHYTHMElectronically signed by: Lily RYAN 08-06-2017 12:02:59 | | |QT Interval:392 ms | | |QTcB:423 ms | | |QTcF:413 ms | | |QRS Horizontal Marienthal:-7 deg | | |QRS Marienthal:-6 deg | | |I-40 Horizontal Marienthal:70 deg | | |I-40 Front Marienthal:125 deg | | |T-40 Horizontal Marienthal:-29 deg | | |T-40 Front Marienthal:-10 deg | | |T Horizontal Marienthal:45 deg | | |T Wave Mar[place]hal:34 deg | | |S-T Horizontal Marienthal:59 deg | | |S-T Front Marienthal:33 deg | | |Severity:- NORMAL ECG - | | |INTERP:SINUS RHYTHM | | |Electronically signed by: Lily RYAN 08-06-2017 12:02:59 | | + + + + + + + + | Performing | Address | City/State/Zipcode | Phone Number | | Organization | | | | + + + + + | [facility] | [address] | [place] [address] | [phone] | + + + + + POC Glucose (08/06/2017 10:03 AM PST) + +---------+ + + + | Component | Value | Ref Range | Performed | Pathologist | | | | | At | Signature | + +---------+ + + + | Glucose, | 123 (H) | 65 - 99 mg/dL | [facility] [...] + + | [facility] | [address] | [place] [address] | | | [facility] | | | | | LABORATORY | | | | + + + + + LABS - EXTERNAL SCAN (07/19/2017 12:00 AM PST) + + + | Narrative | Performed At | + + + | Ordered by an | | | unspecified provider. | | + + + documented in this encounter Visit Diagnoses Not on filedocumented in this encounter Administered Medications + +--------+---------+------+------+------+ | Medication Order | MAR | Action | Dose | Rate | Site | | | Action | Date | | | | + +--------+---------+------+------+------+ + +---+ | albuterol 5 mg/mL concentrated | | | nebulizer solution 2.5 mg 2.5 | | | mg, Nebulization, ONCE PRN, | | | Shortness of Breath, Starting Mon | | | 08/06/17 at 1111, For 1 dose, | | | Notify anesthesia if patient is | | | wheezing and does not have a | | | history of asthma or COPD or | | | current smoking., Recovery/Phase | | | I | | + +---+ | | | + +---+ | atenolol (TENORMIN) tablet 12.5 | | | mg 12.5 mg, Oral, PRN, See | | | administration instructions, | | | Starting 08/06/17 at 0928, | | | Only for patients who take a | | | DAILY beta-brittny as listed on | | | "home" or "current" medication | | | lists. Hold if any of the | | | following apply: 1) Patient took | | | a beta-brittny the day prior to | | | surgery OR the day of surgery; 2) | | | SBP < 100 mmHg; 3) HR < 50; | | | 4) Patient is having or | | | underwent cardiac procedure today | | | (surgery, electophysiology | | | procedure, cardioversion.), | | | Pre-op | | + +---+ | | | + +---+ | atropine 0.1 mg/mL syringe 0.5 | | | mg 0.5 mg, Intravenous, PRN, | | | Bradycardia, For HR < 40, | | | Starting Sun08/06/17 at 1111, | | | For 2 doses, May repeat one time | | | after 1 min., Recovery/Phase I | | + +---+ | | | + +---+ | dextrose 50% injection 12.5-25 | | | g 12.5-25 g, Intravenous, EVERY | | | 15 MIN PRN, Low Blood Sugar, Give | | | 12.5g (25 mL) IV if blood | | | glucose 50-69 mg/dL. Give 25g | | | (50 mL) IV if blood glucose < 50, | | | Starting Sun08/06/17 at 0928, | | | Repeat in 15 min if blood glucose | | | remains < 70 mg/dL. Repeat | | | blood glucose in 30 min once | | | blood glucose > 70., Pre-op | | + +---+ | | | + +---+ | dextrose 50% injection 12.5-25 | | | g 12.5-25 g, Intravenous, EVERY | | | 15 MIN PRN, Low Blood Sugar, For | | | hypoglycemia. Give 12.5g (25ml) | | | IV if blood glucose 50-69 | | | mg/dL. Give 25g (50ml) IV if | | | blood glucose < 50, Starting Mon | | | 08/06/17 at 1111, Give over 2 | | | min. Repeat in 15 min if blood | | | glucose remains < 70 mg/dL. | | | Repeat blood glucose in 30 min | | | once blood glucose > 70., | | | Recovery/Phase I | | + +---+ | | | + +---+ | fentaNYL (PF) injection 25-50 | | | mcg 25-50 mcg, Intravenous, | | | EVERY 5 MIN PRN, Pain, Starting | | | 08/06/17 at 1111, Maximum | | | total dose 250 mcg. PACU IV | | | Narcotic Priority: Only use | | | fentanyl for immediate post-op | | | pain (one dose) or breakthrough | | | pain when any other IV narcotics | | | ordered have been ineffective (if | | | ordered). If both morphine and | | | hydromorphone are ordered, use | | | morphine first, and use | | | hydromorphone if morphine | | | ineffective., Recovery/Phase I | | + +---+ | | | + +---+ | glycopyrrolate (ROBINUL) | | | injection 0.2 mg 0.2 mg, | | | Intravenous, PRN, Bradycardia, | | | For HR <50, Starting 08/06/17 | | | at 1111, For 2 doses, May repeat | | | one time after 1min, | | | Recovery/Phase I | | + +---+ | | | + +---+ | hydrALAZINE (APRESOLINE) | | | injection 5 mg 5 mg, | | | Intravenous, EVERY 20 MINUTES | | | PRN, For SBP > 180, DBP > 100, | | | Starting Sun08/06/17 at 1111, | | | Hold if HR > 100. Maximum total | | | dose 40 mg. Use labetalol first | | | if available., Recovery/Phase I | | + +---+ | | | + +---+ | HYDROmorphone (DILAUDID) | | | injection 0.2-0.5 mg 0.2-0.5 mg, | | | Intravenous, EVERY 5 MIN PRN, | | | Pain, Starting Sun08/06/17 at | | | 1111, Maximum total dose 4 mg. | | | PACU IV Narcotic Priority: Only | | | use fentanyl for immediate | | | post-op pain (one dose) or | | | breakthrough pain when any other | | | IV narcotics ordered have been | | | ineffective (if ordered). If | | | both morphine and hydromorphone | | | are ordered, use morphine first, | | | and use hydromorphone if morphine | | | ineffective., Recovery/Phase I | | + +---+ | | | + +---+ | insulin regular (humuLIN R, | | | novoLIN R) injection 1-6 Units | | | 1-6 Units, Intravenous, EVERY 1 | | | HOUR PRN, see admin instruction, | | | Starting Sun08/06/17 at 0928, | | | For BG > 150 mg/dL treat with IV | | | regular insulin. Recheck BG in 1 | | | hour (default) and PRN. Treat if | | | BG > 150 mg/dL on recheck. Low | | | Dose (SENSITIVE) BG < 150 = no | | | insulin BG 150-200 = 1 units | | | BG 201-250 = 2 units BG 251-300 | | | = 3 units BG 301-350 = 4 units | | | BG 351-400 = 5 units BG > | | | 400 = 6 units If glucose | | | meter result is "HI", "LO", or | | | unexpected for patient, repeat | | | the glucose test. If repeat test | | | remains "HI", obtain Priority II | | | lab glucose test for | | | confirmation, then treat. If | | | repeat test remains "LO", treat | | | immediately per hypoglycemia | | | management and obtain Priority II | | | lab glucose for confirmation. | | | Only for use with U-100 insulin | | | syringe., Pre-op | | + +---+ | | | + +---+ | labetalol (TRANDATE) 5 mg/mL | | | injection 5 mg 5 mg, | | | Intravenous, EVERY 5 MIN PRN, For | | | SBP > 180, DBP > 100, Starting | | | Sun08/06/17 at 1111, Hold if HR | | | < 60. Maximum total dose 300mg. | | | Notify anesthesia if patient | | | requires more than 50mg., | | | Recovery/Phase I | | + +---+ | | | + +---+ + +---------+ +---+ +---+ | lactated ringers (LR) infusion | New Bag | 08/06/20 | | 25 mL/hr | | | at 10-100 mL/hr, Intravenous, | | 17 10:04 | | | | | CONTINUOUS, Starting Sun08/06/17 | | AM PST | | | | | at 0945, TKO., Pre-op | | | | | | + +---------+ +---+ +---+ + +---+ | | | + +---+ | ondansetron (ZOFRAN) injection | | | 4 mg 4 mg, Intravenous, ONCE | | | PRN, Nausea, Starting Mon | | | 08/06/17 at 1111, For 1 dose, | | | Recovery/Phase I | | + +---+ | | | + +---+ + +---------+ +---------+---+ + | scopolamine (TRANSDERM-SCOP) 1 | Patch | 08/06/20 | 1 patch | | Ear-Behi | | mg/3 days 1 patch 1 patch, | Applied | 17 10:04 | | | nd Left | | Transdermal, EVERY 72 HOURS, | | AM PST | | | | | First dose on 08/06/17 at | | | | | | | 1015, For 1 dose, Each patch | | | | | | | contains 1.5 mg and is designed | | | | | | | to deliver 1 mg over 3 days. DO | | | | | | | NOT CUT patch., Pre-op | | | | | | + +---------+ +---------+---+ + +---+---+ | | | +---+---+ documented in this encounter
--- OUTSIDE RECORDS SUMMARY | ~2019-07-09 | XMS | Encounter Summary ---
Demographics + + + | Address | [address] | | | [place] [address] | + + + | Home Phone | | + + + | Preferred Language | Unknown | + + + | Marital Status | | + + + | Tenriism Affiliation | 1001 | + + + | Race | Unknown | + + + | Ethnic Group | Unknown | + + + Author + + + | Author | [facility] | | | and Teeana | + + + | Organization | [facility] | | | and Teeana | + + + | Address | Unknown | + + + | Phone | Unavailable | + + + Support + + + + + | Name | Relationship | Address | Phone | + + + + + | Norberto Mann | ECON | [address] | | | | | [place], [place] | | | | | [address] | | + + + + + Care Team Providers + +------+ + | Care Jalousie Installer Name | Role | Phone | [...] | | | | Procedures | | [phone] | | | | | [place] REMOVAL | | Fax: | | | | | SUBMAND | | [phone] | | | | | STONE,COMPLI | | | | | | | CATED [place] | | | | | | | DILATION OF | | | | | | | SALIVARY | | | | | | | DUCT [place] | | | | | | | [...] | | | | [place] | [phone] | | | | | [address] | | | | | | [phone] | Lolita [place], | | | | [...] 08/06/17 1149 by | | randy | [id number] catheter system; | Jessika Light RN | [...]
--- OUTSIDE RECORDS SUMMARY | ~2019-07-09 | XMS | Encounter Summary ---
Demographics + + + | Address | [address] | | | [place] [address] | + + + | Home Phone | | + + + | Preferred Language | Unknown | + + + | Marital Status | | + + + | Protestant Affiliation | ADV | + + + | Race | White | + + + | Ethnic Group | Not or | + + + Author + + + | Author | [facility] | + + + | Organization | [facility] | + + + | Address | Unknown | + + + | Phone | Unavailable | + + + Support + + + + + | Name | Relationship | Address | Phone | + + + + + | Norberto Oliveros | ECON | [address] | | | [place] | | [place] | | | | | [address] | | + + + + + Care Team Providers + +------+ + | Care Lay Out Inspector Name | Role | Phone | [...] | | | | | | [place], | | | | | | [place] [address] | | | | | | [phone] | | | +--------+ + + + [...] + + + +---------+ + + | [place]-3 Fatty | Take 1 Cap by mouth [...] + +--------+ + + + | X-RAY FOOT 1 VIEW | Routin | 11/29/2010 | Rheumatoid | Results for this | | BILATERAL | e | 3:04 PM | arthritis (HCC) | procedure are in the | | | | PDT | | results section. | + +--------+ + + + documented in this encounter Results X-RAY FOOT 1 VIEW BILATERAL (11/29/2010 3:04 PM PDT) + + + + + + | Component | Value | Ref Range | Performed | Pathologist | | | | | At | Signature | + + + + + + | FOOT 1 VW | STUDY: FOOT 1 VIEW | | | | | BILATERAL | BILATERAL 11/29/10 | | | | | | 15:04:00 HISTORY: | | | | | | Concern for rheumatoid | | | | | | arthritis. COMPARISON: | | | | | | None. FINDINGS: There is | | | | | | mild talonavicular | | | | | | joint space narrowing | | | | | | bilaterally. Theother | | | | | | joint spaces are | | | | | | maintained, without | | | | | | narrowing, | | | | | | spurring,erosion, or | | | | | | malalignment. There is | | | | | | no fracture, osseous | | | | | | destruction,or soft | | | | | | tissue | | | | | | abnormality.IMPRESSION: | | | | | | Mild bilateral | | | | | | talonavicular joint | | | | | | space narrowing. No | | | | | | erosions. I have | | | | | | personally viewed this | | | | | | procedure/exam and | | | | | | reviewed this report. | | | | | | Author: PAMELA JULIO, | | | | | | KeeReviewer: PAMELA JULIO, | | | | | | Kee STATUS FINAL / | | | | | | Dr. PAMELA JULIO | | | | + + + + + + + + | Specimen | + + | | + + + +---------+ + + | Performing | Address | City/State/Zipcode | Phone Number | | Organization | | | | + +---------+ + + | [facility] | | | | | [facility]IOLOGY | | | | + +---------+ + + documented in this encounter Visit Diagnoses + + | Diagnosis | + + | Rheumatoid arthritis(714.0) (HCC) Rheumatoid arthritis | + + documented in this encounter"
--- OUTSIDE RECORDS SUMMARY | ~2019-07-09 | XMS | Encounter Summary ---
Demographics + + + | Address | [address] | | | [place] [address] | + + + | Home Phone | | + + + | Preferred Language | Unknown | + + + | Marital Status | | + + + | Rastafarian Affiliation | ADV | + + + [...] + | Zane Oliveros | ECON | [address] | | | [place] | | [place] | | | | | [address] | | + + + + + Care Team Providers + +------+ + | Care Rawhide Trimmer Name | Role | Phone | [...] [address] | | | | | 4.0) ([facility]) | [address] | Rd | | | | | Procedures | Rd | Mailcode: | | | | | MRI HAND RT | [facility] [place] | [address] | | | | | W[address] CONT | [address] | [place] | | | | | | Phone: | Research | | | | | | [phone] | [place] | | | | | | Fax: | [place], [place] | | | | | | [phone] | [address] | | | | | | | Phone: | | | | | | | [phone] | | | | | | | Fax: | | | | | | | [phone] | +--------+--------+ + + + + Reason [...] Visit | Physicians [place] | [address] ([facility]) (Primary Dx) | | | | [address] | [address] | | | | | Whit [place] Mailcode: | [place], [place] | | | | | [address] Physician's | [address] | | | | | [place], [address] Floor | [phone] | | | | | [place], [place] | | | | | | [address] | | | | | | [phone] | | | +--------+---------+ + + + [...] Take 1 Tab by mouth once daily. [place]-3 Fatty Acids-Vitamin E (FISH OIL) 1,000 mg [...] minutes wit h the patient in a [id number]-ursk meeting and >50% time was spent in [...] | | + +---------+ + + | [facility] DEPARTMENT OF | | | | | [...] At | + + + | [facility]) | [facility] | | [facility] [place] [address] | REGIONAL | | [place] [address] | LABORATORY | + + + + + + + + | Performing | Address | City/State/Zipcode | Phone Number | | Organization | | | | + + + + + | [facility] | [address] | [place] [address] | | | LABORATORY | | | | + + + + + documented in this encounter Visit Diagnoses + + | Diagnosis | + + | Rheumatoid arthritis(714.0) ([facility]) - Primary Rheumatoid arthritis | + + documented in this encounter
--- OUTSIDE RECORDS SUMMARY | ~2019-07-09 | XMS | Encounter Summary ---
Demographics + + + | Address | [address] | | | [place] [address] | + + + | Home Phone | | + + + | Preferred Language | Unknown | + + + | Marital Status | | + + + | Anabaptism Affiliation | ADV | + + + | Race | White | + + + | Ethnic Group | Not or | + + + Author + + + | Author | [facility] | + + + | Organization | [facility] | + + + | Address | Unknown | + + + | Phone | Unavailable | + + + Support + + + + + | Name | Relationship | Address | Phone | + + + + + | Norberto Oliveros | ECON | [address] | | | [place] | | [place] | | | | | [address] | | + + + + + Care Team Providers + +------+ + | Care Rn Women Services Name | Role | Phone | + +------+ + | Humberto Ruby MD | PCP | | + +------+ + Encounter Details +--------+ + + + + | Date | Type | Department | Care Team | Description | +--------+ + + + + | 06/12/ | Documentati | [facility] | Jaquelin Hu, | | | 2016 | on | Center at [facility] [address] | PA-C [address] | | | | | [address] [place] | [place], [place] | | | | | Mailcode: [facility] | [address] | | | | | [facility] | [phone] | | | | | and Healing, | | | | | | Building , [address] | | | | | | [place], [place] | | | | | | [address] | | | | | | [phone] | | | +--------+ + + + [...]
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
--- OUTSIDE RECORDS SUMMARY | ~2019-07-09 | XMS | Encounter Summary ---
Demographics + + + | Address | [address] | | | [place] [address] | + + + | Home Phone | | + + + | Preferred Language | Unknown | + + + | Marital Status | | + + + | Rastafarian Affiliation | 1001 | + + + | Race | Unknown | + + + | Ethnic Group | Unknown | + + + Author + + + | Author | [facility] | | | and [place]eeana | + + + | Organization | [facility] | | | and Teeana | + + + | Address | Unknown | + + + | Phone | Unavailable | + + + Support + + + + + | Name | Relationship | Address | Phone | + + + + + | Norberto Mann | ECON | [address] | | | | | [place], [place] | | | | | [address] | | + + + + + Care Team Providers + +------+ + | Care Export Documents Clerk Name | Role | Phone | + +------+ + PCP | Unavailable | + +------+ + Encounter Details +--------+ + + + + | Date | Type | Department | Care Team | Description | +--------+ + + + + | 11/05/ | [facility] | [facility] | Anthony Maynard, | | | 2014 | Encounter | [facility] | DO | | | | | [address] | | | | | | [place], [place] | | | | | | [address] | | | | | | [phone] | | | +--------+ + + + [...] 1547 Date of Service: 11/05/141546 Status: Signed Outboard Motor Assembler: Ita Michaud RPH (Pharmacist) Renal Dosing Monitoring: [...]
--- OUTSIDE RECORDS SUMMARY | ~2019-07-09 | XMS | Encounter Summary ---
Demographics + + + | Address | [address] | | | [place] [address] | + + + | Home Phone | | + + + | Preferred Language | Unknown | + + + | Marital Status | | + + + | Advent Affiliation | ADV | + + + | Race | White | + + + | Ethnic Group | Not or | + + + Author + + + | Author | [facility] | + + + | Organization | [facility] | + + + | Address | Unknown | + + + | Phone | Unavailable | + + + Support + + + + + | Name | Relationship | Address | Phone | + + + + + | Norberto Oliveros | ECON | [address] | | | [place] | | [place] | | | | | [address] | | + + + + + Care Team Providers + +------+ + | Care Cannery Worker Name | Role | Phone | + +------+ + | Humberto Ruby MD | PCP | | + +------+ + Reason for Visit Consultation (Routine) +--------+--------+ + + + + [...] | | | | | ear | [place], | Mailcode: | | | | | Procedures | [place] | [address]01 | | | | | CONSULT TO | [address] | Physician's | | | | | ENT / | Phone: | Pavilion | | | | | [address] | [phone] | [place], [place] | | | | | [place] | Fax: | [address] | | | | | | [phone] | Phone: | | | | | | | [phone] | | | | | | | Fax: | | | | | | | [phone] | +--------+--------+ + + + + Encounter Details +--------+ + + + + | Date | Type | Department | Care Team | Description | +--------+ + + + + | 09/28/ | Diagnostic | Otolaryngology | Katarina Alves, | | | 2017 | Visit | Audiology Services | CCC-A [address] | | | | | at [facility] [address] | [address] | | | | | [address] | [facility] [place] | | | | | Mailcode: PV01 | [address] | | | | | [facility] | | | | | | [place], [place] | | | | | | [address] | | | | | | [phone] | | | +--------+ + + + [...] + documented as of this encounter Progress Katarina Medeiros CCC-A - 09/28/2016 1:30 PM Edwin Mann, 66 y.o., was seen for a comprehensive audiological evaluation today as part of Dr. Gutiérrez's otology clinic. Please see same day otology note for case history, and audiology smartform for complete test results. Katarina Alves, Ph.D. ANNIE-A documented in this encounter Plan of Treatment Not on filedocumented as of this encounter Procedures + +--------+ + + + | Procedure Name | Priori | Date/Time | Associated Diagnosis | Comments | | | ty | | | | + +--------+ + + + | IA ACOUSTIC REFLEX | Routin | 09/28/2016 | Mixed hearing | | | TESTING | e | 2:06 PM | loss, unilateral | | | | | PST | Sensorineural | | | | | | hearing loss | | + +--------+ + + + | IA TYMPANOMETRY | Routin | 09/28/2016 | Mixed hearing | | | | e | 2:06 PM | loss, unilateral | | | | | PST | Sensorineural | | | | | | hearing loss | | + +--------+ + + + | IA COMPREHENSIVE | Routin | 09/28/2016 | Mixed hearing | | | HEARING TEST | e | 2:06 PM | loss, unilateral | | | | | PST | Sensorineural | | | | | | hearing loss | | + +--------+ + + + documented in this encounter Visit Diagnoses + + | Diagnosis | + + | Mixed hearing loss, unilateral | + + | Sensorineural hearing loss | + + documented in this encounter"
--- OUTSIDE RECORDS SUMMARY | ~2019-07-09 | XMS | Encounter Summary ---
Demographics + + + | Address | [address] | | | [place] [address] | + + + | Home Phone [...] + | Norberto Oliveros | ECON | [address] | | | [place] | | [place] | | | | | [address] | | + + + + + Care Team Providers + +------+ + | Care Softwood Faller Name | Role | Phone | + [...] | | | | | ear | [place], | Mailcode: | | | | | Procedures | [place] | [address] | | | | | CONSULT TO | [address] | Physician's | | | | | ENT / | Phone: | Pavilion | | | | | [facility] | [phone] | [place], [place] | | | | | [place] | Fax: | [address] | | | | | | [phone] | Phone: | | | | | | | [phone] | | | | | | | Fax: | | | | | | | [phone] | +--------+--------+ + + + + Encounter [...] | | | [address] | [facility] [place] | | | | | Mailcode: PV01 | [address] | | | | | Phys[facility] Pav[facility] | | | | | | [place], [place] | | | | | | [address] | | | | | | [phone] | | | +--------+ + + + [...] | + +--------+ + + + | VT ACOUSTIC REFLEX | Routin | 09/28/2016 | Mixed hearing | | | TESTING | e | 2:06 PM | loss, unilateral | | | | | PST | Sensorineural | | | | | | hearing loss | | + +--------+ + + + | VT TYMPANOMETRY | Routin | 09/28/2016 | Mixed hearing | | | | e | 2:06 PM | loss, unilateral | | | | | PST | Sensorineural | | | | | | hearing loss | | + +--------+ + + + | VT COMPREHENSIVE | Routin | 09/28/2016 | Mixed [...]
--- OUTSIDE RECORDS SUMMARY | ~2019-07-09 | XMS | Encounter Summary ---
Demographics + + + | Address | [address] | | | [place] [address] | + + + | Home Phone | | + + + | Preferred Language | Unknown | + + + | Marital Status | | + + + | Oriental Orthodox Affiliation | ADV | + + + | Race | White | + + + | Ethnic Group | Not or | + + + Author + + + | Author | [facility] | + + + | Organization | [facility] | + + + | Address | Unknown | + + + | Phone | Unavailable | + + + Support + + + + + | Name | Relationship | Address | Phone | + + + + + | Norberto Oliveros | ECON | [address] | | | [place] | | [place] | | | | | [address] | | + + + + + Care Team Providers + +------+ + | Care Assistant Merchandiser Name | Role | Phone | + +------+ + | Humberto Ruby MD | PCP | | + +------+ + Reason for Visit + + + | Reason | Comments | + + + | Refill Request | Hydroxychloroquine | + + + Encounter Details +--------+--------+ + + + | Date | Type | Department | Care Team | Description | +--------+--------+ + + + | 02/12/ | Refill | Rheumatology at | Jeffagustin Froylanjennifer, | Refill Request | | 2012 | | [facility] | [address] | (Hydroxychloroquine) | | | | [address] | [address] | | | | | [place] Mailcode: | [place], [place] | | | | | [address] Physician's | [address] | | | | | [facility], 4th Floor | [phone] | | | | | [place], [place] | | | | | | [address] | | | | | | [phone] | | | +--------+--------+ + + + [...]
--- OUTSIDE RECORDS SUMMARY | ~2019-07-09 | XMS | Encounter Summary ---
Demographics + + + | Address | [address] | | | [place] [address] | + + + | Home Phone | | + + + | Preferred Language | Unknown | + + + | Marital Status | | + + + | Latter Day Affiliation | 1001 | + + + | Race | Unknown | + + + | Ethnic Group | Unknown | + + + Author + + + | Author | [facility] | | | and Teeana | + + + | Organization | [facility] | | | and Teeana | + + + | Address | Unknown | + + + | Phone | Unavailable | + + + Support + + + + + | Name | Relationship | Address | Phone | + + + + + | Norberto Mann | ECON | [address] | | | | | [place], [place] | | | | | [address] | | + + + + + Care Team Providers + +------+ + | Care It Project Manager Name | Role | Phone | + +------+ + | Humberto Ruby MD | PCP | | + +------+ + Encounter Details +--------+ + + + + | Date | Type | Department | Care Team | Description | +--------+ + + + + | 03/27/ | Orders Only | [facility] | Provider, | | | 2019 | | SYSTEM GENERIC OP | [address] | | | | | CONVERSION [address] | [place]ie [place]. | | | | | [address] [place], [place] | [place] [address] | | | | | [address] | | | | | | [phone] | | | +--------+ + + + [...]
--- OUTSIDE RECORDS SUMMARY | ~2019-07-09 | XMS | Encounter Summary ---
Demographics + + + | Address | [address] | | | [place] [address] | + + + | Home Phone | | + + + | Preferred Language | Unknown | + + + | Marital Status | | + + + | Tenriism Affiliation | ADV | + + + [...] + | Norberto Oliveros | ECON | [address] | | | [place] | | [place] | | | | | [address] | | + + + + + Care Team Providers + +------+ + | Care Tube Backer Name | Role | Phone | + [...] as of this encounter Progress Notes Interface, Tooling Inspector In - 03/26/2005 1:10 AM PDT [id number] 11/18/2004 11/30/[address] [id number] [facility] [address] [place] [address] [place] NOVEMBER 30, 2004 BENEDICT HAAS M.D. [address] [place] [address] RE: CARLY MANN MR #: [id number] DEAR CHENG: I WANTED TO REVIEW RESULTS [...] YOUR KIND REFERRAL. SINCERELY, LOUIE TALAMANTES M.D. SANITATION LEAD LAURA / SCARLETT [id number] / [id number] / [id number] / documented i n this encounter Plan of Treatment Not on filedocumented as of this encounter Visit Diagnoses Not on filedocumented in this encounter"
--- OUTSIDE RECORDS SUMMARY | ~2019-07-09 | XMS | Encounter Summary ---
Demographics + + + | Address | [address] | | | [place] [address] | + + + | Home Phone | | + + + | Preferred Language | Unknown | + + + | Marital Status | | + + + | Christianity Affiliation | 1001 | + + + | Race | Unknown | + + + | Ethnic Group | Unknown | + + + Author + + + | Author | [facility] | | | and Teeana | + + + | Organization | [facility] | | | and [place] | + + + | Address | Unknown | + + + | Phone | Unavailable | + + + Support + + + + + | Name | Relationship | Address | Phone | + + + + + | Norberto Mann | ECON | [address] | | | | | [place], [place] | | | | | [address] | | + + + + + Care Team Providers + +------+ + | Care Entry Level Marketing Representative Name | Role | Phone | + [...] | | | | Procedures | | [phone] | | | | | [place] DIL[place] | | Fax: | | | | | OF SALIVARY | | [phone] | | | | | DUCT | | | +--------+--------+ + + + + Encounter Details +--------+ + + + + | Date | Type | Department | Care Team | Description | +--------+ + + + + | 08/09/ | [facility] | Floyd Baldwin | | | 2015 | Encounter | [facility] | DO Alex [address] | | | | | OP [address] | [place]caio. | | | | | [place] | [place] | | | | | [address] | [phone] | | | | | [phone] | | | +--------+ + + + [...] interact with your prescription medicines or other oqlk-sjj-ibgbifj (OTC) drugs. Some pr escription medicines have [...] the possible dangers of taking these medicines. 0939-2270 [employer]. [address] [place] [address], [place] [address]. All righ ts reserved. This information is [...] + + | WILBER GONZALEZ | [address] | [place] [address] | | | [facility] | | | | | LABORATORY | [...] | acetaminophen (TYLENOL) tablet | Given | 08/09/20 | 650 mg | | | | [...] +---+ +---+---+ | | | +---+---+ + +---------+ [...]
--- OUTSIDE RECORDS SUMMARY | ~2019-07-09 | XMS | Encounter Summary ---
Demographics + + + | Address | [address] | | | [place] [address] | + + + | Home Phone | | + + + | Preferred Language | Unknown | + + + | Marital Status | | + + + | Zoroastrianism Affiliation | ADV | + + + | Race | White | + + + | Ethnic Group | Not or | + + + Author + + + | Author | [facility] | + + + | Organization | [facility] | + + + | Address | Unknown | + + + | Phone | Unavailable | + + + Support + + + + + | Name | Relationship | Address | Phone | + + + + + | Norberto Oliveros | ECON | [address] | | | [place] | | [place] | | | | | [address] | | + + + + + Care Team Providers + +------+ + | Care Pharmaceutical Sales Specialist Name | Role | Phone | [...] [facility] [address] | [place], | | | | | [facility] | [place] [address] | | | | | Mailcode: PV01 | [phone] | | | | | [facility] | | | | | | [place], [place] | | | | | | [address] | | | | | | [phone] | | | +--------+ + + + [...]
--- OUTSIDE RECORDS SUMMARY | ~2019-07-09 | XMS | Encounter Summary ---
Demographics + + + | Address | [address] | | | [place] [address] | + + + | Home Phone | | + + + | Preferred Language | Unknown | + + + | Marital Status | | + + + | Yarsani Affiliation | 1001 | + + + | Race | Unknown | + + + | Ethnic Group | Unknown | + + + Author + + + | Author | [facility] | | | and Teeana | + + + | Organization | [facility] | | | and Teeana | + + + | Address | Unknown | + + + | Phone | Unavailable | + + + Support + + + + + | Name | Relationship | Address | Phone | + + + + + | Norberto Mann | ECON | [address] | | | | | [place], [place] | | | | | [address] | | + + + + + Care Team Providers + +------+ + | Care Staff Nurse Midwife Name | Role | Phone | + +------+ + PCP | Unavailable | + +------+ + Encounter Details +--------+ + + + + | Date | Type | Department | Care Team | Description | +--------+ + + + + | 12/17/ | Hospital | [facility] | Conversion | | | 2014 | Encounter | CENTER OUTPATIENT | Transaction, | | | | | PHYSICAL THERAPY | Provider Unknown | | | | | [address] | | | | | | [place], [place] | (Fax) | | | | | [address] | | | | | | [phone] | | | +--------+ + + + [...] encounter Progress Notes Georgie Valencia PT - 12/17/2014 1:45 PM PDTFormatting of this note might be different fr om the original. Progress Notes by Georgie Valencia PT at 12/17/14 3993 Author: Georgie Valencia PT Service: (none) Author Type: Physical Therapist Filed: 12/17/14 3756 Date of Service: 12/17/14 3097 Status: Signed Forest Pathology Teacher: Georgie Valencia PT (Physical Therapist) Therapy Daily Treatment Note Date of Service: 12/17/2014 Treatment Time/Charges: Therapeutic Exercise 17556 x 3 (45 minutes) Insurance Authorization: 7 of 17 estimated authorized visits (Medicare) - 02/03 GC Authorization Expiration: 08/26/15 POC Expiration: 02/17/15 Subjective: Pain Complaint: Pt c/o anorectal pain and irregular varying bowel movements. Subjective Comments: Pt states she is tender in her L abdomen today and not too sure why. S tates it hurts to even touch it. Pt also reports that she is realizing how tight she is tacho use her hamstrings are still very sore from last session. Also states that she is realizing how weak her back and core are and thinks that might be contributing to her pain because she has poor posture. Pt reports partial compliance to HEP with trying to improve stretching fr equency however reports she's been so busy with her sister's surgery that she gets distracte d and is exhausted. Objective: Daily Treatment: Therapeutic Exercise: Pt instructed and performed core exercises and stretches as indicated below, handout provided. Pelvic tilt x 10 TA contraction x 10 TA/pelvic tilt co-contraction x 10 Piriformis stretch hold 20 sec R/L Hamstring stretch with resistance band hold 20 sec R/L SKTC stretch hold 20 sec R/L Bridging - 3 sec hold x 10 SLR - R/L 3 sec hold x 10 Hook-lying combo with alt LE/UE - 2# hand-wts x 20 Hip abduction with resistance band x 20 Hip abduction with resistance band and UE chest fly with 2# hand-wts x 20 Ptient Education: As per above for new HEP for initial back/core strengthening, handout pro vided. Assessment: Response to Treatment: Pt has significant core and back weakness from multiple back and abd ominal surgeries. She has poor posturing and with remarkably anterior pelvic tilt and abdomi nal caving/crouching. Therefore pt is putting undo stress on internal organs and increasing back kyphosis. She needs significant back and core strengthening to develop better stabilizi ng and postural muscles. Therefore today's session to focus on establishing initial HEP. Pt tolerated well, vc's for slow and controlled motion. Had difficult time performing TA contra ction without exhausting diaphragm. Patient continues to require skilled intervention due [...] program for symptom management. Georgie Valencia, PT 12/17/2014 1:48 PM documented in this encounter Plan of Treatment Not on filedocumented as of this encounter Visit Diagnoses Not on filedocumented in this encounter"
--- OUTSIDE RECORDS SUMMARY | ~2019-07-09 | XMS | Encounter Summary ---
Demographics + + + | Address | [address] | | | [place] [address] | + + + | Home Phone | | + + + | Preferred Language | Unknown | + + + | Marital Status | | + + + | Muslim Affiliation | ADV | + + + | Race | White | + + + | Ethnic Group | Not or | + + + Author + + + | Author | [facility] | + + + | Organization | [facility] | + + + | Address | Unknown | + + + | Phone | Unavailable | + + + Support + + + + + | Name | Relationship | Address | Phone | + + + + + | Norberto Oliveros | ECON | [address] | | | [place] | | [place] | | | | | [address] | | + + + + + Care Team Providers + +------+ + | Care Kettle Loader Name | Role | Phone | + [...] [place] | | | | | 4.0) ([facility]) | [address] | [address] | | | | | Procedures | Rd | [place], [place] | | | | | CONSULT TO | [place], [place] | [address] | | | | | ENDO | [address] | Phone: | | | | | [address] | Phone: | [phone] | | | | | [address] | [phone] | Fax: | | | | | | Fax: | [phone] | | | | | | [phone] | | +--------+ + + + + [...] | | [facility] | [address] [place], [place] | ([facility]); Dyslipidemia | | | | Pavilion [address] | [address] | | | | | [address] | [phone] | | | | | Physician's | | | | | | Pavilion | | | | | | [facility] | | | | | | [place], [place] | | | | | | [address] | | | | | | [phone] | | | +--------+---------+ + + + [...] is in the works. She is into [employer] and has been taking 2 shakes a [...] Take 1 Tab by mouth once daily. Roxobel-3 Fatty Acids-Vitamin E (FISH OIL) 1,000 mg [...] plan that I have documented were reviewed [facility] staff physician Dr. Jeremiah Blackwell at the time of this visit. The staff physician agrees that my assessment, plan and services provided are appropriate. NOAH RADER MD ENDOCRINOLOGY, DIABETES AND CLINICAL NUTRITION [facility] [facility] [id number] documented in this encounter Plan of Treatment [...]
--- OUTSIDE RECORDS SUMMARY | ~2019-07-09 | XMS | Encounter Summary ---
Demographics + + + | Address | [address] | | | [place] [address] | + + + | Home Phone [...] + + + | Author | [facility] | + + + | Organization | [facility] | + + + | Address | Unknown | + + + | Phone | Unavailable | + + + Support + + + + + | Name | Relationship | Address | Phone | + + + + + | Norberto Oliveros | ECON | [address] | | | [place] | | [place] | | | | | [address] | | + + + + + Care Team Providers + +------+ + | Care Aquatic Instructor Name | Role | Phone | + [...] | | | | | | [place], | | | | | | [place] [address] | | | | | | [phone] | | | +--------+ + + + [...] + + + +---------+ + + | [place]-3 Fatty | Take 1 Cap by mouth [...]
--- OUTSIDE RECORDS SUMMARY | ~2019-07-09 | XMS | Encounter Summary ---
Demographics + + + | Address | [address] | | | [place] [address] | + + + | Home Phone | | + + + | Preferred Language | Unknown | + + + | Marital Status | | + + + | Worship Affiliation | ADV | + + + [...] + | Norberto Oliveros | ECON | [address] | | | [place] | | [place] | | | | | [address] | | + + + + + Care Team Providers + +------+ + | Care Smasher Hand Name | Role | Phone | + [...] | | | [place] Mailcode: | [place], [place] | | | | | [address] | [address] | | | | | [place], [address]th Floor | [phone] | | | | | [place], [place] | | | | | | [address] | | | | | | [phone] | | | +--------+--------+ + + + [...]
--- OUTSIDE RECORDS SUMMARY | ~2019-07-09 | XMS | Encounter Summary ---
Demographics + + + | Address | [address] | | | [place] [address] | + + + | Home Phone | | + + + | Preferred Language | Unknown | + + + | Marital Status | | + + + | Denominational Affiliation | ADV | + + + | Race | White | + + + | Ethnic Group | Not or | + + + Author + + + | Author | [facility] | + + + | Organization | [facility] | + + + | Address | Unknown | + + + | Phone | Unavailable | + + + Support + + + + + | Name | Relationship | Address | Phone | + + + + + | Norberto Oliveros | ECON | [address] | | | [place] | | [place] | | | | | [address] | | + + + + + Care Team Providers + +------+ + | Care Congressional Assistant Name | Role | Phone | [...] | on | Otology Services at | [facility] | | | | | PPV [address] | [address] [place], [place] | | | | | [address] | [address] | | | | | Mailcode: [address]01 | | | | | | [facility] | | | | | | [place], [place] | | | | | | [address] | | | | | | [phone] | | | +--------+ + + + [...]
--- OUTSIDE RECORDS SUMMARY | ~2019-07-09 | XMS | Encounter Summary ---
Demographics + + + | Address | [address] | | | [place] [address] | + + + | Home Phone [...] + | Norberto Oliveros | ECON | [address] | | | [place] | | [place] | | | | | [address] | | + + + + + Care Team Providers + +------+ + | Care Encapsulator Name | Role | Phone | + +------+ + | June Blanco DO | PCP | Unavailable | + +------+ + Encounter Details +--------+ + + + + | Date | Type | Department | Care Team | Description | +--------+ + + + + | 12/23/ | MyChart | Rheumatology at | Jailene Leon, | RE: medication | | 2010 | Encounter | Dania Pineda | [address] | | | | | [address] | [address] | | | | | [place] Mailcode: | [place], [place] | | | | | [address] Phys[address] | [address] | | | | | [place], [address] Floor | [phone] | | | | | [place], [place] | | | | | | [address] | | | | | | [phone] | | | +--------+ + + + [...]
--- OUTSIDE RECORDS SUMMARY | ~2019-07-09 | XMS | Clinical Summary ---
Demographics + + + | Address | [address] | | | [place] [address] | + + + | Home Phone | | + + + | Preferred Language | Unknown | + + + | Marital Status | | + + + | Episcopal Affiliation | 1001 | + + + | Race | Unknown | + + + | Ethnic Group | Unknown | + + + Author + + + | Author | [facility] (Historical as of | | | 04-12-19) | + + + | Organization | [facility] (Historical as of | | | 04-12-19) [...] + | Norberto Mann | ECON | [address] | | | | | [place] | | | | | [address] | | + + + + + | Jaison Mann | MANUEL | Unknown | | + + + + + | Chantal Anderson | ECON | Unknown | | + + + + + Care Team Providers + +------+ + | Care Coil Winding Machines Set Up Mechanic Name | Role | Phone | [...] N/A: | [facility] | | 09/13/ | [id number] | | 07/14/2014 by Troy Mazariegos | | Abdome | ick | | 2019 | 6 /NA | | MD Kenny | | n | | | | /[id number] | | | | | | | | 664 | + +------+--------+ +--------+--------+--------+ | Tube Wayne Lott W/O [facility] | | | [employer] | | | [phone] | | - [id number]: Qty: 1 | | | | | | 62 / | | on 11/05/2014 by Caesar | | | | | | /[id number] | | DO Anthony | | | | | | [address] | + +------+--------+ +--------+--------+--------+ Results Not on [...] +------+-------+ + | MEDICARE | MEDICA | [id number] | | | [address] | | | RE | | | | [place], [place] [address] | | | IP-OP | | | | | + +--------+ +------+-------+ + | COMMERCIAL OTHER | COMMER | [id number] | | | | | | CIAL [...] | 1950 | [phone] | [place] [address] | | | elissa | | | 9700 | | + +--------+ +--------+ + +
--- OUTSIDE RECORDS SUMMARY | ~2019-07-09 | XMS | Encounter Summary ---
Demographics + + + | Address | [address] | | | [place] [address] | + + + | Home Phone | | + + + | Preferred Language | Unknown | + + + | Marital Status | | + + + | Hindu Affiliation | ADV | + + + [...] + | Norberto Oliveros | ECON | [address] | | | [place] | | [place] | | | | | [address] | | + + + + + Care Team Providers + +------+ + | Care Molder Closed Molds Name | Role | Phone | + +------+ + | Humberto Ruby MD | PCP | | + +------+ + Encounter Details +--------+ + + + + | Date | Type | Department | Care Team | Description | +--------+ + + + + | 06/12/ | Documentati | [facility] | Jaquelin Hu, | | | 2016 | on | Center at [place] [address] | PA-C [address] | | | | | [address] [place] | [place], [place] | | | | | Mailcode: [facility] | [address] | | | | | [facility] | [phone] | | | | | and Healing, | | | | | | Building , [address] | | | | | | [place], [place] | | | | | | [address] | | | | | | [phone] | | | +--------+ + + + [...]
--- OUTSIDE RECORDS SUMMARY | ~2019-07-09 | XMS | Encounter Summary ---
Demographics + + + | Address | [address] | | | [place] [address] | + + + | Home Phone | | + + + | Preferred Language | Unknown | + + + | Marital Status | | + + + | Amish Affiliation | 1001 | + + + | Race | Unknown | + + + | Ethnic Group | Unknown | + + + Author + + + | Author | [facility] | | | and [place]eeana | + + + | Organization | [facility] | | | and [place] | + + + | Address | Unknown | + + + | Phone | Unavailable | + + + Support + + + + + | Name | Relationship | Address | Phone | + + + + + | Norberto Mann | ECON | [address] | | | | | [place], [place] | | | | | [address] | | + + + + + Care Team Providers + +------+ + | Care Linen Controller Name | Role | Phone | + +------+ + PCP | Unavailable | + +------+ + Encounter Details +--------+ + + + + | Date | Type | Department | Care Team | Description | +--------+ + + + + | 05/27/ | Hospital | [facility] | Conversion | Sialoadenitis | | 2014 | Encounter | [facility] [address] | Transaction, | | | | | [address] | Provider Unknown | | | | | [facility] | | | | | | [address] | | | | | | [phone] | | | +--------+ + + + [...] | | amenable to surgical drainage. 3. Zqjh-yk-alllqkqx bilateral | | | cervical adenopathy, correlate [...] | fluid collections amenable to surgical drainage.3. Vsus-wd-plqzyyda bilateral cervical | | adenopathy, correlate clinically. [...] collections amenable to surgical drainage. | |3. Qndp-gx-pdnyqxps bilateral cervical adenopathy, correlate clinically. If adenopathy [...]
--- OUTSIDE RECORDS SUMMARY | ~2019-07-09 | XMS | Encounter Summary ---
Demographics + + + | Address | [address] | | | [place] [address] | + + + | Home Phone [...] + + | Author | [facility] | | | and [place] | + + + | Organization | [facility] | | | and [place] | + + + | Address | Unknown | + + + | Phone | Unavailable | + + + Support + + + + + | Name | Relationship | Address | Phone | + + + + + | Norberto Mann | ECON | [address] | | | | | [place], [place] | | | | | [address] | | + + + + + Care Team Providers + +------+ + | Care Network Support Technician Name | Role | Phone | [...] | | | | Procedures | | [phone] | | | | | [place] DILATION | | Fax: | | | | | OF SALIVARY | | [phone] | | | | | DUCT | [...] | | | | [place] | [phone] | | | | | [address] | | | | | | [phone] | Misti Sanchez, | | | | | | MD [address] | | | | | | [place] [address] | | | | | | [phone] | | | | | | | | +--------+ + + + + Anesthesia Record + + + + + | Procedure Name | Responsible | Anesthesia Start | Anesthesia Stop Time | | | Anesthesiologist | Time | | + + + + + | PAROTID RODRÍGUEZ | Michael Rutherford MD | 08/09/15 1406 | 08/09/15 3441 | | ENDOSCOPY (N/A ) | | [...] +----+---+ + + | | 1 | [place] | | | | 4 | 43-degrees [...] +----+---+ + + | | 1 | [place] off | | | | 4 | [...] + + | Periph | 08/09/15; 1235; pndw-rjv-ubcdrf | 08/09/15 1235 by | 08/09/15 1650 [...]
--- OUTSIDE RECORDS SUMMARY | ~2019-07-09 | XMS | Encounter Summary ---
Demographics + + + | Address | [address] | | | [place] [address] | + + + | Home Phone | | + + + | Preferred Language | Unknown | + + + | Marital Status | | + + + | Church Affiliation | ADV | + + + [...] + | Norberto Oliveros | ECON | [address] | | | [place] | | [place] | | | | | [address] | | + + + + + Care Team Providers + +------+ + | Care Speeder Machine Operator Name | Role | Phone [...] as of this encounter Progress Notes Interface, Collision Repairer In - 03/26/2005 2:35 AM PDT [id number] 11/18/2004 11/18/2004 [id number] JOHNATHAN CRESPO [facility] [address] [place] [address] or November 18, 2004 Rene Moyer M[address]D. [address] [place] [address] RE: CARLY MANN MR #: [id number] Dear Jonathan: I had the pleasure of [...] any additional information. Sincerely, Adryan Berger M.D. clinical documentation manager [place] / [id number] / [id number] / [id number] / documented i n this encounter Plan of Treatment Not on filedocumented as of this encounter Visit Diagnoses Not on filedocumented in this encounter"
--- OUTSIDE RECORDS SUMMARY | ~2019-07-09 | XMS | Encounter Summary ---
Demographics + + + | Address | [address] | | | [place] [address] | + + + | Home Phone | | + + + | Preferred Language | Unknown | + + + | Marital Status | | + + + | Cheondoism Affiliation | ADV | + + + [...] + | Norberto Oliveros | ECON | [address] | | | [place] | | [place] | | | | | [address] | | + + + + + Care Team Providers + +------+ + | Care Weather Observer Name | Role | Phone | + +------+ + | June Blanco DO | PCP | | + +------+ + Encounter Details +--------+------+ + + + | Date | Type | Department | Care Team | Description | +--------+------+ + + + | 02/28/ | Lab | Laboratory, | | Rheumatoid arthritis | | 2010 | | Specimen Collection | | ([facility]) | | | | at [address] | | | | | | [address] | | | | | | [place], | | | | | | [place] [address] | | | | | | [phone] | | | +--------+------+ + + + [...] | [facility] | | [facility] [place] [address] | REGIONAL | | [place] [address] | LABORATORY | + + + + + + + + | Performing | Address | City/State/Zipcode | Phone Number | | Organization | | | | + + + + + | [facility] | [address] | [place] [address] | | | LABORATORY | | | | + + + + + documented in this encounter Visit Diagnoses + + | Diagnosis | + + | Rheumatoid arthritis(714.0) (HCC) Rheumatoid arthritis | + + documented in this encounter"
--- OUTSIDE RECORDS SUMMARY | ~2019-07-09 | XMS | Encounter Summary ---
Demographics + + + | Address | [address] | | | [place] [address] | + + + | Home Phone [...] + + | Author | [facility] | | | and [place] | + + + | Organization | [facility] | | | and [place] | + + + | Address | Unknown | + + + | Phone | Unavailable | + + + Support + + + + + | Name | Relationship | Address | Phone | + + + + + | Norberto Mann | ECON | [address] | | | | | [place], [place] | | | | | [address] | | + + + + + Care Team Providers + +------+ + | Care Cleaning Professional Name | Role | Phone | + +------+ + PCP | Unavailable | + +------+ + Encounter Details +--------+ + + + + | Date | Type | Department | Care Team | Description | +--------+ + + + + | 10/02/ | Hospital | [facility] | Conversion | Mastoiditis, right | | 2014 | Encounter | [facility] [address] | Transaction, | | | | | [address] | Provider Unknown | | | | | [place] | [phone] | | | | | [address] | | | | | | [phone] | | | +--------+ + + + [...] 2 tablets by | | 0 | //20 | | | PO | mouth Daily. | | | 11 | | + + + +---------+ + + | Cyanocobalamin | Inject 1 mL as | | 0 | /20 | | | (VITAMIN B-12 IJ) | directed Every 30 | | | 11 | | | | days. | | | | | + + + +---------+ + + | fish oil 1,000 mg | Take 1 capsule by | | 0 | 20 | | | capsule | mouth Daily. [...] 0 | 11/30/19 | | | (HUMALOG JORGEPEN SC) | under the skin 3 | [...] + +--------+ + + + | CT ORBIT SELLA POST | Routin | 10/02/2014 | | Results for this | | FOSSA IAC WO | e | 2:14 PM | | procedure are in the | | CONTRAST | | PST | | results section. | + +--------+ + + + documented in this encounter Results CT Orbit Sella Post Fossa IAC wo Cont (10/02/2014 2:14 PM PST) + + | Specimen | + + | | + + + + + | Impressions | Performed At | + + + | 1. Evidence of probable coalescent right otomastoiditis. 2. | | | Nonspecific small left mastoid effusion. 3. Normal CT | | | appearance of the brain. | | + + + + + + | Narrative | Performed At | + + + | CARLY MANN CT HEAD TEMPORAL BONES WO CONTRAST 10/02/2014 2:14 PM | | | HISTORY: Right mastoiditis. TECHNIQUE: Helically obtained | | | axial [address] sections through the head. Helically obtained axial 1 mm | | | CT sections through the temporal bones with standard reformations | | | rendered. IV contrast. COMPARISON: None. FINDINGS: Head: No | | | intracranial infarct, hemorrhage, mass, or hydrocephalus is found. The | | | orbital structures appear normal. No significant paranasal sinus | | | disease is found. No worrisome bone lesions are identified. | | | Temporal bones: RIGHT: Strandy opacities are seen within the right | | | external auditory canal medially, potentially some cerumen. The | | | tympanic membrane appears intact. The middle ear ossicles are intact. | | | The scutum is normal. Moderate fluid is seen within the mastoid | | | air cells greatest caudally, where there is some trabecular erosions | | | present. This is well seen on images 17 through 27, series 8. The | | | cortex of the mastoid bone this region does appear to be intact. The | | | semicircular canals and cochlear appear normal. No expansion of the | | | internal auditory canal is found. LEFT: The external auditory | | | canal is patent. The tympanic membrane appears to be intact. The | | | scutum is normal. The middle ear ossicles appear to be intact. The | | | semicircular canals and cochlea appear normal. No internal auditory | | | canal expansion is found. A small amount of fluid is seen within the | | | mastoid air cells, without trabecular erosion. | | + + + + + | Procedure Note | + + | Danilo, Rad Conversion - 04/11/2019 5:45 AM PDT CARLY REESE HEAD TEMPORAL BONES WO | | CONTRAST10/02/2014 2:14 PM HISTORY:Right mastoiditis. TECHNIQUE:Helically obtained axial | | [address] sections through the head. Helically obtained axial [address] sections through the | | temporal bones with standard reformations rendered. IV contrast. COMPARISON:None. | | FINDINGS:Head: No intracranial infarct, hemorrhage, mass, or hydrocephalus is found. The | | orbital structures appear normal. No significant paranasal sinus disease is found. No | | worrisome bone lesions are identified. Temporal bones:RIGHT: Strandy opacities are seen | | within the right external auditory canal medially, potentially some cerumen. The | | tympanic membrane appears intact. The middle ear ossicles are intact. The scutum is | | normal. Moderate fluid is seen within the mastoid air cells greatest caudally, where | | there is some trabecular erosions present. This is well seen on images 17 through 27, | | series 8. The cortex of the mastoid bone this region does appear to be intact. The | | semicircular canals and cochlear appear normal. No expansion of the internal auditory | | canal is found. LEFT: The external auditory canal is patent. The tympanic membrane | | appears to be intact. The scutum is normal. The middle ear ossicles appear to be intact. | | The semicircular canals and cochlea appear normal. No internal auditory canal expansion | | is found. A small amount of fluid is seen within the mastoid air cells, without | | trabecular erosion. IMPRESSION: 1. Evidence of probable coalescent right | | otomastoiditis. 2. Nonspecific small left mastoid effusion. 3. Normal CT appearance of | | the brain. | |semicircular canals and cochlear appear normal. No expansion of the internal auditory canal is found. | | | |LEFT: The external auditory canal is patent. The tympanic membrane appears to be intact. Th e scutum is normal. The middle ear ossicles appear to be intact. The semicircular canals and cochlea appear normal. No internal | |auditory canal expansion is found. | |A small amount of fluid is seen within the mastoid air cells, without trabecular erosion. | | | |IMPRESSION: | |1. Evidence of probable coalescent right otomastoiditis. | | | |2. Nonspecific small left mastoid effusion. | | | |3. Normal CT appearance of the brain. | | | | | + + documented in this encounter Visit Diagnoses + + | Diagnosis | + + | Mastoiditis, right | + + documented in this encounter"
--- OUTSIDE RECORDS SUMMARY | ~2019-07-09 | XMS | Encounter Summary ---
Demographics + + + | Address | [address] | | | [place] [address] | + + + | Home Phone | | + + + | Preferred Language | Unknown | + + + | Marital Status | | + + + | Jewish Affiliation | ADV | + + + | Race | White | + + + | Ethnic Group | Not or | + + + Author + + + | Author | [facility] | + + + | Organization | [facility] | + + + | Address | Unknown | + + + | Phone | Unavailable | + + + Support + + + + + | Name | Relationship | Address | Phone | + + + + + | Norberto Oliveros | ECON | [address] | | | [place] | | [place] | | | | | [address] | | + + + + + Care Team Providers + +------+ + | Care Basketball Assembler Name | Role | Phone | + +------+ + | Humberto Ruby MD | PCP | | + +------+ + Reason for Visit + + + | Reason | Comments | + + + | Refill Request | | + + + Encounter Details +--------+--------+ + + + | Date | Type | Department | Care Team | Description | +--------+--------+ + + + | 04/15/ | Refill | Rheumatology at | Jailene Leon, | Refill Request | | 2013 | | [facility] [place] | [address] | | | | | [address] | [address] | | | | | [place] Mailcode: | [place], [place] | | | | | [address] Physician's | [address] | | | | | [place], [address] Floor | [phone] | | | | | [place], [place] | | | | | | [address] | | | | | | [phone] | | | +--------+--------+ + + + [...]
--- OUTSIDE RECORDS SUMMARY | ~2019-07-09 | XMS | Encounter Summary ---
Demographics + + + | Address | [address] | | | [place] [address] | + + + | Home Phone [...] | Author | [facility] | | | and [place] | + + + | Organization | [facility] | | | and [place] | + + + | Address | Unknown | + + + | Phone | Unavailable | + + + Support + + + + + | Name | Relationship | Address | Phone | + + + + + | Norberto Mann | ECON | [address] | | | | | [place], [place] | | | | | [address] | | + + + + + Care Team Providers + +------+ + | Care Fire Fighter Airport Name | Role | Phone | + +------+ + PCP | Unavailable | + +------+ + Encounter Details +--------+ + + + + | Date | Type | Department | Care Team | Description | +--------+ + + + + | 12/01/ | Hospital | [facility] | Conversion | | | 2014 | Encounter | CENTER OUTPATIENT | Transaction, | | | | | PHYSICAL THERAPY | Provider Unknown | | | | | [address] | | | | | | [place], [place] | (Fax) | | | | | [address] | | | | | | [phone] | | | +--------+ + + + [...] Notes by Georgie Valencia PT at 12/01/14 4455 Author: Georgie Valencia PT Service: (none) Author Type: Physical Therapist Filed: 12/01/14 1238 Date of Service: 12/01/14 4145 Status: Signed Church Administrator: Georgie Valencia PT (Physical Therapist) Therapy Daily Treatment Note Date of Service: 12/01/2014 Treatment Time/Charges: Manual Therapy 16478 x 1 (15 minutes), Therapeutic Exercise 13599 x 2 (30 minutes) Insurance Authorization: 2 [...] as indicated below, handout provided for stretches. Clever Cloud software assisted exercise: external fern-anal sensors applied [...]
--- OUTSIDE RECORDS SUMMARY | ~2019-07-09 | XMS | Encounter Summary ---
Demographics + + + | Address | [address] | | | [place] [address] | + + + | Home Phone | | + + + | Preferred Language | Unknown | + + + | Marital Status | | + + + | Jew Affiliation | ADV | + + + [...] + | Norberto Oliveros | ECON | [address] | | | [place] | | [place] | | | | | [address] | | + + + + + Care Team Providers + +------+ + | Care Asset Protection Representative Name | Role | Phone | [...] Description | +--------+--------+ + + + | 05/07/ | Refill | Rheumatology at | Jailene Leon, | Refill Request | | 2011 | | [facility] | [address] | | | | | [address] | [address] | | | | | [place] Mailcode: | [place], [place] | | | | | [address] Phys[address] | [address] | | | | | [address], [address] | [phone] | | | | | [place], [place] | | | | | | [address] | | | | | | [phone] | | | +--------+--------+ + + + [...]
--- OUTSIDE RECORDS SUMMARY | ~2019-07-09 | XMS | Encounter Summary ---
Demographics + + + | Address | [address] | | | [place] [address] | + + + | Home Phone | | + + + | Preferred Language | Unknown | + + + | Marital Status | | + + + | Latter-Day Affiliation | 1001 | + + + | Race | Unknown | + + + | Ethnic Group | Unknown | + + + Author + + + | Author | [facility] | | | and [place] | + + + | Organization | [facility] | | | and [place] | + + + | Address | Unknown | + + + | Phone | Unavailable | + + + Support + + + + + | Name | Relationship | Address | Phone | + + + + + | Norberto Mann | ECON | [address] | | | | | [place], [place] | | | | | [address] | | + + + + + Care Team Providers + +------+ + | Care Bookkeeper Name | Role | Phone | + +------+ + PCP | Unavailable | + +------+ + Encounter Details +--------+ + + + + | Date | Type | Department | Care Team | Description | +--------+ + + + + | 07/14/ | Hospital | [facility] | Saji Mazariegos MD | Incisional hernia | | 2013 - | Encounter | [facility] [address] | [address] | | | | | [address] | [address] [place], [place] | | | 11/23/ | | [place], [place] | [address] | | | 2013 | | [address] | | | | | | [phone] | | | +--------+ + + + [...] Mazariegos MD at 07/19/14 1112 Author: Saji Mazareigos MD Service: General Surgery Author Type: Physician Filed: 07/19/14 1120 Date of Service: 07/19/141111 Status: Signed Enrober: Saji Mazariegos MD (Physician) [facility] Service: General Surgery Discharge Summary Date of [...] on file. 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 We sent some of them to a specific pharmacy. Go t o these places to get your medications. [id number] - [place], [place] - [address] - promethazine 25 MG tablet [address] [place] [address] You may get the following medications from [...] (none) Author Type: Registered Nurse Filed: 07/19/14 7856 Date of Service: 07/19/141155 Status: Signed Enrober: Piper Oneil RN (Registered Nurse) Discharge teaching [...] Notes by Saji Mazariegos MD at 07/19/14 110 Author: Saji Mazariegos MD Service: General Surgery Author Type: Physician Filed: 11/23/14 1106 Date of Service: 07/19/14 1103 Status: Signed Enrober: Saji Mazariegos MD (Physician) [facility] Service: General Surgery Progress Note Hospital Day: [...] Notes by Saji Mazariegos MD at 07/18/14 2617 Author: Saji Mazariegos MD Service: General Surgery Author Type: Physician Filed: 07/18/14 120 Date of Service: 07/18/14 1157 Status: Signed Enrober: Saji Mazariegos MD (Physician) [facility] Service: General Surgery Progress Note Hospital Day: [...] 07/17/141841 Date of Service: 07/17/141836 Status: Signed Enrober: Saji Mazariegos MD (Physician) [facility] Service: General Surgery Progress Note Hospital Day: [...] 07/16/14922 Date of Service: 07/16/14917 Status: Signed Enrober: Saji Mazariegos MD (Physician) [facility] Service: General Surgery Progress Note Hospital Day: [...] 07/15/141825 Date of Service: 07/15/141823 Status: Signed Enrober: Saji Mazariegos MD (Physician) [facility] Service: General Surgery Note Better pain control Still hurting with movement Voided OK Taking some PO diet Will decrease IV fluid rate SAJI MAZARIEGOS MD 07/15/2014 onversion Transaction , Provider Unknown - 07/15/2014 9:17 AM PST Case Management by VENKAT Travis at 07/15/14916 Author: VENKAT Travis Service: (none) Author Type: Windshield Wiper Repairer Filed: 07/15/14917 Date of Service: 11/19/14 0917 Status: Signed Enrober: VENKAT Travis (Windshield Wiper Repairer) 07/15/14 0900 Discharge Planning Evaluation Admitting Diagnosis [...] pt's spouse will be with pt at tn to help Patient's PCP is: RAY PACHECO [...] with spouse Parvez Gordon Electronically signed by [facility], Provider at 04/22/2019 1:34 AM Saji Bauman MD - 07/15/2014 8:57 AM PSTFormatting of this note might be different from the branden omid. Progress Notes by Saji Mazariegos MD at 07/15/14 0857 Author: Saji Mazariegos MD Service: General Surgery Author Type: Physician Filed: 07/15/14901 Date of Service: 07/15/14856 Status: Signed Enrober: Saji Mazariegos MD (Physician) [facility] Service: General Surgery Progress Note Hospital Day: [...] 07/14/14616 Date of Service: 07/14/14616 Status: Signed Enrober: Carly Stone RPH (Pharmacist) Clinical Pharmacy Note: Renal Monitoring Carly Johnathan 64 y.o. female Ht Readings from Last 1 Encounters: 07/02/14 1.626 m (5' 4") Wt Readings from Last 1 Encounters: 07/02/14 73.029 kg (161 lb) CREATININE Date Value Range Status 07/02/2014 0.64 0.50 - 1.00 mg/dL Final Testing performed at [facility], [address] [place] [address] The patient's GFR is > 60 ml/min [...] | | | Fingerstick | performed at [facility] [place];[address] | | LAB | | | | [address];[place], [place] | | | | | | [address] | | | | + + + [...] | | LAB | | | | [facility] [place] [place];[address] | | | | [address];[place] [address] | | | | + + + + + + | PCO2 ART | 55 (H)Comment: Testing | 35 - 45 mmHg | EXTERNAL | | | | performed at [facility] [place];[address] | | LAB | | | | [address];[place] | | | | | | [address] | | | | + + + + + + | PO2 ART | 389 (H)Comment: Testing | 80 - 105 mmHg | EXTERNAL | | | | performed at [facility] [place];[address] | | LAB | | | | [address];[place] | | | | | | [address] | | | | + + + + + + | HCO3 ART | 26Comment: Testing | 22 - 26 mmol/L | EXTERNAL | | | | performed at [facility] [place];[address] | | LAB | | | | [address];[place] | | | | | | [address] | | | | + + + + + + | POC | 28 (H)Comment: Testing | 23 - 27 mEq/L | EXTERNAL | | | APPEARANCE | performed at [facility] [place];[address] | | LAB | | | UA | [address];[place] | | | | | | [address] | | | | + + + + + + | Base | 1Comment: Testing | 0.0 - 2.0 | EXTERNAL | | | deficit | performed at [facility] [place];[address] | mmol/L | LAB | | | | [address];[place] | | | | | | [address] | | | | + + + + + + | O2 SAT ART | 100 (H)Comment: Testing | 95 - 98 % | EXTERNAL | | | | performed at [facility] [place];[address] | | LAB | | | | [address];[place] | | | | | | [address] | | | | + + + + + + | Sodium, POC | 140Comment: Testing | 135 - 145 mEq/L | EXTERNAL | | | | performed at [facility] [place];[address] | | LAB | | | | [address];[place] | | | | | | [address] | | | | + + + + + + | Potassium, | 3.6Comment: Testing | 3.5 - 5.0 mEq/L | EXTERNAL | | | POC | performed at [facility] [place] [place];[address] | | LAB | | | | [address];[place] | | | | | | [address] | | | | + + + + + + | Ionized | 1.08 (L)Comment: Testing | 1.12 - 1.32 | EXTERNAL | | | Calcium, | performed at [facility] [place] [place];[address] | mmol/L | LAB | | | POC | [address];[place] | | | | | | [address] | | | | + + + + + + | Glucose, | 167 (H)Comment: Testing | 65 - 99 mg/dL | EXTERNAL | | | POC | performed at [facility] [place];[address] | | LAB | | | | [address];[place] | | | | | | [address] | | | | + + + + + + | Hematocrit, | 37Comment: Testing | 35.0 - 46.0 % | EXTERNAL | | | POC | performed at [facility] [place] [place];[address] | | LAB | | | | [address];[place] | | | | | | [address] | | | | + + + + + + | Hemoglobin, | 12.6Comment: Testing | 11.6 - 15.5 | EXTERNAL | | | POC | performed at [facility] [place] [place];[address] | g/dL | LAB | | | | [address];[place] | | | | | | [address] | | | | + + + [...] EXTERNAL | | | | performed at [facility] [place] [place];[address] | | LAB | | | | [address];[place] | | | | | | [address] | | | | + + + + + + | PCO2 ART | 39Comment: Testing | 35 - 45 mmHg | EXTERNAL | | | | performed at [facility] [place] [place];[address] | | LAB | | | | [address];[place] | | | | | | [address] | | | | + + + + + + | PO2 ART | 383 (H)Comment: Testing | 80 - 105 mmHg | EXTERNAL | | | | performed at [facility] [place] [place];[address] | | LAB | | | | [address];[place] | | | | | | [address] | | | | + + + + + + | HCO3 ART | 26Comment: Testing | 22 - 26 mmol/L | EXTERNAL | | | | performed at [facility] [place] [place];[address] | | LAB | | | | [address];[place] | | | | | | [address] | | | | + + + + + + | POC | 28 (H)Comment: Testing | 23 - 27 mEq/L | EXTERNAL | | | APPEARANCE | performed at [facility] [place] [place];[address] | | LAB | | | UA | [address];[place] | | | | | | [address] | | | | + + + + + + | Base | 2Comment: Testing | 0 - 3 mEq/L | EXTERNAL | | | Excess, | performed at [facility] [place] [place];[address] | | LAB | | | Arterial | [address];[place] | | | | | | [address] | | | | + + + + + + | O2 SAT ART | 100 (H)Comment: Testing | 95 - 98 % | EXTERNAL | | | | performed at [facility] [place] [place];[address] | | LAB | | | | [address];[place] | | | | | | [address] | | | | + + + + + + | Sodium, POC | 141Comment: Testing | 135 - 145 mEq/L | EXTERNAL | | | | performed at [facility] [place] [place];[address] | | LAB | | | | [address];[place] | | | | | | [address] | | | | + + + + + + | Potassium, | 3.9Comment: Testing | 3.5 - 5.0 mEq/L | EXTERNAL | | | POC | performed at [facility] [place] [place];[address] | | LAB | | | | [address];[place] | | | | | | [address] | | | | + + + + + + | Ionized | 1.16Comment: Testing | 1.12 - 1.32 | EXTERNAL | | | Calcium, | performed at [facility] [place] [place];[address] | mmol/L | LAB | | | POC | [address];[place] | | | | | | [address] | | | | + + + + + + | Glucose, | 113 (H)Comment: Testing | 65 - 99 mg/dL | EXTERNAL | | | POC | performed at [facility] [place] [place];[address] | | LAB | | | | [address];[place] | | | | | | [address] | | | | + + + + + + | Hematocrit, | 37Comment: Testing | 35.0 - 46.0 % | EXTERNAL | | | POC | performed at [facility] [place] [place];[address] | | LAB | | | | [address];[place] | | | | | | [address] | | | | + + + + + + | Hemoglobin, | 12.6Comment: Testing | 11.6 - 15.5 | EXTERNAL | | | POC | performed at [facility] [place] [place];[address] | g/dL | LAB | | | | [address];[place] | | | | | | [address] | | | | + + + [...] | | | Fingerstick | performed at [facility] [place] [place];[address] | | LAB | | | | [address];[place], [place] | | | | | | [address] | | | | + + + [...]
--- OUTSIDE RECORDS SUMMARY | ~2019-07-09 | XMS | Encounter Summary ---
Demographics + + + | Address | [address] | | | [place] [address] | + + + | Home Phone [...] + | Norberto Oliveros | ECON | [address] | | [place] | | [place] | | | | | [address] | | + + + + + Care Team Providers + +------+ + | Care Grade School Teacher Name | Role | Phone | + +------+ + | June Blanco DO | PCP | Unavailable | + +------+ + Reason for Referral Consultation (Routine) +--------+ + + + + + [...] | Metabolism | arthritis(70 | [address] | [address] | | | | | 4.0) ([facility]) | [address] | [address] | | | | | Procedures | Rd | [place], [place] | | | | | CONSULT TO | [place], [place] | [address] | | | | | ENDO | [address] | Phone: | | | | | [address] | Phone: | [phone] | | | | | [address] | [phone] | Fax: | | | | | | Fax: | [phone] | | | | | | [phone] | | +--------+ + + + + + Reason for Visit + + + | Reason | Comments | + + + | New patient | | | consultation | | + + + Encounter Details +--------+---------+ + + + | Date | Type | Department | Care Team | Description | +--------+---------+ + + + | 11/29/ | Office | Rheumatology at | [place], [place], | Rheumatoid arthritis | | 2010 | Visit | Physicians [facility] | [address] | ([facility]) (Primary Dx) | | | | [address] | [address] | | | | | Whit [place] Mailcode: | [place], [place] | | | | | [address] Physician's | [address] | | | | | Mir[facility], [address] Floor | [phone] | | | | | [place], [place] | | | | | | [address] | | | | | | [phone] | | | +--------+---------+ + + + [...] + + + | Blood Pressure | 152/72 | 11/29/2010 1:33 PM | | | | | PDT | | + + + + + | Pulse | 88 | 11/29/2010 1:33 PM | | | | | PDT [...] + + + + | Weight | 96.2 kg (212 lb) | 11/29/2010 1:33 PM | | | | | PDT | | + + + + + | Height | 163.8 cm (5' 4.5") | 11/29/2010 1:33 PM | | | | | PDT | | + + + + + | Body Mass Index | 35.83 | 11/29/2010 1:33 PM | | | | | PDT | | + + + + + documented in this encounter Progress Notes Jailene Leon MD - 11/29/2010 1:57 PM PDTFormatting of this note might be different fro m the original. RHEUMATOLOGY NEW PATIENT CONSULT This consultation was requested by: PATRICIA PAEZ [facility] [address] [place] [address] fax: [phone] CC: Chief Complaint Patient presents with New patient consultation HPI: This is a 60 y.o. female, here for consultation from Patricia Paez MD regarding diagn osis, and possible change in therapy for generalized aches and pains. Her aches and pains have been going on for 40 odd years. The worst pains have been going o n since 1997. She says that she has "pins and rods" put in her back (for slipped discs) aft er two surgeries - both done in 1990. She also had a laminectomy in 2002 (a third surgery). She initially thought that the aches and pains were related to the surgeries. She was brice gnosed with FM in 1997 in [place] by a PCP. Her main complains are in the left shoulder, L el bow and L wrist which keeps her awake at night. This is worse last year and especially last few months. Her hands started to swell "this has been going on for so long that I can not tell you". E MS: 5-10 minutes to 1 hour. She has not noticed swelling of any joints other than the hands. No psoriasis, no history S/O inflammatory bowel disease or preceding GI or infections. She however feels that she is hot all the time. ROS: General: Constitutional symptoms of fatigue, weakness, no [...] breath, cough, or pain with breathing. Gastrointestinal: Abdominal pain+, diarrhea alternating with constipation S/O IBS. No ano rexia, nausea or vomiting, dysphagia, or black or bloody stools or weight loss. Musculoskeletal: Symptoms of joint pain, swelling, myalgias and back pain. Neurologic: No symptoms of neurological impairment or TIAs; no amaurosis, diplopia, dysphas ia, or unilateral disturbance of motor or sensory function. No loss of balance or vertigo. Heme/Lymphatic: No abnormal bruising, abnormal bleeding or enlarged lymph nodes. Skin: No rash. PMH: Past Medical History Diagnosis Date Fibromyalgia Kidney stone Dyslipidemia Diabetes mellitus Angina pectoris Hypertension Irritable bowel syndrome PSH: Past Surgical History Procedure Date Three spine surgeries Three c-sections Hysterectomy Carpal tunnel release Appendectomy Tonsillectomy Meds: Current outpatient prescriptions Medication Sig CAPSICUM, CAYENNE, ORAL Take by mouth two times daily. Cinnamon Bark (CINNAMON) 500 mg Oral Capsule Take 2 Caps by mouth once daily. CYANOCOBALAMIN, VITAMIN B-12, (VITAMIN B-12 INJ) 1 mL by Injection route every thirty d ays. ergocalciferol (VITAMIN D) 50,000 unit Oral Capsule Take 50,000 Units by mouth every se francisco j days. INSULIN DETEMIR (LEVEMIR SUBQ) Inject 110 Units under the skin (SUBC) two times daily. INSULIN LISPRO (HUMALOG KWIKPEN SUBQ) Inject 60 Units under the skin (SUBC) three times daily. levothyroxine 75 mcg Oral Tablet Take 75 mcg by mouth once daily. multivitamin (MULTIPLE VITAMIN) Oral Tablet Take 1 Tab by mouth once daily. [place]-3 Fatty Acids-Vitamin E (FISH OIL) 1,000 mg [...] g, Codeine and Pain medicine Social History: Carly Vaccinations: There is no immunization history on file for this patient. FH: family history is not on file. Rapid 3 MHAQ: 3.7 (11/29/10 1300) PAIN LEVEL: 7.5 (11/29/10 1300) GLOBAL ASSESSMENT: 7.5 (11/29/10 1300) RAPID 3: 6.23 (11/29/10 1300) Exam: Vital Signs: BP 152/72 | Pulse 88 | Ht 1.638 m (5' 4.5") | Wt 96.163 kg (212 lb) | BM I 35.83 kg/(m^2) Pain Score: 8 Gen: Obese, well developed, in NAD HEENT: PERRLA, EOMI, O/P clear, no facial rash or alopecia Neck: supple, no lymphadenopathy, FROM Ext: no clubbing, cyanosis or edema M/S: Synovitis L wrist and also in between 2/3/4 MCP joints on the dorsum bilaterally at le ast 10 tender joints, and tenderness on squeezing MTP joints, pain on shoulder movements. No rmal ROM in other joints of upper and lower extremities Skin: no abnormalities Neuro: CN intact, sensory exam intact, strength full, reflexes normal and symmetric Labs: No results found for this basename: wbc, rbc, hct, hb, mcv, mch, mchc, plt, neutroperc, lym phperc, monoperc, eosperc, basoperc, neutrophilco, glu, bun, cr, tp, alb, ca, tbili, ap, ast , na, k, cl, bicarb, alt No results found for this basename: ESR Radiology: Hand and feet x-ray today Impression: This is a 60 y.o. female, here for evaluation of generalized aches and pains. She does have features to suggest true RA with synovitis in the left wrist and also in sever al MCP joints. I will investigate this further and she will probably need a disease modifyi sukhdeep anti-rheumatic drug such as MTX I reviewed the patient s questionnaire which included more than 10 review of systems, ans wered all questions raised, and provided counseling and education. Pain Assessment: 03/05 Recommendations: 1. In todays clinic, I reviewed the patient's new visit questionnaire, past medical history , a 10 systems review, side-effect profile of medications etc. I spent 50 minutes with the patient in a erog-dh-qhlf meeting and >50% time was spent in medically indicated counseling, and education. I have also answered all the questions raised by her. 2. Hand and feet x-rays today 3. CBC+Diff, CMP, ESR, CRP, RF, anti-CCP, Hepatitis C, HBsAg today 4. Referral to metabolic clinic for unwanted weight gain and for metabolic syndrome. 5. Based on the investigations above, I will probably start her on MTX. I will be contacti sukhdeep her by phone. 6. FU three months documented in this en counter Plan of Treatment Not on filedocumented as of this encounter Procedures + +--------+ + + + | Procedure Name | Priori | Date/Time | Associated Diagnosis | Comments | | | ty | | | | + +--------+ + + + | LAB REPORTS | | 10/25/2009 | | Results for this | | | | 12:00 AM | | procedure are in the | | | | PST | | results section. | + +--------+ + + + documented in this encounter Results HEPATITIS C AB W/CONFIRMATION REFLEX PCR (11/29/2010 3:14 PM PDT) + + + + + + | Component | Value | Ref Range | Performed | Pathologist | | | | | At | Signature | + + + + + + | HEPATITIS C | NegativeComment: | Negative | [facility] | | | AB | Reference Range: [...] | + + + + + | [facility] | [address] | [place] [address] | | | LABORATORY | | | | + + + + + HEPATITIS B SURFACE AG, SERUM (11/29/2010 3:14 PM PDT) + + + + + + | Component | Value | Ref Range | Performed | Pathologist | | | | | At | Signature | + + + + + + | HEPATITIS B | Negative | Negative | [facility] | | | SURFACE | | | REGIONAL | | | AG, SERUM | | | LABORATORY | | + + + + + + + + | Specimen | + + | Blood - Blood | + + + + + | Narrative | Performed At | + + + | [facility] | [place] | | [place] [address] | REGIONAL | | [place] [address] | LABORATORY | + + + + + + + + | Performing | Address | City/State/Zipcode | Phone Number | | Organization | | | | + + + + + | [facility] | [address] [facility] | [place] [address] | | | LABORATORY | | | | + + + + + C-REACT PRTN (FOR INFLAMMATION) (11/29/2010 3:14 PM PDT) + +---------+ + + + | Component | Value | Ref Range | Performed | Pathologist | | | | | At | Signature | + +---------+ + + + | C-REACTIVE | 1.6 (H) | <0.6 mg/dl | [facility] | | | PROTEIN | | | REGIONAL | | | | | | LABORATORY | | + +---------+ + + + + + | Specimen | + + | Blood - Blood | + + + + + | Narrative | Performed At | + + + | [facility]) | [facility] | | [facility] [address] | REGIONAL | | [place] [address] | LABORATORY | + + + + + + + + | Performing | Address | City/State/Zipcode | Phone Number | | Organization | | | | + + + + + | [facility] | [address] | [place] [address] | | | LABORATORY | | | [...] | + + + + + | [facility] | [address] | [place] [address] | | | PATHOLOGY | [address] [...] | + + + + + | [facility] | [address] | [place] [address] | | | PATHOLOGY | [address] [...] | | | DEPARTMENT | | | [facility] | | | OF | | | [...] + + + + + | [facility] | [address] | [place] [address] | | | PATHOLOGY | [address] | | | + + + + + RHEUMATOID FACTOR, SERUM (11/29/2010 3:14 PM PDT) + +-------+ + + + | Component | Value | Ref Range | Performed | Pathologist | | | | | At | Signature | + +-------+ + + + | RHEUMATOID | < 10 | <15 IU/mL | [facility] | | | FACTOR | | | REGIONAL | | | | | | LABORATORY | | + +-------+ + + + + + | Specimen | + + | Blood - Blood | + + + + + | Narrative | Performed At | + + + | [facility]) [place] | [place] | | [place] [address] | REGIONAL | | [place] [address] | LABORATORY | + + + + + + + + | Performing | Address | City/State/Zipcode | Phone Number | | Organization | | | | + + + + + | [facility] | [address] | [place] [address] | | | LABORATORY | | | [...] by | | | | | | [employer], | | | | | | | | | | | | [address] | | | | | | [place] [address] | | | | | | [phone] | | | | | | | | | | | | [email or web address], | | | | | | Gisella [...] [facility] | [address] | [place], [place] | | | [facility] | | [address] | | + + + + + | [facility] | [address] | [place], [place] | | | [facility] MAN[facility] | | [address] | | + + + + + [...] | + + + + + | [facility] | [address] | [place] [address] | | | PATHOLOGY | [address] | | | + + + + + X-RAY FOOT 1 VIEW BILATERAL (11/29/2010 3:04 [...] JULIO, | | | | | | MKadieReviewer: PAMELA JULIO, | | | | | [...] | | + +---------+ + + X-RAY HAND 1 VIEWS BILATERAL (11/29/2010 3:04 [...] JULIO, | | | | | | M.Adam.Reviewer: PAMELA JULIO, | | | | | [...] | | | + +---------+ + + LAB REPORTS (10/25/2009 12:00 AM PST) + + + | Narrative | Performed At | + + + | | | + + + + + | Procedure Note | + + | OtherRashmi - 10/25/2009 12:00 AM PST | | | + + documented in this encounter Visit Diagnoses + + | Diagnosis | + + | Rheumatoid arthritis(714.0) ([facility]) - Primary Rheumatoid arthritis | + + documented in this encounter
--- OUTSIDE RECORDS SUMMARY | ~2019-07-09 | XMS | Encounter Summary ---
Demographics + + + | Address | [address] | | | [place] [address] | + + + | Home Phone | | + + + | Preferred Language | Unknown | + + + | Marital Status | | + + + | Voodoo Affiliation | 1001 | + + + | Race | Unknown | + + + | Ethnic Group | Unknown | + + + Author + + + | Author | [facility] | | | and Teeana | + + + | Organization | [facility] | | | and Teeana | + + + | Address | Unknown | + + + | Phone | Unavailable | + + + Support + + + + + | Name | Relationship | Address | Phone | + + + + + | Norberto Mann | ECON | [address] | | | | | [place], [place] | | | | | [address] | | + + + + + Care Team Providers + +------+ + | Care Sample Paster Name | Role | Phone | + +------+ + PCP | Unavailable | + +------+ + Encounter Details +--------+ + + + + | Date | Type | Department | Care Team | Description | +--------+ + + + + | 12/17/ | Hospital | [facility] | Conversion | | | 2014 | Encounter | CENTER OUTPATIENT | Transaction, | | | | | PHYSICAL THERAPY | Provider Unknown | | | | | [address] | | | | | | [place], [place] | (Fax) | | | | | [address] | | | | | | [phone] | | | +--------+ + + + [...] Notes by Georgie Valencia PT at 12/17/14 9965 Author: Georgie Valencia PT Service: (none) Author Type: Physical Therapist Filed: 12/17/14 0822 Date of Service: 12/17/14 8376 Status: Signed Pipefitter: Georgie Valencia PT (Physical Therapist) Therapy Daily Treatment Note Date of Service: 12/17/2014 Treatment Time/Charges: Therapeutic Exercise 33928 x 3 (45 minutes) Insurance Authorization: 7 [...]
--- OUTSIDE RECORDS SUMMARY | ~2019-07-09 | XMS | Encounter Summary ---
Demographics + + + | Address | [address] | | | [place] [address] | + + + | Home Phone [...] Author | [facility] | | | and Teeana | + + + | Organization | [facility] | | | and Teeana | + + + | Address | Unknown | + + + | Phone | Unavailable | + + + Support + + + + + | Name | Relationship | Address | Phone | + + + + + | Norberto Mann | ECON | [address] | | | | | [place], [place] | | | | | [address] | | + + + + + Care Team Providers + +------+ + | Care Doughnut Batter Mixer Name | Role | Phone | + +------+ + PCP | Unavailable | + +------+ + Encounter Details +--------+ + + + + | Date | Type | Department | Care Team | Description | +--------+ + + + + | 12/30/ | Hospital | [facility] | Conversion | | | 2014 | Encounter | CENTER OUTPATIENT | Transaction, | | | | | PHYSICAL THERAPY | Provider Unknown | | | | | [address] | | | | | | [place], [place] | (Fax) | | | | | [address] | | | | | | [phone] | | | +--------+ + + + [...] Notes by Georgie Valencia PT at 12/30/14 7236 Author: Georgie Valencia PT Service: (none) Author Type: Physical Therapist Filed: 12/30/14 7640 Date of Service: 12/30/14 2564 Status: Signed Head Of Marketing Adometry: Georgie Valencia PT (Physical Therapist) Therapy Daily Treatment Note Date of Service: 12/30/2014 Treatment Time/Charges: Therapeutic Exercise 90298 x 1 (20 minutes), Manual Therapy 14792 x 2 (25 minutes) Insurance Authorization: 9 [...] well as planning her mother's 98th birthday alliance party (3 different parties) and states she has [...]
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
--- OUTSIDE RECORDS SUMMARY | ~2019-07-09 | XMS | Encounter Summary ---
Demographics + + + | Address | [address] | | | [place] [address] | + + + | Home Phone | | + + + | Preferred Language | Unknown | + + + | Marital Status | | + + + | Mormonism Affiliation | 1001 | + + + | Race | Unknown | + + + | Ethnic Group | Unknown | + + + Author + + + | Author | [facility] | | | and Teeana | + + + | Organization | [facility] | | | and Teeana | + + + | Address | Unknown | + + + | Phone | Unavailable | + + + Support + + + + + | Name | Relationship | Address | Phone | + + + + + | Norberto Mann | ECON | [address] | | | | | [place], [place] | | | | | [address] | | + + + + + Care Team Providers + +------+ + | Care Tank Insulator Rubber Name | Role | Phone | + +------+ + PCP | Unavailable | + +------+ + Encounter Details +--------+ + + + + | Date | Type | Department | Care Team | Description | +--------+ + + + + | 10/02/ | Hospital | [facility] | Conversion | Mastoiditis, right | | 2014 | Encounter | [facility] [address] | Transaction, | | | | | [address] | Provider Unknown | | | | | [place] | [phone] | | | | | [address] | | | | | | [phone] | | | +--------+ + + + [...]
--- OUTSIDE RECORDS SUMMARY | ~2019-07-09 | XMS | Encounter Summary ---
Demographics + + + | Address | [address] | | | [place] [address] | + + + | Home Phone [...] + | Norberto Oliveros | ECON | [address] | | | [place] | | [place] | | | | | [address] | | + + + + + Care Team Providers + +------+ + | Care Ceramic Tile Mechanic Name | Role | Phone | [...] 2004 | Registratio | Eduardo Sherman | [address] | | | | [address] | [address] Mailcode: [address] | [place], [place] | | | | | [place], [place] | [address] | | | | | [address] | [phone] | | | | | [phone] | | | +--------+ + + + [...] | uIU/ml | | | | | [facility] | | | | | | Laboratories. | | | | + + + + + + + + | Specimen | + + | | + + + + + + + | Performing | Address | City/State/Zipcode | Phone Number | | Organization | | | | + + + + + | [facility] | [address] | [place] [address] | | | LABORATORY | | | [...] Iron and TIBC, Serum Test performed by [facility] | | | [facility]. | | + + + + + + + + | Performing | Address | City/State/Zipcode | Phone Number | | Organization | | | | + + + + + | [facility] | [address] | [place] [address] | | | LABORATORY | | | [...] + + + | [facility] | [address] | [place] [address] | | | LABORATORY | | | [...] by | | | | | | [facility] | | | | | | [facility]. | | | | + + + + + + + + | Specimen | + + | | + + + + + + + | Performing | Address | City/State/Zipcode | Phone Number | | Organization | | | | + + + + + | [facility] | [address] | [place] [address] | | | LABORATORY | | | [...] [facility] | | | | | | [facility]. | | | | + + + + + + + + | Specimen | + + | | + + + + + + + | Performing | Address | City/State/Zipcode | Phone Number | | Organization | | | | + + + + + | [facility] | [address] | [place] [address] | | | LABORATORY | | | | + + + + + documented in this encounter Visit Diagnoses Not on filedocumented in this encounter"
--- OUTSIDE RECORDS SUMMARY | ~2019-07-09 | XMS | Encounter Summary ---
Demographics + + + | Address | [address] | | | [place] [address] | + + + | Home Phone | | + + + | Preferred Language | Unknown | + + + | Marital Status | | + + + | Scientologist Affiliation | ADV | + + + | Race | White | + + + | Ethnic Group | Not or | + + + Author + + + | Author | [facility] | + + + | Organization | [facility] | + + + | Address | Unknown | + + + | Phone | Unavailable | + + + Support + + + + + | Name | Relationship | Address | Phone | + + + + + | Norberto Oliveros | ECON | [address] | | | [place] | | [place] | | | | | [address] | | + + + + + Care Team Providers + +------+ + | Care Manager Of Sales Name | Role | Phone | + [...] | | 2015 | | Department at [facility] | MD [address] | | | | | Hospital [address] | [place], [place] | | | | | [address] [place], | [address] | | | | | [place] [address] | [phone] | | | | | [phone] | | | +--------+ + + + [...] + + + +---------+ + + | [place]-3 Fatty | Take 1 Cap [...] | + + + | [address] | [facility] | | [place] [address] | [facility] | | [phone] Name: CARLY MANN Phys: | RADIOLOGY | | MALATHI BENTLEY : 1950 Sex: F | | | CSN: [id number] MR# [id number] Exam Date: | | | 05/31/2016 EXAM: [...] Transcribed Date/Time: 05/31/2016 11:34 | | | Tower Observer: FLUENCY | | + + + + + | Procedure Note | + + | Interface, Radiology Results - 05/31/2016 11:39 AM PDT [address] | | [address] [place] [address] | | Name: CARLY MANN Phys: MALATHI BENTLEY : 1950 Sex: F | | CSN: [id number] MR# [id number] Exam Date: 05/31/2016 EXAM:X-RAY SPINE | | [...] | | |Transcribed Date/Time: 05/31/2016 11:34 | |Tower Observer: FLUENCY | | | | | | [...] | + + + | [address] [place] [address] | [facility] | | [place] [address] | [facility] | | [phone] Name: CARLY MANN Phys: | RADIOLOGY | | MALATHI BENTLEY : 1950 Sex: F | | | CSN: [id number] MR# [id number] Exam Date: | | | 05/31/2016 EXAM: [...] Transcribed Date/Time: 05/31/2016 11:32 | | | Tower Observer: FLUENCY | | + + + + + | Procedure Note | + + | Interface, Radiology Results - 05/31/2016 11:37 AM PDT [address] | | [place] [address] | | Name: CHASEMARYCARLY Phys: MALATHI BENTLEY : 1950 Sex: F | | CSN: [id number] MR# [id number] Exam Date: 05/31/2016 EXAM:X-RAY PELVIS 2 | [...] | | |Transcribed Date/Time: 05/31/2016 11:32 | |Tower Observer: FLUENCY | | | | | | | + + + +---------+ + + | Performing | Address | City/State[facility] | Phone Number | | Organization | [...] | + + + | [address] [place] [address] | [facility] | | [place] [address] | DEPARTMENT | | [phone] Name: CARLY MANN Phys: | RADIOLOGY | | MALATHI BENTLEY : 1950 Sex: F | | | CSN: [id number] MR# [id number] Exam Date: | | | 05/31/2016 EXAM: [...] | | | Transcribed Date/Time: 05/31/2016 11:41 Tower Observer: FLUENCY | | | | | + + + + + | Procedure Note | + + | Interface, Radiology Results - 05/31/2016 11:46 AM PDT [address] | | [address] [place] [address] | | Name: JOHNATHANCARLY Phys: MALATHI BENTLEY : 1950 Sex: F | | CSN: [id number] MR# [id number] Exam Date: 05/31/2016 EXAM:X-RAY SPINE | | [...] | | |Transcribed Date/Time: 05/31/2016 11:41 | |Tower Observer: FLUENCY | | | | | | [...] | + + + | [address] | [facility] | | [place] [address] [facility] | | [phone] Name: CARLY MANN Phys: | RADIOLOGY | | MALATHI BENTLEY : 1950 Sex: F | | | CSN: [id number] MR# [id number] Exam Date: | | | 05/31/2016 EXAM: [...] Transcribed Date/Time: 05/31/2016 11:32 | | | Tower Observer: FLUENCY | | + + + + + | Procedure Note | + + | Interface, Radiology Results - 05/31/2016 11:37 AM PDT [address] | | [address] [place] [address] | | Name: CARLY MANN Phys: MALATHI BENTLEY : 1950 Sex: F | | CSN: [id number] MR# [id number] Exam Date: 05/31/2016 EXAM:X-RAY PELVIS 2 | [...] | | |Transcribed Date/Time: 05/31/2016 11:32 | |Tower Observer: NOELLE | | | | | | [...] | + + + | [address] [place] [address] | [facility] | | [place] [address] | DEPARTMENT OF | | [phone] Name: CARLY MANN Phys: | RADIOLOGY | | MALATHI BENTLEY : 1950 Sex: F | | | CSN: [id number] MR# [id number] Exam Date: | | | 05/31/2016 EXAM: [...] Transcribed Date/Time: | | | 05/31/2016 11:29 Tower Observer: FLUENCY | | + + + + + | Procedure Note | + + | Interface, Radiology Results - 05/31/2016 11:34 AM PDT [address] | | [address] [place] [address] | | Name: CARLY MANN Phys: BENTLEYMALATHI B : 1950 Sex: F | | CSN: [id number] MR# [id number] Exam Date: 05/31/2016 EXAM:CT HEAD AND SPINE [...] | | |Transcribed Date/Time: 05/31/2016 11:29 | |Tower Observer: FLUENCY | | | | | | | + + + +---------+ + + | Performing | Address | City/State/[facility] | Phone Number | | Organization | [...]
--- OUTSIDE RECORDS SUMMARY | ~2019-07-09 | XMS | Encounter Summary ---
Demographics + + + | Address | [address] | | | [place] [address] | + + + | Home Phone [...] | Author | [facility] | | | and Teeana | + + + | Organization | [facility] | | | and [place]eeana | + + + | Address | Unknown | + + + | Phone | Unavailable | + + + Support + + + + + | Name | Relationship | Address | Phone | + + + + + | Norberto Mann | ECON | [address] | | | | | [place], [place] | | | | | [address] | | + + + + + Care Team Providers + +------+ + | Care Telegraphic Typewriter Mechanic Name | Role | Phone | [...] | | | | Procedures | | [phone] | | | | | [place] DILATION | | Fax: | | | | | OF SALIVARY | | [phone] | | | | | DUCT | | | +--------+--------+ + + + + Encounter Details +--------+ + + + + | Date | Type | Department | Care Team | Description | +--------+ + + + + | 08/09/ | Hospital | [facility] | Floyd Baldwin | | | 2015 | Encounter | [facility] | DO Alex [address] | | | | | [address] | Antonette Avcaio. | | | | | [place] | [place] | | | | | [address] | [phone] | | | | | [phone] | | | +--------+ + + + [...] interact with your prescription medicines or other nlcw-kck-snyiont (OTC) drugs. Some pr escription medicines have [...] the possible dangers of taking these medicines. 0838-1261 [employer]. [address] [place] [address], [place] [address]. All righ ts reserved. This information is [...] + + | WIL[facility]ON[facility]ALE[facility] | [address] | [place] [address] | | | [facility] | | | | | LABORATORY [...]
--- OUTSIDE RECORDS SUMMARY | ~2019-07-09 | XMS | Encounter Summary ---
Demographics + + + | Address | [address] | | | [place] [address] | + + + | Home Phone [...] + | Author | [facility] | | | and Teeana | + + + | Organization | [facility] | | | and [place]ee[place] | + + + | Address | Unknown | + + + | Phone | Unavailable | + + + Support + + + + + | Name | Relationship | Address | Phone | + + + + + | Norberto Mann | ECON | [address] | | | | | [place] | | | | | [address] | | + + + + + Care Team Providers + +------+ + | Care Drive Shaft And Steering Post Repairer Name | Role | Phone | + +------+ + | Humberto Ruby MD | PCP | | + +------+ + Encounter Details +--------+ + + + + | Date | Type | Department | Care Team | Description | +--------+ + + + + | 05/27/ | Orders Only | [facility] | Anthony Maynard, | | | 2014 | | NOSE AND THROAT [address] | DO | | | | | [address] | | | | | | [place], [place] | | | | | | [address] | | | | | | [phone] | | | +--------+ + + + [...]
--- OUTSIDE RECORDS SUMMARY | ~2019-07-09 | XMS | Encounter Summary ---
Demographics + + + | Address | [address] | | | [place] [address] | + + + | Home Phone [...] + | Norberto Oliveros | ECON | [address] | | | [place] | | [place] | | | | | [address] | | + + + + + Care Team Providers + +------+ + | Care Beck Operator Name | Role | Phone | [...] | | | Whit Davis Mailcode: | [place], [place] | | | | | [address] | [address] | | | | | [address], [address] Floor | [phone] | | | | | [place], [place] | | | | | | [address] | | | | | | [phone] | | | +--------+--------+ + + + [...]
--- OUTSIDE RECORDS SUMMARY | ~2019-07-09 | XMS | Encounter Summary ---
Demographics + + + | Address | [address] | | | [place] [address] | + + + | Home Phone | | + + + | Preferred Language | Unknown | + + + | Marital Status | | + + + | Jewish Affiliation | ADV | + + + | Race | White | + + + | Ethnic Group | Not or | + + + Author + + + | Author | [facility] | + + + | Organization | [facility] | + + + | Address | Unknown | + + + | Phone | Unavailable | + + + Support + + + + + | Name | Relationship | Address | Phone | + + + + + | Norberto Oliveros | ECON | [address] | | | [place] | | [place] | | | | | [address] | | + + + + + Care Team Providers + +------+ + | Care Organizational Effectiveness Consultant Name | Role | Phone | [...] | | | Whit Davis Mailcode: | [place], [place] | | | | | [address] | [address] | | | | | [address], [address] | [phone] | | | | | [place], [place] | | | | | | [address] | | | | | | [phone] | | | +--------+ + + + [...]
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
--- OUTSIDE RECORDS SUMMARY | ~2019-07-09 | XMS | Encounter Summary ---
Demographics + + + | Address | [address] | | | [place] [address] | + + + | Home Phone | | + + + | Preferred Language | Unknown | + + + | Marital Status | | + + + | Bahai Affiliation | 1001 | + + + | Race | Unknown | + + + | Ethnic Group | Unknown | + + + Author + + + | Author | [facility] | | | and Teeana | + + + | Organization | [facility] | | | and Teeana | + + + | Address | Unknown | + + + | Phone | Unavailable | + + + Support + + + + + | Name | Relationship | Address | Phone | + + + + + | Norberto Mann | ECON | [address] | | | | | [place], [place] | | | | | [address] | | + + + + + Care Team Providers + +------+ + | Care Commercial Drone Pilot Name | Role | Phone | + [...] | MED CTR EXTERNAL | MD [address] | | | | | IMAGING | Annmarie Nogueira. [place] | | | | | [phone] | [place] [address] | | +--------+ + + + + [...]
--- OUTSIDE RECORDS SUMMARY | ~2019-07-09 | XMS | Clinical Summary ---
Demographics + + + | Address | [address] | | | [place] [address] | + + + | Home Phone | | + + + | Preferred Language | Unknown | + + + | Marital Status | | + + + | Mosque Affiliation | 1001 | + + + | Race | Unknown | + + + | Ethnic Group | Unknown | + + + Author + + + | Author | [facility] | | | and Teeana | + + + | Organization | [facility] | | | and Teeana | + + + | Address | Unknown | + + + | Phone | Unavailable | + + + Support + + + + + | Name | Relationship | Address | Phone | + + + + + | Norberto Mann | ECON | [address] | | | | | [place] | | | | | [address] | | + + + + + Care Team Providers + +------+ + | Care Partnership Manager Name | Role | Phone | [...] | | | 11 | taken for terminal superintendent | + + + + + + [...] | | Activ | | (VITAMIN D2) [id number] | mouth every 7 days. | | [...] | NA UNKNOWN | | 09/13/ | [id number] | | 07/14/2014 by Troy Mazariegos, | | Abdome | | | 2019 | /NA | | MD | | n | | | | /HUXK1 | | | | | | | | 664 | + +------+--------+ +--------+--------+--------+ | Tube Wayne Lott W/O Piter | | | [employer] - | | | 10- | | - [id number]: Qty: 1 | | | MEDT | | | 62 / | | on 11/05/2014 | | | | | | /[id number] | | | | | | | | [address]23 | + +------+--------+ +--------+--------+--------+ Results Not on [...] +--------+ +---------+--------+ | MEDICARE | MEDICA | [id number] | 03/27/20 | [phone] | | Medica | | | RE | | 14-Pre | 5 | | re | | | PART A | | sent | | | | | | AND B | | | | | | + +--------+ +--------+ +---------+--------+ | CIGNA | CIGNA | [id number] | | [phone] | | Indemn | [...] Person | Self | [birth year] | [address] | | | al/Fam | | 1950 | [phone] | [place] [address] | | | elissa | | | 0 (Home) | | + +--------+ +--------+ + + Advance Directives + + + + + | Type | Date Recorded | Patient | Explanation | | | | Patternmaker Sample | | + + + + + | Power of | | | | | Warp Spooler | | | | + + + [...]
--- OUTSIDE RECORDS SUMMARY | ~2019-07-09 | XMS | Encounter Summary ---
Demographics + + + | Address | [address] | | | [place] [address] | + + + | Home Phone | | + + + | Preferred Language | Unknown | + + + | Marital Status | | + + + | Yarsanism Affiliation | 1001 | + + + | Race | Unknown | + + + | Ethnic Group | Unknown | + + + Author + + + | Author | [facility] | | | and Teeana | + + + | Organization | [facility] | | | and Teeana | + + + | Address | Unknown | + + + | Phone | Unavailable | + + + Support + + + + + | Name | Relationship | Address | Phone | + + + + + | Norberto Mann | ECON | [address] | | | | | [place], [place] | | | | | [address] | | + + + + + Care Team Providers + +------+ + | Care Residence Leasing Agent Name | Role | Phone | + +------+ + PCP | Unavailable | + +------+ + Encounter Details +--------+ + + + + | Date | Type | Department | Care Team | Description | +--------+ + + + + | 12/15/ | Hospital | [facility] | Conversion | | | 2014 | Encounter | CENTER OUTPATIENT | Transaction, | | | | | PHYSICAL THERAPY | Provider Unknown | | | | | [address] | | | | | | [place], [place] | (Fax) | | | | | [address] | | | | | | [phone] | | | +--------+ + + + [...] Notes by Georgie Valencia PT at 12/15/14 9186 Author: Georgie Valencia PT Service: (none) Author Type: Physical Therapist Filed: 12/15/14 0398 Date of Service: 12/15/14 1722 Status: Signed Truck Body Repairer: Georgie Valencia PT (Physical Therapist) Therapy Daily Treatment Note Date of Service: 12/15/2014 Treatment Time/Charges: Manual Therapy 83220 x 3 (45 minutes) Insurance Authorization: 6 [...] is waiting for her tax returns to [employer] in [place] to initiate an internal home program. Per [...]
--- OUTSIDE RECORDS SUMMARY | ~2019-07-09 | XMS | Encounter Summary ---
Demographics + + + | Address | [address] | | | [place] [address] | + + + | Home Phone | | + + + | Preferred Language | Unknown | + + + | Marital Status | | + + + | Mandaen Affiliation | ADV | + + + | Race | White | + + + | Ethnic Group | Not or | + + + Author + + + | Author | [facility] | + + + | Organization | [facility] | + + + | Address | Unknown | + + + | Phone | Unavailable | + + + Support + + + + + | Name | Relationship | Address | Phone | + + + + + | Norberto Oliveros | ECON | [address] | | [place] | | [place] | | | | | [address] | | + + + + + Care Team Providers + +------+ + | Care Environmental Monitoring Specialist Name | Role | Phone | [...] | | | | | ear | [place], | Mailcode: | | | | | Procedures | [place] | [address] | | | | | CONSULT TO | [address] | Physician's | | | | | ENT / | Phone: | Miriam | | | | | OTOLARYNGOLO | [phone] | [place], [place] | | | | | [place] | Fax: | [address] | | | | | | [phone] | Phone: | | | | | | | [phone] | | | | | | | Fax: | | | | | | | [phone] | +--------+--------+ + + + + Reason [...] | | | | | | [place] [address] | 5th Floor | | | | | | Phone: | [place], [place] | | | | | | [phone] | [address] | | | | | | Fax: | Phone: | | | | | | [phone] | [phone] | | | | | | | Fax: | | | | | | | [phone] | +--------+--------+ + + + + Encounter Details +--------+---------+ + + + | Date | Type | Department | Care Team | Description | +--------+---------+ + + + | 06/12/ | Office | [facility] | Mayte, Jaquelin Bolton, | Conductive hearing | | 2016 | Visit | Center at [facility] [address] | PA-C [address] | loss, middle ear | | | | [address] | Ave [place], [place] | (Primary Dx); | | | | Mailcode: [facility] | [address] | Chronic rhinitis | | | | [facility] | [phone] | | | | | and Healing, | | | | | | Building [address], 5th | | | | | | Floor [facility] [place] | | | | | | [address] | | | | | | [phone] | | | +--------+---------+ + + + [...] Hu PA-C - 06/12/2016 3:23 PM PDT [facility] HPI: Carly Mann is a 66 y.o. female who presents to the [facility] facial pain. She has a [...] a CT of the sinuses done at [facility] in [facility], [place] about 3-4 weeks ago. She has used u sed Flonase and irrigations in the past. SINO NASAL OUTCOMES TEST SCORE: 89 Current Outpatient Prescriptions Medication Sig acetaminophen 500 mg oral tablet Take by mouth. arginine 500 mg Oral Tablet Take 1,000 mg by mouth two times daily. ARGININE-PYROGLUTAMATE (V-BUFFKVIG-G-PYROGLUTAM, BULK, MISC) Take 1,000 mg by mouth. [...] Take 1 Tab by mouth once daily. Fairchild-3 Fatty Acids-Vitamin E (FISH OIL) 1,000 mg [...] | + +--------+ + + + | NM NASAL | Routin | 06/14/2016 | Chronic [...]
--- OUTSIDE RECORDS SUMMARY | ~2019-07-09 | XMS | Encounter Summary ---
Demographics + + + | Address | [address] | | | [place] [address] | + + + | Home Phone [...] Author | [facility] | | | and Teeana | + + + | Organization | [facility] | | | and Teeana | + + + | Address | Unknown | + + + | Phone | Unavailable | + + + Support + + + + + | Name | Relationship | Address | Phone | + + + + + | Norberto Mann | ECON | [address] | | | | | [place], [place] | | | | | [address] | | + + + + + Care Team Providers + +------+ + | Care Limousine And Hearse Upholsterer Name | Role | Phone | + +------+ + PCP | Unavailable | + +------+ + Encounter Details +--------+ + + + + | Date | Type | Department | Care Team | Description | +--------+ + + + + | 07/02/ | Hospital | [facility] | Conversion | | | 2013 | Encounter | CENTER PREADMIT | Transaction, | | | | | CLINIC [address] | Provider Unknown | | | | | [place], [place] | | | | | | [address] | (Fax) | | | | | [phone] | | | +--------+ + + + [...] | EXTERNAL LAB: CBC | Routin | 07/02/2014 | | Results for this | | | e | 4:15 PM | | procedure are in the | | | | PST | | results section. | + +--------+ + + + | COMPREHENSIVE | Routin | 07/02/2014 | | Results for this | | METABOLIC PANEL | e | 4:15 PM | | procedure are in the | | | | PST | | results section. | + +--------+ + + + documented in this encounter Results External Lab: CBC (07/02/2014 4:15 PM PST) + + + + + + | Component | Value | Ref Range | Performed | Pathologist | | | | | At | Signature | + + + + + + | WBC | 8.2Comment: Testing | 3.8 - 11.0 K/uL | EXTERNAL | | | | performed at [facility], [address] | | LAB | | | | [address], | | | | | | [place] [address] | | | | + + + + + + | RED CELL | 5.26 (H)Comment: Testing | 3.70 - 5.10 | EXTERNAL | | | COUNT | performed at [facility], [address] | M/uL | LAB | | | | [address], | | | | | | [place] [address] | | | | + + + + + + | Hgb | 15.5Comment: Testing | 11.3 - 15.5 | EXTERNAL | | | | performed at [facility], [address] | g/dL | LAB | | | | [address], | | | | | | [place] [address] | | | | + + + + + + | Hematocrit, | 46.5 (H)Comment: Testing | 34.0 - 46.0 % | EXTERNAL | | | POC | performed at [facility], [address] | | LAB | | | | [address], | | | | | | [place] [address] | | | | + + + + + + | MCV | 88.5Comment: Testing | 80.0 - 100.0 fl | EXTERNAL | | | | performed at [facility], [address] | | LAB | | | | [address], | | | | | | [place] [address] | | | | + + + + + + | MCH | 29.5Comment: Testing | 27.0 - 34.0 pg | EXTERNAL | | | | performed at [facility], [address] | | LAB | | | | [address], | | | | | | [place] [address] | | | | + + + + + + | MCHC | 33.3Comment: Testing | 32.0 - 35.5 | EXTERNAL | | | | performed at [facility], [address] | g/dL | LAB | | | | [address], | | | | | | [place] [address] | | | | + + + + + + | RDW-CV | 42.9Comment: Testing | 37 - 53 fl | EXTERNAL | | | | performed at [facility], [address] | | LAB | | | | [address], | | | | | | [place] [address] | | | | + + + + + + | Platelet | 123 (L)Comment: Testing | 150 - 400 K/uL | EXTERNAL | | | Count | performed at [facility], [address] | | LAB | | | Plasma | [address], | | | | | | [place] [address] | | | | + + + + + + | MPV | 9.8Comment: Testing | fl | EXTERNAL | | | | performed at [facility], [address] | | LAB | | | | [address], | | | | | | [place] [address] | | | | + + + + + + | Differentia | AUTOMATEDComment: | | EXTERNAL | | | l Type | Testing performed at | | LAB | | | | [facility], [address] | | | | | | [place] | | | | | | [address] | | | | + + + + + + | % Segmented | 69.8Comment: Testing | % | EXTERNAL | | | | performed at [facility], [address] | | LAB | | | Neutrophils | [address], | | | | | | [place] [address] | | | | + + + + + + | % | 22.8Comment: Testing | % | EXTERNAL | | | Lymphocytes | performed at [facility], [address] | | LAB | | | | [address], | | | | | | [place] [address] | | | | + + + + + + | % Monocytes | 6.0Comment: Testing | % | EXTERNAL | | | | performed at [facility], [address] | | LAB | | | | [address], | | | | | | [place] [address] | | | | + + + + + + | % | 1.0Comment: Testing | % | EXTERNAL | | | Eosinophils | performed at [facility], [address] | | LAB | | | | [address], | | | | | | [place] [address] | | | | + + + + + + | % Basophils | 0.4Comment: Testing | % | EXTERNAL | | | | performed at [facility], [address] | | LAB | | | | [address], | | | | | | [place] [address] | | | | + + + + + + | Absolute | 5.7Comment: Testing | 1.9 - 7.4 K/uL | EXTERNAL | | | Segmented | performed at [facility], [address] | | LAB | | | Neutrophils | [address], | | | | | | [place] [address] | | | | + + + + + + | Absolute | 1.9Comment: Testing | 1.0 - 3.9 K/uL | EXTERNAL | | | Lymphocytes | performed at [facility], [address] | | LAB | | | | [address], | | | | | | [place] [address] | | | | + + + + + + | Absolute | 0.5Comment: Testing | 0 - 0.8 K/uL | EXTERNAL | | | Monocytes | performed at [facility], [address] | | LAB | | | | [address], | | | | | | [place] [address] | | | | + + + + + + | Absolute | 0.1Comment: Testing | 0 - 0.5 K/uL | EXTERNAL | | | Eosinophils | performed at [facility], [address] | | LAB | | | | [address], | | | | | | [place] [address] | | | | + + + + + + | Absolute | 0.0Comment: Testing | 0 - 0.1 K/uL | EXTERNAL | | | Basophils | performed at [facility], [address] | | LAB | | | | [address], | | | | | | [place] [address] | | | | + + + + + + + + | Specimen | + + | Blood specimen | | (specimen) | + + + +---------+ + + | Performing | Address | City/State/Zipcode | Phone Number | | Organization | | | | + +---------+ + + | EXTERNAL LAB | | | | + +---------+ + + Comprehensive Metabolic Panel (07/02/2014 4:15 PM PST) + + + + + + | Component | Value | Ref Range | Performed | Pathologist | | | | | At | Signature | + + + + + + | Na | 138Comment: Testing | 135 - 143 | EXTERNAL | | | | performed at [facility], [address] | mmol/L | LAB | | | | [address], | | | | | | [place] [address] | | | | + + + + + + | K | 3.8Comment: Testing | 3.5 - 4.9 | EXTERNAL | | | | performed at [facility], [address] | mmol/L | LAB | | | | [address], | | | | | | [place] [address] | | | | + + + + + + | Cl | 106Comment: Testing | 99 - 109 mmol/L | EXTERNAL | | | | performed at [facility], [address] | | LAB | | | | [address], | | | | | | [place] [address] | | | | + + + + + + | CO2 | 28Comment: Testing | 23 - 32 mmol/L | EXTERNAL | | | | performed at [facility], [address] | | LAB | | | | [address], | | | | | | [place] [address] | | | | + + + + + + | Anion Gap | 8Comment: Testing | 5 - 20 mmol/L | EXTERNAL | | | | performed at [facility], [address] | | LAB | | | | [address], | | | | | | [place] [address] | | | | + + + + + + | Glucose, | 94Comment: Testing | 65 - 99 mg/dL | EXTERNAL | | | Fasting | performed at [facility], [address] | | LAB | | | | [address], | | | | | | [place] [address] | | | | + + + + + + | BUN | 18Comment: Testing | 8 - 25 mg/dL | EXTERNAL | | | | performed at [facility], [address] | | LAB | | | | [address], | | | | | | [place] [address] | | | | + + + + + + | Creatinine | 0.64Comment: Testing | 0.50 - 1.00 | EXTERNAL | | | | performed at [facility], [address] | mg/dL | LAB | | | | [address], | | | | | | [place] [address] | | | | + + + + + + | BUN/Creatin | 28Comment: Testing | | EXTERNAL | | | ine Ratio | performed at [facility], [address] | | LAB | | | | [address], | | | | | | [place] [address] | | | | + + + + + + | Calcium | 9.7Comment: Testing | 8.5 - 10.2 | EXTERNAL | | | | performed at [facility], [address] | mg/dL | LAB | | | | [address], | | | | | | [place] [address] | | | | + + + + + + | Protein, | 6.7Comment: Testing | 6.3 - 8.2 g/dL | EXTERNAL | | | Total | performed at [facility], [address] | | LAB | | | | [address], | | | | | | [place] [address] | | | | + + + + + + | Albumin | 4.5Comment: Testing | 3.3 - 4.8 g/dL | EXTERNAL | | | | performed at [facility], [address] | | LAB | | | | [address], | | | | | | [place] [address] | | | | + + + + + + | Globulin | 2.2Comment: Testing | 1.3 - 4.9 g/dL | EXTERNAL | | | | performed at [facility], [address] | | LAB | | | | [address], | | | | | | [place] [address] | | | | + + + + + + | A/G Ratio | 2.0Comment: Testing | 1.0 - 2.4 | EXTERNAL | | | | performed at [facility], [address] | | LAB | | | | [address], | | | | | | [place] [address] | | | | + + + + + + | Bilirubin | 0.4Comment: Testing | 0.1 - 1.5 mg/dL | EXTERNAL | | | Total | performed at [facility], [address] | | LAB | | | | [address], | | | | | | [place] [address] | | | | + + + + + + | ALP, | 83Comment: Testing | 35 - 115 U/L | EXTERNAL | | | External | performed at [facility], [address] | | LAB | | | | [address], | | | | | | [place] [address] | | | | + + + + + + | AST | 21Comment: Testing | 10 - 45 U/L | EXTERNAL | | | | performed at [facility], [address] | | LAB | | | | [address], | | | | | | [place] [address] | | | | + + + + + + | ALT | 13Comment: Testing | 10 - 65 U/L | EXTERNAL | | | | performed at [facility], [address] | | LAB | | | | [address], | | | | | | [place] [address] | | | | + + + [...] | | | | | | at [facility], [address] | | | | | | [address], | | | | | | [place] [address] | | | | + + + [...]
--- OUTSIDE RECORDS SUMMARY | ~2019-07-09 | XMS | Encounter Summary ---
Demographics + + + | Address | [address] | | | [place] [address] | + + + | Home Phone | | + + + | Preferred Language | Unknown | + + + | Marital Status | | + + + | Sikh Affiliation | 1001 | + + + | Race | Unknown | + + + | Ethnic Group | Unknown | + + + Author + + + | Author | [facility] | | | and Teeana | + + + | Organization | [facility] | | | and [place] | + + + | Address | Unknown | + + + | Phone | Unavailable | + + + Support + + + + + | Name | Relationship | Address | Phone | + + + + + | Norberto Mann | ECON | [address] | | | | | [place], [place] | | | | | [address] | | + + + + + Care Team Providers + +------+ + | Care Director Print Name | Role | Phone | + [...] | | | s [K11.20] | | [address] Phone: | | | | | Procedures | | [phone] | | | | | IN REMOVAL | | Fax: | | | | | SUBMAND | | [phone] | | | | | STONE,COMPLI | | | | | | | CATED IN | | | | | | | DILATION OF | | | | | | | SALIVARY | | | | | | | DUCT IN | | | | | | | SALIVARY | | | | | | | SURG | | | | | | | UNLISTED | | | | | | | PROC | | | +--------+--------+ + + + + Encounter Details +--------+---------+ + + + | Date | Type | Department | Care Team | Description | +--------+---------+ + + + | 08/06/ | Surgery | [facility] | [facility] | ENDOSCOPIC [facility] | | 2016 | | [facility] | DO Alex [address] | [place] | | | | OP [address] | [address] | | | | | [place] | [place] | | | | | [address] | [phone] | | | | | [phone] | | | +--------+---------+ + + + [...] of weeks how you are doing. My entry level assistant manager's number is [phone] Call Surgeon if you have: Temperature greater [...] were given medicine called anesthesia to fatou murphy you relaxed and free of pain. After [...] interact with your prescription medicines or other phoi-nda-phlrfmg (OTC) medicines. Some prescription medicines have acetaminophen and other ingredients.Using both prescription a nd OTC acetaminophenfor paincan cause you to overdose. Readthe labels on your OTC medi cineswith care. This will help youto clearly know [...] of taking these medicines. Date Last Reviewed: 07/27/201619993175-8165 [employer]. [address] [place] [address], [place] [address]. All righ ts reserved. This information is [...] | TRACEMASTER | | Duration:168 msP Horizontal [place]:17 degP Front [place]:38 degQ Onset:512 | | | msQRSD Interval:80 msQT Interval:392 msQTcB:423 msQTcF:413 msQRS | | | Horizontal [place]:-7 degQRS [place]:-6 degI-40 Horizontal [place]:70 degI-40 | | | Front [place]:125 degT-40 Horizontal [place]:-29 degT-40 Front [place]:-10 degT | | | Horizontal [place]:45 degT Wave [place]:34 degS-T Horizontal [place]:59 degS-T | | | Front [place]:33 degSeverity:- NORMAL ECG -INTERP:SINUS | | | RHYTHMElectronically signed by: Lily RYAN 08-06-2017 12:02:59 | | |QT Interval:392 ms | | |QTcB:423 ms | | |QTcF:413 ms | | |QRS Horizontal [place]:-7 deg | | |QRS [place]:-6 deg | | |I-40 Horizontal [place]:70 deg | | |I-40 Front [place]:125 deg | | |T-40 Horizontal [place]:-29 deg | | |T-40 Front [place]:-10 deg | | |T Horizontal [place]:45 deg | | |T Wave [place]:34 deg | | |S-T Horizontal [place]:59 deg | | |S-T Front [place]:33 deg | | |Severity:- NORMAL ECG - | | |INTERP:SINUS RHYTHM | | |Electronically signed by: Lily RYAN 08-06-2017 12:02:59 | | + + + + + + + + | Performing | Address | City/State/Zipcode | Phone Number | | Organization | | | | + + + + + | [facility] | [address] | [place] [address] | [phone] | + + + + + POC [...] + + | [facility] | [address] | [place] [address] | | | [facility] | | | | | LABORATORY [...] documented in this encounter Administered Medications + +--------+---------+------+------+------+ [...] | administration instructions, | | | Starting Sun08/06/17 at 0928, | | | Only for [...] see admin instruction, | | | Starting 08/06/17 at 0928, | | | For BG [...] | +---+---+ + +-------+ +--------+---+ + | methylPREDNISolone acetate | Given | 08/06/20 | 50 mLs | | Surgical | | (DEPO-MEDROL) 80 mg in sodium | | 17 10:54 | | | Site | | chloride for irrigation 0.9% 50 | | AM PST | | | | | mL OpTesia mixture PRN, Starting | | | | | | | 08/06/17 at 1054, Intra-op | | | | | | + +-------+ +--------+---+ + + +---+ | | | + +---+ [...]
--- OUTSIDE RECORDS SUMMARY | ~2019-07-09 | XMS | Encounter Summary ---
Demographics + + + | Address | [address] | | | [place] [address] | + + + | Home Phone | | + + + | Preferred Language | Unknown | + + + | Marital Status | | + + + | Bahai Affiliation | ADV | + + + [...] + | Zane Oliveros | ECON | [address] | | | Johnathan | | [place] | | | | | [address] | | + + + + + Care Team Providers + +------+ + | Care Chief Clinical Dietitian Name | Role | Phone | + [...] Sherman | | | | | 4.0) ([facility]) | [address] | Rd | | | | | Procedures | Rd | Mailcode: | | | | | MRI HAND RT | [place], [place] | [address] | | | | | W[address] CONT | [address] | Meno | | | | | | Phone: | Research | | | | | | [phone] | [address] | | | | | | Fax: | [place], [place] | | | | | | [phone] | [address] | | | | | | | Phone: | | | | | | | [phone] | | | | | | | Fax: | | | | | | | [phone] | +--------+--------+ + + + + Reason [...] Sherman | | | | | 4.0) ([facility]) | [address] | Rd | | | | | Procedures | Rd | Mailcode: | | | | | MRI HAND RT | [place], [place] | [address] | | | | | W[address] CONT | [address] | Meno | | | | | | Phone: | Research | | | | | | [phone] | [address] | | | | | | Fax: | [place], [place] | | | | | | [phone] | [address] | | | | | | | Phone: | | | | | | | [phone] | | | | | | | Fax: | | | | | | | [phone] | +--------+--------+ + + + + Encounter Details +--------+ + + + + | Date | Type | Department | Care Team | Description | +--------+ + + + + | 03/28/ | Hospital | Diagnostic Imaging | | | | 2010 | Encounter | Services at [facility] | | | | | | [address] | | | | | | Whit Davis Mailcode: | | | | | | [address] | | | | | | [facility] | | | | | | [place], [place] | | | | | | [address] | | | | | | [phone] | | | +--------+ + + + [...] + + + +---------+ + + | Maurice-3 Fatty | Take 1 Cap by mouth [...] | | + +---------+ + + | [facility] DEPARTMENT OF | | | | [...] FISCHER | [address] | [place], [place] | | | CONNOR POINT OF CARE | [address] | [address] | | | TESTS | | | | + + + + + documented in this encounter Visit Diagnoses + + | Diagnosis | + + | Rheumatoid arthritis(714.0) ([facility]) Rheumatoid arthritis | + + documented in this encounter"
--- OUTSIDE RECORDS SUMMARY | ~2019-07-09 | XMS | Encounter Summary ---
Demographics + + + | Address | [address] | | | [place] [address] | + + + | Home Phone | | + + + | Preferred Language | Unknown | + + + | Marital Status | | + + + | Roman Catholic Affiliation | ADV | + + + | Race | White | + + + | Ethnic Group | Not or | + + + Author + + + | Author | [facility] | + + + | Organization | [facility] | + + + | Address | Unknown | + + + | Phone | Unavailable | + + + Support + + + + + | Name | Relationship | Address | Phone | + + + + + | Norberto Oliveros | ECON | [address] | | | Johnathan | | [place] | | | | | [address] | | + + + + + Care Team Providers + +------+ + | Care Measurer Name | Role | Phone | + [...] | | [facility] | [place], [place] | | | | | Miriam [address] | [address] | | | | | [address] | [phone] | | | | | Physician's | | | | | | Miriam | | | | | | Physician's Miriam | | | | | | [place], [place] | | | | | | [address] | | | | | | [phone] | | | +--------+ + + + [...]
--- OUTSIDE RECORDS SUMMARY | ~2019-07-09 | XMS | Encounter Summary ---
Demographics + + + | Address | [address] | | | [place] [address] | + + + | Home Phone [...] + | Norberto Oliveros | ECON | [address] | | | Johnathan | | [place] | | | | | [address] | | + + + + + Care Team Providers + +------+ + | Care Financial Underwriter Name | Role | Phone | + [...] 2010 | Encounter | [facility] | [address] | surgery | | | | [facility] | [place], [place] | | | | | [address] | [address] | | | | | [address] | [phone] | | | | | Physician's | | | | | | [address] | | | | | | [place], [place] | | | | | | [address] | | | | | | [phone] | | | +--------+ + + + [...]
--- OUTSIDE RECORDS SUMMARY | ~2019-07-09 | XMS | Encounter Summary ---
Demographics + + + | Address | [address] | | | [place] [address] | + + + | Home Phone | | + + + | Preferred Language | Unknown | + + + | Marital Status | | + + + | Christianity Affiliation | ADV | + + + | Race | White | + + + | Ethnic Group | Not or | + + + Author + + + | Author | [facility] | + + + | Organization | [facility] | + + + | Address | Unknown | + + + | Phone | Unavailable | + + + Support + + + + + | Name | Relationship | Address | Phone | + + + + + | Norberto Oliveros | ECON | [address] | | | Johnathan | | [place] | | | | | [address] | | + + + + + Care Team Providers + +------+ + | Care General Foundry Worker Name | Role | Phone | [...] | [address] | [address] | | | | | 4.0) ([facility]) | [address] | [place] | | | | | Procedures | Rd | [place], [place] | | | | | CONSULT TO | [place], [place] | [address] | | | | | ENDO | [address] | Phone: | | | | | [address] | Phone: | [phone] | | | | | [address] | [phone] | Fax: | | | | | | Fax: | [phone] | | | | | | [phone] | | +--------+ + + + + [...] Physicians Miriam | [address] | ([facility]) (Primary Dx) | | | | [address] | [address] | | | | | Whit Davis Mailcode: | [place], [place] | | | | | [address] Physician's | [address] | | | | | Miriam, 4th Floor | [phone] | | | | | [place], [place] | | | | | | [address] | | | | | | [phone] | | | +--------+---------+ + + + [...] This consultation was requested by: PATRICIA PAEZ [facility] [address] [place] [address] fax: [phone] CC: Chief Complaint Patient presents with New [...] brice gnosed with FM in 1997 in [place] by a PCP. Her main complains are [...] Take 1 Tab by mouth once daily. Hollis-3 Fatty Acids-Vitamin E (FISH OIL) 1,000 mg [...] 50 minutes with the patient in a [id number]-[id number] meeting and >50% time was spent in [...] + + + | [facility] | [address] | [place] [address] | | | LABORATORY | | | [...] Trino | [address] | | [place] [address] [facility] | REGIONAL | | [place] [address] | LABORATORY | + + + + + + + + | Performing | Address | City/State/Zipcode | Phone Number | | Organization | | | | + + + + + | [facility] | [address] | [place] [address] | | | LABORATORY | | | [...] At | + + + | [facility] ([facility]) | [facility] | | [facility] [address] | REGIONAL | | [place] [address] | LABORATORY | + + + + + + + + | Performing | Address | City/State/Zipcode | Phone Number | | Organization | | | | + + + + + | [facility] | [address] | [place] [address] | | | LABORATORY | | | [...] | + + + + + | [facility] | [address] | [place] [address] | | | PATHOLOGY | [address] [...] | + + + + + | [facility] | [address] | [place] [address] | | | PATHOLOGY | [address] [...] | | | DEPARTMENT | | | CHINESE | | | OF | | | [...] | + + + + + | [facility] DEPARTMENT OF | [address] | [place] [address] | | | PATHOLOGY | [address] [...] At | + + + | [facility] ([facility]) Trino | [address] | | [place] [address] | REGIONAL | | [place] [address] | LABORATORY | + + + + + + + + | Performing | Address | City/State/Zipcode | Phone Number | | Organization | | | | + + + + + | [facility] | [address] | [place] [address] | | | LABORATORY | | | [...] by | | | | | | [employer], | | | | | | | | | | | | [address] | | | | | | [place] [address] | | | | | | [phone] | | | | | | | | | | | | [email or web address], | | | | | | Gisella [...] [facility] | [address] | [place], [place] | | | UNIV PTH - INTFC | | [address] | | + + + + + | [facility] | [address] | [place], [place] | | | UNIV PTH - MANUAL | | [address] | | + + + + + [...] | + + + + + | [facility] | [address] | [place] [address] | | | PATHOLOGY | [address] [...] Diagnosis | + + | Rheumatoid arthritis(714.0) ([facility]) - Primary Rheumatoid arthritis | + + documented in this encounter
--- OUTSIDE RECORDS SUMMARY | ~2019-07-09 | XMS | Encounter Summary ---
Demographics + + + | Address | [address] | | | [place] [address] | + + + | Home Phone | | + + + | Preferred Language | Unknown | + + + | Marital Status | | + + + | Mormonism Affiliation | 1001 | + + + | Race | Unknown | + + + | Ethnic Group | Unknown | + + + Author + + + | Author | [facility] | | | and [place] | + + + | Organization | [facility] | | | and [place] | + + + | Address | Unknown | + + + | Phone | Unavailable | + + + Support + + + + + | Name | Relationship | Address | Phone | + + + + + | Norberto Mann | ECON | [address] | | | | | [place], [place] | | | | | [address] | | + + + + + Care Team Providers + +------+ + | Care Produce Sorter Name | Role | Phone | + +------+ + PCP | Unavailable | + +------+ + Encounter Details +--------+ + + + + | Date | Type | Department | Care Team | Description | +--------+ + + + + | 12/10/ | Hospital | [facility] | Conversion | | | 2014 | Encounter | CENTER OUTPATIENT | Transaction, | | | | | PHYSICAL THERAPY | Provider Unknown | | | | | [address] | | | | | | [place], [place] | (Fax) | | | | | [address] | | | | | | [phone] | | | +--------+ + + + [...] 0 | 11/30/19 | | | (HUMALOG [facility]) | under the skin 3 | | | 11 | | | | times daily. | | | | | + + + +---------+ + + documented as of this encounter Progress Notes Georgie Valencia PT - 12/10/2014 1:30 PM PDTFormatting of this note might be different fr om the original. Progress Notes by Georgie Valencia PT at 12/10/14 2901 Author: Georgie Valencia PT Service: (none) Author Type: Physical Therapist Filed: 12/10/14 8781 Date of Service: 12/10/14 4937 Status: Signed [place]: Georgie Valencia PT (Physical Therapist) Therapy Daily Treatment Note Date of Service: 12/10/2014 Treatment Time/Charges: Manual Therapy 59500 x 3 (45 minutes) Insurance Authorization: 5 [...] is waiting for her tax returns to [employer] in [place] to initiate an internal home program. Per [...]
--- OUTSIDE RECORDS SUMMARY | ~2019-07-09 | XMS | Encounter Summary ---
Demographics + + + | Address | [address] | | | [place] [address] | + + + | Home Phone | | + + + | Preferred Language | Unknown | + + + | Marital Status | | + + + | Cheondoism Affiliation | 1001 | + + + | Race | Unknown | + + + | Ethnic Group | Unknown | + + + Author + + + | Author | [facility] | | | and [place] | + + + | Organization | [facility] | | | and [place] | + + + | Address | Unknown | + + + | Phone | Unavailable | + + + Support + + + + + | Name | Relationship | Address | Phone | + + + + + | Norberto Mann | ECON | [address] | | | | | [place], [place] | | | | | [address] | | + + + + + Care Team Providers + +------+ + | Care Mathematician Name | Role | Phone | + +------+ + PCP | Unavailable | + +------+ + Encounter Details +--------+ + + + + | Date | Type | Department | Care Team | Description | +--------+ + + + + | 07/02/ | Hospital | [facility] | Conversion | | | 2013 | Encounter | CENTER [facility] | Transaction, | | | | | CLINIC [address] | Provider Unknown | | | | | [place], [place] | | | | | | [address] | (Fax) | | | | | [phone] | | | +--------+ + + + [...] EXTERNAL | | | | performed at [facility], [address] | | LAB | | | | [address], | | | | | | [place] [address] | | | | + + + + + + | RED CELL | 5.26 (H)Comment: Testing | 3.70 - 5.10 | EXTERNAL | | | COUNT | performed at [facility], [address] | [address] | LAB | | | | [address], | | | | | | [place] [address] | | | | + + + + + + | Hgb | 15.5Comment: Testing | 11.3 - 15.5 | EXTERNAL | | | | performed at [facility], [address] | g/dL | LAB | | | | [address], | | | | | | [place] [address] | | | | + + + + + + | Hematocrit, | 46.5 (H)Comment: Testing | 34.0 - 46.0 % | EXTERNAL | | | POC | performed at [facility], [address] | | LAB | | | | [address], | | | | | | [place] [address] | | | | + + + + + + | MCV | 88.5Comment: Testing | 80.0 - 100.0 fl | EXTERNAL | | | | performed at [facility], [address] | | LAB | | | | [address], | | | | | | [place] [address] | | | | + + + + + + | MCH | 29.5Comment: Testing | 27.0 - 34.0 pg | EXTERNAL | | | | performed at [facility], [address] | | LAB | | | | [address], | | | | | | [place] [address] | | | | + + + + + + | MCHC | 33.3Comment: Testing | 32.0 - 35.5 | EXTERNAL | | | | performed at [facility], [address] | g/dL | LAB | | | | [address], | | | | | | [place] [address] | | | | + + + + + + | RDW-CV | 42.9Comment: Testing | 37 - 53 fl | EXTERNAL | | | | performed at [facility], [address] | | LAB | | | | [address], | | | | | | [place] [address] | | | | + + + + + + | Platelet | 123 (L)Comment: Testing | 150 - 400 K/uL | EXTERNAL | | | Count | performed at [facility], [address] | | LAB | | | Plasma | [address], | | | | | | [place] [address] | | | | + + + + + + | MPV | 9.8Comment: Testing | fl | EXTERNAL | | | | performed at [facility], [address] | | LAB | | | | [address], | | | | | | [place] [address] | | | | + + + + + + | Differentia | AUTOMATEDComment: | | EXTERNAL | | | l Type | Testing performed at | | LAB | | | | [facility], [address] | | | | | | [place] | | | | | | [address] | | | | + + + + + + | % Segmented | 69.8Comment: Testing | % | EXTERNAL | | | | performed at [facility], [address] | | LAB | | | Neutrophils | [address], | | | | | | [place] [address] | | | | + + + + + + | % | 22.8Comment: Testing | % | EXTERNAL | | | Lymphocytes | performed at [facility], [address] | | LAB | | | | [address], | | | | | | [place] [address] | | | | + + + + + + | % Monocytes | 6.0Comment: Testing | % | EXTERNAL | | | | performed at [facility], [address] | | LAB | | | | [address], | | | | | | [place] [address] | | | | + + + + + + | % | 1.0Comment: Testing | % | EXTERNAL | | | Eosinophils | performed at [facility], [address] | | LAB | | | | [address], | | | | | | [place] [address] | | | | + + + + + + | % Basophils | 0.4Comment: Testing | % | EXTERNAL | | | | performed at [facility], [address] | | LAB | | | | [address], | | | | | | [place] [address] | | | | + + + + + + | Absolute | 5.7Comment: Testing | 1.9 - 7.4 K/uL | EXTERNAL | | | Segmented | performed at [facility], [address] | | LAB | | | Neutrophils | [address], | | | | | | [place] [address] | | | | + + + + + + | Absolute | 1.9Comment: Testing | 1.0 - 3.9 K/uL | EXTERNAL | | | Lymphocytes | performed at [facility], [address] | | LAB | | | | [address], | | | | | | [place] [address] | | | | + + + + + + | Absolute | 0.5Comment: Testing | 0 - 0.8 K/uL | EXTERNAL | | | Monocytes | performed at [facility], [address] | | LAB | | | | [address], | | | | | | [place] [address] | | | | + + + + + + | Absolute | 0.1Comment: Testing | 0 - 0.5 K/uL | EXTERNAL | | | Eosinophils | performed at [facility], [address] | | LAB | | | | [address], | | | | | | [place] [address] | | | | + + + + + + | Absolute | 0.0Comment: Testing | 0 - 0.1 K/uL | EXTERNAL | | | Basophils | performed at [facility], [address] | | LAB | | | | [address], | | | | | | [place] [address] | | | | + + + [...] | | | | | [place] [address] | | | | + + + + + + | K | 3.8Comment: Testing | 3.5 - 4.9 | EXTERNAL | | | | performed at [facility], [address] | mmol/L | LAB | | | | [address], | | | | | | [place] [address] | | | | + + + + + + | Cl | 106Comment: Testing | 99 - 109 mmol/L | EXTERNAL | | | | performed at [facility], [address] | | LAB | | | | [address], | | | | | | [place] [address] | | | | + + + + + + | CO2 | 28Comment: Testing | 23 - 32 mmol/L | EXTERNAL | | | | performed at [facility], [address] | | LAB | | | | [address], | | | | | | [place] [address] | | | | + + + + + + | Anion Gap | 8Comment: Testing | 5 - 20 mmol/L | EXTERNAL | | | | performed at [facility], [address] | | LAB | | | | [address], | | | | | | [place] [address] | | | | + + + + + + | Glucose, | 94Comment: Testing | 65 - 99 mg/dL | EXTERNAL | | | Fasting | performed at [facility], [address] | | LAB | | | | [address], | | | | | | [place] [address] | | | | + + + + + + | BUN | 18Comment: Testing | 8 - 25 mg/dL | EXTERNAL | | | | performed at [facility], [address] | | LAB | | | | [address], | | | | | | [place] [address] | | | | + + + + + + | Creatinine | 0.64Comment: Testing | 0.50 - 1.00 | EXTERNAL | | | | performed at [facility], [address] | mg/dL | LAB | | | | [address], | | | | | | [place] [address] | | | | + + + + + + | BUN/Creatin | 28Comment: Testing | | EXTERNAL | | | ine Ratio | performed at [facility], [address] | | LAB | | | | [address], | | | | | | [place] [address] | | | | + + + + + + | Calcium | 9.7Comment: Testing | 8.5 - 10.2 | EXTERNAL | | | | performed at [facility], [address] | mg/dL | LAB | | | | [address], | | | | | | [place] [address] | | | | + + + + + + | Protein, | 6.7Comment: Testing | 6.3 - 8.2 g/dL | EXTERNAL | | | Total | performed at [facility], [address] | | LAB | | | | [address], | | | | | | [place] [address] | | | | + + + + + + | Albumin | 4.5Comment: Testing | 3.3 - 4.8 g/dL | EXTERNAL | | | | performed at [facility], [address] | | LAB | | | | [address], | | | | | | [place] [address] | | | | + + + + + + | Globulin | 2.2Comment: Testing | 1.3 - 4.9 g/dL | EXTERNAL | | | | performed at [facility], [address] | | LAB | | | | [address], | | | | | | [place] [address] | | | | + + + + + + | A/G Ratio | 2.0Comment: Testing | 1.0 - 2.4 | EXTERNAL | | | | performed at [facility], [address] | | LAB | | | | [address], | | | | | | [place] [address] | | | | + + + + + + | Bilirubin | 0.4Comment: Testing | 0.1 - 1.5 mg/dL | EXTERNAL | | | Total | performed at [facility], [address] | | LAB | | | | [address], | | | | | | [place] [address] | | | | + + + + + + | ALP, | 83Comment: Testing | 35 - 115 U/L | EXTERNAL | | | External | performed at [facility], [address] | | LAB | | | | [address], | | | | | | [place] [address] | | | | + + + + + + | AST | 21Comment: Testing | 10 - 45 U/L | EXTERNAL | | | | performed at [facility], [address] | | LAB | | | | [address], | | | | | | [place] [address] | | | | + + + + + + | ALT | 13Comment: Testing | 10 - 65 U/L | EXTERNAL | | | | performed at [facility], [address] | | LAB | | | | [address], | | | | | | [place] [address] | | | | + + + [...] | | | | | | at [facility], [address] | | | | | | [address], | | | | | | [place] [address] | | | | + + + [...]
--- OUTSIDE RECORDS SUMMARY | ~2019-07-09 | XMS | Encounter Summary ---
Demographics + + + | Address | [address] | | | [place] [address] | + + + | Home Phone [...] + | Norberto Oliveros | ECON | [address] | | | [place] | | [place] | | | | | [address] | | + + + + + Care Team Providers + +------+ + | Care Auricular Therapist Name | Role | Phone | + [...] | | | Whit Davis Mailcode: | [place], [place] | | | | | [address] Physician's | [address] | | | | | [address], [address]th Floor | [phone] | | | | | [place], [place] | | | | | | [address] | | | | | | [phone] | | | +--------+--------+ + + + [...]
--- OUTSIDE RECORDS SUMMARY | ~2019-07-09 | XMS | Encounter Summary ---
Demographics + + + | Address | [address] | | | [place] [address] | + + + | Home Phone | | + + + | Preferred Language | Unknown | + + + | Marital Status | | + + + | Taoism Affiliation | 1001 | + + + | Race | Unknown | + + + | Ethnic Group | Unknown | + + + Author + + + | Author | [facility] | | | and [place]eeana | + + + | Organization | [facility] | | | and [place] | + + + | Address | Unknown | + + + | Phone | Unavailable | + + + Support + + + + + | Name | Relationship | Address | Phone | + + + + + | Norberto Mann | ECON | [address] | | | | | [place], [place] | | | | | [address] | | + + + + + Care Team Providers + +------+ + | Care Adjunct Instructor Of Women'S Studies Name | Role | Phone | + +------+ + PCP | Unavailable | + +------+ + Encounter Details +--------+ + + + + | Date | Type | Department | Care Team | Description | +--------+ + + + + | 08/04/ | Hospital | [facility] | Conversion | Mastoiditis, right; | | 2013 | Encounter | [facility] | Transaction, | Parotid mass | | | | [address] | Provider Unknown | | | | | [address] | [phone] | | | | | [place], [place] | | | | | | [address] | | | | | | [phone] | | | +--------+ + + + [...] the neck | | | performed at [facility] 07/10/2014. Biopsy was requested | | | by Dr. Maynard. TECHNIQUE: Grayscale and color Doppler techniques | | | were utilized with a linear 12 MHz transducer. COMPARISON: | | | Outside CT soft tissue neck with and without contrast, 07/10/2014, | | | performed at [facility] FINDINGS: The only nodule that | | [...] CT scan of the neck performed at [facility] 07/10/2014. Biopsy was requested by Dr. Maynard. TECHNIQUE:Grayscale | | and color Doppler techniques were utilized with a linear 12 MHz transducer. | | COMPARISON:Outside CT soft tissue neck with and without contrast, 07/10/2014, performed | | at [facility] FINDINGS:The only nodule that could be identified [...]
--- OUTSIDE RECORDS SUMMARY | ~2019-07-09 | XMS | Encounter Summary ---
Demographics + + + | Address | [address] | | | [place] [address] | + + + | Home Phone | | + + + | Preferred Language | Unknown | + + + | Marital Status | | + + + | Methodist Affiliation | 1001 | + + + | Race | Unknown | + + + | Ethnic Group | Unknown | + + + Author + + + | Author | [facility] | | | and Teeana | + + + | Organization | [facility] | | | and Teeana | + + + | Address | Unknown | + + + | Phone | Unavailable | + + + Support + + + + + | Name | Relationship | Address | Phone | + + + + + | Norberto Mann | ECON | [address] | | | | | [place], [place] | | | | | [address] | | + + + + + Care Team Providers + +------+ + | Care Upholstery Cutter Name | Role | Phone | + +------+ + PCP | Unavailable | + +------+ + Encounter Details +--------+ + + + + | Date | Type | Department | Care Team | Description | +--------+ + + + + | 01/01/ | Hospital | [facility] | Conversion | | | 2014 | Encounter | CENTER OUTPATIENT | Transaction, | | | | | PHYSICAL THERAPY | Provider Unknown | | | | | [address] | | | | | | [place], [place] | (Fax) | | | | | [address] | | | | | | [phone] | | | +--------+ + + + [...] encounter Progress Notes Georgie Valencia PT - 01/01/2015 1:55 PM PDTFormatting of this note might be different fr om the original. Progress Notes by Georgie Valencia PT at 01/01/15 1126 Author: Georgie Valencia PT Service: (none) Author Type: Physical Therapist Filed: 01/01/15 9757 Date of Service: 01/01/15 6634 Status: Signed Lunch Wagon Operator: Georgie Valencia PT (Physical Therapist) Therapy Daily Treatment Note Date of Service: 01/01/2015 Treatment Time/Charges: Therapeutic Exercise 93439 x 2 (25 minutes), Manual Therapy 51464 x 1 (20 minutes) Insurance Authorization: 9 of 17 estimated authorized visits (Medicare) - 05/06 GC Authorization Expiration: 08/26/15 POC Expiration: 02/17/15 Subjective: Pain Complaint: Pt c/o anorectal pain and irregular varying bowel movements. Subjective Comments: Pt states she did not have a bowel movement from Sunday until today. States she was able to go this morning and reports that it was soft and large. States she th en had another bowel movement right before the start of today's therapy session. States she is not sure why sometimes she is regular and sometimes she gets so constipated because she i s trying to eat healthy and clean. Pt states she did not do any exercises since last session because she was really sick yesterday. States she did not even get out of her [facility] se she was feeling so poor. States she is feeling better today. Objective: Daily Treatment: Manual Therapy: Triston Strain-Counterstrain [...] Supine: Unilateral bridge R/L x 10 x 2 sets Bilateral bridge x 10 x 2 sets Bilateral bridge with leg curl roll in/out x 10 x 2 sets Sitting: Pelvic rocking forward/backward Pelvic rocking side/side Pelvic circles CW and CCW LE marching alt R/L LE marching with knee extension alt R/L LE hip flexion with opposite shoulder flexion combo Ptient Education: As per above for new stability ball for cont'd back/core strengthening, e ncouraged better adherence to exercises to be able [...] program for symptom management. Georgie Valencia, PT 01/01/2015 1:47 PM documented in this encounter Plan of Treatment Not on filedocumented as of this encounter Visit Diagnoses Not on filedocumented in this encounter"
--- OUTSIDE RECORDS SUMMARY | ~2019-07-09 | XMS | Encounter Summary ---
Demographics + + + | Address | [address] | | | [place] [address] | + + + | Home Phone | | + + + | Preferred Language | Unknown | + + + | Marital Status | | + + + | Yarsanism Affiliation | 1001 | + + + | Race | Unknown | + + + | Ethnic Group | Unknown | + + + Author + + + | Author | [facility] | | | and Teeana | + + + | Organization | [facility] | | | and Teeana | + + + | Address | Unknown | + + + | Phone | Unavailable | + + + Support + + + + + | Name | Relationship | Address | Phone | + + + + + | Norberto Mann | ECON | [address] | | | | | [place], [place] | | | | | [address] | | + + + + + Care Team Providers + +------+ + | Care Public Health Assistant Name | Role | Phone | + +------+ + PCP | Unavailable | + +------+ + Encounter Details +--------+ + + + + | Date | Type | Department | Care Team | Description | +--------+ + + + + | 01/01/ | Hospital | [facility] | Conversion | | | 2014 | Encounter | CENTER OUTPATIENT | Transaction, | | | | | PHYSICAL THERAPY | Provider Unknown | | | | | [address] | | | | | | [place], [place] | (Fax) | | | | | [address] | | | | | | [phone] | | | +--------+ + + + [...] Notes by Georgie Valencia PT at 01/01/15 6773 Author: Georgie Valencia PT Service: (none) Author Type: Physical Therapist Filed: 01/01/15 1207 Date of Service: 01/01/15 9734 Status: Signed Piano Technician: Georgie Valencia PT (Physical Therapist) Therapy Daily Treatment Note Date of Service: 01/01/2015 Treatment Time/Charges: Therapeutic Exercise 79894 x 2 (25 minutes), Manual Therapy 02826 x 1 (20 minutes) Insurance Authorization: 9 [...] did not even get out of her [facility] se she was feeling so poor. States [...]
--- OUTSIDE RECORDS SUMMARY | ~2019-07-09 | XMS | Encounter Summary ---
Demographics + + + | Address | [address] | | | [place] [address] | + + + | Home Phone [...] + + + | Author | [facility] | + + + | Organization | [facility] | + + + | Address | Unknown | + + + | Phone | Unavailable | + + + Support + + + + + | Name | Relationship | Address | Phone | + + + + + | Norberto Oliveros | ECON | [address] | | | [place] | | [place] | | | | | [address] | | + + + + + Care Team Providers + +------+ + | Care Hansard Reporter Name | Role | Phone | + [...] | | | | | | [place], | | | | | | [place] [address] | | | | | | [phone] | | | +--------+ + + + [...] + + + +---------+ + + | Blevins-3 Fatty | Take 1 Cap by mouth [...] | | | | | | Dr. PAMLEA JULIO | | | | + + + + + + + + | Specimen | + + | | + + + +---------+ + + | Performing | Address | City/State/Zipcode | Phone Number | | Organization | | | | + +---------+ + + | [facility] | | | | | RADIOLOGY | | | | + +---------+ + + documented in this encounter Visit Diagnoses + + | Diagnosis | + + | Rheumatoid arthritis(714.0) (HCC) Rheumatoid arthritis | + + documented in this encounter"
--- OUTSIDE RECORDS SUMMARY | ~2019-07-09 | XMS | Encounter Summary ---
Demographics + + + | Address | [address] | | | [place] [address] | + + + | Home Phone | | + + + | Preferred Language | Unknown | + + + | Marital Status | | + + + | Zoroastrian Affiliation | 1001 | + + + | Race | Unknown | + + + | Ethnic Group | Unknown | + + + Author + + + | Author | [facility] | | | and Teeana | + + + | Organization | [facility] | | | and Teeana | + + + | Address | Unknown | + + + | Phone | Unavailable | + + + Support + + + + + | Name | Relationship | Address | Phone | + + + + + | Norberto Mann | ECON | [address] | | | | | [place], [place] | | | | | [address] | | + + + + + Care Team Providers + +------+ + | Care Hoeing Row Boss Name | Role | Phone | + [...] | | | | | | | Flody Johnson, | | | | | [place] | | DO [address] | | | | s | [address] | | | | | [place] | | [place] | | | | | s [[id number]] | | [address] Phone: | | | | | Procedures | | [phone] | | | | | [place] REMOVAL | | Fax: | | | | | SUBMAND | | [phone] | | | | | STONE,COMPLI | | | | | | | CATED [place] | | | | | | | DILATION OF | | | | | | | SALIVARY | | | | | | | [place]CT [place] | | | | | | | [...] [place] | | | | | [address] | [phone] | | | | | [phone] | | | +--------+---------+ + + + [...] of weeks how you are doing. My assistant merchandise manager's number is [phone] Call Surgeon if you have: Temperature greater [...] interact with your prescription medicines or other jyal-wnn-hpgangc (OTC) medicines. Some prescription medicines have acetaminophen [...] of taking these medicines. Date Last Reviewed: 07/27/201619994533-8410 [employer]. [address] [place] [address], [place] [address]. All righ ts reserved. This information is [...] | TRACEMASTER | | Duration:168 msP Horizontal Redlands:17 degP Front Redlands:38 degQ Onset:512 | | | msQRSD Interval:80 msQT Interval:392 msQTcB:423 msQTcF:413 msQRS | | | Horizontal Redlands:-7 degQRS Redlands:-6 degI-40 Horizontal Redlands:70 degI-40 | | | Front Redlands:125 degT-40 Horizontal Redlands:-29 degT-40 Front Redlands:-10 degT | | | Horizontal Redlands:45 degT Wave Redlands:34 degS-T Horizontal Redlands:59 degS-T | | | Front Redlands:33 degSeverity:- NORMAL ECG -INTERP:SINUS | | | RHYTHMElectronically signed by: Lily RYAN 08-06-2017 12:02:59 | | |QT Interval:392 ms | | |QTcB:423 ms | | |QTcF:413 ms | | |QRS Horizontal Redlands:-7 deg | | |QRS Redlands:-6 deg | | |I-40 Horizontal Redlands:70 deg | | |I-40 Front Redlands:125 deg | | |T-40 Horizontal Redlands:-29 deg | | |T-40 Front Redlands:-10 deg | | |T Horizontal Redlands:45 deg | | |T Wave Redlands:34 deg | | |S-T Horizontal Redlands:59 deg | | |S-T Front Redlands:33 deg | | |Severity:- NORMAL ECG - | | |INTERP:SINUS RHYTHM | | |Electronically signed by: Lily RYAN 08-06-2017 12:02:59 | | + + + + + + + + | Performing | Address | City/State/Zipcode | Phone Number | | Organization | | | | + + + + + | [facility] | [address] | [place] [address] | [phone] | + + + + + POC [...] + + | [facility] | [address] | [place] [address] | | | [facility] | | | | | LABORATORY | [...]
--- OUTSIDE RECORDS SUMMARY | ~2019-07-09 | XMS | Encounter Summary ---
Demographics + + + | Address | [address] | | | [place] [address] | + + + | Home Phone | | + + + | Preferred Language | Unknown | + + + | Marital Status | | + + + | Pentecostalism Affiliation | 1001 | + + + | Race | Unknown | + + + | Ethnic Group | Unknown | + + + Author + + + | Author | [facility] | | | and Teeana | + + + | Organization | [facility] | | | and Teeana | + + + | Address | Unknown | + + + | Phone | Unavailable | + + + Support + + + + + | Name | Relationship | Address | Phone | + + + + + | Norberto Mann | ECON | [address] | | | | | [place], [place] | | | | | [address] | | + + + + + Care Team Providers + +------+ + | Care Shipyard Painter Helper Name | Role | Phone | + +------+ + PCP | Unavailable | + +------+ + Encounter Details +--------+ + + + + | Date | Type | Department | Care Team | Description | +--------+ + + + + | 01/04/ | Hospital | [facility] | Conversion | | | 2014 | Encounter | CENTER OUTPATIENT | Transaction, | | | | | PHYSICAL THERAPY | Provider Unknown | | | | | [address] | | | | | | [place], [place] | (Fax) | | | | | [address] | | | | | | [phone] | | | +--------+ + + + [...] Notes by Georgie Valencia PT at 01/04/15 1415 Author: Georgie Valencia PT Service: (none) Author Type: Physical Therapist Filed: 01/04/15 1425 Date of Service: 01/04/15 6201 Status: Signed Hydraulic Pile Hammer Operator: Georgie Valencia PT (Physical Therapist) Therapy Daily Treatment Note Date of Service: 01/04/2015 Treatment Time/Charges: Therapeutic Exercise 76911 x 3 (40 minutes) Insurance Authorization: 11 [...] visiting and planning/having her mother's 98th birthday democrat. Objective: Daily Treatment: Therapeutic Exercise: Pt instructed [...]
--- OUTSIDE RECORDS SUMMARY | ~2019-07-09 | XMS | Encounter Summary ---
Demographics + + + | Address | [address] | | | [place] [address] | + + + | Home Phone [...] + + + | Author | [facility] | + + + | Organization | [facility] | + + + | Address | Unknown | + + + | Phone | Unavailable | + + + Support + + + + + | Name | Relationship | Address | Phone | + + + + + | Norberto Oliveros | ECON | [address] | | | [place] | | [place] | | | | | [address] | | + + + + + Care Team Providers + +------+ + | Care Employee Services Manager Name | Role | Phone | + +------+ + | uHmberto Ruby MD | PCP | | + +------+ + Reason for Referral Consultation (Routine) +--------+--------+ + + + + | Status | Reason | Specialty | Diagnoses / | Referred By | Referred To | | | | | Procedures | Contact | Contact | +--------+--------+ + + + + | Closed | | Surgery | Diagnoses | Luis E Blakcwell | | | | | Central | MD Rene | [facility] | | | | | obesity | [address] | [address] | | | | | Procedures | [address] | [address] | | | | | CONSULT TO | [place], [place] | Mailcode: | | | | | BARIATRIC | [address] | [facility] | | | | | SURGERY | Phone: | Health and | | | | | | [phone] | [facility], | | | | | | Fax: | [address] | | | | | | [phone] | [place], [place] | | | | | | | [address] | | | | | | | Phone: | | | | | | | | | | | | | | Fax: | | | | | | | [phone] | +--------+--------+ + + + + Reason for Visit + + + | Reason | Comments | + + + | New Patient Visit | | + + + Office Visit [...] | Carolyn, | Rishi | | | Pete | , Diabetes & | Rheumatoid | MD Taj | MD Rene | | | Required | Metabolism | arthritis(70 | [address] | [address] | | | | | 4.0) ([facility]) | [address] | Ave | | | | | Procedures | Rd | [place], [place] | | | | | CONSULT TO | [place], [place] | [address] | | | | | ENDO | [address] | Phone: | | | | | [address] | Phone: | [phone] | | | | | [address] | [phone] | Fax: | | | | | | Fax: | [phone] | | | | | | [phone] | | +--------+ + + + + + Encounter Details +--------+---------+ + + + | Date | Type | Department | Care Team | Description | +--------+---------+ + + + | 03/28/ | Office | [facility] | Rishi, Rene, | Fatigue; Central | | 2010 | Visit | Diabetes Health | MD [address] | obesity; Type 2 | | | | [facility] | [place], [place] | diabetes mellitus | | | | [address] | [address] | ([facility]) | | | | [address] | [phone] | | | | | Physician's | | | | | | Pavilion | | | | | | [facility] | | | | | | [place], [place] | | | | | | [address] | | | | | | [phone] | | | +--------+---------+ + + + [...] + + + | Blood Pressure | 164/64 | 03/28/2011 3:16 PM | | | | | PDT | | + + + + + | Pulse | 86 | 03/28/2011 3:16 PM | | | | | PDT [...] + + + + | Weight | 97.9 kg (215 lb 12.8 | 03/28/2011 3:16 PM | | | | oz) | PDT | | + + + + + | Height | 163.8 cm (5' 4.5") | 03/28/2011 3:16 PM | | | | | PDT | | + + + + + | Body Mass Index | 36.47 | 03/28/2011 3:16 PM | | | | | PDT | | + + + + + documented in this encounter Progress Notes Rene Black[place] MD - 03/28/2011 10:18 PM PDTFormatting of this note might be different f rom the original. Reason for referral: Evaluate Obesity and DM2 PCP: Humberto Ruby MD Referring physician: TAJ KNUTSON (ATUL) [facility] [address] [place] [address] HPI: Carly is a 60 y.o. female here for evaluation of Obesity and type 2 diabetes. Ms. Glo grimes began to gain unwanted weight in her adolescence about the time of puberty. Since the n, she has experienced a gradual weight gain, predominantly in her truncal area and neck. H er lifetime maximal weight was 218 lbs in 2004. She eats very healthy, emphasizing fruits, vegetables, and lean cuts of meat. In 2003 she was diagnosed with type 2 diabetes and initi ally started on Actos (30 lb weight gain) and metformin (hives) but stopped both due to side effects. She is currently on a combination of insulin and pramlintide, which she is tolera ting but has not led to meaningful weight loss. She took estrogen for a brie period but sto pped at the time of the release of the I data and switched to an SSRI to help with the moo d swings. She still has frequent hot flashes. She also recently underwent an breast lumpec félix for a "precancerous" lesion and her daughter has breast cancer Her most recent A1c was ~ 6%. She has no personal history of CAD or PVD and has not had ne rve or renal problems. Exercise: Her activities are limited by her full schedule caring for two ill family members . ROS: Positive for snoring, fatigue, daytime sleepiness ("I don't drive or I'll fall asleep. "), night sweats, headaches, double vision, joint aches, and pain. The remainder of the 13 system ROS has been reviewed and is negative. 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 Temple-3 Fatty Acids-Vitamin E (FISH OIL) 1,000 mg [...] Take 400 Units by mouth once daily. 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 Social History Main Topics Smoking status: Never Smoker Smokeless tobacco: Never Used Alcohol Use: No Drug Use: No Sexually Active: Not on file Other Topics Concern Not on file Social History Narrative No narrative on file Family History Problem Relation Diabetes Father Heart Disease Father Additional Family History Father Central obesity Additional Family History Mother Central obesity Cancer Sister Lung CA in 2 sisiters who smoked Additional Family History Sister Centrally obese, S/P RYGBP Diabetes Maternal Uncle Exam: Vitals: BP 164/64 | Pulse 86 | Ht 1.638 m (5' 4.5") | Wt 97.886 kg (215 lb 12.8 oz) | BMI 36.47 kg/(m^2). Repeat BP with oversize cuff: 140/80 WC: 48" General:alert, pleasant, NAD and Distribution of body fat central lipodystrophic, HEENT: p errla and eomi, Neck: thyroid texture normal, Estimated size: NL, with no palpable nodules. supraclavicular fat pad fullness, or dorsocervical hump, Lungs: Clear throughout, CV: regul ar rhythm and no murmur, Abdomen:obese, soft, nontender, with no hepatomegaly or striae, Ext : no Edema in her legs, but trace to 1+ edema in both upper extremities, Neuro: DTRs 1+, = and motor 5/5 and Skin:normal Labs: 11/29/2010 15:14 SODIUM, PLASMA (LAB) 142 POTASSIUM, PLASMA (LAB) 3.7 CHLORIDE, PLASMA (LAB) 106 TOTAL CO2, PLASMA (LAB) 26 ANION GAP 10 ANION GAP(ALB CORRECTED) 9 BUN, PLASMA (LAB) 11 CREATININE PLASMA (LAB) 0.61 EGFR - SALVADOREAN > 60 EGFR NON -SALVADOREAN > 60 GLUCOSE, PLASMA (LAB) 108 (H) CALCIUM, PLASMA (LAB) 9.9 AST(SGOT) 36 ALT (SGPT) 27 ALK PHOS 88 BILIRUBIN TOTAL 0.4 TOTAL PROTEIN, PLASMA (LAB) 6.8 ALBUMIN, PLASMA (LAB) 4.1 SEDIMENTATION RATE 4 CYCLIC CITRUL PEPTIDE AB, IGG 2 C-REACTIVE PROTEIN 1.6 (H) VITAMIN D 25 HYDROXY 49 Assessment: 1) Partial lipodystrophy (Kobblinger's type): Ms. Mann has a typical body habitus for t his condition, which explains her dyslipidemia and type 2 diabetes. We spent an extensive amount of time discussing body weight regulation, the role of the hypothalamus in the contro l of appetite and energy expenditure, and how the body weight set point increases with defen se of a new (higher) weight range in those with genetic predisposition. We then discussed essie carr importance of lifestyle (low-fat diet, activity) as a first line therapy, as well as medi jeanna and surgical approaches to weight loss. My first recommendation is that she consider ba riatric surgery. She will check into insurance coverage for this and I will submit a referr al for her. Treatment with medical therapy was then discussed. This included centrally act ing medications such as phentermine and sibutramine. Side effects to phentermine were then detailed, including dry mouth, insomnia, increased blood pressure and pulse, and feelings of anxiousness. All questions were answered. 2) Fatigue: She most likely has [place] and I will give her a referral to a sleep specialist f or a diagnostic sleep study. 3) Type 2 DM: She is allergic to metformin and already on pramlintide. We discussed peggy nice adding in a GLP-1 agonist to assist with weight loss, but she is already on three differ ent injectables for diabetes therapy. So we opted not to make further changes. Plan: 1. Referral to bariatric surgery 2. Referral to rule out [place] 3. Continue healthy diet and activity 4. Begin phentermine 37.5 mg a day 5. F/U 2 months [facility] umented in this encounter Plan of Treatment Not on filedocumented as of this encounter Visit Diagnoses + + | Diagnosis | + + | Fatigue Other malaise and fatigue | + + | Central obesity Localized adiposity | + + | Type 2 diabetes mellitus (HCC) Type II or unspecified type diabetes mellitus without | | mention of complication, not stated as uncontrolled | + + documented in this encounter
--- OUTSIDE RECORDS SUMMARY | ~2019-07-09 | XMS | Encounter Summary ---
Demographics + + + | Address | [address] | | | [place] [address] | + + + | Home Phone | | + + + | Preferred Language | Unknown | + + + | Marital Status | | + + + | Mosque Affiliation | 1001 | + + + | Race | Unknown | + + + | Ethnic Group | Unknown | + + + Author + + + | Author | [facility] | | | and [place]ee[place] | + + + | Organization | [facility] | | | and [place] | + + + | Address | Unknown | + + + | Phone | Unavailable | + + + Support + + + + + | Name | Relationship | Address | Phone | + + + + + | Norberto Mann | ECON | [address] | | | | | [place], [place] | | | | | [address] | | + + + + + Care Team Providers + +------+ + | Care Plunger Shovel Operator Name | Role | Phone | [...] | | | | Procedures | | [phone] | | | | | [place] REMOVAL | | Fax: | | | | | SUBMAND | | [phone] | | | | | STONE,COMPLI | | | | | | | CATED [place] | | | | | | | DILATION OF | | | | | | | SALIVARY | | | | | | | DUCT [place] | | | | | | | [...] [place] | | | | | [address] | [phone] | | | | | [phone] | | | +--------+ + + + [...] of weeks how you are doing. My residential living assistant's number is [phone] Call Surgeon if you have: Temperature greater [...] interact with your prescription medicines or other fmtl-wen-agbqorj (OTC) medicines. Some prescription medicines have acetaminophen and other ingredients.Using both prescription a nd OTC acetaminophenfor paincan cause you to overdose. Readthe labels on your OTC [facility] care. This will help youto clearly know [...] of taking these medicines. Date Last Reviewed: 07/27/201619996858-2559 [employer] [address] [place] [address], [place] [address]. All righ ts reserved. This information is [...] | [facility] | | Duration:168 msP Horizontal [place]:17 degP Front [place]:38 degQ Onset:512 | | | msQRSD Interval:80 msQT Interval:392 msQTcB:423 msQTcF:413 msQRS | | | Horizontal [place]:-7 degQRS [place]:-6 degI-40 Horizontal [place]:70 degI-40 | | | Front [place]:125 degT-40 Horizontal [place]:-29 degT-40 Front [place]:-10 degT | | | Horizontal [place]:45 degT Wave [place]:34 degS-T Horizontal [place]:59 degS-T | | | Front [place]:33 degSeverity:- NORMAL ECG -INTERP:SINUS | | | RHYTHMElectronically signed by: Lily RYAN 08-06-2017 12:02:59 | | |QT Interval:392 ms | | |QTcB:423 ms | | |QTcF:413 ms | | |QRS Horizontal [place]:-7 deg | | |QRS [place]:-6 deg | | |I-40 Horizontal [place]:70 deg | | |I-40 Front [place]:125 deg | | |T-40 Horizontal [place]:-29 deg | | |T-40 Front [place]:-10 deg | | |T Horizontal [place]:45 deg | | |T Wave [place]:34 deg | | |S-T Horizontal [place]:59 deg | | |S-T Front [place]:33 deg | | |Severity:- NORMAL ECG - | | |INTERP:SINUS RHYTHM | | |Electronically signed by: Lily RYAN 08-06-2017 12:02:59 | | + + + + + + + + | Performing | Address | City/State/Zipcode | Phone Number | | Organization | | | | + + + + + | [facility] | [address] | [place] [address] | [phone] | + + + + + POC [...] + + | [facility]ONZALE[facility] | [address] | [place] [address] | | | [facility] | | | | | LABORATORY [...]
--- OUTSIDE RECORDS SUMMARY | ~2019-07-09 | XMS | Encounter Summary ---
Demographics + + + | Address | [address] | | | [place] [address] | + + + | Home Phone | | + + + | Preferred Language | Unknown | + + + | Marital Status | | + + + | Christian Affiliation | 1001 | + + + | Race | Unknown | + + + | Ethnic Group | Unknown | + + + Author + + + | Author | [facility] | | | and [place]ee[place] | + + + | Organization | [facility] | | | and [place] | + + + | Address | Unknown | + + + | Phone | Unavailable | + + + Support + + + + + | Name | Relationship | Address | Phone | + + + + + | Norberto Mann | ECON | [address] | | | | | [place], [place] | | | | | [address] | | + + + + + Care Team Providers + +------+ + | Care Walking Dragline Operator Name | Role | Phone | + +------+ + PCP | Unavailable | + +------+ + Encounter Details +--------+ + + + + | Date | Type | Department | Care Team | Description | +--------+ + + + + | 01/12/ | Hospital | [facility] | Conversion | | | 2014 | Encounter | [facility]ENTER OUTPATIENT | Transaction, | | | | | PHYSICAL THERAPY | Provider Unknown | | | | | [address] | | | | | | [place], [place] | (Fax) | | | | | [address] | | | | | | [phone] | | | +--------+ + + + [...] Notes by Georgie Valencia PT at 01/12/15 7155 Author: Georgie Valencia PT Service: (none) Author Type: Physical Therapist Filed: 01/12/15 1600 Date of Service: 01/12/15 9301 Status: Signed Sports Photographer: Georgie Valencia PT (Physical Therapist) Therapy Daily Treatment Note Date of Service: 01/12/2015 Treatment Time/Charges: Therapeutic Exercise 49494 x 3 (45 minutes) Insurance Authorization: 13 [...]
--- OUTSIDE RECORDS SUMMARY | ~2019-07-09 | XMS | Encounter Summary ---
Demographics + + + | Address | [address] | | | [place] [address] | + + + | Home Phone [...] + | Norberto Oliveros | ECON | [address] | | | [place] | | [place] | | | | | [address] | | + + + + + Care Team Providers + +------+ + | Care Post Doctoral Fellow Name | Role | Phone | + [...] | | | Whit Davis Mailcode: | [place], [place] | | | | | [address] | [address] | | | | | [address], [address] | [phone] | | | | | [place], [place] | | | | | | [address] | | | | | | [phone] | | | +--------+--------+ + + + [...]
--- OUTSIDE RECORDS SUMMARY | ~2019-07-09 | XMS | Encounter Summary ---
Demographics + + + | Address | [address] | | | [place] [address] | + + + | Home Phone | | + + + | Preferred Language | Unknown | + + + | Marital Status | | + + + | Islam Affiliation | ADV | + + + [...] + | Norberto Oliveros | ECON | [address] | | | [place] | | [place] | | | | | [address] | | + + + + + Care Team Providers + +------+ + | Care Lens Molder Name | Role | Phone | + [...] | Surgery | Diagnoses | [facility] | | | | | Central | MD Rene | [facility] | | | | | obesity | [address] | | | | | Procedures | [address] | [address] | | | | | CONSULT TO | [place], [place] | Mailcode: | | | | | BARIATRIC | [address] | [facility] | | | | | SURGERY | Phone: | Health and | | | | | | [phone] | [facility], | | | | | | Fax: | [address] | | | | | | [phone] | [place], [place] | | | | | | | [address] | | | | | | | Phone: | | | | | | | | | | | | | | Fax: | | | | | | | [phone] | +--------+--------+ + + + + Reason [...] | | | | | 4.0) (FORM[facility]LY [facility]) | [address] | [address] | | | | | Procedures | Rd | [place], [place] | | | | | CONSULT TO | [place], [place] | [address] | | | | | ENDO | [address] | Phone: | | | | | [address] | Phone: | [phone] | | | | | [address] | [phone] | Fax: | | | | | | Fax: | [phone] | | | | | | [phone] | | +--------+ + + + + [...] | | [facility] | [place], [place] | diabetes mellitus | | | | [address] | [address] | ([facility]) | | | | [address] | [phone] | | | | | Physician's | | | | | | Pavilion | | | | | | [facility] | | | | | | [place], [place] | | | | | | [address] | | | | | | [phone] | | | +--------+---------+ + + + [...] (ATUL) [facility] [address] [place] [address] HPI: Carly is a 60 y.o. female [...] Take 1 Tab by mouth once daily. [place]-3 Fatty Acids-Vitamin E (FISH OIL) 1,000 mg [...] 11 CREATININE PLASMA (LAB) 0.61 EGFR - TURKMEN > 60 EGFR NON -TURKMEN > 60 GLUCOSE, PLASMA (LAB) 108 (H) [...] answered. 2) Fatigue: She most likely has HOSUTON and I will give her a referral [...] mg a day 5. F/U 2 months [facility] umented in this encounter Plan [...]
[~2019-07-09 19:01] MED LIST changes: +HYDROXYZINE HCL25 MG PO
[2019-07-09] MEDS ORDERED: CIPRO500 MG PO (19:17)
[2019-07-09] MEDS ORDERED: MIRALAX17 GM PO (19:17)
[2019-07-09] MEDS ORDERED: CYANOCOBAL1000 MCG/M IM (19:28)
[2019-07-09] MEDS ORDERED: KEFLEX500 MG PO (22:10)
== END 2019-07-09 22:23 | disposition home or self-care (01) ==
LOC: ED 19:01
DX: N39.0 Urinary tract infection, site not specified (principal); E03.9 Hypothyroidism, unspecified; Z88.8 Allergy status to other drugs, medicaments and biological substances; Z88.0 Allergy status to penicillin; Z88.5 Allergy status to narcotic agent; Z88.1 Allergy status to other antibiotic agents; Z79.899 Other long term (current) drug therapy
CPT/HCPCS: 72080; 80053; 81001; 85025; 96365; 96375; 99284-25; J0696; J1885

== ENCOUNTER 2019-09-05 06:15 | Day surgery (SDC) | payer MEDICARE, OTHER ==
[~2019-09-05] VITALS: Ht 162.6 cm; Wt 79.4 kg
== END 2019-09-05 09:00 | disposition home or self-care (01) ==
LOC: DS 06:15 → OPS 06:15 → DS 07:45 → OPS 09:00
PROC: 0DB98ZX Excision of Duodenum, Via Natural or Artificial Opening Endoscopic, Diagnostic (ICD-10-PCS; principal; 2019-09-05)
PROC: 0DB78ZX Excision of Stomach, Pylorus, Via Natural or Artificial Opening Endoscopic, Diagnostic (ICD-10-PCS; 2019-09-05)
PROC: 0DB38ZX Excision of Lower Esophagus, Via Natural or Artificial Opening Endoscopic, Diagnostic (ICD-10-PCS; 2019-09-05)
PROC: 0DB28ZX Excision of Middle Esophagus, Via Natural or Artificial Opening Endoscopic, Diagnostic (ICD-10-PCS; 2019-09-05)
DX: K29.80 Duodenitis without bleeding (principal); K29.60 Other gastritis without bleeding; K25.9 Gastric ulcer, unspecified as acute or chronic, without hemorrhage or perforation; K44.9 Diaphragmatic hernia without obstruction or gangrene; K22.8 Other specified diseases of esophagus; L83 Acanthosis nigricans; K21.0 Gastro-esophageal reflux disease with esophagitis; F32.9 Major depressive disorder, single episode, unspecified; E03.9 Hypothyroidism, unspecified; G47.30 Sleep apnea, unspecified; F41.9 Anxiety disorder, unspecified; E66.01 Morbid (severe) obesity due to excess calories; K43.2 Incisional hernia without obstruction or gangrene; Z98.84 Bariatric surgery status; Z68.31 Body mass index [BMI] 31.0-31.9, adult
CPT/HCPCS: 99153; G0500; J2250; J3010; J7121